=== PATIENT | female | born 1985 | race Caucasian/White ===

== ENCOUNTER 2016-05-03 13:09 | Emergency (ER) | payer OTHER ==
[~2016-05-03] VITALS: Ht 157.5 cm; Wt 90.0 kg
[~2016-05-03 13:09] MED LIST: ACET-1311 PO; ALBUAER2 INH; BCPILLS PO
[2016-05-03 13:13] VITALS: TEMP 36.4; Ht 157.5 cm; Wt 90.0 kg
[2016-05-03] MEDS ORDERED: DEXAMETHASONE SOD INJ 10 MG/ML VIAL IV STA (13:33)
[2016-05-03] MEDS ORDERED: ONDANSETRON INJ 2 MG/ML 2 ML VIAL IV STA (13:33)
[2016-05-03] MEDS ORDERED: HYDROmorphone INJ 1 MG/ML SYR IV STA (13:33)
[2016-05-03] MEDS ORDERED: CYCLOBENZAPRINE HCL 5 MG TAB PO STA (13:33)
[2016-05-03] MEDS ORDERED: CALC1CHW57 (13:47)
[2016-05-03] MEDS ORDERED: FLVHFA110 INH (13:47)
[2016-05-03] MEDS ORDERED: TOPI50TA16 PO (13:47)
--- NOTE | 2016-05-03 13:47 | EMERGENCY ROOM VISIT NOTE ---
ED Visit Note First contact with patient: 13:19 CHIEF COMPLAINT: "Can't walk, lower back pain" HISTORY OF PRESENT ILLNESS: This 30-year-old female patient presents to the emergency department via private vehicle accompanied by female cousin complaining of pain in the low back which began a few years ago, and notes that she has received injections in the past but has had an acute worsening. She states that she has been receiving injections beginning about one year ago by Dr. singh, and is received for self-harm which provide relief for a few months. She states that she was here last night with her daughter, and is also been moving and lifting heavy objects and believes that she has flared up her back pain. She states that it is positional, and with any movement such as sitting, standing or turning of the torso she experiences pain. She was brought back to her room via wheelchair. She points to the left lumbar/gluteal region as a location of the pain that she rates as a 10/10. She states that her left leg feels weak. She denies any urinary or bowel incontinence, numbness or tingling in genital region, urinary symptoms, falls, abdominal pain , fevers or chills. Patient denies any trauma or injury to the area. REVIEW OF SYSTEMS: A review of systems was performed with positives and pertinent negatives listed in the history of present illness. All other systems were reviewed and are negative. ALLERGIES: As noted below MEDICATIONS: As noted below PMH: Asthma, bronchitis, pneumonia, low back pain SOCIAL HISTORY: Patient lives at home, and has twins. PHYSICAL EXAM: VITALS: Vitals are noted on the nurse's note and reviewed by myself. Vital signs stable. GENERAL: 30-year-old female, in no acute distress, nondiaphoretic, well- developed well-nourished. SKIN: The skin was without rashes, erythema, edema, or bruising. Capillary refill less than 2 seconds. NECK: Supple without nuchal rigidity. No cervical spine tenderness. No paraspinous muscle tenderness. HEART: Regular rate and rhythm without murmurs gallops or rubs. LUNGS: Clear to auscultation bilaterally without wheezes, rales or rhonchi. ABDOMEN: Positive bowel sounds x 4. Normal tympanic percussion. Soft, nontender, without masses or organomegaly. MUSCULOSKELETAL: No muscle atrophy, erythema, or edema noted of the back. There is no tenderness over the lumbar spinous processes. There is positive tenderness over the paraspinous muscles of the left inferior lumbar spine. There is no tenderness over the thoracic spine or paraspinous muscles. There are minimal muscle spasms present overlying the left inferior lumbar region extending into the gluteal region on the left. The patient is slow to move around with maximum tenderness with left gluteal region/left inferior lumbar region. NEURO: Deep tendon reflexes 2+ in the lower extremities. Vascularly intact in lower extremity Strength 5/5 and equal in the bilateral lower extremities. EMERGENCY DEPARTMENT COURSE: Patient was seen and evaluated as above. After obtaining a thorough history and physical examination was apparent the patient was experiencing an acute exacerbation of her chronic low back pain. There was no bony tenderness. The pain distribution was overlying the chronic area of her sciatic nerve. There was radiation of pain to her left leg. There were no neurologic deficits, and the patient was able to axial load. IV access was initiated, she was provided with 1 mg Dilaudid IV, 4 mg of Zofran IV, 10 mg of Decadron IV, and 10 mg of Flexeril by mouth. She was reevaluated and was feeling slightly better. She requested more pain medication, therefore was given 0.5 more milligrams of Dilaudid. She was reevaluated and noted to be feeling better. She was offered admission to the hospital for pain control and further workup but declined. I do not suspect any emergent cause to the patient 's pain at this time. She will be discharged home with Flexeril and a Medrol Dosepak. She already receives a prescription for pain medication of which she is to fill. She is to follow up with Dr. singh, and her family doctor regarding today's visit. She was educated upon management, she had questions regarding discharge, was educated upon worrisome symptoms which to return and was discharged home in good condition. Urine dip was unremarkable, urine test was negative. I do not suspect any emergent causes or cauda equina syndrome. In the evaluation and treatment of this patient, the following differential diagnoses were considered: Hip Fracture, Hip Dislocation, Greater Trochanteric Bursitis, Musculoskeletal Pain, Lumbar Radiculopathy, acute exacerbation of chronic low back pain. Problem List Medical Problems: (1) Asthma Status: Chronic (2) Scoliosis Status: Chronic (3) Threatened miscarriage Status: Resolved Current/Historical Medications Scheduled Fluticasone Propionate (Flovent Hfa), 2 PUFFS INH BID Methylprednisolone (Medrol Dosepak), 0 PO DAILY Topiramate (Topamax), 1 TAB PO BID Scheduled PRN Cyclobenzaprine Hcl (Flexeril), 10 MG PO TID PRN for Muscle Spasms Miscellaneous Medications Calcium W/ Vitamins D & K (Calcium + D) Allergies Coded Allergies: Penicillins (Verified Allergy, Unknown, RASH, 05/03/16) Diphenhydramine (Verified Adverse Reaction, Unknown, SLEEPS, 05/03/16) Uncoded Allergies: Pharbedryl (Allergy, Mild, Nausea/vomiting, 06/30/13) Vital Signs Date Time Temp Pulse Resp B/P Pulse Ox O2 Delivery O2 Flow Rate FiO2 05/03/16 16:22 78 18 130/80 96 05/03/16 15:16 77 18 125/76 96 05/03/16 14:56 57 18 115/57 93 Room Air 05/03/16 13:13 36.4 92 17 128/85 97 Room Air Laboratory Results Test 05/03/16 13:33 Medications Administered Medications (Trade) Dose Ordered Sig/Sarah Route Start Time Stop Time Status Last Admin Dose Admin Hydromorphone HCl (Dilaudid Inj) 1 mg NOW STAT IV 05/03/16 13:33 05/03/16 13:35 DC 05/03/16 14:01 1 MG Ondansetron HCl (Zofran Inj) 4 mg NOW STAT IV 05/03/16 13:33 05/03/16 13:35 DC 05/03/16 14:01 4 MG Dexamethasone Sodium Phosphate (Decadron Inj) 10 mg NOW STAT IV 05/03/16 13:33 05/03/16 13:35 DC 05/03/16 14:00 10 MG Cyclobenzaprine HCl (Flexeril Tab) 10 mg NOW STAT PO 05/03/16 13:33 05/03/16 13:35 DC 05/03/16 14:09 10 MG Hydromorphone HCl (Dilaudid Inj) 0.5 mg NOW STAT IV 05/03/16 14:52 05/03/16 14:53 DC 05/03/16 15:16 0.5 MG Departure Information Impression Primary Impression: Acute exacerbation of chronic low back pain Dispostion Home / Self-Care Condition GOOD Prescriptions Cyclobenzaprine Hcl (FLEXERIL) 10 Mg Tab 10 MG PO TID Y for Muscle Spasms for 5 Days, #15 TAB Prov: Sai Alcaraz PA-C 05/03/16 Methylprednisolone (MEDROL DOSEPAK) 4 Mg [place] 0 PO DAILY, #1 PKT Prov: Sai Alcaraz PA-C 05/03/16 Referrals Audra Joya DO (PCP) Patient Instructions My [facility] Additional Instructions You have been treated in the Emergency Department for Back Pain. You have received pain medicine in the emergency department which impairs your ability to operate a vehicle. It is illegal for you to drive after receiving these medicines. You have been prescribed Flexeril (cyclobenzaprine) 1 tabs orally, three times per day NEEDED FOR MUSCLE SPASMS. Do NOT exceed 30 mg (6 tabs) per day. Take your first dose at bedtime as it can make you drowsy. Always take all medications as prescribed. You have been prescribed a Medrol Dosepak. Take this medication as prescribed. You should take the COMPLETE 6-day course of this medication. This is an anti- inflammatory medicine that will help to minimize your symptoms. For pain control, you can use the following [id number] medicines (if >12 yo): - Regular strength (325mg/tab) Tylenol (acetaminophen) 2 tabs every 4-6 hours as needed. Do not exceed 12 tablets in a 24 hour period. Avoid taking more than 4 grams (4000 mg) of Tylenol per day. This includes any other sources of acetaminophen you may take on a regular basis. - Regular strength (200 mg/tab) Advil (ibuprofen) 1-2 tabs every 4-6 hours as needed. Do not exceed a dose of 3200 mg per day. If this is an acute injury, ice can be applied to the area of pain for the first 3 days to help decrease pain and inflammation. After the first 3 days, a heating pad can be used over the area for continued soothing relief. You should schedule a follow-up appointment in 2-3 days with your Primary Care Provider for further evaluation and treatment of your back pain. Please keep your scheduled appointment for your back injections. Return to the Emergency Department if your current symptoms worsen despite treatment course outlined above, or if you develop any of the following symptoms : intractable pain despite aforementioned treatment course, loss of control of your bowel or bladder, numbness or tingling in your groin, or development of a fever. Please return to the emergency department with any new/concerning symptoms.
[2016-05-03] MEDS ORDERED: HYDROmorphone INJ 0.5 MG/0.5 ML SYR IV STA (14:52)
[2016-05-03] MEDS ORDERED: CYCL10TA6 PO (15:33)
[2016-05-03] MEDS ORDERED: METH4PAK PO (15:33)
[2016-05-03 16:22] VITALS: BP 130/80; PULSE 78; O2SAT 96
== END 2016-05-03 16:24 | disposition home or self-care (01) ==
LOC: C.EDB 13:11 → C.EDD 16:24
DX: M54.5 Low back pain (principal); G89.29 Other chronic pain; J45.909 Unspecified asthma, uncomplicated; M41.9 Scoliosis, unspecified; Z79.899 Other long term (current) drug therapy

== ENCOUNTER 2016-08-02 08:06 | Emergency (ER) | payer OTHER ==
[~2016-08-02] VITALS: Ht 157.5 cm; Wt 117.0 kg
[~2016-08-02 08:06] MED LIST changes: -ACET-1311 PO; -ALBUAER2 INH; -BCPILLS PO; +CALC1CHW57; +FLVHFA110 INH; +TOPI50TA16 PO
[2016-08-02 08:10] VITALS: TEMP 36.6; Ht 157.5 cm; Wt 117.0 kg
--- NOTE | 2016-08-02 08:19 | EMERGENCY ROOM VISIT NOTE ---
History First contact with patient: 08:10 Chief Complaint: CHEST PAIN Stated Complaint: CHEST PAIN,LEG ISSUE,SHORT OF BREATH Nursing Triage Summary: pt states, "it feels like theres a baby kicking my leg and now Im having chest pain." pt c/o right stabbing leg pain. denies edema or redness. pt c/o midsternal chest pain that radiates to right chest wall. c/o slight SOB History of Present Illness The patient is a 31 year old female who presents to the Emergency Room with complaints of discomfort and unusual feeling in her right calf for the past 4 days. She describes it as "like there is a baby inside my leg kicking and moving around." She also complains of intermittent stabbing pains in the posterior calf. Pain is worse with walking. She currently rates her leg pain as 10/10, but states "it is discomfort, not pain." She denies any injury to the leg, redness or swelling, recent long travel or surgery, exogenous estrogen use. Today she started having some symptoms of chest tightness, shortness of breath, lightheadedness, and nausea. She states she gets frequent panic attacks and this feels similar to that, but states "I just don't know why I would be anxious right now." She did not try any medications for her pain. She denies any fevers, chills, diaphoresis, vomiting, diarrhea, constipation, abdominal pain, dysuria or urinary frequency, hematuria, abnormal vaginal bleeding. Review of Systems A complete 10 point review of systems was reviewed with the patient with pertinent positives and negatives as per history of present illness. All else were negative. Past Medical/Surgical History Medical Problems: (1) Asthma (2) Scoliosis (3) Threatened miscarriage Family History Diabetes mellitus FH: cancer FH: heart disease Social History Smoking Status: Never Smoker Alcohol Use: none Marital Status: single Occupation Status: employed Current/Historical Medications Scheduled Albuterol Hfa (Ventolin Hfa), 2 PUFFS INH Q4H Fluticasone Propionate (Flovent Hfa), 2 PUFFS INH BID Gabapentin (Gabapentin), 300 MG PO QPM Hydroxychloroquine Sulfate (Hydroxychloroquine Sulfat), 400 MG PO HS Meloxicam (Meloxicam), 15 MG PO HS Topiramate (Topamax), 50 MG PO BID Topiramate (Topiramate), 25 MG PO BID [Calcium&Vitd Pow], 2 PKT PO DAILY Scheduled PRN Oxycodone/Acetaminophen 5MG/325MG (Oxycodone/Acetaminophen 5MG/325MG), 1 TAB PO Q4H PRN for Pain Allergies Coded Allergies: Penicillins (Verified Allergy, Unknown, RASH, 08/02/16) Diphenhydramine (Verified Adverse Reaction, Unknown, SLEEPS, 08/02/16) Uncoded Allergies: Pharbedryl (Allergy, Mild, Nausea/vomiting, 06/30/13) Physical Exam Vital Signs Date Time Temp Pulse Resp B/P (MAP) Pulse Ox O2 Delivery O2 Flow Rate FiO2 08/02/16 11:06 57 16 94/62 97 08/02/16 10:06 57 16 108/45 97 Room Air 08/02/16 08:10 36.6 75 18 110/81 95 Room Air 08/02/16 08:10 96 Room Air Physical Exam CONSTITUTIONAL: No acute distress. Nontoxic appearing. Well appearing and well nourished. Alert and oriented X 4 with normal affect. HEENT: Normocephalic, atraumatic. Pupils equal, round and reactive to light, EOMI. TMs normal. Pharynx normal. Moist mucous membranes. NECK: Supple, full active range of motion without discomfort. RESPIRATORY: Clear to auscultation bilaterally with no wheezing, crackles, rhonchi or stridor. Equal expansion bilaterally. CARDIOVASCULAR: Regular rate and rhythm with no murmurs, rubs or gallops. Normal peripheral perfusion. No edema. GASTROINTESTINAL: Soft, nontender, nondistended. Bowel sounds present in all quadrants. MUSCULOSKELETAL: Full range of motion of all joints without discomfort. There is tenderness to the right posterior calf with palpation, no erythema, swelling , crepitus on palpation. INTEGUMENTARY: No rash or other significant dermatologic conditions noted. NEUROLOGIC: Cranial nerves II-XII grossly intact. No focal neurologic deficits noted. Medical Decision & Procedures ER Provider Diagnostic Interpretation: RIGHT LOWER EXTREMITY VENOUS DOPPLER HISTORY: Right leg pain. COMPARISON STUDY: None. FINDINGS: There is normal compressibility, flow, and augmentation within the right lower extremity deep venous system. IMPRESSION: No DVT within the right lower extremity ----- CHEST 2 VIEWS ROUTINE CLINICAL HISTORY: chest pain, SOB dyspnea COMPARISON STUDY: No previous studies for comparison. FINDINGS: 03/01/2013 IMPRESSION: Negative chest. Laboratory Results 08/02/16 08:25 Red Blood Count 4.29, Mean Corpuscular Volume 92.1, Mean Corpuscular Hemoglobin 30.3, Mean Corpuscular Hemoglobin Concent 32.9, Mean Platelet Volume 9.4, Neutrophils (%) (Auto) 58.7, Lymphocytes (%) (Auto) 32.4, Monocytes (%) (Auto) 6.1, Eosinophils (%) (Auto) 2.0, Basophils (%) (Auto) 0.7, Neutrophils # (Auto) 4.06, Lymphocytes # (Auto) 2.24, Monocytes # (Auto) 0.42, Eosinophils # (Auto) 0.14, Basophils # (Auto) 0.05 08/02/16 08:25 Test 08/02/16 08:19 08/02/16 08:25 08/02/16 11:15 Bedside Urine Test NEG (NEG) White Blood Count 6.92 K/uL (4.8-10.8) Red Blood Count 4.29 M/uL (4.2-5.4) Hemoglobin 13.0 g/dL (12.0-16.0) Hematocrit 39.5 % (37-47) Mean Corpuscular Volume 92.1 fL (80-100) Mean Corpuscular Hemoglobin 30.3 pg (25-34) Mean Corpuscular Hemoglobin Concent 32.9 g/dl (32-36) Platelet Count 322 K/uL (130-400) Mean Platelet Volume 9.4 fL (7.4-10.4) Neutrophils (%) (Auto) 58.7 % Lymphocytes (%) (Auto) 32.4 % Monocytes (%) (Auto) 6.1 % Eosinophils (%) (Auto) 2.0 % Basophils (%) (Auto) 0.7 % Neutrophils # (Auto) 4.06 K/uL (1.4-6.5) Lymphocytes # (Auto) 2.24 K/uL (1.2-3.4) Monocytes # (Auto) 0.42 K/uL (0.11-0.59) Eosinophils # (Auto) 0.14 K/uL (0-0.5) Basophils # (Auto) 0.05 K/uL (0-0.2) RDW Standard Deviation 44.1 fL (36.4-46.3) RDW Coefficient of Variation 13.4 % (11.5-14.5) Immature Granulocyte % (Auto) 0.1 % Immature Granulocyte # (Auto) 0.01 K/uL (0.00-0.02) Anion Gap 7.0 mmol/L (3-11) Est Creatinine Clear Calc Drug Dose 136.8 ml/min Estimated GFR () 129.7 Estimated GFR (Non- 111.9 BUN/Creatinine Ratio 13.5 (10-20) Calcium Level 8.8 mg/dl (8.5-10.1) Magnesium Level 2.2 mg/dl (1.8-2.4) Total Bilirubin 0.4 mg/dl (0.2-1) Aspartate Amino Transf (AST/SGOT) 25 U/L (15-37) Alanine Aminotransferase (ALT/SGPT) 32 U/L (12-78) Alkaline Phosphatase 78 U/L (45-117) Total Protein 7.9 gm/dl (6.4-8.2) Albumin 3.9 gm/dl (3.4-5.0) Globulin 4.0 gm/dl (2.5-4.0) Albumin/Globulin Ratio 1.0 (0.9-2) Thyroid Stimulating Hormone (TSH) 1.750 uIu/ml (0.300-4.500) Urine Color YELLOW Urine Appearance CLEAR (CLEAR) Urine pH 7.0 (4.5-7.5) Urine Specific [place] 1.009 (1.000-1.030) Urine Protein NEG (NEG) Urine Glucose (UA) NEG (NEG) Urine Ketones NEG (NEG) Urine Occult Blood NEG (NEG) Urine Nitrite NEG (NEG) Urine Bilirubin NEG (NEG) Urine Urobilinogen NEG (NEG) Urine Leukocyte Esterase NEG (NEG) Medications Administered Medications (Trade) Dose Ordered Sig/Sarah Route Start Time Stop Time Status Last Admin Dose Admin Sodium Chloride 1,000 ml @ 999 mls/hr Q1H1M STAT IV 08/02/16 08:45 08/02/16 09:45 DC 08/02/16 09:00 999 MLS/HR Morphine Sulfate (MoRPHine SULFATE INJ) 4 mg NOW STAT IV 08/02/16 08:51 08/02/16 08:52 DC 08/02/16 08:59 4 MG Ketorolac Tromethamine (Toradol Inj) 15 mg NOW STAT IV 08/02/16 10:34 08/02/16 10:36 DC 08/02/16 11:14 15 MG Lorazepam (Ativan Inj) 1 mg NOW STAT IV 08/02/16 10:52 08/02/16 10:53 DC 08/02/16 11:13 1 MG ECG Indication: chest pain Rate (beats per minute): 67 Rhythm: normal sinus Findings: no acute ischemic change, no ectopy Comparison ECG Date: no prior available Medical Decision CC: Patient presenting with complaint of right leg pain Interpretation of Labs: No leukocytosis, no anemia, no significant electrolyte abnormalities, normal renal function, normal liver function, normal TSH. No UTI. Negative . Differential Diagnosis: Includes, but not limited to acute coronary syndrome, pulmonary embolism, aortic dissection, pneumothorax, pericarditis, DVT, anxiety , musculoskeletal pain/strain/spasm , GERD, costochondritis, pneumonia, among others. Medication Reconciliation: I attest that I have personally reviewed the patient' s current medication list. Vital signs review: I reviewed the patient's vital signs and interpret them as follows: T: Afebrile; BP: Normotensive; HR: Within normal limits; RR: Within normal limits; Pulse Ox: Within normal limits on room air. Blood pressure screening: The patient was found to have normal blood pressure on screening and does not require follow-up for repeat blood pressure check. Summary: Patient was evaluated at bedside, history of physical exam performed. Patient is alert and oriented, and in no acute distress, though she does appear anxious. She has tenderness to the right posterior calf with palpation, no erythema or swelling appreciated, the calf does not appear cellulitic. Heart and lung exam are normal. EKG reviewed at bedside, normal sinus rhythm with no ischemic concerns. Orders were placed at bedside for labs, urinalysis, EKG, chest x-ray, and venous duplex of the right lower extremity to evaluate for DVT. Labs reviewed, unremarkable as discussed above. Chest x-ray reviewed and unremarkable. I have a very low suspicion for acute coronary syndrome, chest discomfort is atypical and no EKG changes. Negative PERC rule for PE and duplex is negative for DVT. I suspect patient's leg symptoms are due to muscle spasms or cramping, I discussed stretching techniques with the patient to help relieve this. I suspect patient's other symptoms of chest tightness, shortness of breath, nausea, lightheadedness all secondary to her anxiety and probable panic attack, which have all resolved. Patient discussed with Dr. Pendleton, who agrees with my assessment and plan. Patient reassessed multiple times throughout ED stay, she is much improved after interventions, especially after the Ativan, her leg pain is improved and her chest pain/shortness of breath/nausea are all resolved. Discussed plan for discharge, with plan for follow up, patient verbalized understanding. Patient was discharged home in stable condition and ambulatory. Impression Primary Impression: Leg muscle spasm Additional Impression: Anxiety attack Departure Information Dispostion Home / Self-Care Condition GOOD Referrals No Doctor, Assigned (PCP) Patient Instructions My [facility] Additional Instructions You have been treated in the Emergency Department your right leg pain and anxiety. Laboratory results and imaging studies have ruled out any emergent causes for your abdominal pain which would warrant admission or surgery. For pain control, you can use the following [id number]-[id number]-nbqzguh medicines (if >12 yo): - Regular strength (325mg/tab) Tylenol (acetaminophen) 2 tabs every 6 hours as needed. Do not exceed 10 tablets in a 24 hour period. Avoid taking more than 3 grams (3000 mg) of Tylenol per day. This includes any other sources of acetaminophen you may take on a regular basis. - Regular strength (200 mg/tab) Advil (ibuprofen) 1-2 tabs every 4-6 hours as needed. Do not exceed a dose of 3200 mg per day. Drink plenty of water and stay well hydrated. You should use warm compresses to your leg and do stretching exercises as discussed to help relieve muscle pain in your calf. As with any trip to the Emergency Department, you should follow-up with your Primary Care Provider from today's visit. You should also discuss management of your anxiety with your PCP. Return to the emergency department if your symptoms persist despite treatment plan outlined above or if the following symptoms occur: increased fevers, chills , worsening chest pain or shortness of breath, vomiting up blood, worsening pain or swelling/redness in your leg, or any other concerns. Problem Qualifiers Primary Impression: Leg muscle spasm Laterality: right Qualified Codes: M62.838 - Other muscle spasm
[2016-08-02] MEDS ORDERED: SODIUM CHLORIDE 0.9% 1000ML 1,000 ML IV STA (08:45)
[2016-08-02] MEDS ORDERED: MoRPHine SULFATE 4 MG/ML 1 ML CARP\\VIAL IV STA (08:51)
[2016-08-02 09:02] LABS: BASO % 0.7 %; BASO ABS # 0.05 K/uL (0-0.2); COMPLETE YES; HEMATOCRIT 39.5 % (37-47); IG% 0.1 %; LYMPH % 32.4 %; LYMPH ABS # 2.24 K/uL (1.2-3.4); MEAN CELL VOLUME 92.1 fL (80-100); MEAN CORPUSCULAR HEMOGLOBIN 30.3 pg (25-34); MEAN CORPUSCULAR HGB CONC 32.9 g/dl (32-36); MEAN PLATELET VOLUME 9.4 fL (7.4-10.4); MONO % 6.1 %; NEUT % 58.7 %; PLATELET COUNT 322 K/uL (130-400); RED BLOOD COUNT 4.29 M/uL (4.2-5.4); WHITE BLOOD COUNT 6.92 K/uL (4.8-10.8)
[2016-08-02 09:09] LABS: BUN/CREATININE RATIO 13.5 (10-20); CREATININE 0.71 mg/dl (0.60-1.20); MAGNESIUM 2.2 mg/dl (1.8-2.4); POTASSIUM 3.9 mmol/L (3.5-5.1)
[2016-08-02 09:12] LABS: CALCIUM 8.8 mg/dl (8.5-10.1)
[2016-08-02] MEDS ORDERED: MELO15TA4 PO (09:14)
[2016-08-02] MEDS ORDERED: OXYC-643 PO (09:14)
[2016-08-02] MEDS ORDERED: GABA1CAP4 PO (09:14)
[2016-08-02] MEDS ORDERED: TPM25 PO (09:14)
[2016-08-02] MEDS ORDERED: VNTHFA/IN INH (09:14)
[2016-08-02] MEDS ORDERED: VITD PO (09:14)
[2016-08-02] MEDS ORDERED: PLQ200 PO (09:14)
[2016-08-02] MEDS ORDERED: CALCIUM PO (09:14)
[2016-08-02 09:20] LABS: THYROID STIMULATING HORMONE 1.75 uIu/ml (0.300-4.500)
--- NOTE | 2016-08-02 09:39 | DIAGNOSTIC IMAGING REPORT ---
CHEST 2 VIEWS ROUTINE CLINICAL HISTORY: chest pain, SOB dyspnea COMPARISON STUDY: No previous studies for comparison. FINDINGS: 03/01/2013 IMPRESSION: Negative chest. Electronically signed by: Emile Palafox M.D. 08/02/2016 9:37 AM Dictated Date/Time: 08/02/2016 9:37 AM
--- NOTE | 2016-08-02 09:58 | DIAGNOSTIC IMAGING REPORT ---
RIGHT LOWER EXTREMITY VENOUS DOPPLER HISTORY: Right leg pain. COMPARISON STUDY: None. FINDINGS: There is normal compressibility, flow, and augmentation within the right lower extremity deep venous system. IMPRESSION: No DVT within the right lower extremity Electronically signed by: Jasiel Davis M.D. 08/02/2016 9:56 AM Dictated Date/Time: 08/02/2016 9:56 AM
[2016-08-02] MEDS ORDERED: KETOROLAC TROMETHAMINE 30 MG/ML VIAL IV STA (10:34)
[2016-08-02] MEDS ORDERED: LORAZEPAM 2 MG/ML 1 ML VIAL IV STA (10:52)
[2016-08-02 11:06] VITALS: BP 94/62; PULSE 57; O2SAT 97
[2016-08-02 11:38] LABS: URINE APPEARANCE CLEAR (CLEAR); URINE BILIRUBIN NEG (NEG); URINE COLOR YELLOW; URINE NITRITE NEG (NEG); URINE SPECIFIC GRAVITY 1.009 (1.000-1.030); UROBILINOGEN NEG (NEG); ZZUR CULT IF INDIC CLEAN CATCH NO
[2016-08-02 11:46] LABS: MANUAL MICROSCOPIC REQUIRED? NO; REVIEW REQ? NO
== END 2016-08-02 12:25 | disposition home or self-care (01) ==
LOC: C.EDB 08:08
DX: M62.838 Other muscle spasm (principal); F41.9 Anxiety disorder, unspecified; J45.909 Unspecified asthma, uncomplicated; M41.9 Scoliosis, unspecified; Z83.3 Family history of diabetes mellitus; Z80.9 Family history of malignant neoplasm, unspecified; Z82.49 Family history of ischemic heart disease and other diseases of the circulatory system; Z79.899 Other long term (current) drug therapy

== ENCOUNTER 2016-10-23 09:52 | Emergency (ER) | payer OTHER ==
[~2016-10-23] VITALS: Ht 157.5 cm; Wt 108.0 kg
[~2016-10-23 09:52] MED LIST changes: -CALC1CHW57; +CALCIUM PO; +GABA1CAP4 PO; +MELO15TA4 PO; +OXYC-643 PO; +PLQ200 PO; +TPM25 PO; +VITD PO; +VNTHFA/IN INH
[2016-10-23 09:56] VITALS: TEMP 36.5; Ht 157.5 cm; Wt 108.0 kg
[2016-10-23] MEDS ORDERED: VITA1TAB22 PO (10:07)
[2016-10-23] MEDS ORDERED: MULTTAB58 PO (10:07)
[2016-10-23] MEDS ORDERED: [UNRECOGNIZED DRUG - CODE] PO (10:07)
[2016-10-23] MEDS ORDERED: PROMETHAZINE HCL INJ 25 MG/ML 1 ML VIAL IM STA (10:23)
[2016-10-23] MEDS ORDERED: HYDROmorphone INJ 1 MG/ML SYR IM STA (10:23)
[2016-10-23] MEDS ORDERED: DEXAMETHASONE SOD INJ 10 MG/ML VIAL IM ONE (10:30)
--- NOTE | 2016-10-23 11:15 | EMERGENCY ROOM VISIT NOTE ---
History Report prepared by Saad: Lynsey Moncada Under the Supervision of: Dr. Delilah Cortes M.D. First contact with patient: 10:13 Chief Complaint: BACK PAIN Stated Complaint: LOWER BACK, LEG PAIN, CAN'T WALK, COUGH History of Present Illness The patient is a 31 year old female who presents to the Emergency Room with complaints of worsening back pain since yesterday morning. The patient has a history of back problems and states that her back "gives out" a couple of times a year. She has been getting injections with Dr. Maher and that has been helping. Yesterday she bent over to get her boots and her back started to hurt. This pain worsened throughout the day. Her pain radiates down into her left leg. Movement exacerbates her pain, while leaning to the left side helps to alleviate it slightly. She rates her pain as a 10/10 in severity. The patient states that typically she alternates hot and cold compresses and takes her Percocet, but this has not been helping this time. She had some diarrhea throughout the night, states she was not able to make it to the bathroom times one however has had no clear loss of bowel or bladder function. The patient called Dr. Maher' office this morning and was advised to come to the ED for further evaluation because they could not see her in the office today. Source of History: patient Onset: yesterday morning Position: back Symptom Intensity: 10/10 Quality: other (radiating) Timing: worsening Modifying Factors (Worsening): movement Modifying Factors (Relieving): other (leaning left) Associated Symptoms: + diarrhea Review of Systems See HPI for pertinent positives & negatives. A total of 10 systems reviewed and were otherwise negative. Past Medical & Surgical Medical Problems: (1) Asthma (2) Scoliosis (3) Threatened miscarriage Family History Diabetes mellitus FH: cancer FH: heart disease Social History Smoking Status: Never Smoker Alcohol Use: none Marital Status: single Occupation Status: employed Current/Historical Medications Scheduled Albuterol Hfa (Ventolin Hfa), 2 PUFFS INH Q4H Fluticasone Propionate (Flovent Hfa), 2 PUFFS INH BID Gabapentin (Gabapentin), 300 MG PO QPM Hydroxychloroquine Sulfate (Hydroxychloroquine Sulfat), 400 MG PO HS Meloxicam (Meloxicam), 15 MG PO HS Multiple Vitamin (Multivitamin), 1 TAB PO DAILY Prednisone (Prednisone), 10 MG PO DIRECTED Topiramate (Topamax), 50 MG PO BID Topiramate (Topiramate), 25 MG PO BID Vitamin D & K (K2 Plus D3 100-1000 Mcg-Unit), 1 TAB PO DAILY [Opc-3], 1 DOSE PO DAILY Scheduled PRN Cyclobenzaprine Hcl (Flexeril), 10 MG PO TID PRN for Muscle Spasms Oxycodone/Acetaminophen 5MG/325MG (Oxycodone/Acetaminophen 5MG/325MG), 1 TAB PO Q4H PRN for Pain Allergies Coded Allergies: Penicillins (Verified Allergy, Unknown, RASH, 08/02/16) Diphenhydramine (Verified Adverse Reaction, Unknown, SLEEPS, 08/02/16) Uncoded Allergies: Pharbedryl (Allergy, Mild, Nausea/vomiting, 06/30/13) Physical Exam Vital Signs Date Time Temp Pulse Resp B/P (MAP) Pulse Ox O2 Delivery O2 Flow Rate FiO2 10/23/16 12:40 55 14 95/40 99 10/23/16 11:51 53 18 94/41 98 Room Air 10/23/16 10:53 60 16 106/51 97 Room Air 10/23/16 09:56 36.5 80 18 135/79 97 Room Air Physical Exam Vital signs reviewed. General: Well-appearing 31 year old female, in no significant distress. HEENT: No scleral icterus, PERRLA, neck supple. Atraumatic. Cardiovascular: Regular rate and rhythm, no extra sounds. Pulmonary: Clear to auscultation bilaterally, normal work of breathing. Abdomen: Obese, soft, nontender, nondistended, positive bowel sounds. Musculoskeletal: Atraumatic, no peripheral edema. Tender to palpation over the left flank/paraspinous muscles. Pain to the left flank with movement of the left lower extremity. Unable to relax the left leg enough to assess deep tendon reflexes. Neurologic: Patient awake alert and oriented x 3, equal strength in all 4 extremities. Skin: Warm, dry, no rash Medical Decision & Procedures Medications Administered Medications (Trade) Dose Ordered Sig/Sarah Route Start Time Stop Time Status Last Admin Dose Admin Hydromorphone HCl (Dilaudid Inj) 1 mg NOW STAT IM 10/23/16 10:23 10/23/16 10:26 DC 10/23/16 10:44 1 MG Dexamethasone Sodium Phosphate (Decadron Inj) 10 mg NOW ONCE IM 10/23/16 10:30 10/23/16 10:31 DC 10/23/16 10:43 10 MG Promethazine HCl (Phenergan Inj) 25 mg NOW STAT IM 10/23/16 10:23 10/23/16 10:26 DC 10/23/16 10:43 25 MG Cyclobenzaprine HCl (Flexeril Tab) 10 mg NOW STAT PO 10/23/16 11:38 10/23/16 11:39 DC 10/23/16 11:53 10 MG Acetaminophen/ Hydrocodone Bitart (Conway 7.5/325 Tab) 1 tab NOW STAT PO 10/23/16 11:38 10/23/16 11:39 DC 10/23/16 11:53 1 TAB ED Course 1021: Past medical records reviewed. The patient was evaluated in room B12B. A complete history and physical examination was performed. 1023: Phenergan 25 mg IM, Dilaudid 1 mg IM 1030: Decadron 10 mg IM 1137: I reassessed the patient at this time. She is feeling better and resting comfortably. I discussed the results and treatment plan with the patient. I answered all pertaining questions that she had. She expressed understanding and verbalized agreement. The patient will be discharged home. 1138: Conway 7.5/325 1 tab PO, Flexeril 10 mg PO Medical Decision Differential diagnosis: Etiologies such as musculoskeletal, disc herniation, fracture, aortic disease, metastatic disease, cord compression, discitis, infection, renal colic, gastrointestinal, acute exacerbation of chronic back pain, sciatica, cauda equina, as well as others were entertained. This patient was evaluated and appeared to be in discomfort. Patient was sitting up at the bedside leaning to the left. Patient requested pain medications, she was given 1 mg of IM Dilaudid, IM dexamethasone and IM Phenergan. The patient was reassessed and was lying in the bed. She had some improvement of symptoms but did not have complete resolution of the pain. I did explain to the patient that she would need to be on a prednisone taper. This is not new pain for her she is had multiple MRIs and previous by injections. I do not think further imaging is warranted currently. She was then given a Conway tablet and Flexeril 10 mg. She is advised to follow-up with Dr. maher this week and return to the ER for worsening of symptoms or any medical concerns. Medication Reconcilliation Current Medication List: was personally reviewed by me Blood Pressure Screening Patient's blood pressure: Normal blood pressure Hypotensive due to medications. Impression Primary Impression: Lumbar back pain with radiculopathy affecting left lower extremity Scribe Attestation The scribe's documentation has been prepared under my direction and personally reviewed by me in its entirety. I confirm that the note above accurately reflects all work, treatment, procedures, and medical decision making performed by me. Departure Information Dispostion Home / Self-Care Prescriptions Cyclobenzaprine Hcl (FLEXERIL) 10 Mg Tab 10 MG PO TID Y for Muscle Spasms, #21 TAB Prov: Delilah Cortes M.D. 10/23/16 Prednisone (Prednisone) 10 Mg Tab 10 MG PO DIRECTED, #31 TAB 40 mg daily for 4 days, 30 mg daily for 3 days, 20 mg daily for 2 days, 10 mg for 2 days. Prov: Delilah Cortes M.D. 10/23/16 Referrals Vishnu Maher D.O. (PCP) Forms HOME CARE DOCUMENTATION FORM, IMPORTANT VISIT INFORMATION Patient Instructions My [facility] Additional Instructions Diagnosis: Left lumbar back pain with radiculopathy Prednisone 40 mg daily for 4 more days, 30 mg daily for 3 days, 20 mg daily for 2 days, 10 mg daily for 2 days. Flexeril 10 mg 3 times daily as needed for muscle spasm. Warm compresses and gentle stretching. Follow-up with Dr. Maher for further management. Return to the ER for worsening of symptoms or any medical concerns.
[2016-10-23] MEDS ORDERED: CYCLOBENZAPRINE HCL 10 MG TAB PO STA (11:38)
[2016-10-23] MEDS ORDERED: HYDROCODONE/ACETAMINOPHEN 7.5/325MG TAB PO STA (11:38)
[2016-10-23] MEDS ORDERED: PRED10TA PO (12:30)
[2016-10-23] MEDS ORDERED: CYCL10TA6 PO (12:30)
[2016-10-23 12:40] VITALS: BP 95/40; PULSE 55; O2SAT 99
== END 2016-10-23 12:40 | disposition home or self-care (01) ==
LOC: C.EDB 09:57
DX: M54.16 Radiculopathy, lumbar region (principal); R19.7 Diarrhea, unspecified; J45.909 Unspecified asthma, uncomplicated; M41.9 Scoliosis, unspecified; Z83.3 Family history of diabetes mellitus

== ENCOUNTER 2016-12-25 22:24 | Emergency (ER) | payer OTHER ==
[~2016-12-25] VITALS: Ht 160 cm; Wt 111.8 kg
[~2016-12-25 22:24] MED LIST changes: -CALCIUM PO; +MULTTAB58 PO; +PRED10TA PO; +VITA1TAB22 PO; -VITD PO; +[UNRECOGNIZED DRUG - CODE] PO
[2016-12-25 22:26] VITALS: Ht 160 cm; Wt 111.8 kg
[2016-12-25] MEDS ORDERED: SULF800T23 PO (23:20)
[2016-12-25 23:30] VITALS: BP 132/80; PULSE 80; TEMP 36.6; O2SAT 98
[2016-12-25] MEDS ORDERED: SEPTRA DS HOME PACK 1 EA VIAL PO ONE (23:30)
[2016-12-25] MEDS ORDERED: FLUCONAZOLE 50 MG TAB PO ONE (23:30)
--- NOTE | 2016-12-26 05:33 | EMERGENCY ROOM VISIT NOTE ---
History First contact with patient: 23:03 Chief Complaint: PELVIC PAIN Stated Complaint: STOMACH, PELVIC PAIN History of Present Illness The patient is a 31 year old female who presents to the Emergency Room with complaints of ongoing pelvic pain for the past 4 or 5 days. The patient states that she went to her primary care physician with this complaint a few days ago where she had a pelvic exam, vaginal cultures, and urine culture. The patient states that she received a phone call today that her vaginal cultures had a preliminary positive with "staph". The patient states that she is unsure if she was to start any antibiotics, as she did not receive a message that they were being sent to her pharmacy. The patient did call her pharmacy, and they were closed. The patient also is concerned about a yeast infection, which she also states is being untreated. The patient does not have fever, chills, chest pain, or significant abdominal pain. Her discomfort is in the lower abdomen. She does have some dysuria. She rates her discomfort a 6/10. The patient presents to the ER as she would like to start antibiotics. Review of Systems More than 10 systems were reviewed and otherwise negative with the exception of history of present illness. Past Medical/Surgical History Medical Problems: (1) Asthma (2) Scoliosis (3) Threatened miscarriage Family History Diabetes mellitus FH: cancer FH: heart disease Social History Smoking Status: Never Smoker Alcohol Use: none Marital Status: single Occupation Status: employed Current/Historical Medications Scheduled Fluticasone Propionate (Flovent Hfa), 2 PUFFS INH BID Gabapentin (Gabapentin), 300 MG PO QPM Hydroxychloroquine Sulfate (Hydroxychloroquine Sulfat), 400 MG PO HS Meloxicam (Meloxicam), 15 MG PO HS Multiple Vitamin (Multivitamin), 1 TAB PO DAILY Sulfamethoxazole-Trimethoprim (Bactrim Ds 800MG/160MG), 1 TAB PO BID Topiramate (Topamax), 50 MG PO BID Topiramate (Topiramate), 25 MG PO BID Vitamin D & K (K2 Plus D3 100-1000 Mcg-Unit), 1 TAB PO DAILY [Opc-3], 1 DOSE PO DAILY Scheduled PRN Albuterol Hfa (Ventolin Hfa), 2 PUFFS INH Q4H PRN for SOB/Wheezing Oxycodone/Acetaminophen 5MG/325MG (Oxycodone/Acetaminophen 5MG/325MG), 1 TAB PO Q4H PRN for Pain Physical Exam Vital Signs Date Time Temp Pulse Resp B/P (MAP) Pulse Ox O2 Delivery O2 Flow Rate FiO2 12/25/16 23:30 36.6 80 18 132/80 98 Room Air 12/25/16 22:26 36.5 88 18 132/86 98 Room Air Physical Exam VITALS: Vitals are noted on the nurse's note and reviewed by myself. Vital signs stable. GENERAL: Well-developed, well-nourished, white female, who is in no acute distress and resting comfortably. Patient is cooperative with the examination. HEART: Regular rate and rhythm without murmurs gallops or rubs. LUNGS: Clear to auscultation bilaterally without wheezes, rales or rhonchi. No retractions or accessory muscle use. ABDOMEN: Positive normal bowel sounds x 4. Soft, nontender, without masses or organomegaly. No guarding or rebound tenderness. MUSCULOSKELETAL: No muscle atrophy, erythema, or edema noted. Full range of motion without joint tenderness in all extremities. Medical Decision & Procedures Medications Administered Medications (Trade) Dose Ordered Sig/Sarah Route Start Time Stop Time Status Last Admin Dose Admin Trimethoprim/ Sulfamethoxazole (Sulfameth/ Trimeth Ds 800/ 160MG Home Pack) 1 homepack UD ONCE PO 12/25/16 23:30 12/25/16 23:31 DC 12/25/16 23:28 1 HOMEPACK Fluconazole (Diflucan Tab) 150 mg NOW ONCE PO 12/25/16 23:30 12/25/16 23:31 DC 12/25/16 23:28 150 MG ED Course Physical exam and history were performed. Nursing notes, EMR, and Medication List were personally reviewed. Patient appears to have vaginal irritation for the past few days. Evidently she had outpatient testing performed and has preliminary positive cultures. At this time we're unable to access the [facility] system, as evidently this is where this testing was performed. Clinically the patient appears nontoxic and does not have significant abdominal tenderness. I offered repeat pelvic exam, however this was deferred, which appears reasonable as this evaluation has been performed. The patient and I elected to begin antibiotics, and I will give her a course of Bactrim. The patient will also be given a dose of Diflucan. The patient evidently has follow-up tomorrow with her PCPs office, and I feel it is reasonable for her to be discharged home. She is to keep her follow-up and was otherwise invited back to the ER with any new, worsening, or concerning symptoms. The chart was completed utilizing [employer] Speech Voice Recognition Software. Grammatical errors, random word insertions, pronoun errors, and incomplete sentences are an occasional consequence of this system due to software limitations, ambient noise, and hardware issues. Any formal questions or concerns about the content, text, or information contained within the body of this dictation should be directly addressed to the provider for clarification. . Medical Decision Differential diagnosis includes, but is not limited to: Vaginal infection, UTI, yeast infection, STD, and others Impression Primary Impression: Vaginal vault infection Departure Information Dispostion Home / Self-Care Condition GOOD Prescriptions Sulfamethoxazole-Trimethoprim (Bactrim Ds 800MG/160MG) 1 Tab Tab 1 TAB PO BID for 10 Days, #20 TAB Prov: Dangelo Griffin PA-C 12/25/16 Forms HOME CARE DOCUMENTATION FORM, IMPORTANT VISIT INFORMATION Patient Instructions My [facility] Additional Instructions You were seen and evaluated today on an emergency basis only. This is not a substitute for, or an effort to provide, complete comprehensive medical care. It is not possible to recognize and treat all injuries or illnesses in a single emergency department visit. For this reason it is recommended that you followup with your primary care physician tomorrow for ongoing care and evaluation. Trimethoprim-Sulfamethoxazole(Bactrim DS): Take one pill twice daily for 10 days for your skin infection. All antibiotics can cause diarrhea. If this occurs and you feel worse or it does not resolve in 1-2 days follow up with your doctor or return to the Emergency Department as this could be signs of serious underlying problems. Any medication can cause an allergic reaction, stop the pills immediately and return to the ER for rash, hives, breathing difficulties, or swelling. You are welcome to return to the emergency department anytime with new, worsening, or concerning symptoms.
== END 2016-12-25 23:31 | disposition home or self-care (01) ==
LOC: C.EDB 22:25 → C.EDA 23:31
DX: N76.0 Acute vaginitis (principal); J45.909 Unspecified asthma, uncomplicated; Z79.899 Other long term (current) drug therapy; Z83.3 Family history of diabetes mellitus; Z80.9 Family history of malignant neoplasm, unspecified; Z82.49 Family history of ischemic heart disease and other diseases of the circulatory system

== ENCOUNTER 2019-06-13 11:43 | Inpatient (IN) ==
[2019-06-13] MEDS ORDERED: SODIUM CHLORIDE 0.9% 1000ML 1,000 ML IV SCH ×2 (12:15→18:28)
[2019-06-13] MEDS ORDERED: MoRPHine SULFATE 4 MG/ML 1 ML CARP\\VIAL IV STA ×2 (12:28→16:24)
[2019-06-13] MEDS ORDERED: ONDANSETRON INJ 2 MG/ML 2 ML VIAL IV STA (12:28)
[2019-06-13 12:49] LABS: Basophils # (auto) 0.03 K/uL (0-0.2); Basophils % (auto) 0.3 %; Eosinophils # (auto) 0.05 K/uL (0-0.5); Eosinophils % (auto) 0.5 %; Hematocrit (blood only) 37.4 % (37-47); Immature Granulocytes # (auto) 0.01 K/uL (0.00-0.02); Immature Granulocytes % (auto) 0.1 %; Lymphocytes # (auto) 1.53 K/uL (1.2-3.4); Lymphocytes % (auto) 15.1 %; Mean Corpuscular Hemoglobin 32.9 pg (25-34); Mean Corpuscular Hgb Conc 34.8 g/dL (32-36); Mean Corpuscular Volume 94.7 fL (80-100); Mean Platelet Volume 9.4 fL (7.4-10.4); Monocytes # (auto) 0.45 K/uL (0.11-0.59); Monocytes % (auto) 4.5 %; Neutrophils # (auto) 8.03 K/uL (1.4-6.5); Neutrophils % (auto) 79.5 %; Platelet Count 269 K/uL (130-400); RDW Coefficient of Variation 12.7 % (11.5-14.5); RDW Standard Deviation 43.5 fL (36.4-46.3); Red Blood Count 3.95 M/uL (4.2-5.4)
--- NOTE | 2019-06-13 13:00 | Emergency Department Note ---
Impression & Plan Syncope, , Acute right flank pain ED Provider Note NAME: SHEELA STEWART AGE: 34 SEX: F ARRIVES VIA: Walk-In INFORMANT: [Patient] ED PROVIDER(S): Kermit Parikh MD CHIEF COMPLAINT: Syncope PLAN: Disposition: Admitted Condition: [Good] MEDICAL DECISION MAKING: Patient complaint of flank pain, nausea, vomiting and had 2 syncopal episodes. She states she is been sick for several weeks dealing with kidney stone as well as nausea and vomiting with her . She was hydrated. She was given morphine and Zofran. I did discuss the risks of medications in early . The patient is aware. She is currently using nausea and pain medication at home sparingly. The patient was feeling somewhat better after treatment. She was hydrated. Ultrasound imaging shows an unremarkable . There is stones in the right kidney. No hydronephrosis noted. X-ray imaging was de ferred due to . I did discuss the case with Dr. Vera of CLINICAL NURSE REVIEWER. He recommended urology consultation for further management as there is nothing obstetric at this point. I did discuss the case with Dr. Veras of urology. He recommended conservative management in light of the early and patient's high risk status. He did recommend treating her urine with IV antibiotics. The patient was given IV Rocephin. I did discuss the case with the [facility] hospitalist. The patient will be admitted under the care of Dr. Castaneda for further consultation and management. Triage Nursing notes reviewed and agree them. Vital Signs: reviewed and remarkable for [no significant abnormalities] Differential diagnosis: Vasovagal event, dehydration, infection, hypoglycemia, electrolyte abnormalities, cardiac sources, intracerebral event, pulmonary embolism, seizure, toxicologic, neurologic, as well as other pathologies. ER treatment provided: Normal saline hydration IV Zofran IV morphine IV Rocephin Diagnostics interpreted by me: ECG:Rate:65 Rhythm:Normal sinus [place]:Normal QRS:Normal ST segements:No elevation or depression Other:No PACs or PVCs Cardiac Monitoring: Cardiac monitoring ordered by me: The patient was placed on continuous cardiac monitoring and observed. It revealed a normal sinus rhythm at 68 beats per minute without ectopy or evidence of dysrhythmia. Laboratory studies: [See below] an unremarkable CBC and chemistry panel. Urinalysis did reveal hematuria. Imaging studies: Ultrasound imaging of the pelvis and retroperitoneum did reveal an intrauterine with a heart rate of 172. There was right renal stones. No hydronephrosis. Bilateral ureteral jets seen. I refer you to the EMR for further details. Consultation(s): CLINICAL NURSE REVIEWER, Dr. Butch Vera [facility] urology, Dr[facility]as [facility] Dr. Castaneda HPI: The patient is a 34 year old female who presents to the Emergency Room with complaints of syncope. This started earlier today and occurred twice while at work. The patient also notes the following associated symptoms, right flank pain, nausea, vomiting. She has been feeling generally ill for several weeks. She felt lightheaded prior to the events. The patient has found no relieving factors. Current pain is rated as 6/10. The patient is dealing with a right- sided kidney stone. She is currently 9 weeks . She states that she has been followed up and treated conservatively hoping the kidney stone would pass. She occasionally uses Tylenol or even a Percocet from time to time. Before the kidney stone issue she was having nausea and vomiting with this current . She has had an ultrasound and states that the was in the normal position. She is followed by [facility] urology as well as CLINICAL NURSE REVIEWER. She has a history of migraines and notes a very slight headache. Nothing significant by her report. No head trauma. Pt denies fevers, chills, diaphoresis, visual changes, neck pain, chest pain, breathing difficulties, vaginal bleeding, back pain, melena, hematochezia, urinary symptoms, numbness, weakness, lymphadenopathy, rash, or other complaints. ROS: See above HPI for pertinent positives & negatives. A total of [10] systems reviewed and were otherwise negative. PAST MEDICAL HISTORY:[See Below] kidney stone, asthma PAST SURGICAL HISTORY:[See Below]cholecystectomy, gastric bypass FAMILY HISTORY:[See Below] SOCIAL HISTORY:[See Below] lives with family employed at [employer] in the [place] [place] HOME MEDICATIONS:[See Below] ALLERGIES:[See Below] VITALS:[See Below] PHYSICAL EXAMINATION: GENERAL: Awake, alert, uncomfortable-appearing, in no distress HENT: Normocephalic, atraumatic. Oropharynx unremarkable. EYES: Normal conjunctiva. Sclera non-icteric. NECK: Inspection normal. Non-tender. Supple. No nuchal rigidity. FROM. No masses. RESPIRATORY: Clear to auscultation. No wheezes. No rales. Normal respiratory effort. CARDIAC: Normal rate. Normal rhythm. No murmurs. No rubs. Extremities warm and well perfused. Pulses equal. No JVD. GI: Soft, non-distended. Mild right-sided tenderness to palpation. No rebound or guarding. No masses. RECTAL: Deferred. MUSCULOSKELETAL: Atraumatic. Chest examination reveals no tenderness. The back i s symmetrical on inspection without obvious abnormality. There is no CVA tenderness to palpation. No joint edema. LOWER EXTREMITIES: Calves are equal size bilaterally and non-tender. No edema. No discoloration. NEURO: Normal sensorium. No sensory or motor deficits noted. SKIN: No rash or jaundice noted. ED COURSE: [Critical Care:] [None] Kermit Parikh MD Past Med/Surg History Medical History (Updated 06/13/19 @ 17:39 by Sherrill Mayorga PA-C) Allergic rhinitis Asthma (Chronic) Chronic back pain Depression with anxiety GERD (gastroesophageal reflux disease) History of right inguinal hernia IBS (irritable bowel syndrome) Inflammatory polyarthritis OSHEA (nonalcoholic steatohepatitis) Scoliosis (Chronic) Surgical History (Updated 06/13/19 @ 17:28 by Sherrill Mayorga PA-C) H/O gastric bypass (Acute) History of History of cholecystectomy History of colonoscopy History of dental surgery History of tonsillectomy and adenoidectomy Status post panniculectomy Family History Other Cancer Diabetes Heart disease Hypertension Lung disease Seizures Social History Preferred Language: Nam[place]ian Communication Ability: Effective Valet Parking Attendant Required: No Beliefs That Will Affect Care: None Current Living Situation: Family current occupational status: employed Other Information That Helps Us Care for You: No Feels Safe at Home: Yes Safety Concerns: Feels Safe At This Time Smoking Status: Never smoker Hx Alcohol Use: No Hx Substance Use: No Allergies Allergies Allergy/AdvReac Type Severity Reaction Status Date / Time meloxicam Allergy Intermediate breakouts Unverified 06/13/19 14:55 and itchy all over Penicillins Allergy Unknown RASH Verified 06/13/19 14:55 diphenhydramine AdvReac Unknown SLEEPS Verified 06/13/19 14:55 Pharbedryl Allergy Mild Nausea/vomi Uncoded 06/13/19 14:55 ting Home Meds Home Medications Medication Instructions Recorded Confirmed albuterol sulfate 2 puff INHALATION Q6H PRN 03/15/18 06/13/19 bupropion HCl 75 mg PO BID 03/15/18 06/13/19 cyanocobalamin (vitamin B-12) 1,000 mcg IM UD 03/15/18 06/13/19 loratadine [Claritin] 10 mg PO DAILY PRN 03/15/18 06/13/19 omeprazole 20 mg PO DAILY 03/15/18 06/13/19 triamcinolone acetonide 1 applic TOPICAL BID PRN 03/15/18 06/13/19 PNV [id number] fumarate-FA 1 tab PO DAILY 05/09/19 06/13/19 [] azelastine 2 spray INTRANASAL BID 05/09/19 06/13/19 buspirone 15 mg PO BID 05/09/19 06/13/19 fluticasone propion-salmeterol 1 inh INHALATION BID 05/09/19 06/13/19 [Advair Diskus] hyoscyamine sulfate 0.125 mg PO Q4 PRN 05/09/19 06/13/19 ondansetron 4 mg PO Q8H PRN 05/09/19 06/13/19 pediatric multivitamin no.76 1 tab PO DAILY 05/09/19 06/13/19 [Flintstones Complete] oxycodone-acetaminophen 1 tab PO Q6H PRN 06/13/19 06/13/19 Results & Data (ED) Vital Signs Vital Signs - 24 hr 06/13/19 11:44 06/13/19 12:00 06/13/19 12:14 Temperature 36.6 C Temperature Source Oral Pulse Rate - Lying 63 Pulse Rate - Sitting 76 Pulse Rate - Standing 95 H Pulse Rate 85 67 Pulse Rate [Apical] 64 Pulse Rate from SpO2 Sensor Pulse Rhythm Regular Pulse Rhythm [Apical] Regular Pulse Strength [Apical] Normal Respiratory Rate 22 15 Respiratory Effort / Characteristics Non-Labored Non-Labored Respiratory Depth Normal Normal Respiratory Pattern Regular Regular Blood Pressure - Lying 101/61 Blood Pressure - Sitting 109/75 Blood Pressure- Standing 108/71 Blood Pressure 109/64 Blood Pressure [Left Arm] 102/62 Blood Pressure Mean 79 Blood Pressure Mean [Left Arm] 75 Blood Pressure Position Sitting Blood Pressure Position [Left Arm] Sitting Pulse Oximetry 97 99 Oxygen Delivery Method Room Air Room Air Sepsis Recent Fever Within 48 Hours No Sepsis Action Taken by Nursing No Action Required 06/13/19 12:16 06/13/19 12:17 06/13/19 12:18 Temperature Temperature Source Pulse Rate - Lying Pulse Rate - Sitting Pulse Rate - Standing Pulse Rate 95 H 67 81 Pulse Rate [Apical] Pulse Rate from SpO2 Sensor 93 H 68 78 Pulse Rhythm Pulse Rhythm [Apical] Pulse Strength [Apical] Respiratory Rate 19 15 21 Respiratory Effort / Characteristics Respiratory Depth Respiratory Pattern Blood Pressure - Lying Blood Pressure - Sitting Blood Pressure- Standing Blood Pressure 108/71 117/77 Blood Pressure [Left Arm] Blood Pressure Mean 79 92 Blood Pressure Mean [Left Arm] Blood Pressure Position Blood Pressure Position [Left Arm] Pulse Oximetry 100 99 99 Oxygen Delivery Method Sepsis Recent Fever Within 48 Hours Sepsis Action Taken by Nursing 06/13/19 12:30 06/13/19 12:31 06/13/19 12:45 Temperature Temperature Source Pulse Rate - Lying Pulse Rate - Sitting Pulse Rate - Standing Pulse Rate 76 66 63 Pulse Rate [Apical] 68 Pulse Rate from SpO2 Sensor 72 66 62 Pulse Rhythm Regular Pulse Rhythm [Apical] Regular Pulse Strength [Apical] Normal Respiratory Rate 20 14 16 Respiratory Effort / Characteristics Non-Labored Respiratory Depth Normal Respiratory Pattern Regular Blood Pressure - Lying Blood Pressure - Sitting Blood Pressure- Standing Blood Pressure 117/72 Blood Pressure [Left Arm] 117/72 Blood Pressure Mean 89 Blood Pressure Mean [Left Arm] 87 Blood Pressure Position Blood Pressure Position [Left Arm] Sitting Pulse Oximetry 98 99 98 Oxygen Delivery Method Room Air Sepsis Recent Fever Within 48 Hours Sepsis Action Taken by Nursing 06/13/19 13:00 06/13/19 13:15 06/13/19 14:35 Temperature Temperature Source Pulse Rate - Lying Pulse Rate - Sitting Pulse Rate - Standing Pulse Rate 56 L 48 L 57 L Pulse Rate [Apical] Pulse Rate from SpO2 Sensor 58 L 48 L 58 L Pulse Rhythm Pulse Rhythm [Apical] Pulse Strength [Apical] Respiratory Rate 18 16 15 Respiratory Effort / Characteristics Respiratory Depth Respiratory Pattern Blood Pressure - Lying Blood Pressure - Sitting Blood Pressure- Standing Blood Pressure 126/88 Blood Pressure [Left Arm] Blood Pressure Mean 100 Blood Pressure Mean [Left Arm] Blood Pressure Position Blood Pressure Position [Left Arm] Pulse Oximetry 100 99 100 Oxygen Delivery Method Sepsis Recent Fever Within 48 Hours Sepsis Action Taken by Nursing 06/13/19 14:36 06/13/19 14:37 06/13/19 14:45 Temperature Temperature Source Pulse Rate - Lying Pulse Rate - Sitting Pulse Rate - Standing Pulse Rate 61 59 L 59 L Pulse Rate [Apical] Pulse Rate from SpO2 Sensor 61 61 59 L Pulse Rhythm Pulse Rhythm [Apical] Pulse Strength [Apical] Respiratory Rate 20 22 16 Respiratory Effort / Characteristics Respiratory Depth Respiratory Pattern Blood Pressure - Lying Blood Pressure - Sitting Blood Pressure- Standing Blood Pressure 96/61 L Blood Pressure [Left Arm] Blood Pressure Mean 72 Blood Pressure Mean [Left Arm] Blood Pressure Position Blood Pressure Position [Left Arm] Pulse Oximetry 100 100 97 Oxygen Delivery Method Sepsis Recent Fever Within 48 Hours Sepsis Action Taken by Nursing 06/13/19 15:00 06/13/19 15:01 06/13/19 15:15 Temperature Temperature Source Pulse Rate - Lying Pulse Rate - Sitting Pulse Rate - Standing Pulse Rate 66 62 58 L Pulse Rate [Apical] Pulse Rate from SpO2 Sensor 69 63 57 L Pulse Rhythm Pulse Rhythm [Apical] Pulse Strength [Apical] Respiratory Rate 17 18 16 Respiratory Effort / Characteristics Respiratory Depth Respiratory Pattern Blood Pressure - Lying Blood Pressure - Sitting Blood Pressure- Standing Blood Pressure 105/54 L Blood Pressure [Left Arm] Blood Pressure Mean 74 Blood Pressure Mean [Left Arm] Blood Pressure Position Blood Pressure Position [Left Arm] Pulse Oximetry 97 98 98 Oxygen Delivery Method Sepsis Recent Fever Within 48 Hours Sepsis Action Taken by Nursing 06/13/19 15:30 06/13/19 15:31 06/13/19 15:45 Temperature Temperature Source Pulse Rate - Lying Pulse Rate - Sitting Pulse Rate - Standing Pulse Rate 67 62 63 Pulse Rate [Apical] Pulse Rate from SpO2 Sensor 68 60 63 Pulse Rhythm Pulse Rhythm [Apical] Pulse Strength [Apical] Respiratory Rate 14 17 17 Respiratory Effort / Characteristics Respiratory Depth Respiratory Pattern Blood Pressure - Lying Blood Pressure - Sitting Blood Pressure- Standing Blood Pressure 99/56 L Blood Pressure [Left Arm] Blood Pressure Mean 64 Blood Pressure Mean [Left Arm] Blood Pressure Position Blood Pressure Position [Left Arm] Pulse Oximetry 96 98 97 Oxygen Delivery Method Sepsis Recent Fever Within 48 Hours Sepsis Action Taken by Nursing 06/13/19 16:00 06/13/19 16:01 06/13/19 16:15 Temperature Temperature Source Pulse Rate - Lying Pulse Rate - Sitting Pulse Rate - Standing Pulse Rate 60 60 91 H Pulse Rate [Apical] Pulse Rate from SpO2 Sensor 60 60 90 Pulse Rhythm Pulse Rhythm [Apical] Pulse Strength [Apical] Respiratory Rate 16 18 21 Respiratory Effort / Characteristics Respiratory Depth Respiratory Pattern Blood Pressure - Lying Blood Pressure - Sitting Blood Pressure- Standing Blood Pressure 103/59 L Blood Pressure [Left Arm] Blood Pressure Mean 67 Blood Pressure Mean [Left Arm] Blood Pressure Position Blood Pressure Position [Left Arm] Pulse Oximetry 97 97 97 Oxygen Delivery Method Sepsis Recent Fever Within 48 Hours Sepsis Action Taken by Nursing 06/13/19 16:30 06/13/19 16:31 Temperature Temperature Source Pulse Rate - Lying Pulse Rate - Sitting Pulse Rate - Standing Pulse Rate 69 78 Pulse Rate [Apical] Pulse Rate from SpO2 Sensor 67 78 Pulse Rhythm Pulse Rhythm [Apical] Pulse Strength [Apical] Respiratory Rate 20 21 Respiratory Effort / Characteristics Respiratory Depth Respiratory Pattern Blood Pressure - Lying Blood Pressure - Sitting Blood Pressure- Standing Blood Pressure 105/68 Blood Pressure [Left Arm] Blood Pressure Mean 78 Blood Pressure Mean [Left Arm] Blood Pressure Position Blood Pressure Position [Left Arm] Pulse Oximetry 97 98 Oxygen Delivery Method Sepsis Recent Fever Within 48 Hours Sepsis Action Taken by Nursing Laboratory Data Result diagrams: 06/13/19 12:36 06/13/19 12:36 Lab Results 06/13/19 06/13/19 06/13/19 Range/Units 12:36 12:36 12:41 WBC 10.10 (4.8-10.8) K/uL RBC 3.95 L (4.2-5.4) M/uL Hgb 13.0 (12.0-16.0) g/dL Hct 37.4 (37-47) % MCV 94.7 (80-100) fL MCH 32.9 (25-34) pg MCHC 34.8 (32-36) g/dL RDW Std Deviation 43.5 (36.4-46.3) fL RDW Coeff of Shashi 12.7 (11.5-14.5) % Plt Count 269 (130-400) K/uL MPV 9.4 (7.4-10.4) fL Immature Gran % (Auto) 0.1 % Neut % (Auto) 79.5 % Lymph % (Auto) 15.1 % [place] % (Auto) 4.5 % Eos % (Auto) 0.5 % Baso % (Auto) 0.3 % Immature Gran # (Auto) 0.01 (0.00-0.02) K/uL Neut # (Auto) 8.03 H (1.4-6.5) K/uL Lymph # (Auto) 1.53 (1.2-3.4) K/uL [place] # (Auto) 0.45 (0.11-0.59) K/uL Eos # (Auto) 0.05 (0-0.5) K/uL Baso # (Auto) 0.03 (0-0.2) K/uL Sodium 136 (136-145) mmol/L Potassium 4.0 (3.5-5.1) mmol/L Chloride 107 (98-107) mmol/L Carbon Dioxide 22 (21-32) mmol/L Anion Gap 7.0 (3-11) BUN 8 (7-18) mg/dl Creatinine 0.44 L (0.6-1.2) mg/dl Est Cr Clr Drug Dosing Not Reportable Est GFR ( Amer) > 150.0 Est GFR (Non-Af Amer) 129.9 BUN/Creatinine Ratio 18.0 (10-20) Glucose 87 (70-99) mg/dl Calcium 9.0 (8.5-10.1) mg/dl Magnesium 2.1 (1.8-2.4) mg/dl Total Bilirubin 0.4 (0.2-1) mg/dl AST 13 L (15-37) U/L ALT 18 (12-78) U/L Alkaline Phosphatase 69 (45-117) U/L Total Protein 7.0 (6.4-8.2) gm/dl Albumin 3.5 (3.4-5.0) gm/dl Globulin 3.5 (2.5-4.0) gm/dl Albumin/Globulin Ratio 1.0 (0.9-2) TSH 0.096 L (0.300-4.500) uIu/ml Free T4 1.24 (0.8-1.6) ng/dl Thyroxine (T4) 11.3 H (4.5-10.9) mcg/dl Free T3 2.88 (2.3-4.2) pg/ml Total T3 1.40 (0.60-1.81) ng/ml Urine Color Urine Appearance (Clear) Urine pH (4.5-7.5) Ur Specific [place] (1.000-1.030) Urine Protein (Negative) Urine Glucose (UA) (Negative) Urine Ketones (Negative) Urine Blood (Negative) Urine Nitrite (Negative) Urine Bilirubin (Negative) Urine Urobilinogen (Negative) Ur Leukocyte Esterase (Negative) Urine WBC (Auto) (0-5) /hpf Urine RBC (Auto) (0-4) /hpf U Hyaline Cast (Auto) (0-5) /lpf U Epithel Cells (Auto) (0-5) /lpf Urine Bacteria (Auto) (Negative) 06/13/19 Range/Units 14:36 WBC (4.8-10.8) K/uL RBC (4.2-5.4) M/uL Hgb (12.0-16.0) g/dL Hct (37-47) % MCV (80-100) fL MCH (25-34) pg MCHC (32-36) g/dL RDW Std Deviation (36.4-46.3) fL RDW Coeff of Shashi (11.5-14.5) % Plt Count (130-400) K/uL MPV (7.4-10.4) fL Immature Gran % (Auto) % Neut % (Auto) % Lymph % (Auto) % [place] % (Auto) % Eos % (Auto) % Baso % (Auto) % Immature Gran # (Auto) (0.00-0.02) K/uL Neut # (Auto) (1.4-6.5) K/uL Lymph # (Auto) (1.2-3.4) K/uL [place] # (Auto) (0.11-0.59) K/uL Eos # (Auto) (0-0.5) K/uL Baso # (Auto) (0-0.2) K/uL Sodium (136-145) mmol/L Potassium (3.5-5.1) mmol/L Chloride (98-107) mmol/L Carbon Dioxide (21-32) mmol/L Anion Gap (3-11) BUN (7-18) mg/dl Creatinine (0.6-1.2) mg/dl Est Cr Clr Drug Dosing Est GFR ( Amer) Est GFR (Non-Af Amer) BUN/Creatinine Ratio (10-20) Glucose (70-99) mg/dl Calcium (8.5-10.1) mg/dl Magnesium (1.8-2.4) mg/dl Total Bilirubin (0.2-1) mg/dl AST (15-37) U/L ALT (12-78) U/L Alkaline Phosphatase (45-117) U/L Total Protein (6.4-8.2) gm/dl Albumin (3.4-5.0) gm/dl Globulin (2.5-4.0) gm/dl Albumin/Globulin Ratio (0.9-2) TSH (0.300-4.500) uIu/ml Free T4 (0.8-1.6) ng/dl Thyroxine (T4) (4.5-10.9) mcg/dl Free T3 (2.3-4.2) pg/ml Total T3 (0.60-1.81) ng/ml Urine Color Yellow Urine Appearance Clear (Clear) Urine pH 6.5 (4.5-7.5) Ur Specific [place] 1.017 (1.000-1.030) Urine Protein Negative (Negative) Urine Glucose (UA) Negative (Negative) Urine Ketones 2+ H (Negative) Urine Blood 3+ H (Negative) Urine Nitrite Negative (Negative) Urine Bilirubin Negative (Negative) Urine Urobilinogen Negative (Negative) Ur Leukocyte Esterase Negative (Negative) Urine WBC (Auto) 1-5 (0-5) /hpf Urine RBC (Auto) 10-30 H (0-4) /hpf U Hyaline Cast (Auto) 1-5 (0-5) /lpf U Epithel Cells (Auto) >30 H (0-5) /lpf Urine Bacteria (Auto) 1+ H (Negative) Administered Medications Bupropion HCl (Wellbutrin) 75 mg PO BID CÉSAR Stop: 07/13/19 20:59 Last Admin: 06/13/19 20:58 Dose: 75 mg Documented by: [id number] Buspirone HCl (Buspar) 15 mg PO BID CÉSAR Stop: 07/13/19 20:59 Last Admin: 05/01/20 20:59 Dose: 15 mg Documented by: [id number] Ampicillin Sodium 1,000 mg/ (Sodium Chloride) 50 mls @ 100 mls/hr IV Q6H [facility]; Protocol Stop: 06/18/19 18:59 Last Admin: 06/13/19 20:57 Dose: 100 mls/hr Documented by: [id number] Sodium Chloride (Nss 1000ml) 1,000 mls @ 100 mls/hr IV .Q10H CÉSAR Stop: 06/14/19 04:27 Last Admin: 06/13/19 19:05 Dose: 100 mls/hr Documented by: [id number] Oxycodone HCl (Roxicodone Immediate Rel) 5 mg PO Q6H PRN PRN Reason: Pain Stop: 06/27/19 18:39 Last Admin: 06/13/19 18:45 Dose: 5 mg Documented by: [id number] Discontinued Medications Sodium Chloride (Nss 1000ml) 1,000 mls @ 999 mls/hr IV .Q1H1M CÉSAR Stop: 06/13/19 13:15 Last Infusion: 06/13/19 13:41 Dose: 0 mls/hr Documented by: [id number] Admin: 06/13/19 12:40 Dose: 999 mls/hr Documented by: [id number] Ceftriaxone Sodium (Rocephin) 1,000 mg in 50 mls @ 100 mls/hr IV NOW STA Stop: 06/13/19 16:53 Last Infusion: 06/13/19 18:25 Dose: 0 mls/hr Documented by: [id number] Admin: 06/13/19 16:33 Dose: 100 mls/hr Documented by: [id number] Sodium Chloride (Nss 1000ml) 1,000 mls @ 125 mls/hr IV .Q8H STA Stop: 06/14/19 00:23 Last Infusion: 06/13/19 19:05 Dose: 0 mls/hr Documented by: [id number] Admin: 06/13/19 16:33 Dose: 125 mls/hr Documented by: [id number] Morphine Sulfate (Morphine Sulfate) 4 mg IV NOW STA Stop: 06/13/19 12:29 Last Admin: 06/13/19 12:41 Dose: 4 mg Documented by: [id number] Morphine Sulfate (Morphine Sulfate) 4 mg IV NOW STA Stop: 06/13/19 16:25 Last Admin: 06/13/19 16:34 Dose: 4 mg Documented by: [id number] Ondansetron HCl (Zofran) 4 mg IV NOW STA Stop: 06/13/19 12:29 Last Admin: 06/13/19 12:41 Dose: 4 mg Documented by: [id number] Discharge Plan Visit Data *Final* Discharge Date/Time: 06/13/19 18:14 Chief Complaint: Syncope Stated Complaint: PASSED OUT AT WORK, 9WKS , KIDNEY STONE ED Provider: Kermit Parikh Discharge Problem: Syncope, , Acute right flank pain Patient Disposition: Admitted As Inpatient Discharge Instructions Interventions: ED Discharge Assessment Last Done: 06/13/19 18:14
[2019-06-13 13:06] LABS: Alanine Aminotransferase 18 U/L (12-78); Albumin Level 3.5 gm/dl (3.4-5.0); Aspartate Aminotransferase 13 U/L (15-37); Blood Urea Nitrogen 8 mg/dl (7-18); Carbon Dioxide 22 mmol/L (21-32); Chloride 107 mmol/L (98-107); Est GFR (African American) > 150.0; Est GFR (Non-African American) 129.9; Glucose 87 mg/dl (70-99); Magnesium 2.1 mg/dl (1.8-2.4); Sodium 136 mmol/L (136-145)
[2019-06-13 13:16] LABS: Alkaline Phosphatase 69 U/L (45-117); Bilirubin,Total 0.4 mg/dl (0.2-1); Globulin 3.5 gm/dl (2.5-4.0); Thyroid Stimulating Hormone 0.096 uIu/ml (0.300-4.500)
[2019-06-13 13:29] LABS: T4 Free Thyroxine 1.24 ng/dl (0.8-1.6)
--- NOTE | 2019-06-13 14:46 | Ultrasound Report ---
RENAL ULTRASOUND HISTORY: right flank pain, kidney stone, 9 weeks preg COMPARISON: Abdomen and pelvis CT 03/26/2019. FINDINGS: Right kidney: 13.0 cm. No hydronephrosis. There are 2 stones within the lower pole measuring 9 and 6 mm. Normal corticomedullary differentiation and cortical thickness. Left kidney: 12.3 cm. No hydronephrosis. Normal corticomedullary differentiation and cortical thickne ss. Bladder: No bladder wall thickening. The bilateral ureteral jets were identified. IMPRESSION: Right-sided nephrolithiasis. No hydronephrosis. ACT 112: Negative or not required by law. Electronically signed by: Jasiel Davis M.D. 06/13/2019 2:45 PM
[2019-06-13 14:49] LABS: Appearance Urine Clear (Clear); Bacteria Urine Automated 1+ (Negative); Bilirubin Urine Negative (Negative); Blood Urine 3+ (Negative); Color Urine Yellow; Epithelial Cell Urine Auto >30 /lpf (0-5); Glucose Urine UA Negative (Negative); Ketones Urine 2+ (Negative); Leukocyte Esterase Urine Negative (Negative); Nitrite Urine Negative (Negative); Protein Urine Negative (Negative); Specific Gravity Urine 1.017 (1.000-1.030); Urobilinogen Urine Negative (Negative); pH Urine 6.5 (4.5-7.5)
--- NOTE | 2019-06-13 15:11 | Ultrasound Report ---
US OB limited CLINICAL HISTORY: right flank pain COMPARISON STUDY: Pelvic ultrasound 05/09/2019. FINDINGS: Transabdominal scanning of the pelvis was performed with new accounts representative images submitted. T here is a single intrauterine gestational sac, yolk sac, and pole. The crown-rump length measur es 2.59 cm consistent with a 9 week and 3 day intrauterine gestation. heart rate is 172 bpm. Th e yolk sac is 5 mm. No significant subchorionic hematoma. No pelvic free fluid. No adnexal masses aundrea ntified. IMPRESSION: Single viable 9 week and 3 day intrauterine gestation. ACT 112: Negative or not required by law. Electronically signed by: Jasiel Davis M.D. 06/13/2019 3:10 PM
--- NOTE | 2019-06-13 15:35 | Electrocardiogram Report ---
Test Reason : Blood Pressure : / mmHG Vent. Rate : 065 BPM Atrial Rate : 065 BPM P-R Int : 148 ms QRS Dur : 088 ms QT Int : 394 ms P-R-T Axes : 021 047 036 degrees QTc Int : 409 ms Normal sinus rhythm Normal ECG When compared with ECG of 09-NOV-2018 23:07, No significant change was found Confirmed by Mansoor Alva ([id number]) on 06/13/2019 3:35:08 PM Referred By: REFERRED SELF Confirmed By:Mansoor Alva
[2019-06-13] MEDS ORDERED: SODIUM CHLORIDE 0.9% 1000ML 1,000 ML IV STA (16:24)
[2019-06-13] MEDS ORDERED: cefTRIAXone SODIUM 1,000 MG/50 ML BAG IV STA (16:24)
--- NOTE | 2019-06-13 17:21 | History & Physical Report ---
Date of Service June 13, 2019 Assessment & Plan (1) Syncope: This is a 34-year-old female who is currently 9 weeks and has significant past medical history of asthma, allergic rhinitis, history of gastric bypass, Manuel, GERD, IBS, depression, inflammatory polyarthritis who presents to ED secondary to syncopal episode x2 prior to arrival, nausea, vomiting, right lower quadrant and suprapubic pain. Pt with 2 episodes of syncope prior to arrival. She admits to syncope in past but not during Orthostatics in ED + 2/2 to elevated HR 63 lying and 95 standing etiology of syncope likely orthostatic vs vs vasovagal but will rule out other etiologies admit to [facility] to monitor for arrhythmia continue to monitor orthostatics IVF 100cc/hr IV antibiotics Antiemetics (2) Right nephrolithiasis: pt has US 05/07 revealing Right nephrolithiasis with mild hydronephrosis. A distal calculus cannot be excluded. Today U/S: There are 2 stones within the lower pole measuring 9 and 6 mm. No hydro. Previously had been on flomax but d/c when determined ED spoke to [facility] U[facility] Dr. Veras Continue supportive care Strain all urine (3) UTI (urinary tract infection) in in first trimester: no signs/sx of urosepsis, afebrile, WBC WNL UA + blood, bacturia await urine culture treat empircally with IV Ampicillin (Pt has received augmentin in past and has tolerated. Hx of rash with amoxicillin many years ago) Pt agreeable to trial ampicillin (4) Nausea and vomiting during prior to 22 weeks gestation: supportive care antiemetics continue IVF (5) Asthma: continue advair, singulair, claritin (6) IBS (irritable bowel syndrome): continue prn levsin (7) Chronic back pain: pt takes oxycodone due to chronic low back pain She receives epidural injections but has not since admits to taking them every other day confirmed with PDMP (8) Depression with anxiety: continue wellbutrin and buspar (9) : Pt currently [address] Vera aware of [facility] continue prenatals (10) DVT prophylaxis: encourage ambulation Disposition: admit to [facility] Follow up: PCP Dr. 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 Castaneda, please see addendum History of Present Illness Chief Complaint: Syncope x2, nausea, vomiting, right lower quadrant pain Primary Care Provider: Audra Joya, This is a 34-year-old female who is currently 9 weeks and has significant past medical history of asthma, allergic rhinitis, history of gastric bypass, Manuel, GERD, IBS, depression, inflammatory polyarthritis who presents to ED secondary to syncopal episode x2 prior to arrival, nausea, vomiting, right lower quadrant and suprapubic pain. She was at work today whenever she experienced 2 syncopal episodes. Initial episode happened when she was sitting down in a meeting. She overall felt lightheaded and dizzy and passed out for several seconds for regaining consciousness. She also felt nauseated and went to the bathroom because she thought she was going to vomit. When she went to sit down on the toilet she had an additional syncopal episode. She had no injuries. The second syncopal episode also had prodromal features including lightheadedness and dizziness and feeling like, "I am coming out of my body." For the past several weeks she has been dealing with kidney stones. Denies ever passing a kidney stone. She complains of right flank pain that radiates to the right lower quadrant, pain is intermittent but very sharp when it comes on. She also elicits to having hematuria, increased urinary urgency and decreased urinary frequency. She denies any fever, chills, sweats, URI symptoms, chest pain, shortness of breath, palpitations, cough, hemoptysis, hematemesis, dysuria, melena, hematochezia. She elicits overall being more cons tipated secondary to vitamin. This is her second . Her first she had twins and a subsequent . She denies ever having any difficulty with nausea and vomiting, but this has been much different. She denies passing out during previous . Although she does admit to having several episodes of syncope in the past including several this fall. She explicitly recalls on November 10 while attending a concert a syncopal episode and 5 following syncopal episodes. She was told she was dehydrated. Currently in ED she does feel improved but overall does not feel well. In ED she remained hemodynamically stable. She did have orthostatic vital signs which revealed what blood pressures in the low 100s. She did elevate her heart rate from lying at 63 to standing at 95. Lab work notable for WBC 10.10, H&H 13.0 and 37.4, platelet 269, K4.0, BUN 8, creatinine 0.44, glucose 87, LFTs WNL, TSH 0.096, free T4 1.24. Her urine revealed specific gravity of 1.017, +2 ketones, +3 blood, greater than 30 epithelial cells, +1 bacteria. She received IV fluid, IV Zofran, IV morphine with mild improvement in her symptoms. He also received 1 g ceftriaxone due to concern for possible UTI. Allergies Allergy/AdvReac Type Severity Reaction Status Date / Time meloxicam Allergy Intermediate breakouts Unverified 06/13/19 14:55 and itchy all over Penicillins Allergy Unknown RASH Verified 06/13/19 14:55 diphenhydramine AdvReac Unknown SLEEPS Verified 06/13/19 14:55 Pharbedryl Allergy Mild Nausea/vomi Uncoded 06/13/19 14:55 ting Home Medications Home Medications Medication Instructions Recorded Confirmed Type albuterol sulfate 2 puff INHALATION Q6H PRN 03/15/18 06/13/19 History bupropion HCl 75 mg PO BID 03/15/18 06/13/19 History cyanocobalamin (vitamin B-12) 1,000 mcg IM UD 03/15/18 06/13/19 History loratadine [Claritin] 10 mg PO DAILY PRN 03/15/18 06/13/19 History omeprazole 20 mg PO DAILY 03/15/18 06/13/19 History triamcinolone acetonide 1 applic TOPICAL BID PRN 03/15/18 06/13/19 History PNV cmb#95-ferrous fumarate-FA 1 tab PO DAILY 05/09/19 06/13/19 History [] azelastine 2 spray INTRANASAL BID 05/09/19 06/13/19 History buspirone 15 mg PO BID 05/09/19 06/13/19 History fluticasone propion-salmeterol 1 inh INHALATION BID 05/09/19 06/13/19 History [Advair Diskus] hyoscyamine sulfate 0.125 mg PO Q4 PRN 05/09/19 06/13/19 History ondansetron 4 mg PO Q8H PRN 05/09/19 06/13/19 History pediatric multivitamin no.76 1 tab PO DAILY 05/09/19 06/13/19 History [Flintstones Complete] oxycodone-acetaminophen 1 tab PO Q6H PRN 06/13/19 06/13/19 History Past Med/Surg History Medical History (Updated 06/13/19 @ 17:39 by Sherrill Mayorga PA-C) Allergic rhinitis Asthma (Chronic) Chronic back pain Depression with anxiety GERD (gastroesophageal reflux disease) History of right inguinal hernia IBS (irritable bowel syndrome) Inflammatory polyarthritis MANUEL (nonalcoholic steatohepatitis) Scoliosis (Chronic) Surgical History (Updated 06/13/19 @ 17:28 by Sherrill Mayorga PA-C) H/O gastric bypass (Acute) History of History of cholecystectomy History of colonoscopy History of dental surgery History of tonsillectomy and adenoidectomy Status post panniculectomy Family History Other Cancer Diabetes Heart disease Hypertension Lung disease Seizures Social History Preferred Language: Telugu Communication Ability: Effective Current Living Situation: Family current occupational status: employed Feels Safe at Home: Yes Smoking Status: Never smoker Hx Alcohol Use: No Review of Systems Review of Systems: All systems reviewed & are unremarkable except as noted in HPI & below Physical Exam Physical Exam: Constitutional: WD/WN, vitals as above, NAD, sitting up in bed, pleasant, conversing easily Head: Normocephalic, Atraumatic Eyes: PERRL, conjunctivae normal, anicteric sclerae ENMT: external ear and nose normal, oropharynx normal Neck: trachea midline, no thyromegaly normal visual inspection Respiratory: normal respiratory effort, lungs clear to auscultation, no wheeze, rales, rhonchi. Normal insp/exp effort, no accessory muscle use Cardiovascular: RRR, no murmur, no edema Vessels: no JVD or carotid bruit Chest: normal inspection of chest Abdomen: normal bowel sounds, soft, nontender, no hepatosplenomegaly +Mild R CVA tenderness Musculoskeletal: no cyanosis or clubbing, extremities motor strength 5/5 Skin: no rashes, warm and dry normal turgor , tattos noted Neurologic: PERRL, EOMI, accommodation nl, no face palsy, no dysarthria CN's II-XI intact bilaterally and moves all extremities Psychiatric: A+Ox3, euthymic affect Lymphatic: no cervical or axillary lymphadenopathy : deferred Results & Data Results & Data ([facility]) Vital Signs (Past 12 Hours) Vital Signs Temp Pulse Pulse Resp BP BP Pulse Ox 06/13/19 16:31 78 21 98 06/13/19 16:30 69 20 105/68 97 06/13/19 16:15 91 H 21 97 06/13/19 16:01 60 18 97 06/13/19 16:00 60 16 103/59 L 97 06/13/19 15:45 63 17 97 06/13/19 15:31 62 17 98 06/13/19 15:30 67 14 99/56 L 96 06/13/19 15:15 58 L 16 98 06/13/19 15:01 62 18 98 06/13/19 15:00 66 17 105/54 L 97 06/13/19 14:45 59 L 16 97 06/13/19 14:37 59 L 22 100 06/13/19 14:36 61 20 96/61 L 100 06/13/19 14:35 57 L 15 100 06/13/19 13:15 48 L 16 99 06/13/19 13:00 56 L 18 126/88 100 06/13/19 12:45 63 16 98 06/13/19 12:31 66 14 99 06/13/19 12:30 76 68 20 117/72 117/72 98 06/13/19 12:18 81 21 99 06/13/19 12:17 67 15 117/77 99 06/13/19 12:16 95 H 19 108/71 100 06/13/19 12:00 67 64 15 102/62 99 06/13/19 11:44 36.6 C 85 22 109/64 97 Laboratory Results Short CBC 06/13/19 Range/Units 12:36 WBC 10.10 (4.8-10.8) K/uL Hgb 13.0 (12.0-16.0) g/dL Hct 37.4 (37-47) % Plt Count 269 (130-400) K/uL BMP 06/13/19 12:36 Sodium 136 Potassium 4.0 Chloride 107 Carbon Dioxide 22 BUN 8 Creatinine 0.44 L Glucose 87 Calcium 9.0 Liver Function 06/13/19 Range/Units 12:36 Total Bilirubin 0.4 (0.2-1) mg/dl AST 13 L (15-37) U/L ALT 18 (12-78) U/L Alkaline Phosphatase 69 (45-117) U/L Albumin 3.5 (3.4-5.0) gm/dl Urine 06/13/19 Range/Units 14:36 Urine Color Yellow Urine Appearance Clear (Clear) Urine pH 6.5 (4.5-7.5) Ur Specific [place] 1.017 (1.000-1.030) Urine Protein Negative (Negative) Urine Glucose (UA) Negative (Negative) Diagnostic Findings OB US: IMPRESSION: Single viable 9 week and 3 day intrauterine gestation. Renal US: FINDINGS: Right kidney: 13.0 cm. No hydronephrosis. There are 2 stones within the lower pole measuring 9 and 6 mm. Normal corticomedullary differentiation and cortical thickness. Left kidney: 12.3 cm. No hydronephrosis. Normal corticomedullary differentiation and cortical thickness. Bladder: No bladder wall thickening. The bilateral ureteral jets were identified. Renal U/S from 05/08/19: FINDINGS RIGHT KIDNEY: 12.4 cmx4.9 cmx5.6 cm. Normal size and echogenicity. Shadowing calculus in the upper pole and mild hydronephrosis. The ureter cannot be visualized. LEFT KIDNEY: 11.5 cmx5.6 cmx5.2 cm. Normal size and echogenicity. No hydronephrosis, shadowing calculi, or mass. BLADDER: Partially filled. AORTA: Visualized portions normal in caliber. IMPRESSION IMPRESSION Right nephrolithiasis with mild hydronephrosis. A distal calculus cannot be excluded. Medications Administered Sodium Chloride (Nss 1000ml) 1,000 mls @ 125 mls/hr IV .Q8H STA Stop: 06/14/19 00:23 Last Admin: 06/13/19 16:33 Dose: 125 mls/hr Documented by: [id number] Discontinued Medications Sodium Chloride (Nss 1000ml) 1,000 mls @ 999 mls/hr IV .Q1H1M CÉSAR Stop: 06/13/19 13:15 Last Infusion: 06/13/19 13:41 Dose: 0 mls/hr Documented by: [id number] Admin: 06/13/19 12:40 Dose: 999 mls/hr Documented by: [id number] Ceftriaxone Sodium (Rocephin) 1,000 mg in 50 mls @ 100 mls/hr IV NOW STA Stop: 06/13/19 16:53 Last Admin: 06/13/19 16:33 Dose: 100 mls/hr Documented by: [id number] Morphine Sulfate (Morphine Sulfate) 4 mg IV NOW STA Stop: 06/13/19 12:29 Last Admin: 06/13/19 12:41 Dose: 4 mg Documented by: [id number] Morphine Sulfate (Morphine Sulfate) 4 mg IV NOW STA Stop: 06/13/19 16:25 Last Admin: 06/13/19 16:34 Dose: 4 mg Documented by: [id number] Ondansetron HCl (Zofran) 4 mg IV NOW STA Stop: 06/13/19 12:29 Last Admin: 06/13/19 12:41 Dose: 4 mg Documented by: [id number] ECG Rate (beats per minute): 65 Rhythm: normal sinus Additional Comments: QTC WNL Code Status & VTE Plan Code Status Full Code VTE Prophylaxis Plan VTE Prophylaxis will be ordered: No Supervising Physician Co-Signing Physician Notes I, Dr. Mukesh Castaneda, have seen and examined the patient with physician medical staff assistant and agree with the assessment and plans at would like to comment that On exam General: no acute distress Neck: no swelling, no tenderness Lungs: clear to auscultation bilaterally Heart: regular rate Extremities/Neuro: move all extremities Assessment and Plan Syncope Orthostatic Hypotension -positive orthostatic hypotension blood pressure recorded in ED, give IV fluids Right nephrolithiasis: -IV fluids, prn pain medications (avoid NSAIDs, patient reports rash allergies to Mobic), prn anti-emetics -Urology service advising conservative management for now. If kidney stones do not pass with IV hydration then Urology service may need to arrange cystoscopy to remove the kidney stones Urinary Tract Infection in in 1st trimester -positive bacteria in urine, patient was given ceftriaxone 1 gram in the ED by ED provider -hospitalist called OBGYJessica Vera in regards to safest types of antibiotics for patient in 1st trimester, and he suggested either Macrobid or Ampicillin. Will start ampicillin on 06/14/2019. Patient does report rash reac tion to penicillin but she has tolerated Augmentin in the past and she prefers Ampicillin over Macrobid while inpatient. of the 1st Trimester -9 weeks Abnormal Thyroid labs -while thyroid function can change attendant course of , her TSH of 0.096 uIu/ml is very low. Free T4 is normal as 1.24 ng/dl -will check total T4, Total T3, free T3 agree with other management of conditions such as depression, chronic back pain, irritable bowel syndrome, asthma as documented by physician medical staff assistant
[2019-06-13 18:16] LABS: T4 Thyroxine 11.3 mcg/dl (4.5-10.9)
[2019-06-13 18:17] LABS: T3 Free 2.88 pg/ml (2.3-4.2); T3 Total 1.4 ng/ml (0.60-1.81)
[2019-06-13] MEDS ORDERED: HYOSCYAMINE SULFATE 0.125 MG TAB PO PRN (18:28)
[2019-06-13] MEDS: OXYCODONE HCL IR 5 MG TAB (IMMEDIATE RELEASE) PO PRN (18:45)
[2019-06-13] MEDS: AMPICILLIN 1,000 MG in SODIUM CHLOR 0.9% AD-VAN 50 ML IV SCH (20:57)
[2019-06-13] MEDS: buPROPion HCl 75 MG TABLET PO SCH (20:58)
[2019-06-13] MEDS: BusPIRone 15 MG TAB PO SCH (20:59)
[2019-06-13] MEDS ORDERED: NON-FORMULARY MEDICATION (Azelastine 2 SPRAYS) INTNAS SCH (21:00)
[2019-06-13] MEDS: MoRPHine SULFATE 2 MG/ML CARP IV PRN (21:10)
[2019-06-14] MEDS: AMPICILLIN 1,000 MG in SODIUM CHLOR 0.9% AD-VAN 50 ML IV SCH ×5 (00:10→23:47)
[2019-06-14] MEDS: MoRPHine SULFATE 2 MG/ML CARP IV PRN ×4 (05:07→23:49)
[2019-06-14] MEDS: FLUTICASONE/VILANTEROL 200/25MCG 14 PUFFS/INHALER INH SCH (08:42)
[2019-06-14] MEDS: PANTOprazole 40 MG TAB PO SCH (08:43)
[2019-06-14] MEDS: buPROPion HCl 75 MG TABLET PO SCH ×2 (08:43→20:00)
[2019-06-14] MEDS: LORATADINE 10 MG TAB PO SCH (08:43)
[2019-06-14] MEDS: BusPIRone 15 MG TAB PO SCH ×2 (08:43→20:00)
[2019-06-14 08:44] LABS: Basophils # (auto) 0.05 K/uL (0-0.2); Basophils % (auto) 0.7 %; Eosinophils # (auto) 0.08 K/uL (0-0.5); Eosinophils % (auto) 1.1 %; Hematocrit (blood only) 36.5 % (37-47); Hemoglobin 12.1 g/dL (12.0-16.0); Lymphocytes # (auto) 2.13 K/uL (1.2-3.4); Lymphocytes % (auto) 30.2 %; Mean Corpuscular Hemoglobin 31.6 pg (25-34); Mean Corpuscular Hgb Conc 33.2 g/dL (32-36); Mean Corpuscular Volume 95.3 fL (80-100); Mean Platelet Volume 9.5 fL (7.4-10.4); Monocytes # (auto) 0.33 K/uL (0.11-0.59); Monocytes % (auto) 4.7 %; Neutrophils # (auto) 4.46 K/uL (1.4-6.5); Neutrophils % (auto) 63.3 %; Platelet Count 251 K/uL (130-400); RDW Standard Deviation 45.2 fL (36.4-46.3); Red Blood Count 3.83 M/uL (4.2-5.4); White Blood Count 7.05 K/uL (4.8-10.8)
[2019-06-14] MEDS: PRENATAL GUMMIES PO SCH (08:44)
[2019-06-14] MEDS: FLINTSTONES GUMMIES PO SCH (08:45)
[2019-06-14] MEDS: FLUTICASONE PROPIONATE SCH ×2 (08:46→19:59)
[2019-06-14] MEDS ORDERED: FLINTSTONES COMPLETE CHEWABLE TAB PO SCH (09:00)
[2019-06-14] MEDS ORDERED: PRENATAL VITAMIN 1 TAB PO SCH (09:00)
[2019-06-14 09:17] LABS: BUN Creatinine Ratio 10.3 (10-20); Blood Urea Nitrogen 4 mg/dl (7-18); Calcium 8.5 mg/dl (8.5-10.1); Carbon Dioxide 21 mmol/L (21-32); Chloride 110 mmol/L (98-107); Creatinine Clr Calc Pharmacy 184.3 ml/min; Est GFR (African American) > 150.0; Est GFR (Non-African American) 131.9; Glucose 86 mg/dl (70-99); Sodium 137 mmol/L (136-145)
--- NOTE | 2019-06-14 09:29 | XRay Report ---
XR KUB/Abdomen 1 view CLINICAL HISTORY: Nephrolithiasis COMPARISON STUDY: No previous studies for comparison. FINDINGS: The renal shadows are partially obscured by overlying bowel gas. There are clustered calcif ications projected over the lower pole the right kidney suspicious for calculi. These bandsaw operator 8 mm i n aggregate. There is additional calcification projected over the mid to upper pole the right kidney suspicious for a calculus. There are no calcifications suspicious for ureteral calculi. There are pos tsurgical changes of a presumed gastric bypass. IMPRESSION: 1. Right-sided nephrolithiasis 2. Nonobstructive bowel gas pattern 3. No ureteral calculi identified on conventional radiographic imaging ACT 112: Negative or not required by law. Electronically signed by: Tristan Espitia M.D. 06/14/2019 9:28 AM
[2019-06-14] MEDS: ONDANSETRON INJ 2 MG/ML 2 ML VIAL IV PRN ×2 (10:37→18:17)
--- NOTE | 2019-06-14 11:56 | Hospitalist Progress Note ---
Date of Service June 14, 2019 Assessment & Plan (1) Syncope: Orthostatic Hypotension -This is a 34-year-old female who is currently 9 weeks and has significant past medical history of asthma, allergic rhinitis, history of gastric bypass, Manuel, GERD, IBS, depression, inflammatory polyarthritis who presents to ED secondary to syncopal episode x2 prior to arrival, nausea, vomiting, right lower quadrant and suprapubic pain. Pt with 2 episodes of syncope prior to arrival. She admits to syncope in past but not during Orthostatics in ED were positive -given IV fluids, blood pressure checks as per protocol (2) Right nephrolithiasis: -pt has US 05/07 revealing Right nephrolithiasis with mild hydronephrosis. A distal calculus cannot be excluded. -ultrasound on admission on 06/13/2019: Today U/S: There are 2 stones within the lower pole measuring 9 and 6 mm. No hydro. -given IV fluids, prn pain medications (avoid NSAIDs, patient reports rash allergies to Mobic), prn anti-emetics -KUB on 06/14/2019: The renal shadows are partially obscured by overlying bowel gas. There are clustered calcifications projected over the lower pole the right kidney suspicious for calculi. 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 There is additional calcification projected over the mid to upper pole the right kidney suspicious for a calculus. There are no calcifications suspicious for ureteral calculi. There are postsurgical changes of a presumed gastric bypass. IMPRESSION: 1. Right-sided nephrolithiasis 2. Nonobstructive bowel gas pattern 3. No ureteral calculi identified on conventional radiographic imaging -06/14/2019 [facility] [place] Dr. Veras advises further IV fluids in case of any residual renal stones in ureter and to give potassium citrate TID to prevent new renal stone formation. will continue to treat nausea and right flank pain as inpatient so hospitalist will uprage patient from observation status to admission status (3) UTI (urinary tract infection) in in first trimester: -positive bacteria in urine, patient was given ceftriaxone 1 gram in the ED by ED provider -hospitalist called OBAVANI Vera in regards to safest types of antibiotics for patient in 1st trimester, and he suggested either Macrobid or Ampicillin. Will start ampicillin on 06/14/2019. Patient does report rash reaction to penicillin but she has tolerated Augmentin in the past and she prefe rs Ampicillin over Macrobid while inpatient. (4) Nausea and vomiting during prior to 22 weeks gestation: -IV fluids and prn anti-emetics (5) Asthma: -continue advair, singulair, claritin (6) IBS (irritable bowel syndrome): -home medication of prn levsin (hyoscyamine) (7) Chronic back pain: -pt takes oxycodone due to chronic low back pain. She receives epidural injections but has not since -she has been at home taking oxycodone at home every other day for pain (8) Depression with anxiety: -continue wellbutrin and buspar (9) : of the 1st Trimester -9 weeks -Follows 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 Free T4 is normal as 1.24 ng/dl -The total T4 is mildly elevated as 11.3 mg/dl (normal is 4.5 to 10.9), with normal Total T3 and and normal free T3) -discussed with [facility] Endocrine Dr. Clarke and that these numbers are likely reflected of physiological changes in and no thyroid related medications needed at this time. She advised that patient follow up with her primary care doctor and OBGYN doctor (10) DVT prophylaxis: -encourage ambulation Follow up: PCP Dr. 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 She needed additional pain medications for right flank pain and anti-emetics for nausea earlier. Discussed with her the Urology service assessment and plans. Patient breathing on room air. no shortness of breath. no chest pain. no headache and no dizziness. denies other symptoms. Review of Systems Review of Systems: All systems reviewed & are unremarkable except as noted in Subjective Physical Exam Constitutional: cooperative Eyes: PERRL, conjunctivae normal, anicteric sclerae EOM intact bilaterally ENMT: external ear and nose normal, oropharynx normal Neck: normal visual inspection Respiratory: normal respiratory effort, lungs clear to auscultation Cardiovascular: Rate/Rhythm: + bradycardic Gastrointestinal (Abdomen): Percussion/Palpation: abdomen soft Musculoskeletal: Head/Neck/Chest: normocephalic Neurologic: PERRL, EOMI, accommodation nl, no face palsy, no dysarthria CN's II-XI intact bilaterally Psychiatric: A+Ox3, euthymic affect Results & Data Results & Data ([facility]) Vital Signs (Past 12 Hours) Vital Signs Temp Pulse Pulse Resp BP BP Pulse Ox 06/14/19 07:30 54 L 06/14/19 07:16 36.8 C 65 18 102/64 98 06/14/19 03:42 36.8 C 70 18 92/58 L 96 06/14/19 01:10 53 L
--- NOTE | 2019-06-14 12:02 | Urology Consultation ---
Date of Consultation June 14, 2019 Assessment & Plan (1) Nausea and vomiting during prior to 22 weeks gestation: NO fevers or chills. No severe symptoms. Has improved with supportive care and hydration. Long conversation about stone diease and issues. Discussed goal for spontaneous passage. Discussed hydration. Will monitor. Discussed intervention. Would hold off on any intervention unless develops severe obstruction with renal injury, uncontrollable pain, Severe other symptoms, or most importantly fevers. Discussed stent vs neph tubes with . Will continue with hydration and supportive care. (2) UTI (urinary tract infection) in in first trimester: (3) Right nephrolithiasis: History of Present Illness Attending Physician: Mukesh Castaneda MD History of Present Illness New consultation for patient with history of significant stone disease especially on right. Patient is approx 9 weeks and has passed some blood recently with worsening flank pain. Patient has been having some pain, discomfort, obstruction, and ill feelings. Patient developed sudden onset of pain into flank going down and radiating into groin and back in waves comes and goes. Can be severe at times. Discussed and reviewed patient's family history for any history of stone disease. Also, discussed patient's medical surgery history especially related to any history of urinary issues or stone disease. Patient was admitted and is undergoing observation. Allergies Allergy/AdvReac Type Severity Reaction Status Date / Time meloxicam Allergy Intermediate breakouts Unverified 06/13/19 14:55 and itchy all over Penicillins Allergy Unknown RASH Verified 06/13/19 14:55 diphenhydramine AdvReac Unknown SLEEPS Verified 06/13/19 14:55 Pharbedryl Allergy Mild Nausea/vomi Uncoded 06/13/19 14:55 ting Home Medications Home Medications Medication Instructions Recorded Confirmed Type albuterol sulfate 2 puff INHALATION Q6H PRN 03/15/18 06/13/19 History bupropion HCl 75 mg PO BID 03/15/18 06/13/19 History cyanocobalamin (vitamin B-12) 1,000 mcg IM UD 03/15/18 06/13/19 History loratadine [Claritin] 10 mg PO DAILY PRN 03/15/18 06/13/19 History omeprazole 20 mg PO DAILY 03/15/18 06/13/19 History triamcinolone acetonide 1 applic TOPICAL BID PRN 03/15/18 06/13/19 History PNV cmb#95-ferrous fumarate-FA 1 tab PO DAILY 05/09/19 06/13/19 History [] azelastine 2 spray INTRANASAL BID 05/09/19 06/13/19 History buspirone 15 mg PO BID 05/09/19 06/13/19 History fluticasone propion-salmeterol 1 inh INHALATION BID 05/09/19 06/13/19 History [Advair Diskus] hyoscyamine sulfate 0.125 mg PO Q4 PRN 05/09/19 06/13/19 History ondansetron 4 mg PO Q8H PRN 05/09/19 06/13/19 History pediatric multivitamin no.76 1 tab PO DAILY 05/09/19 06/13/19 History [Flintstones Complete] oxycodone-acetaminophen 1 tab PO Q6H PRN 06/13/19 06/13/19 History Patient History Medical History Allergic rhinitis Asthma (Chronic) Chronic back pain Depression with anxiety GERD (gastroesophageal reflux disease) History of right inguinal hernia IBS (irritable bowel syndrome) Inflammatory polyarthritis OSHEA (nonalcoholic steatohepatitis) Scoliosis (Chronic) Surgical History H/O gastric bypass (Acute) History of History of cholecystectomy History of colonoscopy History of dental surgery History of tonsillectomy and adenoidectomy Status post panniculectomy Family History Other Cancer Diabetes Heart disease Hypertension Lung disease Seizures Social History Preferred Language: Faroese Communication Ability: Effective Trash Man Required: No Beliefs That Will Affect Care: None Current Living Situation: Family current occupational status: employed Other Information That Helps Us Care for You: No Feels Safe at Home: Yes Safety Concerns: Feels Safe At This Time Smoking Status: Never smoker Hx Alcohol Use: No Hx Substance Use: No Review of Systems Review of Systems: All systems reviewed & are unremarkable except as noted in HPI & below Physical Exam 2 Physical Exam: General: Alert and oriented x 3 in no acute distress. Patient is well nourished and well kept. HEENT: Normocephalic Atraumatic. Inspection normal. Cranial Nerves 2-12 Grossly intact. Nares are clear. Neck is supple. Normal inspection of face. Normal inspection of neck. Neurologic: No deficits on inspection. Baseline for motor function and sensory. Psychologic: Normal affect. Respiratory: Nonlabored. No use of accessory muscles. No tachypnea or dyspnea. Cardiovascular: No tachycardia Skin: [place] and Dry. No rashes or visible lesions. Extremities: Moving without issues. No motor deficits on inspection Lymphatics: No edema Abdomen: Soft Non-distended. No acites. No rebound or guarding. Results & Data Vital Signs (Past 12 Hours) Vital Signs Temp Pulse Pulse Resp BP BP Pulse Ox 06/14/19 07:30 54 L 06/14/19 07:16 36.8 C 65 18 102/64 98 06/14/19 03:42 36.8 C 70 18 92/58 L 96 06/14/19 01:10 53 L PG Care Time/CCT Total # of Minutes Spent Total Time Spent with Patient: Total time spent is greater than 50% in coordination of care (as documented) at patient's floor/unit and/or counseling patient: Coding Level of Care Code 08689 Inpt Consult Level 5 Diagnoses Nausea and vomiting during prior to 22 weeks gestation O21.9 UTI (urinary tract infection) in in first trimester O23.41 Right nephrolithiasis N20.0
[2019-06-14] MEDS: OXYCODONE HCL IR 5 MG TAB (IMMEDIATE RELEASE) PO PRN (14:10)
[2019-06-14] MEDS: POTASSIUM CITRATE 10 MEQ TAB PO SCH ×2 (14:18→20:00)
[2019-06-14] MEDS: SODIUM CHLORIDE 0.9% 1000ML 1,000 ML IV SCH ×2 (15:57→23:47)
[2019-06-14] MEDS: SENNA 8.6 MG TAB PO SCH (16:46)
[2019-06-15] MEDS: AMPICILLIN 1,000 MG in SODIUM CHLOR 0.9% AD-VAN 50 ML IV SCH ×2 (05:33→14:42)
[2019-06-15] MEDS: OXYCODONE HCL IR 5 MG TAB (IMMEDIATE RELEASE) PO PRN ×2 (05:34→19:09)
[2019-06-15] MEDS: MoRPHine SULFATE 2 MG/ML CARP IV PRN ×3 (08:18→22:14)
[2019-06-15] MEDS: BusPIRone 15 MG TAB PO SCH ×2 (08:23→19:54)
[2019-06-15] MEDS: POTASSIUM CITRATE 10 MEQ TAB PO SCH ×3 (08:23→19:53)
[2019-06-15] MEDS: FLUTICASONE PROPIONATE SCH ×2 (08:23→19:53)
[2019-06-15] MEDS: buPROPion HCl 75 MG TABLET PO SCH ×2 (08:23→19:54)
[2019-06-15] MEDS: LORATADINE 10 MG TAB PO SCH (08:24)
[2019-06-15] MEDS: PANTOprazole 40 MG TAB PO SCH (08:24)
[2019-06-15] MEDS: PRENATAL GUMMIES PO SCH (08:25)
[2019-06-15] MEDS: FLINTSTONES GUMMIES PO SCH (08:26)
[2019-06-15] MEDS: SENNA 8.6 MG TAB PO SCH ×3 (08:26→19:53)
[2019-06-15] MEDS: FLUTICASONE/VILANTEROL 200/25MCG 14 PUFFS/INHALER INH SCH (08:27)
[2019-06-15] MEDS: SODIUM CHLORIDE 0.9% 1000ML 1,000 ML IV SCH ×3 (08:29→22:14)
[2019-06-15] MEDS ORDERED: SOD PHOSPHATE/SOD BIPHOSPHATE ENEMA 132 ML BTL PR ONE (08:59)
--- NOTE | 2019-06-15 09:01 | Hospitalist Progress Note ---
Date of Service June 15, 2019 Assessment & Plan (1) Syncope: Orthostatic Hypotension -This is a 34-year-old female who is currently 9 weeks and has significant past medical history of asthma, allergic rhinitis, history of gastric bypass, Manuel, GERD, IBS, depression, inflammatory polyarthritis who presents to ED secondary to syncopal episode x2 prior to arrival, nausea, vomiting, right lower quadrant and suprapubic pain. Pt with 2 episodes of syncope prior to arrival. She admits to syncope in past but not during Orthostatics in ED were positive -given IV fluids, blood pressure checks as per protocol (2) Right nephrolithiasis: -pt has US 05/07 revealing Right nephrolithiasis with mild hydronephrosis. A distal calculus cannot be excluded. -ultrasound on admission on 06/13/2019: Today U/S: There are 2 stones within the lower pole measuring 9 and 6 mm. No hydro. -given IV fluids, prn pain medications (avoid NSAIDs, patient reports rash allergies to Mobic), prn anti-emetics -KUB on 06/14/2019: The renal shadows are partially obscured by overlying bowel gas. There are clustered calcifications projected over the lower pole the right kidney suspicious for calculi. These needle valve operator 8 mm in aggregate. There is additional calcification projected over the mid to upper pole the right kidney suspicious for a calculus. There are no calcifications suspicious for ureteral calculi. There are postsurgical changes of a presumed gastric bypass. IMPRESSION: 1. Right-sided nephrolithiasis 2. Nonobstructive bowel gas pattern 3. No ureteral calculi identified on conventional radiographic imaging -06/14/2019 [facility] [place] Ver[place] advises further IV fluids in case of any residual renal stones in ureter and to give potassium citrate TID to prevent new renal stone formation. will continue to treat nausea and right flank pain as inpatient so hospitalist will uprage patient from observation status to admission status 06/15/2019: patient continues to have some right flank pain and requesting for further continuation of inpatient hospital pain management and IV hydration. continue potassium citrate (3) UTI (urinary tract infection) in in first trimester: -positive bacteria in urine, patient was given ceftriaxone 1 gram in the ED by ED provider -hospitalist called OBGYN Dr. Vera in regards to safest types of antibiotics for patient in 1st trimester, and he suggested either Macrobid or Ampicillin. started ampicillin on 06/14/2019. Patient does report rash reaction to penicillin but she has tolerated Augmentin in the past and she prefers Ampicillin over Macrobid while inpatient. -follow the urine cultures (4) Nausea and vomiting during prior to 22 weeks gestation: -IV fluids and prn anti-emetics (5) Asthma: -continue advair, singulair, claritin (6) IBS (irritable bowel syndrome): Constipation -home medication of prn levsin (hyoscyamine) -for constipation, give senna, colace, fleet enema x 1 on 06/15/2019 (7) Chronic back pain: -pt takes oxycodone due to chronic low back pain. She receives epidural injections but has not since -she recently at home been taking oxycodone at home every other day for pain (8) Depression with anxiety: -continue wellbutrin and buspar (9) : of the 1st Trimester -9 weeks -Follows [facility] OBGYN services Abnormal Thyroid function tests (due to physiological changes during ) -while thyroid function can change coordinator course of , her TSH of 0.096 uIu/ml is low. Free T4 is normal as 1.24 ng/dl -The total T4 is mildly elevated as 11.3 mg/dl (normal is 4.5 to 10.9), with normal Total T3 and and normal free T3) -discussed with [facility] Endocrine Dr. Clarke and that these numbers are likely reflected of physiological changes in and no thyroid related medications needed at this time. She advised that patient follow up with her primary care doctor and OBGYN doctor (10) DVT prophylaxis: -encourage ambulation Follow up: PCP Dr. Joya upon discharge along with appropriate EMERGENCY DEPARTMENT MANAGER follow up Admission and Anticipated Discharge Date Admission Date: June 14, 2019 Subjective patient continues to have some right flank pain and requesting for further continuation of inpatient hospital pain management and IV hydration. Patient also with constipation and needing increased bowel regimen. Patient currently still on ampicillin antibiotics as urine cultures have not finalized yet. Patient breathing on room air. no chest pain. no acute abdomen pain. no headache. no dizziness. she has been able to ambulate to bathroom to urinate. Review of Systems Review of Systems: All systems reviewed & are unremarkable except as noted in Subjective Physical Exam Constitutional: cooperative Eyes: PERRL, conjunctivae normal, anicteric sclerae EOM intact bilaterally ENMT: external ear and nose normal, oropharynx normal Neck: normal visual inspection Respiratory: normal respiratory effort, lungs clear to auscultation Cardiovascular: Rate/Rhythm: regular rate and regular rhythm Gastrointestinal (Abdomen): Percussion/Palpation: abdomen soft Musculoskeletal: Head/Neck/Chest: normocephalic Neurologic: PERRL, EOMI, accommodation nl, no face palsy, no dysarthria CN's II-XI intact bilaterally Psychiatric: A+Ox3, euthymic affect Results & Data Results & Data ([facility]) Vital Signs (Past 12 Hours) Vital Signs Temp Pulse Pulse Resp BP Pulse Ox 06/15/19 07:37 36.6 C 71 18 102/65 97 06/15/19 04:13 36.8 C 64 16 105/49 L 96 06/15/19 02:42 63 06/15/19 00:50 96/58 L 06/14/19 23:04 36.8 C 66 16 87/44 L 97
[2019-06-15] MEDS: DOCUSATE SODIUM 100 MG CAP PO SCH ×2 (09:44→19:53)
[2019-06-16] MEDS: SODIUM CHLORIDE 0.9% 1000ML 1,000 ML IV SCH ×3 (06:00→22:30)
[2019-06-16] MEDS: MoRPHine SULFATE 2 MG/ML CARP IV PRN ×3 (06:39→18:05)
[2019-06-16] MEDS: FLUTICASONE PROPIONATE SCH ×2 (08:02→21:44)
[2019-06-16] MEDS: FLINTSTONES GUMMIES PO SCH (08:02)
[2019-06-16] MEDS: FLUTICASONE/VILANTEROL 200/25MCG 14 PUFFS/INHALER INH SCH (08:02)
[2019-06-16] MEDS: BusPIRone 15 MG TAB PO SCH ×2 (08:03→21:42)
[2019-06-16] MEDS: PANTOprazole 40 MG TAB PO SCH (08:03)
[2019-06-16] MEDS: LORATADINE 10 MG TAB PO SCH (08:03)
[2019-06-16] MEDS: SENNA 8.6 MG TAB PO SCH ×2 (08:03→18:13)
[2019-06-16] MEDS: PRENATAL GUMMIES PO SCH (08:03)
[2019-06-16] MEDS: POTASSIUM CITRATE 10 MEQ TAB PO SCH ×3 (08:03→21:43)
[2019-06-16] MEDS: DOCUSATE SODIUM 100 MG CAP PO SCH ×2 (08:03→18:13)
[2019-06-16] MEDS: buPROPion HCl 75 MG TABLET PO SCH ×2 (08:03→21:44)
--- NOTE | 2019-06-16 08:10 | Hospitalist Progress Note ---
Date of Service June 16, 2019 Assessment & Plan (1) Syncope: Orthostatic Hypotension -This is a 34-year-old female who is currently 9 weeks and has significant past medical history of asthma, allergic rhinitis, history of gastric bypass, Manuel, GERD, IBS, depression, inflammatory polyarthritis who presents to ED secondary to syncopal episode x2 prior to arrival, nausea, vomiting, right lower quadrant and suprapubic pain. Pt with 2 episodes of syncope prior to arrival. She admits to syncope in past but not during Orthostatics in ED were positive -given IV fluids, blood pressure checks as per protocol (2) Right nephrolithiasis: -pt has US 05/07 revealing Right nephrolithiasis with mild hydronephrosis. A distal calculus cannot be excluded. -ultrasound on admission on 06/13/2019: Today U/S: There are 2 stones within the lower pole measuring 9 and 6 mm. No hydro. -given IV fluids, prn pain medications (avoid NSAIDs, patient reports rash allergies to Mobic), prn anti-emetics -KUB on 06/14/2019: The renal shadows are partially obscured by overlying bowel gas. There are clustered calcifications projected over the lower pole the right kidney suspicious for calculi. These anesthesiology physician assistant 8 mm in aggregate. There is additional calcification projected over the mid to upper pole the right kidney suspicious for a calculus. There are no calcifications suspicious for ureteral calculi. There are postsurgical changes of a presumed gastric bypass. IMPRESSION: 1. Right-sided nephrolithiasis 2. Nonobstructive bowel gas pattern 3. No ureteral calculi identified on conventional radiographic imaging -06/14/2019 [facility] [place]. Veras advises further IV fluids in case of any residual renal stones in ureter and to give potassium citrate TID to prevent new renal stone formation. will continue to treat nausea and right flank pain as inpatient so hospitalist will uprage patient from observation status to admission status 06/15/2019: patient continues to have some right flank pain and requesting for further continuation of inpatient hospital pain management and IV hydration. continue potassium citrate -06/16/2019: patient not in acute distress on exam in AM but she has had requested prn pain medications and reports that her right flank pain is 8 of 10 in severity. Denies other symptoms of headache or dizziness or chest discomforts or shortness of breath. Because patient continues to have symptoms, will continue inpatient IV fluids and inpatient pain control and oral potassium citrate and also recall [facility] urology to re-assess (3) UTI (urinary tract infection) in in first trimester: -positive bacteria in urine, patient was given ceftriaxone 1 gram in the ED by ED provider on 06/13/2019 -hospitalist called OBGYN Dr. Vera in regards to safest types of antibiotics for patient in 1st trimester, and he suggested either Macrobid or Ampicillin. started ampicillin on 06/14/2019. Patient does report rash reaction to penicillin but she has tolerated Augmentin in the past and she prefers Ampicillin over Macrobid while inpatient. -urine cultures resulted on 06/15/2019 "More than three types of organisms present, all moderate counts mixed 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 No further identifications or sensitivities to follow." ampicillin stopped on 06/16/2019 (4) Nausea and vomiting during prior to 22 weeks gestation: -IV fluids and prn anti-emetics (5) Asthma: -continue advair, singulair, claritin (6) IBS (irritable bowel syndrome): Constipation -home medication of prn levsin (hyoscyamine) -for constipation, give senna, colace, fleet enema x 1 on 06/15/2019 -continue senna/colace (7) Chronic back pain: -pt takes oxycodone due to chronic low back pain. She receives epidural injections but has not since -she recently at home been taking oxycodone at home every other day for pain (8) Depression with anxiety: -continue wellbutrin and buspar (9) : of the 1st Trimester -9 weeks -Follows [facility] OBGYN services Abnormal Thyroid function tests (due to physiological changes during ) -while thyroid function can military exchange wireless manager course of , her TSH of 0.096 uIu/ml is low. Free T4 is normal as 1.24 ng/dl -The total T4 is mildly elevated as 11.3 mg/dl (normal is 4.5 to 10.9), with normal Total T3 and and normal free T3) -discussed with [facility] Endocrine Dr. Clarke and that these numbers are likely reflected of physiological changes in and no thyroid related medications needed at this time. She advised that patient follow up with her primary care doctor and OBGYN doctor (10) DVT prophylaxis: -encourage ambulation Follow up: PCP Dr. Joya upon discharge along with appropriate MANAGER CLUB follow up Admission and Anticipated Discharge Date Admission Date: June 14, 2019 Subjective patient not in acute distress on exam in AM but she has had requested prn pain medications and reports that her right flank pain is 8 of 10 in severity. Denies other symptoms of headache or dizziness or chest discomforts or shortness of breath. Because patient continues to have symptoms, will continue inpatient IV fluids and inpatient pain control and oral potassium citrate and also recall [facility] urology to re-assess Review of Systems Review of Systems: All systems reviewed & are unremarkable except as noted in Subjective Physical Exam Constitutional: cooperative Eyes: PERRL, conjunctivae normal, anicteric sclerae EOM intact bilaterally ENMT: external ear and nose normal, oropharynx normal Neck: normal visual inspection Respiratory: normal respiratory effort, lungs clear to auscultation Cardiovascular: Rate/Rhythm: regular rate and regular rhythm Gastrointestinal (Abdomen): Percussion/Palpation: abdomen soft Musculoskeletal: Head/Neck/Chest: normocephalic right flank tenderness Skin: no rashes, warm and dry Neurologic: PERRL, EOMI, accommodation nl, no face palsy, no dysarthria CN's II-XI intact bilaterally Psychiatric: A+Ox3, euthymic affect Results & Data Results & Data ([facility]) Vital Signs (Past 12 Hours) Vital Signs Temp Pulse Pulse Resp BP Pulse Ox 06/16/19 07:25 36.7 C 61 18 106/66 98 06/16/19 04:15 36.8 C 59 L 18 113/73 95 06/15/19 23:06 36.7 C 61 20 105/62 95 06/15/19 23:00 62
[2019-06-16] MEDS: OXYCODONE HCL IR 5 MG TAB (IMMEDIATE RELEASE) PO PRN ×2 (13:43→21:42)
--- NOTE | 2019-06-16 17:57 | Urology Progress Note ---
Date of Service June 16, 2019 Assessment & Plan (1) Right nephrolithiasis: Actively passing a R ureteral calculus - I have discussed the difficulty of her current situation - given the early stage of gestation - CT or IVP would expose the fetus to significant radiation - empiric URS/LL may likewise result in stress, etc - this leaves two viable options 1. observation - which she does not think she can tolerate 2. two stage approach to treatment - first place a R stent with a single shot RPG to identify the stone, follow this with delayed URS/LL (ideally into the second trimester) to definitively treat the stone - she understands that all of the above involve some degree of risk to the fetus - she is interested in surgery - NPO after MN in preparation Subjective 9weeks , long hx of stones - recent onset of severe right flank pain - reviewed all imaging - most recent studies (US and KUB) do not definitively show a ureteral stone (but the US seems to show 2 renal stones) - CT in Mar - shows 3 renal stones - presumption that she is actively passing one of these stones - pain now in the groin - she is quite uncomfortable and does not think she can continue to wait for spontaneous passage Review of Systems Review of Systems: All systems reviewed & are unremarkable except as noted in HPI & below Physical Exam Constitutional: well developed and well nourished Neck: neck nontender Respiratory: normal respiratory effort; no respiratory distress and does not use accessory muscles Cardiovascular: Rate/Rhythm: regular rate Vessels: radial pulses present Extremities: no edema Gastrointestinal (Abdomen): Inspection/Auscultation: abdomen normal to inspection Percussion/Palpation: abdomen soft; abdomen nontender and no guarding Musculoskeletal: Head/Neck/Chest: normocephalic and head atraumatic Extremities: extremities normal to inspection Skin: no rashes and no lesions Trauma: no evidence of skin trauma Neurologic: awake; not obtunded Speech / Cognition: normal speech Motor/ Sensory: no tremor Psychiatric: Orientation: alert and oriented x 3 Lymphatic: no lymphadenopathy Results & Data Vital Signs (Past 12 Hours) Vital Signs Temp Pulse Pulse Resp BP Pulse Ox 06/16/19 16:07 64 06/16/19 15:26 36.5 C 76 18 102/63 98 06/16/19 11:19 36.7 C 66 16 103/67 97 06/16/19 07:25 36.7 C 61 18 106/66 98 PG Care Time/CCT Total # of Minutes Spent Total Time Spent with Patient: Total time spent is greater than 50% in c oordination of care (as documented) at patient's floor/unit and/or counseling patient: Coding Level of Care Code 76269 Subseq Hosp Care Lvl 2 Diagnoses Right nephrolithiasis N20.0
[2019-06-17] MEDS: MoRPHine SULFATE 2 MG/ML CARP IV PRN ×3 (00:06→20:37)
[2019-06-17] MEDS: SODIUM CHLORIDE 0.9% 1000ML 1,000 ML IV SCH ×2 (06:11→14:10)
[2019-06-17] MEDS: OXYCODONE HCL IR 5 MG TAB (IMMEDIATE RELEASE) PO PRN ×2 (06:15→16:14)
--- NOTE | 2019-06-17 07:53 | Hospitalist Progress Note ---
Date of Service June 17, 2019 Assessment & Plan (1) Syncope: Orthostatic Hypotension -This is a 34-year-old female who is currently 9 weeks and has significant past medical history of asthma, allergic rhinitis, history of gastric bypass, Manuel, GERD, IBS, depression, inflammatory polyarthritis who presents to ED secondary to syncopal episode x2 prior to arrival, nausea, vomiting, right lower quadrant and suprapubic pain. Pt with 2 episodes of syncope prior to arrival. She admits to syncope in past but not during Orthostatics in ED were positive -given IV fluids, blood pressure checks as per protocol (2) Right nephrolithiasis: -pt has US 05/07 revealing Right nephrolithiasis with mild hydronephrosis. A distal calculus cannot be excluded. -ultrasound on admission on 06/13/2019: Today U/S: There are 2 stones within the lower pole measuring 9 and 6 mm. No hydro. -given IV fluids, prn pain medications (avoid NSAIDs, patient reports rash allergies to Mobic), prn anti-emetics -KUB on 06/14/2019: The renal shadows are partially obscured by overlying bowel gas. There are clustered calcifications projected over the lower pole the right kidney suspicious for calculi. 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 There is additional calcification projected over the mid to upper pole the right kidney suspicious for a calculus. There are no calcifications suspicious for ureteral calculi. There are postsurgical changes of a presumed gastric bypass. IMPRESSION: 1. Right-sided nephrolithiasis 2. Nonobstructive bowel gas pattern 3. No ureteral calculi identified on conventional radiographic imaging -06/14/2019 [facility] [place] Urology Dr. Veras advises further IV fluids in case of any residual renal stones in ureter and to give potassium citrate TID to prevent new renal stone formation. will continue to treat nausea and right flank pain as inpatient so hospitalist will uprage patient from observation status to admission status 06/15/2019: patient continues to have some right flank pain and requesting for further continuation of inpatient hospital pain management and IV hydration. continue potassium citrate -06/16/2019: patient not in acute distress on exam in AM but she has had requested prn pain medications and reports that her right flank pain is 8 of 10 in severity. Denies other symptoms of headache or dizziness or chest discomforts or shortness of breath. Because patient continues to have symptoms, will continue inpatient IV fluids and inpatient pain control and oral potassium citrate and also recalled [facility] urology to re-assess -06/17/2019: Patient seen and examined at bedside with [facility] Dr. Chavez. Patient has been NPO and IV fluids still running. Patient reported of asking and receiving recent prn pain medications prior to our arrival to her room and now feels better from the pain for the moment. Dr. Chavez plans to proceed with placement of right ureteral stent later today. Radha Chavez to order the pre-op antibiotics prior to placement of right ureteral stent (3) UTI (urinary tract infection) in in first trimester: -positive bacteria in urine, patient was given ceftriaxone 1 gram in the ED by ED provider on 06/13/2019 -hospitalist called OBGYN Dr. Vera in regards to safest types of antibiotics for patient in 1st trimester, and he suggested either Macrobid or Ampicillin. started ampicillin on 06/14/2019. Patient does report rash reaction to penicillin but she has tolerated Augmentin in the past and she prefers Ampicillin over Macrobid while inpatient. -urine cultures resulted on 06/15/2019 "More than three types of organisms present, all moderate counts mixed 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 No further identifications or sensitivities to follow." ampicillin stopped on 06/16/2019 -06/17/[address] [address] Chavez to order the pre-op antibiotics prior to placement of right ureteral stent (4) Nausea and vomiting during prior to 22 weeks gestation: -IV fluids and prn anti-emetics (5) Asthma: -continue advair, singulair, claritin (6) IBS (irritable bowel syndrome): Constipation -home medication of prn levsin (hyoscyamine) -for constipation, give senna, colace, fleet enema x 1 on 06/15/2019 -continue senna/colace (7) Chronic back pain: -pt takes oxycodone due to chronic low back pain. 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 Free T4 is normal as 1.24 ng/dl -The total T4 is mildly elevated as 11.3 mg/dl (normal is 4.5 to 10.9), with normal Total T3 and and normal free T3) -discussed with [facility] Endocrine Dr. Clarke and that these numbers are likely reflected of physiological changes in and no thyroid related medications needed at this time. She advised that patient follow up with her primary care doctor and OBGYN doctor (10) DVT prophylaxis: -encourage ambulation Follow up:will need to see PCP Dr. 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 Chavez. Patient has been NPO and IV fluids still running. Patient reported of asking and receiving recent prn pain medications prior to our arrival to her room and now feels better from the pain for the moment. Dr. Chavez plans to proceed with placement of right ureteral stent later today. Radha Chavez to order the pre-op antibiotics prior to placement of right ureteral stent no vomiting. no fever. breathing on room air. no shortness of breath. no swelling of the legs while on IV fluids. is ambulatory to the bathroom. Review of Systems Review of Systems: All systems reviewed & are unremarkable except as noted in Subjective Physical Exam Constitutional: cooperative Eyes: PERRL, conjunctivae normal, anicteric sclerae EOM intact bilaterally ENMT: external ear and nose normal, oropharynx normal Neck: normal visual inspection Respiratory: normal respiratory effort, lungs clear to auscultation Cardiovascular: Rate/Rhythm: regular rate and regular rhythm Gastrointestinal (Abdomen): Percussion/Palpation: abdomen soft Musculoskeletal: Head/Neck/Chest: normocephalic Skin: no rashes, warm and dry Neurologic: PERRL, EOMI, accommodation nl, no face palsy, no dysarthria CN's II-XI intact bilaterally Psychiatric: A+Ox3, euthymic affect Results & Data Results & Data ([facility]) Vital Signs (Past 12 Hours) Vital Signs Temp Pulse Pulse Resp BP Pulse Ox 06/17/19 00:10 36.7 C 71 16 119/71 96 06/16/19 22:29 60 06/16/19 21:46 37.7 C H 62 127/75 97
--- NOTE | 2019-06-17 08:06 | Urology Progress Note ---
Date of Service June 17, 2019 Assessment & Plan (1) Acute right flank pain: (2) Right nephrolithiasis: Discussed the challenges of her care again this morning9 weeks of , risk to the fetus, risk to the patient for anesthesia and drug exposures as well as radiation exposure Rather than repeat imaging, we will move forward with a cystoscopy and right ureteral stent placementsingle shot RPG at that time to confirm stent positioning and identify the location of the stone or absence of a stone This will likely be stage I of a two-stage approach We would have to return in 4 to 6 weeks to offer her definitive treatment of her stone if she does not have spontaneous passage. She understands this plan and is anxious to move forward with treatment Subjective 34-year-old female with9 weeks of gestation with a presumed right ureteral stone Continues to have renal colic No fevers, no chills No stone passage No nausea or vomiting overnight She remains resolute that she would like to have something done to treat this Review of Systems Review of Systems: All systems reviewed & are unremarkable except as noted in HPI & below Physical Exam Physical Exam: Minimal right CVA tenderness Constitutional: well developed and well nourished Respiratory: no respiratory distress Cardiovascular: Extremities: no pedal edema Gastrointestinal (Abdomen): Inspection/Auscultation: abdomen normal to inspection Results & Data Vital Signs (Past 12 Hours) Vital Signs Temp Pulse Pulse Resp BP Pulse Ox 06/17/19 00:10 36.7 C 71 16 119/71 96 06/16/19 22:29 60 06/16/19 21:46 37.7 C H 62 127/75 97 PG Care Time/CCT Total # of Minutes Spent Total Time Spent with Patient: Total time spent is greater than 50% in coordination of care (as documented) at patient's floor/unit and/or counseling patient: Coding Level of Care Code 49725 Subseq Hosp Care Lvl 2 Diagnoses Acute right flank pain R10.9 Right nephrolithiasis N20.0
[2019-06-17] MEDS: FLUTICASONE PROPIONATE SCH ×2 (08:40→20:34)
[2019-06-17] MEDS: FLUTICASONE/VILANTEROL 200/25MCG 14 PUFFS/INHALER INH SCH (08:40)
[2019-06-17] MEDS: PRENATAL GUMMIES PO SCH (08:41)
[2019-06-17] MEDS: BusPIRone 15 MG TAB PO SCH ×2 (08:41→20:33)
[2019-06-17] MEDS: POTASSIUM CITRATE 10 MEQ TAB PO SCH ×3 (08:41→20:33)
[2019-06-17] MEDS: buPROPion HCl 75 MG TABLET PO SCH ×2 (08:41→20:33)
[2019-06-17] MEDS: LORATADINE 10 MG TAB PO SCH (08:41)
[2019-06-17] MEDS: PANTOprazole 40 MG TAB PO SCH (08:41)
[2019-06-17] MEDS: SENNA 8.6 MG TAB PO SCH ×2 (08:41→20:33)
[2019-06-17] MEDS: FLINTSTONES GUMMIES PO SCH (08:41)
[2019-06-17] MEDS: DOCUSATE SODIUM 100 MG CAP PO SCH ×2 (08:41→20:33)
[2019-06-17] MEDS ORDERED: IOTHALAMATE MEGLUMINE II 17.2% 250 ML VIAL ONE (15:19)
--- NOTE | 2019-06-17 15:32 | Anesthesiology Consultation ---
Date of Service June 17, 2019 Assessment & Plan (1) Encounter for pre-operative examination: Chart Review Chart Review: Acceptable Risk for Surgery and Patient NOT seen in Pre Admission Testing Consults Requested none History Surgery Operation Date: 06/17/19 08:30 Proposed Procedures p Cystoscopy, Right Ureteral Stent Placement - Juwan Chavez MD Height/Weight Height: 5 ft 3 in Weight: 79.9 kg Allergies Allergy/AdvReac Type Severity Reaction Status Date / Time meloxicam Allergy Intermediate breakouts Unverified 06/13/19 14:55 and itchy all over Penicillins Allergy Unknown RASH Verified 06/13/19 14:55 diphenhydramine AdvReac Unknown SLEEPS Verified 06/13/19 14:55 Pharbedryl Allergy Mild Nausea/vomi Uncoded 06/13/19 14:55 ting Medications Home Medications Medication Instructions Recorded Confirmed Last Taken albuterol sulfate 2 puff INHALATION Q6H PRN 03/15/18 06/13/19 Unknown bupropion HCl 75 mg PO BID 03/15/18 06/13/19 Unknown cyanocobalamin (vitamin B-12) 1,000 mcg IM UD 03/15/18 06/13/19 Unknown loratadine [Claritin] 10 mg PO DAILY PRN 03/15/18 06/13/19 Unknown omeprazole 20 mg PO DAILY 03/15/18 06/13/19 Unknown triamcinolone acetonide 1 applic TOPICAL BID PRN 03/15/18 06/13/19 Unknown PNV cmb#95-ferrous fumarate-FA 1 tab PO DAILY 05/09/19 06/13/19 Unknown [] azelastine 2 spray INTRANASAL BID 05/09/19 06/13/19 Unknown buspirone 15 mg PO BID 05/09/19 06/13/19 Unknown fluticasone propion-salmeterol 1 inh INHALATION BID 05/09/19 06/13/19 Unknown [Advair Diskus] hyoscyamine sulfate 0.125 mg PO Q4 PRN 05/09/19 06/13/19 Unknown ondansetron 4 mg PO Q8H PRN 05/09/19 06/13/19 Unknown pediatric multivitamin no.76 1 tab PO DAILY 05/09/19 06/13/19 Unknown [Flintstones Complete] oxycodone-acetaminophen 1 tab PO Q6H PRN 06/13/19 06/13/19 Unknown Active Medications Generic Name Dose Route Start Last Admin Trade Name Freq PRN Reason Stop Dose Admin Bupropion HCl 75 mg 06/13/19 21:00 06/17/19 08:41 Wellbutrin PO 07/13/19 20:59 Not Given BID CÉSAR Buspirone HCl 15 mg 06/13/19 21:00 06/17/19 08:41 Buspar PO 07/13/19 20:59 Not Given BID CÉSAR Docusate Sodium 100 mg 06/15/19 09:00 06/17/19 08:41 Colace PO 07/15/19 08:59 Not Given BID CÉSAR Fluticasone Propionate 2 sprays 06/14/19 09:00 06/17/19 08:40 Flonase NA 07/14/19 08:59 2 sprays BID CÉSAR Administration Fluticasone/Vilanterol 1 puffs 06/14/19 09:00 06/17/19 08:40 Breo Ellipta 200/25 Mcg Inh INH 07/14/19 08:59 1 puffs DAILY CÉSAR Administration Sodium Chloride 1,000 mls @ 125 mls/hr 06/14/19 16:00 06/17/19 14:10 Nss 1000ml IV 07/14/19 15:59 125 mls/hr .Q8H CÉSAR Administration Loratadine 10 mg 06/14/19 09:00 06/17/19 08:41 Claritin PO 07/14/19 08:59 Not Given DAILY CÉSAR Morphine Sulfate 2 mg 06/13/19 18:28 06/17/19 11:42 Morphine Sulfate IV 06/27/19 18:27 2 mg Q6H PRN Administration Pain Flintstones Gummies~ 1 ea 06/14/19 09:00 06/17/19 08:41 Non-Formulary PO 07/14/19 08:59 Not Given Patient's Own Med DAILY CÉSAR Gummies~Non 1 ea 06/14/19 09:00 06/17/19 08:41 -Formulary Patient's PO 07/14/19 08:59 Not Given Own Med DAILY CÉSAR Ondansetron HCl 4 mg 06/14/19 10:18 06/14/19 18:17 Zofran IV 07/14/19 10:17 4 mg Q6H PRN Administration Nausea Oxycodone HCl 5 mg 06/13/19 18:40 06/17/19 06:15 Roxicodone Immediate Rel PO 06/27/19 18:39 5 mg Q6H PRN Administration Pain Pantoprazole Sodium 40 mg 06/14/19 09:00 06/17/19 08:41 Protonix PO 07/14/19 08:59 Not Given DAILY CÉSAR Potassium Citrate 10 meq 06/14/19 14:00 06/17/19 13:16 Urocit-K PO 07/14/19 13:59 Not Given TID CÉSAR Sennosides 8.6 mg 06/15/19 09:00 06/17/19 08:41 Senokot PO 07/15/19 08:59 Not Given BID CÉSAR NPO Date Last Intake of Fluids: 06/17/19 Time Last Intake of Fluids: 00:00 Date Last Intake of Solids: 06/17/19 Time Last Intake of Solids: 00:00 Past Medical History Medical History Allergic rhinitis Asthma (Chronic) Chronic back pain Depression with anxiety GERD (gastroesophageal reflux disease) History of right inguinal hernia IBS (irritable bowel syndrome) Inflammatory polyarthritis OSHEA (nonalcoholic steatohepatitis) Scoliosis (Chronic) Past Family History Family History Other Cancer Diabetes Heart disease Hypertension Lung disease Seizures Past Surgical History Surgical History H/O gastric bypass (Acute) History of History of cholecystectomy History of colonoscopy History of dental surgery History of tonsillectomy and adenoidectomy Status post panniculectomy Social History Smoking Status: Never smoker Hx Alcohol Use: No Hx Substance Use: No Physical Exam Vital Signs Last Vital Signs Temp 36.9 C 06/17/19 15:21 Pulse 67 06/17/19 15:21 Resp 18 06/17/19 15:21 BP 104/69 06/17/19 15:21 Pulse Ox 98 06/17/19 15:21 Testing Laboratory Results 06/14/19 08:33 06/14/19 08:33 Urine Color Yellow 06/13/19 14:36 Urine Appearance Clear (Clear) 06/13/19 14:36 Urine pH 6.5 (4.5-7.5) 06/13/19 14:36 Ur Specific [place] 1.017 (1.000-1.030) 06/13/19 14:36 Urine Protein Negative (Negative) 06/13/19 14:36 Urine Glucose (UA) Negative (Negative) 06/13/19 14:36 Urine Ketones 2+ (Negative) H 06/13/19 14:36 Urine Nitrite Negative (Negative) 06/13/19 14:36 Ur Leukocyte Esterase Negative (Negative) 06/13/19 14:36 Urine WBC (Auto) 1-5 /hpf (0-5) 06/13/19 14:36 Urine RBC (Auto) 10-30 /hpf (0-4) H 06/13/19 14:36 U Hyaline Cast (Auto) 1-5 /lpf (0-5) 06/13/19 14:36 U Epithel Cells (Auto) >30 /lpf (0-5) H 06/13/19 14:36 Urine Bacteria (Auto) 1+ (Negative) H 06/13/19 14:36 06/13/19 14:36 Urine Culture - Final Urine,Clean Catch More than three types of organisms present, all moderate counts mixed 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 No further identifications or sensitivities to follow.
[2019-06-17] MEDS ORDERED: ePHEDrine sulfate 50 MG/ML AMP IV PRN (17:57)
[2019-06-17] MEDS ORDERED: HYDROmorphone INJ 1 MG/ML SYRINGE IV PRN (17:57)
[2019-06-17] MEDS ORDERED: ATROPINE SULFATE 0.1 MG/ML 10ML SYR IV PRN (17:57)
[2019-06-17] MEDS ORDERED: LABETALOL HCL IV 5 MG/ML 20ML IV PRN (17:57)
[2019-06-17] MEDS ORDERED: PHENYLEPHRINE 100MCG/ML 5ML SYR IV PRN (17:57)
[2019-06-17] MEDS ORDERED: ONDANSETRON INJ 2 MG/ML 2 ML VIAL IV PRN (17:57)
[2019-06-17] MEDS ORDERED: PROPOFOL IV EMULSION 10 MG/ML 20 ML VIAL IV ONE (18:10)
[2019-06-17] MEDS ORDERED: LIDOCAINE HCL 2% 2 ML VIAL/AMP(20MG/ML) INFIL ONE (18:10)
[2019-06-17] MEDS ORDERED: fentaNYL citrate 100 MCG/2 ML VIAL ONE (18:27)
--- NOTE | 2019-06-17 18:57 | Operative Report ---
PG Post Operative Report Pre & Post Diagnosis Operation Date: 06/17/19 08:30 Pre-Op Diagnosis: Kidney Stone Post-Op Diagnosis: Kidney Stone I identified the patient and participated in the time-out.: Yes Procedure Operation Date: 06/17/19 08:30 Actual Procedures p Cystoscopy, Right Retrograde Pyelofram, Right Ureteral Stent Placement(Right) - Juwan Chavez MD Surgeon Wes Chavez MD Miller Head Assistant Wet Process none Estimated Blood Loss 0 Findings Consistent with Post-Op Diagnosis Specimens none Description of Procedure The patient was identified in the preoperative holding area, appropriate informed consents were reviewed and completed and the patient was transferred to the operative suite. Upon arrival, mild sedation was administered and the patient was placed in dorsal lithotomy position and prepped and draped in sterile fashion. Of note, the patient is 9 weeks and in turn we attempted to use very light sedation and minimal fluoroscopy. After passing a cystoscope per urethra. Inspection of the bladder was conducted which revealed healthy-appearing mucosa. There was slight erythema around the right UO consistent with mild irritation. There was no mounding or other evidence of an extreme distal ureteral calculus. I turned my attention to this UO and cannulated it with a 5 [place] open-ended catheter. With the catheter just in the intramural ureter I injected contrast and took a single shot retrograde pyelogram showing the majority of the ureter. Of note, there is no filling defect or significant hydronephrosis appreciated. Interestingly, after removing the 5 [place] open a catheter she had output of urine from this system and there were several small fragments of stone that came out with the urine. This raises the possibility of a stone that had partially fragmented and was passing into small pieces rather than one large stone. This could explain some of her symptoms. I proceeded to place a stent given her persistent symptoms. I placed a 6 [place] by multilength double-J ureteral stent seeing a good curl in the kidney as well as the bladder. A single shot was taken of the kidney to confirm the position. Her bladder was subsequently emptied and the case concluded. She was taken to the PACU in stable condition. There were no complications. I attest to the content of the Intraoperative Record and any orders documented therein. Any exceptions are noted below.
--- NOTE | 2019-06-17 19:05 | Anesthesiology Progress Note ---
Date of Service June 17, 2019 Anesthesia Post Procedure Vital Signs Vital Signs: Temp Pulse Pulse Resp BP Pulse Ox 06/17/19 17:28 37.1 C 62 16 129/73 99 06/17/19 15:21 36.9 C 67 18 104/69 98 06/17/19 11:47 36.7 C 68 18 112/66 97 06/17/19 08:00 36.8 C 72 18 107/68 97 06/17/19 00:10 36.7 C 71 16 119/71 96 06/16/19 22:29 60 06/16/19 21:46 37.7 C H 62 127/75 97 06/16/19 19:16 36.7 C 78 20 114/71 97 Pain Intensity Right Flank: Pain Intensity: 3 Transfer of Care Handoff Completed per policy Notes Mental Status: alert / awake / arousable Patient Amnestic to Procedure: Yes Nausea / Vomiting: adequately controlled Pain: adequately controlled Airway Patency, RR, SpO2: stable & adequate BP & HR: stable & adequate Hydration State: stable & adequate Anesthetic Complications: no major complications apparent and Pt Satisfied with anesthetic care
[2019-06-17] MEDS: fentaNYL citrate 100 MCG/2 ML VIAL IV PRN ×4 (19:07→19:22)
--- NOTE | 2019-06-17 19:27 | Fluoroscopy Report ---
FL retrograde includes kub CLINICAL HISTORY: LEFT RETROGRADE AND STENT PLACEMENT, 9 WKS COMPARISON STUDY: None. FLUOROSCOPY TIME: 4 seconds. FINDINGS: 3 fluoroscopic spot images of the abdomen were submitted. There is retrograde opacification of the right renal collecting system. This is followed by placement of a right ureteral stent. Only the proximal portion of the right ureteral stent was identified and appears in good position. IMPRESSION: Fluoroscopy provided for right ureteral stent placement. ACT 112: Negative or not required by law. Electronically signed by: Jasiel Davis M.D. 06/17/2019 7:26 PM
[2019-06-17] MEDS: ONDANSETRON INJ 2 MG/ML 2 ML VIAL IV PRN (22:39)
[2019-06-18] MEDS: OXYCODONE HCL IR 5 MG TAB (IMMEDIATE RELEASE) PO PRN ×3 (00:10→14:12)
[2019-06-18] MEDS: SODIUM CHLORIDE 0.9% 1000ML 1,000 ML IV SCH ×2 (00:13→08:25)
[2019-06-18] MEDS: MoRPHine SULFATE 2 MG/ML CARP IV PRN ×2 (04:58→11:26)
[2019-06-18] MEDS: FLUTICASONE PROPIONATE SCH (08:25)
[2019-06-18] MEDS: FLINTSTONES GUMMIES PO SCH (08:25)
[2019-06-18] MEDS: FLUTICASONE/VILANTEROL 200/25MCG 14 PUFFS/INHALER INH SCH (08:25)
[2019-06-18] MEDS: LORATADINE 10 MG TAB PO SCH (08:26)
[2019-06-18] MEDS: PANTOprazole 40 MG TAB PO SCH (08:26)
[2019-06-18] MEDS: POTASSIUM CITRATE 10 MEQ TAB PO SCH ×2 (08:26→14:12)
[2019-06-18] MEDS: BusPIRone 15 MG TAB PO SCH (08:26)
[2019-06-18] MEDS: buPROPion HCl 75 MG TABLET PO SCH (08:26)
[2019-06-18] MEDS: SENNA 8.6 MG TAB PO SCH (08:26)
[2019-06-18] MEDS: DOCUSATE SODIUM 100 MG CAP PO SCH (08:26)
[2019-06-18] MEDS: PRENATAL GUMMIES PO SCH (08:26)
--- NOTE | 2019-06-18 09:48 | Urology Progress Note ---
Date of Service June 18, 2019 Assessment & Plan (1) Right nephrolithiasis: Postop day #1 status post cystoscopy and right ureteral stent placement It appears that the stone may have crumbled I will leave the stent in for several days and then remove it next weekI believe we can avoid any other surgeries We will call to arrange outpatient follow-upstable for discharge home from a standpoint Subjective Status post cystoscopy and right ureteral stent placement yesterday Retrograde pyelogram did not reveal a substantial stone within the ureter, she did have several small fragments that came out after the retrograde pyelogram implying that the stone may have crumbled She is having stent associated discomfort today, but feels that she can tolerate this I would likely plan for discharge home later today and outpatient follow-up for stent removal next week Review of Systems Review of Systems: All systems reviewed & are unremarkable except as noted in HPI & below Physical Exam Constitutional: well developed and well nourished Respiratory: no respiratory distress Cardiovascular: Extremities: no pedal edema Gastrointestinal (Abdomen): Inspection/Auscultation: abdomen normal to inspection Results & Data Vital Signs (Past 12 Hours) Vital Signs Temp Pulse Pulse Pulse Resp BP Pulse Ox 06/18/19 07:21 36.8 C 73 18 109/70 96 06/18/19 04:00 36.7 C 68 18 127/82 97 06/18/19 01:07 55 L 06/17/19 23:00 36.7 C 54 L 18 112/60 97 PG Care Time/CCT Total # of Minutes Spent Total Time Spent with Patient: Total time spent is greater than 50% in coordination of care (as documented) at patient's floor/unit and/or counseling patient: Coding Level of Care Code 14212 Subseq Hosp Care Lvl 2 Diagnoses Right nephrolithiasis N20.0
--- NOTE | 2019-06-18 15:05 | Hospitalist Progress Note ---
Date of Service June 18, 2019 Assessment & Plan (1) Syncope: Orthostatic Hypotension -This is a 34-year-old female who is currently 9 weeks and has significant past medical history of asthma, allergic rhinitis, history of gastric bypass, Manuel, GERD, IBS, depression, inflammatory polyarthritis who presents to ED secondary to syncopal episode x2 prior to arrival, nausea, vomiting, right lower quadrant and suprapubic pain. Pt with 2 episodes of syncope prior to arrival. She admits to syncope in past but not during Orthostatics in ED were positive -Given IV fluids, blood pressure checks as per protocol -Stable (2) Right nephrolithiasis: -pt has US 05/07 revealing Right nephrolithiasis with mild hydronephrosis. A distal calculus cannot be excluded. -ultrasound on admission on 06/13/2019: Today U/S: There are 2 stones within the lower pole measuring 9 and 6 mm. No hydro. -given IV fluids, prn pain medications (avoid NSAIDs, patient reports rash allergies to Mobic), prn anti-emetics -KUB on 06/14/2019: The renal shadows are partially obscured by overlying bowel gas. There are clustered calcifications projected over the lower pole the right kidney suspicious for calculi. These dry room operator 8 mm in aggregate. There is additi onal calcification projected over the mid to upper pole the right kidney suspicious for a calculus. There are no calcifications suspicious for ureteral calculi. There are postsurgical changes of a presumed gastric bypass. IMPRESSION: 1. Right-sided nephrolithiasis 2. Nonobstructive bowel gas pattern 3. No ureteral calculi identified on conventional radiographic imaging -06/14/[address] [facility] [address] Veras advises further IV fluids in case of any residual renal stones in ureter and to give potassium citrate TID to prevent new renal stone formation. will continue to treat nausea and right flank pain as inpatient so hospitalist will uprage patient from observation status to admission status 06/15/2019: patient continues to have some right flank pain and requesting for further continuation of inpatient hospital pain management and IV hydration. continue potassium citrate -06/16/2019: patient not in acute distress on exam in AM but she has had requested prn pain medications and reports that her right flank pain is 8 of 10 in severity. Denies other symptoms of headache or dizziness or chest discomforts or shortness of breath. Because patient continues to have symptoms, will continue inpatient IV fluids and inpatient pain control and oral potassium citrate and also recalled Radha Goldstein urology to re-assess -06/17/2019: Patient seen and examined at bedside with [facility] U[facility] Dr. Chavez. Patient has been NPO and IV fluids still running. Patient reported of asking and receiving recent prn pain medications prior to our arrival to her room and now feels better from the pain for the moment. Dr. Chavez plans to proceed with placement of right ureteral stent later today. Radha Chavez to order the pre-op antibiotics prior to placement of right ureteral s tent -06/18/2019: S/P day#1 cystoscopy and right ureteral stent placement by urology dr. Chavez. No post op complication Urology recommended to leave the stent in for several days and then remove it next week OK from Urology standpoint to discharge from urology standpoint Clinically stable (3) UTI (urinary tract infection) in in first trimester: -positive bacteria in urine, patient was given ceftriaxone 1 gram in the ED by ED provider on 06/13/2019 -hospitalist called OBGYN Dr. Vera in regards to safest types of antibiotics for patient in 1st trimester, and he suggested either Macrobid or Ampicillin. started ampicillin on 06/14/2019. Patient does report rash reaction to penicillin but she has tolerated Augmentin in the past and she prefers Ampicillin over Macrobid while inpatient. -urine cultures resulted on 06/15/2019 "More than three types of organisms present, all moderate counts mixed 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 No further identifications or sensitivities to follow." ampicillin stopped on 06/16/2019 -06/17/2019 Radha Chavez to order the pre-op antibiotics prior to placement of right ureteral stent (4) Nausea and vomiting during prior to 22 weeks gestation: -IV fluids and prn anti-emetics -Resolved (5) Asthma: -continue advair, singulair, claritin (6) IBS (irritable bowel syndrome): Constipation -home medication of prn levsin (hyoscyamine) -for constipation, give senna, colace, fleet enema x 1 on 06/15/2019 -continue senna/colace (7) Chronic back pain: -pt takes oxycodone due to chronic low back pain. She receives epidural injections but has not since -she recently at home been taking oxycodone at home every other day for pain (8) Depression with anxiety: -continue wellbutrin and buspar (9) : of the 1st Trimester -9 weeks on presentation to this admission -Follows [facility] OBGYN services Abnormal Thyroid function tests (due to physiological changes during ) -while thyroid function can foreign exchange services manager course of , her TSH of 0.096 uIu/ml is low. Free T4 is normal as 1.24 ng/dl -The total T4 is mildly elevated as 11.3 mg/dl (normal is 4.5 to 10.9), with normal Total T3 and and normal free T3) -discussed with [facility] Dr. Clarke and that these numbers are likely reflected of physiological changes in and no thyroid related medications needed at this time. She advised that patient follow up with her primary care doctor and OBGYN doctor (10) DVT prophylaxis: -encourage ambulation Follow up:will need to see PCP Dr. Joya upon discharge along with appropriate BALANCE TRUING INSPECTOR follow up, and [facility] Admission and Anticipated Discharge Date Admission Date: June 14, 2019 Subjective Pt was seen and examined Sitting in bed with no distress Pt said that she feels much better She said that she does have some discomfort on and off in her lower abdomen Denies any chest pain, palpitation, dizziness and SOB Physical Exam Physical Exam: General- No acute distress Head- atraumatic Eyes- PERRL, EOMI, ENT- oropharynx clear Neck- supple, no JVD Lungs- clear to auscultation Heart- regular rhythm; no murmur Abdomen- normal bowel sounds, soft, nontender Extremities- no calf tenderness Neuro- alert, oriented x 3; PERRL, EOMI; no facial palsy; no dysarthria Skin- warm & dry Results & Data Results & Data ([facility]) Vital Signs (Past 12 Hours) Vital Signs Temp Pulse Pulse Resp BP Pulse Ox 06/18/19 11:18 36.8 C 72 16 122/69 97 06/18/19 07:21 36.8 C 73 18 109/70 96 06/18/19 04:00 36.7 C 68 18 127/82 97
--- NOTE | 2019-06-20 07:46 | Discharge Summary ---
Date of Service June 18, 2019 Admission HPI Per Admitting Provider This is a 34-year-old female who is currently 9 weeks and has significant past medical history of asthma, allergic rhinitis, history of gastric bypass, Manuel, GERD, IBS, depression, inflammatory polyarthritis who p resents to ED secondary to syncopal episode x2 prior to arrival, nausea, vomiting, right lower quadrant and suprapubic pain. She was at work today whenever she experienced 2 syncopal episodes. Initial episode happened when she was sitting down in a meeting. She overall felt lightheaded and dizzy and passed out for several seconds for regaining consciousness. She also felt nauseated and went to the bathroom because she thought she was going to vomit. When she went to sit down on the toilet she had an additional syncopal episode. She had no injuries. The second syncopal episode also had prodromal features including lightheadedness and dizziness and feeling like, "I am coming out of my body." For the past several weeks she has been dealing with kidney stones. Denies ever passing a kidney stone. She complains of right flank pain that radiates to the right lower quadrant, pain is intermittent but very sharp when it comes on. She also elicits to having hematuria, increased urinary urgency and decreased urinary frequency. She denies any fever, chills, sweats, URI symptoms, chest pain, shortness of breath, palpitations, cough, hemoptysis, hematemesis, dysuria, melena, hematochezia. She elicits overall being more constipated secondary to vitamin. This is her second . Her first she had twins and a subsequent . She denies ever having any difficulty with nausea and vomiting, but this has been much different. She denies passing out during previous . Although she does admit to having several episodes of syncope in the past including several this fall. She explicitly recalls on November 10 while attending a concert a syncopal episode and 5 following syncopal episodes. She was told she was dehydrated. Currently in ED she does feel improved but overall does not feel well. In ED she remained hemodynamically stable. She did have orthostatic vital signs which revealed what blood pressures in the low 100s. She did elevate her heart rate from lying at 63 to standing at 95. Lab work notable for WBC 10.10, H&H 13.0 and 37.4, platelet 269, K4.0, BUN 8, creatinine 0.44, glucose 87, LFTs WNL, TSH 0.096, free T4 1.24. Her urine revealed specific gravity of 1.017, +2 ketones, +3 blood, greater than 30 epithelial cells, +1 bacteria. She received IV fluid, IV Zofran, IV morphine with mild improvement in her sy mptoms. He also received 1 g ceftriaxone due to concern for possible UTI. Admission Exam Per Admitting Provider Constitutional: WD/WN, vitals as above, NAD, sitting up in bed, pleasant, conversing easily Head: Normocephalic, Atraumatic Eyes: PERRL, conjunctivae normal, anicteric sclerae ENMT: external ear and nose normal, oropharynx normal Neck: trachea midline, no thyromegaly normal visual inspection Respiratory: normal respiratory effort, lungs clear to auscultation, no wheeze, rales, rhonchi. Normal insp/exp effort, no accessory muscle use Cardiovascular: RRR, no murmur, no edema Vessels: no JVD or carotid bruit Chest: normal inspection of chest Abdomen: normal bowel sounds, soft, nontender, no hepatosplenomegaly +Mild R CVA tenderness Musculoskeletal: no cyanosis or clubbing, extremities motor strength 5/5 Skin: no rashes, warm and dry normal turgor , tattos noted Neurologic: PERRL, EOMI, accommodation nl, no face palsy, no dysarthria CN's II-XI intact bilaterally and moves all extremities Psychiatric: A+Ox3, euthymic affect Lymphatic: no cervical or axillary lymphadenopathy : deferred Principal Diagnosis Syncope / Orthostatic Hypotension Right nephrolithiasis UTI (urinary tract infection) in in first trimester Nausea and vomiting during Abnormal Thyroid function tests (due to physiological changes during ) Discharge Exam General- No acute distress Head- atraumatic Eyes- PERRL, EOMI, ENT- oropharynx clear Neck- supple, no JVD Lungs- clear to auscultation Heart- regular rhythm; no murmur Abdomen- normal bowel sounds, soft, nontender Extremities- no calf tenderness Neuro- alert, oriented x 3; PERRL, EOMI; no facial palsy; no dysarthria Skin- warm & dry Discharge Data Allergies Allergy/AdvReac Type Severity Reaction Status Date / Time meloxicam Allergy Intermediate breakouts Verified 06/17/19 17:53 and itchy all over Penicillins Allergy Unknown RASH Verified 06/17/19 17:53 diphenhydramine AdvReac Unknown SLEEPS Verified 06/17/19 17:53 Pharbedryl Allergy Mild Nausea/vomi Uncoded 06/17/19 17:53 ting Consultations 06/13/19 17:12 ED Decision to Admit Stat 06/13/19 18:28 Consult Urology Routine Procedures Performed Operation Date: 06/17/19 08:30 Actual Procedures p Cystoscopy, Right Retrograde Pyelofram, Right Ureteral Stent Placement(Right) - Juwan Chavez MD Ordered Studies 06/13/19 12:28 US OB limited Stat US renal/blad retro comp Stat 06/17/19 12:00 FL retrograde includes kub Routine US OB limited CLINICAL HISTORY: right flank pain COMPARISON STUDY: Pelvic ultrasound 05/09/2019. FINDINGS: Transabdominal scanning of the pelvis was performed with retail sales representative images submitted. There is a single intrauterine gestational sac, yolk sac, and pole. The crown-rump length measures 2.59 cm consistent with a 9 week and 3 day intrauterine gestation. heart rate is 172 bpm. The yolk sac is 5 mm. No significant subchorionic hematoma. No pelvic free fluid. No adnexal masses identified. IMPRESSION: Single viable 9 week and 3 day intrauterine gestation. ACT 112: Negative or not required by law. Electronically signed by: Jasiel Davis M.D. 06/13/2019 3:10 PM Dictated: 06/13/19 1508 Transcribed: 06/13/19 1508 RENAL ULTRASOUND HISTORY: right flank pain, kidney stone, 9 weeks preg COMPARISON: Abdomen and pelvis CT 03/26/2019. FINDINGS: Right kidney: 13.0 cm. No hydronephrosis. There are 2 stones within the lower pole measuring 9 and 6 mm. Normal corticomedullary differentiation and cortical thickness. Left kidney: 12.3 cm. No hydronephrosis. Normal corticomedullary differentiation and cortical thickness. Bladder: No bladder wall thickening. The bilateral ureteral jets were identified. IMPRESSION: Right-sided nephrolithiasis. No hydronephrosis. ACT 112: Negative or not required by law. Electronically signed by: Jasiel Davis M.D. 06/13/2019 2:45 PM XR KUB/Abdomen 1 view CLINICAL HISTORY: Nephrolithiasis COMPARISON STUDY: No previous studies for comparison. FINDINGS: The renal shadows are partially obscured by overlying bowel gas. There are clustered calcifications projected over the lower pole the right kidney suspicious for calculi. These sole skiver 8 mm in aggregate. There is additional calcification projected over the mid to upper pole the right kidney suspicious for a calculus. There are no calcifications suspicious for ureteral calculi. There are postsurgical changes of a presumed gastric bypass. IMPRESSION: 1. Right-sided nephrolithiasis 2. Nonobstructive bowel gas pattern 3. No ureteral calculi identified on conventional radiographic imaging ACT 112: Negative or not required by law. FL retrograde includes kub CLINICAL HISTORY: LEFT RETROGRADE AND STENT PLACEMENT, 9 WKS COMPARISON STUDY: None. FLUOROSCOPY TIME: 4 seconds. FINDINGS: 3 fluoroscopic spot images of the abdomen were submitted. There is retrograde opacification of the right renal collecting system. This is followed by placement of a right ureteral stent. Only the proximal portion of the right ureteral stent was identified and appears in good position. IMPRESSION: Fluoroscopy provided for right ureteral stent placement. ACT 112: Negative or not required by law. Electronically signed by: Jasiel Davis M.D. 06/17/2019 7:26 PM Dictated: 06/17/191924 Transcribed: 06/17/191924 Hospital Course (1) Syncope: Orthostatic Hypotension -This is a 34-year-old female who is currently 9 weeks and has significant past medical history of asthma, allergic rhinitis, history of gastric bypass, Manuel, GERD, IBS, depression, inflammatory polyarthritis who presents to ED secondary to syncopal episode x2 prior to arrival, nausea, vomiting, right lower quadrant and suprapubic pain. Pt with 2 episodes of syncope prior to arrival. She admits to syncope in past but not during Orthostatics in ED were positive -Given IV fluids, blood pressure checks as per protocol -Stable (2) Right nephrolithiasis: -pt has US 05/07 revealing Right nephrolithiasis with mild hydronephrosis. A distal calculus cannot be excluded. -ultrasound on admission on 06/13/2019: Today U/S: There are 2 stones within the lower pole measuring 9 and 6 mm. No hydro. -given IV fluids, prn pain medications (avoid NSAIDs, patient reports rash allergies to Mobic), prn anti-emetics -KUB on 06/14/2019: The renal shadows are partially obscured by overlying bowel gas. There are clustered calcifications projected over the lower pole the right kidney suspicious for calculi. These sole skiver 8 mm in aggregate. There is additional calcification projected over the mid to upper pole the right kidney suspicious for a calculus. There are no calcifications suspicious for ureteral calculi. There are postsurgical changes of a presumed gastric bypass. IMPRESSION: 1. Right-sided nephrolithiasis 2. Nonobstructive bowel gas pattern 3. No ureteral calculi identified on conventional radiographic imaging -06/14/2019 [facility] [place]. Veras advises further IV fluids in case of any residual renal stones in ureter and to give potassium citrate TID to prevent new renal stone formation. will continue to treat nausea and right flank pain as inpatient so hospitalist will uprage patient from observation status to admission status 06/15/2019: patient continues to have some right flank pain and requesting for further continuation of inpatient hospital pain management and IV hydration. continue potassium citrate -06/16/2019: patient not in acute distress on exam in AM but she has had requested prn pain medications and reports that her right flank pain is 8 of 10 in severity. Denies other symptoms of headache or dizziness or chest discomforts or shortness of breath. Because patient continues to have symptoms, will continue inpatient IV fluids and inpatient pain control and oral potassium citrate and also recalled Radha Goldstein urology to re-assess -06/17/2019: Patient seen and examined at bedside with Radha Josey Dr. Chavez. Patient has been NPO and IV fluids still running. Patient reported of asking and receiving recent prn pain medications prior to our arrival to her room and now feels better from the pain for the moment. Dr. Chavez plans to proceed with placement of right ureteral stent later today. Radha Chavez to order the pre-op antibiotics prior to placement of right ureteral stent -06/18/2019: S/P day#1 cystoscopy and right ureteral stent placement by urology dr. Chavez. No post op complication Urology recommended to leave the stent in for several days and then remove it next week OK from Urology standpoint to discharge from urology standpoint Clinically stable (3) UTI (urinary tract infection) in in first trimester: -positive bacteria in urine, patient was given ceftriaxone 1 gram in the ED by ED provider on 06/13/2019 -hospitalist called OBGYN Dr. Vera in regards to safest types of antibiotics for patient in 1st trimester, and he suggested either Macrobid or Ampicillin. started ampicillin on 06/14/2019. Patient does report rash reaction to penicillin but she has tolerated Augmentin in the past and she prefers Ampicillin over Macrobid while inpatient. -urine cultures resulted on 06/15/2019 "More than three types of organisms present, all moderate counts mixed 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 No further identifications or sensitivities to follow." ampicillin stopped on 06/16/2019 -06/17/2019 [facility] Dr. Chavez to order the pre-op antibiotics prior to placement of right ureteral stent (4) Nausea and vomiting during prior to 22 weeks gestation: -IV fluids and prn anti-emetics -Resolved (5) Asthma: -continue advair, singulair, claritin (6) IBS (irritable bowel syndrome): Constipation -home medication of prn levsin (hyoscyamine) -for constipation, give senna, colace, fleet enema x 1 on 06/15/2019 -continue senna/colace (7) Chronic back pain: -pt takes oxycodone due to chronic low back pain. She receives epidural injections but has not since -she recently at home been taking oxycodone at home every other day for pain (8) Depression with anxiety: -continue wellbutrin and buspar (9) : of the 1st Trimester -9 weeks on presentation to this admission -Follows [facility] OBGYN services Abnormal Thyroid function tests (due to physiological changes during ) -while thyroid function can exchange operator course of , her TSH of 0.096 uIu/ml is low. Free T4 is normal as 1.24 ng/dl -The total T4 is mildly elevated as 11.3 mg/dl (normal is 4.5 to 10.9), with normal Total T3 and and normal free T3) -discussed with [facility] Dr. Clarke and that these numbers are likely reflected of physiological changes in and no thyroid related medications needed at this time. She advised that patient follow up with her primary care doctor and OBGYN doctor (10) DVT prophylaxis: -encourage ambulation Follow up:will need to see PCP Dr. Joya upon discharge along with appropriate MEDICAL TRANSCRIPTION EDITOR follow up, and [facility] Total Time Total Time Spent Total Time Spent (In Minutes): 35 minutes Total Time Includes: Examination of the Patient, Discharge Planning, Medication Reconciliation, Communication With Other Providers and Other Discharge Plan Discharge Items Patient Disposition: Home - Self-Care Reason For Visit: NEPHROLITHIASIS, SYNCOPE Discharge Diagnosis: Syncope / Orthostatic Hypotension Right nephrolithiasis UTI (urinary tract infection) in in first trimester Nausea and vomiting during Abnormal Thyroid function tests (due to physiological changes during ) Activity: As commented below Lifting: Gradually increase as tolerated and No more than 25 pounds Non-emergency contact: Primary Care Provider, Upper Shaper and Urologist Call non-emergency contact if: you have any medication questions and your rectal temperature is above 100.4 Follow-up/Referrals: Audra Joya DO [Primary Care Provider] - 06/25/19 11:20 am Tramaine Hawkins MD [Physician] - 06/19/19 3:00 pm Diet: Regular Addtl Attending Provider Instructions: Follow up with your primary care provider Dr. Joya on 06/24 @ 11:20 AM Follow up with urology Dr. Chavez next week for stent removal (Please call for follow up ) Follow up with OBGYN tomorrow Your provider will check your thyroid function n 3 to 4 weeks Increase your activities gradually as tolerated Fall precaution Do not drive or perform any machine while taking narcotic Pending Studies at Discharge: No Stand-Alone Forms: My [facility] Novogenie, Smoking Cessation Medications and DC Order Prescriptions: Continued triamcinolone acetonide 0.1 % Cream 1 applic TOPICAL BID PRN (Reason: BREAKOUTS) RF: 0 cyanocobalamin (vitamin B-12) 1,000 mcg/mL Solution 1,000 mcg IM UD RF: 0 bupropion HCl 75 mg Tablet 75 mg PO BID RF: 0 omeprazole 20 mg Capsule,Delayed Release(Dr/Ec) 20 mg PO DAILY RF: 0 albuterol sulfate 90 mcg/actuation Hfa Aerosol Inhaler 2 puff INHALATION Q6H PRN (Reason: Shortness Of Breath Or Wheezing) RF: 0 loratadine [Claritin] 10 mg Tablet 10 mg PO DAILY PRN (Reason: allergies) RF: 0 fluticasone propion-salmeterol [Advair Diskus] 250-50 mcg/dose blister with device 1 inh INHALATION BID RF: 0 hyoscyamine sulfate 0.125 mg tablet, sublingual 0.125 mg PO Q4 PRN (Reason: cramping) RF: 0 ondansetron 4 mg Tablet,Disintegrating 4 mg PO Q8H PRN (Reason: Nausea) RF: 0 buspirone 15 mg tablet 15 mg PO BID RF: 0 azelastine 0.15 % (205.5 mcg) [place],Non-Aerosol 2 spray INTRANASAL BID RF: 0 PNV cmb#95-ferrous fumarate-FA [] 28 mg iron- 800 mcg Tablet 1 tab PO DAILY RF: 0 Flintstones Complete Tablet,Chewable 1 tab PO DAILY RF: 0 oxycodone-acetaminophen 5-325 mg tablet 1 tab PO Q6H PRN (Reason: Pain) RF: 0 Discharge Orders: Discharge Order (Routine); Ordered 06/18/19 Ordered By: Portia Sanches Admission Data Admit Date/Time: 06/14/19 12:33 Attending Provider: Portia Sanches Admit Provider: Mukesh Castaneda Primary Care Provider: Audra Joya Other Providers: Mukesh Castaneda ; Butch Veras Other Interventions: Discharge Summary Assessment (RN) Last Done: 06/18/19 15:34 DC Date/Time DO NOT enter until pt leaves facility: 06/18/19 16:48
== END 2019-06-18 16:48 | disposition home or self-care (01) | DRG 819 ==
LOC: ED 11:43 → 2W 11:43 → SUATTDRO 06-14 12:33

== ENCOUNTER 2019-10-16 11:00 | Inpatient (IN) ==
[2019-10-16] MEDS ORDERED: SODIUM CHLORIDE 0.9% 1000ML 2,000 ML IV ONE (11:40)
[2019-10-16] MEDS ORDERED: ONDANSETRON INJ 2 MG/ML 2 ML VIAL IV STA (11:40)
[2019-10-16] MEDS ORDERED: MoRPHine SULFATE 4 MG/ML 1 ML CARP\\VIAL IV STA (11:40)
[2019-10-16] MEDS ORDERED: ONDANSETRON INJ 2 MG/ML 2 ML VIAL ONE (11:56)
[2019-10-16] MEDS ORDERED: MoRPHine SULFATE 4 MG/ML 1 ML CARP\\VIAL ONE (11:56)
[2019-10-16 12:11] LABS: Basophils # (auto) 0.01 K/uL (0-0.2); Basophils % (auto) 0.1 %; Hematocrit (blood only) 32.6 % (37-47); Hemoglobin 11.1 g/dL (12.0-16.0); Immature Granulocytes # (auto) 0.05 K/uL (0.00-0.02); Immature Granulocytes % (auto) 0.3 %; Lymphocytes # (auto) 0.42 K/uL (1.2-3.4); Lymphocytes % (auto) 2.3 %; Mean Corpuscular Hemoglobin 32.4 pg (25-34); Mean Platelet Volume 9.7 fL (7.4-10.4); Monocytes # (auto) 1.18 K/uL (0.11-0.59); Monocytes % (auto) 6.3 %; Neutrophils # (auto) 16.93 K/uL (1.4-6.5); Platelet Count 270 K/uL (130-400); RDW Standard Deviation 44.7 fL (36.4-46.3); Red Blood Count 3.43 M/uL (4.2-5.4); White Blood Count 18.59 K/uL (4.8-10.8)
[2019-10-16 12:15] LABS: Alanine Aminotransferase 12 U/L (12-78); Albumin Level 2.5 gm/dl (3.4-5.0); Aspartate Aminotransferase 11 U/L (15-37); BUN Creatinine Ratio 5.5 (10-20); Bilirubin Direct 0.1 mg/dl (0-0.2); Blood Urea Nitrogen 4 mg/dl (7-18); Calcium 8.4 mg/dl (8.5-10.1); Carbon Dioxide 17 mmol/L (21-32); Chloride 105 mmol/L (98-107); Est GFR (Non-African American) 109.6; Glucose 117 mg/dl (70-99); Magnesium 1.5 mg/dl (1.8-2.4); Partial Thromboplastin Ratio 0.9; Partial Thromboplastin Time 26.3 Seconds (21.0-31.0); Potassium 3.1 mmol/L (3.5-5.1); Prothrombin Time 10.9 Seconds (9.0-12.0); Sodium 134 mmol/L (136-145)
[2019-10-16] MEDS ORDERED: cefTRIAXone SODIUM 2,000 MG/70 ML BAG IV STA (12:18)
[2019-10-16 12:20] LABS: Albumin Globulin Ratio 0.6 (0.9-2); Alkaline Phosphatase 98 U/L (45-117); Bilirubin,Total 0.5 mg/dl (0.2-1); Globulin 4.2 gm/dl (2.5-4.0); Phosphorus 1.8 mg/dl (2.5-4.9); Total Protein 6.7 gm/dl (6.4-8.2); Troponin I < 0.015 ng/ml (0-0.045)
--- NOTE | 2019-10-16 13:42 | Emergency Department Note ---
Impression & Plan Sepsis, Pyelonephritis due to Escherichia coli, 27 weeks gestation of , Metabolic acidosis, Hypokalemia, Hypomagnesemia, Hypophosphatemia ED Provider Note NAME: SHEELA STEWART AGE: 34 SEX: F ARRIVES VIA: Walk-In INFORMANT: Patient, ED PROVIDER(S): Janak Wiggins MD CHIEF COMPLAINT: Fever, flank pain PLAN: Disposition: Admit. MEDICAL DECISION MAKING: The patient is a pleasant 34-year-old woman, , history of twin currently 27 weeks with a past medical history of renal stones and right-sided stent placement who presents emergency with symptoms of fevers, chills, worsening right flank pain with nausea which evolved over the past 36 hours in the setting of her report of having persistence of waxing and waning right flank pain which comes and goes but has never been this bad and in the setting of concern for recurrent urinary tract infections during for which she is now on prophylactic Macrobid. She denies any bilateral abdominal/back cramping pain. Denies any vaginal bleeding. She denies any cough, congestion. She denies any known contacts with individuals diagnosed with COVID-19. On arrival the patient is uncomfortable/ill appearing, with a temperature of 37.9, tachycardic to the 150s, but vital signs otherwise stable. Patient appears clinically dry. Abdomen is gravid with generalized discomfort most prominent on the right abdomen. There is no guarding or rebound. The patient was reporting severe pain and so we did review the risks of narcotics but agreed to proceed with morphine given that she has been taking Tylenol at home without relief. Of note, she does have a prescription for oxycodone as needed. WBC 18.5 with neutrophil predominance. H/H 11/32 similar to prior in the setting of . Lactate is elevated at 3.2. Chemistry with metabolic acidosis with anion gap of 12 and bicarb of 17 but in the setting of her nausea and vomiting. Potassium 3.1 magnesium 1.5 and phosphorus 1.8. LFTs unremarkable. Procalcitonin is not elevated at 0.4. Given the patient's presentation with fevers, tachycardia with leukocytosis and metabolic acidosis she was given empiric dose of ceftriaxone while etiology to her symptoms is further clarified. I did discuss with the patient the likely need for CT imaging to clarify her symptoms given her severity of illness. However we will start with renal and ultrasound. The patient was agreeable with this approach. I did encourage the patient to allow us to perform a straight catheterization to ensure we obtain a clean sample for culture given her history of recurrent infections. The patient was not immediately agreeable to this and wanted to think about it. We were ultimately able to obtain a urinalysis which is consistent with infection with minimal epithelial cells and shows 3+ ketones consistent with the patient's clinically dry appearance. Nitrite positive, leukoesterase 1+, WBCs and 4+ bacteria. No, there is 1+ protein which may be related to the WBCs. The patient currently does not exhibit hypertension.. Additionally, we did obtain patient's urine culture from [facility] collected 10/12 which now is growing E. coli that does show sensitivity to ceftriaxone. Renal ultrasound did not show hydronephrosis therefore making obstructing renal stone less likely. There is however evidence suggestive of pyelonephritis without evidence of abscess. Given these findings it is reasonable that the patient's symptoms are related to pyelonephritis given her positive urinalysis and culture and presentation. Alternative diagnoses were considered such as appendicitis or PE but are considered less likely at this time. Limited ultrasound was unremarkable. Upon reevaluation the patient appeared somewhat improved though still unwell appearing. Repeat lactate improved to normal range, 1.5. Heart rate had improved to the 100s and she had defervesced. She is agreeable with plan for admission. I did discuss the case with Geo Estevez OB on-call, who agrees with plan for admission and we agree with plan for admission to medicine hospitalist service given her severity of illness and they will be available for close consultation. Case was discussed with Sherrill Mayorga, [facility], with Dr. Leonel Guardado hospitalist who will evaluate the patient for admission. Triage Nursing notes reviewed and agree them. Prior medical records reviewed Vital Signs: reviewed and remarkable for no significant abnormalities Differential diagnosis: Sepsis, UTI, pneumonia, metabolic, electrolyte abnormalities, cardiac sources, intracerebral event, toxicologic, neurologic, as well as other pathologies. ER treatment provided: See below. Diagnostics interpreted by me: ECG: Sinus tachycardia, 132 bpm, T wave abnormality, no overt ST elevation or depression, QTC 414, QRS 78. Cardiac Monitoring: An order for continuous cardiac monitoring was placed and demonstrated sinus tachycardia, 132 bpm, no ectopy. Laboratory studies: See below Imaging studies: RENAL ULTRASOUND CLINICAL HISTORY: Right flank pain. 27 weeks . COMPARISON STUDY: CT of the abdomen and pelvis March 26, 2019. Renal ultrasound June 13, 2019. TECHNIQUE: Sonography of the kidneys and the urinary bladder was performed. FINDINGS: Right kidney measures 13.4 cm in maximal dimension and the left measures 11.6 cm. There is no hydronephrosis. A few right renal calculi are noted, including a calculus within the lower pole that measures approximately 8 mm. Both ureteral jets were identified. Note is made of a 3.6 cm echogenic focus within the mid to lower pole of the right kidney. This was not evident on prior ultrasound or CT. The right kidney is slightly heterogeneous. There is no renal abscess. Echogenicity of the left kidney is normal. IMPRESSION: 1. No hydronephrosis. Right-sided nephrolithiasis. 2. Heterogeneous right kidney which contains a new 3.6 cm echogenic focus. This favors pyelonephritis. No renal abscess. A follow-up ultrasound in 3 months to ensure resolution is recommended. US OB limited HISTORY: 34 years-old Female right flank pain acute right-sided flank pain COMPARISON: Pelvic ultrasound 06/20/2019 TECHNIQUE: Multiple real-time sonographic images of the deep pelvic structures were obtained transabdominally assessing grayscale appearance, color flow and M- mode analysis FINDINGS: Single living intrauterine gestation is noted in cephalic positioning. heart rate measured at 180 bpm. DORY measures 14.1 cm. BPD measures 6.9 cm (correlating with estimated gestational age of 27 weeks and 5 days). Unremark able appearance of the placenta is noted within the right fundal distribution. Overall estimated gestational age is 27 weeks and 5 days. Estimated date of delivery calculated at 01/10/2020. The cervix is not well evaluated. Right ovary measures 3.1 x 1.5 x 2.5 cm and is unremarkable with arterial inflow documented. 2 mm indeterminate calcification is noted within the right ovary. The left ovary measures 2.4 x 2.8 x 3.1 cm and demonstrates arterial inflow. No significant free pelvic fluid. IMPRESSION: 1. Single living intrauterine gestation, estimated gestational age of 27 weeks and 5 days. 2. Unremarkable appearance of the placenta and ovaries. Consultation(s): Geo Estevez OB on-call. Sherrill Mayorga, Geo PAC, with Dr. Leonel Guardado hospitalist. HPI: The patient is a pleasant 34-year-old woman, , history of twin currently 27 weeks with a past medical history of renal stones and right-sided stent placement who presents emergency with symptoms of fevers, chills, worsening right flank pain with nausea which evolved over the past 36 hours in the setting of her report of having persistence of waxing and waning right flank pain which comes and goes but has never been this bad and in the setting of concern for recurrent urinary tract infections during for which she is now on prophylactic Macrobid. She denies any bilateral abdominal/back cramping pain. Denies any vaginal bleeding. She denies any cough, congestion. She denies any known contacts with individuals diagnosed with COVID-19. ROS: See above HPI for pertinent positives & negatives. A total of 10 systems reviewed and were otherwise negative. PAST MEDICAL HISTORY:See Below PAST SURGICAL HISTORY:See Below FAMILY HISTORY:See Below SOCIAL HISTORY:See Below HOME MEDICATIONS:See Below ALLERGIES:See Below VITALS:See Below PHYSICAL EXAMINATION: GENERAL: Awake, alert, ill-appearing, in no distress HENT: Normocephalic, atraumatic. Oropharynx with dry mucous membranes and otherwise unremarkable. EYES: Normal conjunctiva. Sclera non-icteric. NECK: Supple. No nuchal rigidity. FROM. No JVD. RESPIRATORY: Clear to auscultation. CARDIAC: Tachcyardic rate, normal rhythm. Extremities warm and well perfused. Pulses equal. ABDOMEN: Soft, gravid with generalized discomfort most prominent on the right abdomen. There is no guarding or rebound. No rebound or guarding. No masses. RECTAL: Deferred. MUSCULOSKELETAL: Chest examination reveals no tenderness. The back is symmetrical on inspection without obvious abnormality. There is no CVA tenderness to palpation. No joint edema. LOWER EXTREMITIES: Calves are equal size bilaterally and non-tender. No edema. No discoloration. NEURO: Normal sensorium. No sensory or motor deficits noted. SKIN: No rash or jaundice noted. ED COURSE: Critical Care: I have personally spent greater than 75 minutes of critical care time in the direct management of this patient. This includes bedside care, interpretation of diagnostic studies, and testing, discussion with consultants, patient, and family members, and other required patient management activities. This 75 m inutes is in excess of all separately billable procedures. Janak Wiggins MD Past Med/Surg History Medical History Allergic rhinitis Asthma Chronic back pain Depression with anxiety GERD (gastroesophageal reflux disease) History of right inguinal hernia IBS (irritable bowel syndrome) Inflammatory polyarthritis OSHEA (nonalcoholic steatohepatitis) Scoliosis Surgical History H/O gastric bypass History of History of cholecystectomy History of colonoscopy History of dental surgery History of tonsillectomy and adenoidectomy Status post panniculectomy Family History Other Cancer Diabetes Heart disease Hypertension Lung disease Seizures Social History Smoking Status: Never smoker Second Hand Exposure: No; Do You Dip or Chew Tobacco: No; Tobacco Cessation Education Requested by Patient: No Hx Alcohol Use: No Hx Substance Use: No Preferred Language: Albanian Communication Ability: Effective Technical Delivery Manager Required: No Beliefs That Will Affect Care: None Current Living Situation: Significant Other current occupational status: employed Other Information That Helps Us Care for You: No Feels Safe at Home: Yes Safety Concerns: Feels Safe At This Time Allergies Allergies Allergy/AdvReac Type Severity Reaction Status Date / Time meloxicam Allergy Intermediate breakouts Verified 10/16/19 12:18 and itchy all over Penicillins Allergy Unknown RASH Verified 10/16/19 12:18 diphenhydramine AdvReac Unknown SLEEPS Verified 10/16/19 12:18 Pharbedryl Allergy Mild Nausea/vomi Uncoded 10/16/19 12:18 ting Home Meds Home Medications Medication Instructions Recorded Confirmed albuterol sulfate 2 puff INHALATION Q6H PRN 03/15/18 10/16/19 cyanocobalamin (vitamin B-12) 1,000 mcg IM UD 03/15/18 10/16/19 loratadine [Claritin] 10 mg PO DAILY PRN 03/15/18 10/16/19 omeprazole 20 mg PO DAILY 03/15/18 10/16/19 Flintstones Complete 1 tab PO DAILY 05/09/19 10/16/19 PNV cmb#[id number]-ferrous fumarate-FA 1 tab PO DAILY 05/09/19 10/16/19 [] azelastine 2 spray INTRANASAL BID 05/09/19 10/16/19 fluticasone propion-salmeterol 1 inh INHALATION BID 05/09/19 10/16/19 [Advair Diskus] hyoscyamine sulfate 0.125 mg PO Q4 PRN 05/09/19 10/16/19 ondansetron 4 mg PO Q8H PRN 05/09/19 10/16/19 oxycodone-acetaminophen 1 tab PO Q6H PRN 06/13/19 10/16/19 nitrofurantoin monohyd/m-cryst 100 mg PO DAILY 09/08/19 10/16/19 acetaminophen [Tylenol] 650 mg PO QID PRN 10/16/19 10/16/19 sertraline 50 mg PO DAILY 10/16/19 10/16/19 Results & Data (ED) Vital Signs Vital Signs - 24 hr 10/16/19 11:04 10/16/19 11:42 10/16/19 12:05 Temperature 37.9 C H Temperature Source Oral Pulse Rate 152 H 117 H Pulse Rate from SpO2 Sensor Respiratory Rate 22 22 Respiratory Effort / Characteristics Non-Labored Spontaneous Non-Labored Spontaneous Respiratory Depth Normal Respiratory Pattern Regular Blood Pressure 115/70 116/71 Blood Pressure Mean 85 84 Pulse Oximetry 97 95 Oxygen Delivery Method Room Air Room Air Room Air Sepsis Recent Fever Within 48 Hours Yes Sepsis New/Unexplained Change in Mental Status No Sepsis Action Taken by Nursing No Action Required 10/16/19 12:06 10/16/19 12:12 10/16/19 12:42 Temperature Temperature Source Pulse Rate 109 H Pulse Rate from SpO2 Sensor Respiratory Rate 25 H Respiratory Effort / Characteristics Non-Labored Accessory Muscle Use Non-Labored Spontaneous Respiratory Depth Respiratory Pattern Blood Pressure Blood Pressure Mean Pulse Oximetry 95 Oxygen Delivery Method Room Air Room Air Room Air Sepsis Recent Fever Within 48 Hours Sepsis New/Unexplained Change in Mental Status Sepsis Action Taken by Nursing 10/16/19 13:53 10/16/19 14:00 10/16/19 14:03 Temperature 37.6 C H Temperature Source Oral Pulse Rate 112 H 109 H Pulse Rate from SpO2 Sensor 113 H Respiratory Rate 28 H 24 Respiratory Effort / Characteristics Non-Labored Respiratory Depth Respiratory Pattern Blood Pressure 108/70 112/74 Blood Pressure Mean 77 91 Pulse Oximetry 97 Oxygen Delivery Method Room Air Room Air Sepsis Recent Fever Within 48 Hours Sepsis New/Unexplained Change in Mental Status Sepsis Action Taken by Nursing 10/16/19 15:00 Temperature Temperature Source Pulse Rate 113 H Pulse Rate from SpO2 Sensor 113 H Respiratory Rate 27 H Respiratory Effort / Characteristics Respiratory Depth Respiratory Pattern Blood Pressure 82/43 L Blood Pressure Mean 63 Pulse Oximetry 95 Oxygen Delivery Method Room Air Sepsis Recent Fever Within 48 Hours Sepsis New/Unexplained Change in Mental Status Sepsis Action Taken by Nursing Laboratory Data Attestation: I reviewed the patient's lab results. Result diagrams: 10/16/19 11:37 10/16/19 11:37 Lab Results 10/16/19 10/16/19 10/16/19 Range/Units 11:37 11:37 11:37 WBC 18.59 H (4.8-10.8) K/uL RBC 3.43 L (4.2-5.4) M/uL Hgb 11.1 L (12.0-16.0) g/dL Hct 32.6 L (37-47) % MCV 95.0 (80-100) fL MCH 32.4 (25-34) pg MCHC 34.0 (32-36) g/dL RDW Std Deviation 44.7 (36.4-46.3) fL RDW Coeff of Shashi 13.0 (11.5-14.5) % Plt Count 270 (130-400) K/uL MPV 9.7 (7.4-10.4) fL Immature Gran % (Auto) 0.3 % Neut % (Auto) 91.0 % Lymph % (Auto) 2.3 % [place] % (Auto) 6.3 % Eos % (Auto) 0.0 % Baso % (Auto) 0.1 % Neut # (Auto) 16.93 H (1.4-6.5) K/uL Lymph # (Auto) 0.42 L (1.2-3.4) K/uL [place] # (Auto) 1.18 H (0.11-0.59) K/uL Eos # (Auto) 0.00 (0-0.5) K/uL Baso # (Auto) 0.01 (0-0.2) K/uL Immature Gran # (Auto) 0.05 H (0.00-0.02) K/uL PT 10.9 (9.0-12.0) Seconds INR 1.0 (0.9-1.1) APTT 26.3 (21.0-31.0) Seconds PTT Ratio 0.9 Sodium (136-145) mmol/L Potassium (3.5-5.1) mmol/L Chloride (98-107) mmol/L Carbon Dioxide (21-32) mmol/L Anion Gap (3-11) BUN (7-18) mg/dl Creatinine (0.6-1.2) mg/dl Est Cr Clr Drug Dosing Est GFR ( Amer) Est GFR (Non-Af Amer) BUN/Creatinine Ratio (10-20) Glucose (70-99) mg/dl Lactate (0.4-2.0) mmol/L Calcium (8.5-10.1) mg/dl Phosphorus (2.5-4.9) mg/dl Magnesium (1.8-2.4) mg/dl Total Bilirubin (0.2-1) mg/dl Direct Bilirubin (0-0.2) mg/dl AST (15-37) U/L ALT (12-78) U/L Alkaline Phosphatase (45-117) U/L Troponin I (0-0.045) ng/ml Total Protein (6.4-8.2) gm/dl Albumin (3.4-5.0) gm/dl Globulin (2.5-4.0) gm/dl Albumin/Globulin Ratio (0.9-2) Procalcitonin 0.40 (0-0.5) ng/ml Urine Color Urine Appearance (Clear) Urine pH (4.5-7.5) Ur Specific [place] (1.000-1.030) Urine Protein (Negative) Urine Glucose (UA) (Negative) Urine Ketones (Negative) Urine Blood (Negative) Urine Nitrite (Negative) Urine Bilirubin (Negative) Urine Urobilinogen (Negative) Ur Leukocyte Esterase (Negative) Urine WBC (Auto) (0-5) /hpf Urine RBC (Auto) (0-4) /hpf U Hyaline Cast (Auto) (0-5) /lpf U Epithel Cells (Auto) (0-5) /lpf Urine Bacteria (Auto) (Negative) 10/16/19 10/16/19 10/16/19 Range/Units 11:37 12:02 13:50 WBC (4.8-10.8) K/uL RBC (4.2-5.4) M/uL Hgb (12.0-16.0) g/dL Hct (37-47) % MCV (80-100) fL MCH (25-34) pg MCHC (32-36) g/dL RDW Std Deviation (36.4-46.3) fL RDW Coeff of Shashi (11.5-14.5) % Plt Count (130-400) K/uL MPV (7.4-10.4) fL Immature Gran % (Auto) % Neut % (Auto) % Lymph % (Auto) % [place] % (Auto) % Eos % (Auto) % Baso % (Auto) % Neut # (Auto) (1.4-6.5) K/uL Lymph # (Auto) (1.2-3.4) K/uL [place] # (Auto) (0.11-0.59) K/uL Eos # (Auto) (0-0.5) K/uL Baso # (Auto) (0-0.2) K/uL Immature Gran # (Auto) (0.00-0.02) K/uL PT (9.0-12.0) Seconds INR (0.9-1.1) APTT (21.0-31.0) Seconds PTT Ratio Sodium 134 L (136-145) mmol/L Potassium 3.1 L (3.5-5.1) mmol/L Chloride 105 (98-107) mmol/L Carbon Dioxide 17 L (21-32) mmol/L Anion Gap 12.0 H (3-11) BUN 4 L (7-18) mg/dl Creatinine 0.71 (0.6-1.2) mg/dl Est Cr Clr Drug Dosing Not Reportable Est GFR ( Amer) 127.0 Est GFR (Non-Af Amer) 109.6 BUN/Creatinine Ratio 5.5 L (10-20) Glucose 117 H (70-99) mg/dl Lactate 3.2 H* (0.4-2.0) mmol/L Calcium 8.4 L (8.5-10.1) mg/dl Phosphorus 1.8 L (2.5-4.9) mg/dl Magnesium 1.5 L (1.8-2.4) mg/dl Total Bilirubin 0.5 (0.2-1) mg/dl Direct Bilirubin 0.1 (0-0.2) mg/dl AST 11 L (15-37) U/L ALT 12 (12-78) U/L Alkaline Phosphatase 98 (45-117) U/L Troponin I < 0.015 (0-0.045) ng/ml Total Protein 6.7 (6.4-8.2) gm/dl Albumin 2.5 L (3.4-5.0) gm/dl Globulin 4.2 H (2.5-4.0) gm/dl Albumin/Globulin Ratio 0.6 L (0.9-2) Procalcitonin (0-0.5) ng/ml Urine Color Yellow Urine Appearance Clear (Clear) Urine pH 5.5 (4.5-7.5) Ur Specific [place] 1.017 (1.000-1.030) Urine Protein 1+ H (Negative) Urine Glucose (UA) Negative (Negative) Urine Ketones 3+ H (Negative) Urine Blood 1+ H (Negative) Urine Nitrite Positive A (Negative) Urine Bilirubin Negative (Negative) Urine Urobilinogen Negative (Negative) Ur Leukocyte Esterase 1+ H (Negative) Urine WBC (Auto) >30 H (0-5) /hpf Urine RBC (Auto) 0-4 (0-4) /hpf U Hyaline Cast (Auto) 10-30 H (0-5) /lpf U Epithel Cells (Auto) 5-10 H (0-5) /lpf Urine Bacteria (Auto) 4+ H (Negative) 10/16/19 Range/Units 14:05 WBC (4.8-10.8) K/uL RBC (4.2-5.4) M/uL Hgb (12.0-16.0) g/dL Hct (37-47) % MCV (80-100) fL MCH (25-34) pg MCHC (32-36) g/dL RDW Std Deviation (36.4-46.3) fL RDW Coeff of Shashi (11.5-14.5) % Plt Count (130-400) K/uL MPV (7.4-10.4) fL Immature Gran % (Auto) % Neut % (Auto) % Lymph % (Auto) % [place] % (Auto) % Eos % (Auto) % Baso % (Auto) % Neut # (Auto) (1.4-6.5) K/uL Lymph # (Auto) (1.2-3.4) K/uL [place] # (Auto) (0.11-0.59) K/uL Eos # (Auto) (0-0.5) K/uL Baso # (Auto) (0-0.2) K/uL Immature Gran # (Auto) (0.00-0.02) K/uL PT (9.0-12.0) Seconds INR (0.9-1.1) APTT (21.0-31.0) Seconds PTT Ratio Sodium (136-145) mmol/L Potassium (3.5-5.1) mmol/L Chloride (98-107) mmol/L Carbon Dioxide (21-32) mmol/L Anion Gap (3-11) BUN (7-18) mg/dl Creatinine (0.6-1.2) mg/dl Est Cr Clr Drug Dosing Est GFR ( Amer) Est GFR (Non-Af Amer) BUN/Creatinine Ratio (10-20) Glucose (70-99) mg/dl Lactate 1.5 (0.4-2.0) mmol/L Calcium (8.5-10.1) mg/dl Phosphorus (2.5-4.9) mg/dl Magnesium (1.8-2.4) mg/dl Total Bilirubin (0.2-1) mg/dl Direct Bilirubin (0-0.2) mg/dl AST (15-37) U/L ALT (12-78) U/L Alkaline Phosphatase (45-117) U/L Troponin I (0-0.045) ng/ml Total Protein (6.4-8.2) gm/dl Albumin (3.4-5.0) gm/dl Globulin (2.5-4.0) gm/dl Albumin/Globulin Ratio (0.9-2) Procalcitonin (0-0.5) ng/ml Urine Color Urine Appearance (Clear) Urine pH (4.5-7.5) Ur Specific [place] (1.000-1.030) Urine Protein (Negative) Urine Glucose (UA) (Negative) Urine Ketones (Negative) Urine Blood (Negative) Urine Nitrite (Negative) Urine Bilirubin (Negative) Urine Urobilinogen (Negative) Ur Leukocyte Esterase (Negative) Urine WBC (Auto) (0-5) /hpf Urine RBC (Auto) (0-4) /hpf U Hyaline Cast (Auto) (0-5) /lpf U Epithel Cells (Auto) (0-5) /lpf Urine Bacteria (Auto) (Negative) Administered Medications Sodium Chloride (Nss 1000ml) 1,000 mls @ 125 mls/hr IV .Q8H CÉSAR Stop: 11/15/19 15:28 Last Admin: 10/16/19 15:54 Dose: 125 mls/hr Documented by: [id number] Discontinued Medications Sodium Chloride (Nss 1000ml) 2,000 mls @ 999 mls/hr IV .Q2H1M ONE Stop: 10/16/19 13:40 Last Infusion: 10/16/19 14:28 Dose: 0 mls/hr Documented by: [id number] Admin: 10/16/19 11:52 Dose: 999 mls/hr Documented by: [id number] Magnesium Sulfate/Dextrose (Magnesium Sulfate / D5w) 1 gm in 100 mls @ 100 mls/hr IV Q1H CÉSAR Stop: 10/16/19 14:21 Last Admin: 10/16/19 17:13 Dose: 100 mls/hr Documented by: [id number] Infusion: 10/16/19 16:27 Dose: 0 mls/hr Documented by: [id number] Admin: 10/16/19 14:29 Dose: 100 mls/hr Documented by: [id number] Ceftriaxone Sodium (Rocephin) 2,000 mg in 70 mls @ 140 mls/hr IV NOW STA Stop: 10/16/19 12:47 Last Infusion: 10/16/19 14:29 Dose: 0 mls/hr Documented by: [id number] Admin: 10/16/19 14:05 Dose: 140 mls/hr Documented by: [id number] Potassium Phosphate 6 mmol/ (Sodium Chloride) 252 mls @ 252 mls/hr IV ONE ONE Stop: 10/16/19 15:14 Last Infusion: 10/16/19 16:28 Dose: 0 mls/hr Documented by: [id number] Admin: 10/16/19 14:48 Dose: 252 mls/hr Documented by: [id number] Lactated Ringer's (Lr) 1,000 mls @ 999 mls/hr IV .Q1H1M ONE Stop: 10/16/19 14:53 Last Infusion: 10/16/19 15:54 Dose: 0 mls/hr Documented by: [id number] Admin: 10/16/19 14:29 Dose: 999 mls/hr Documented by: [id number] Acetaminophen (Ofirmev) 1,000 mg in 100 mls @ 400 mls/hr IV NOW STA Stop: 10/16/19 14:20 Last Infusion: 10/16/19 14:43 Dose: 0 mls/hr Documented by: [id number] Admin: 10/16/19 14:19 Dose: 400 mls/hr Documented by: [id number] Morphine Sulfate (Morphine Sulfate 4 Mg/Ml 1 Ml Carp\Vial) 4 mg IV NOW STA Stop: 10/16/19 11:41 Last Admin: 10/16/19 11:58 Dose: 4 mg Documented by: [id number] Morphine Sulfate (Morphine Sulfate 4 Mg/Ml 1 Ml Carp\Vial) Confirm Administered Dose 4 mg .ROUTE .STK-MED ONE Stop: 10/16/19 11:57 Last Admin: 10/16/19 14:05 Dose: Not Given Documented by: [id number] Morphine Sulfate (Morphine Sulfate 2 Mg/Ml Carp) 2 mg IV Q1H PRN PRN Reason: Moderate Pain (Rating 3,4,5,6) Stop: 10/30/19 14:05 Last Admin: 10/16/19 14:17 Dose: 2 mg Documented by: [id number] Morphine Sulfate (Morphine Sulfate 4 Mg/Ml 1 Ml Carp\Vial) 4 mg IV Q1H PRN PRN Reason: Severe Pain (Rating 7,8,9,10) Stop: 10/30/19 14:05 Last Admin: 10/16/19 16:25 Dose: 4 mg Documented by: [id number] Ondansetron HCl (Ondansetron Inj 2 Mg/Ml 2 Ml Vial) 4 mg IV NOW STA Stop: 10/16/19 11:41 Last Admin: 10/16/19 11:58 Dose: 4 mg Documented by: [id number] Ondansetron HCl (Ondansetron Inj 2 Mg/Ml 2 Ml Vial) Confirm Administered Dose 4 mg .ROUTE .STK-MED ONE Stop: 10/16/19 11:57 Last Admin: 10/16/19 14:05 Dose: Not Given Documented by: [id number] Potassium Phosphate (Potassium Phos 3 Mmol/1 Ml Infusion) 6 mmol IV NOW STA Stop: 10/16/19 13:52 Last Admin: 10/16/19 14:48 Dose: Not Given Documented by: [id number] Blood Pressure Blood Pressure Findings: Normal blood pressure Discharge Plan Visit Data Chief Complaint: Fever Stated Complaint: FEVER 27 WKS L&D SEND TO ER ED Provider: Janak Wiggins Discharge Problem: Sepsis, Pyelonephritis due to Escherichia coli, 27 weeks gestation of , Metabolic acidosis, Hypokalemia, Hypomagnesemia, Hypophosphatemia Patient Disposition: Admitted As Inpatient Discharge Instructions Interventions: ED Discharge Assessment Last Done: 10/16/19 16:28 Discharge Problem: Sepsis Qualifiers: Sepsis type: Escherichia coli Sepsis acute organ dysfunction status: unspecified Qualified Code(s): A41.51 - Sepsis due to Escherichia coli [E. coli]
--- NOTE | 2019-10-16 13:44 | Ultrasound Report ---
RENAL ULTRASOUND CLINICAL HISTORY: Right flank pain. 27 weeks . COMPARISON STUDY: CT of the abdomen and pelvis March 26, 2019. Renal ultrasound June 13, 2019. TECHNIQUE: Sonography of the kidneys and the urinary bladder was performed. FINDINGS: Right kidney measures 13.4 cm in maximal dimension and the left measures 11.6 cm. There is no hydronephrosis. A few right renal calculi are noted, including a calculus within the lower pole th at measures approximately 8 mm. Both ureteral jets were identified. Note is made of a 3.6 cm echogeni c focus within the mid to lower pole of the right kidney. This was not evident on prior ultrasound or CT. The right kidney is slightly heterogeneous. There is no renal abscess. Echogenicity of the left kidney is normal. IMPRESSION: 1. No hydronephrosis. Right-sided nephrolithiasis. 2. Heterogeneous right kidney which contains a new 3.6 cm echogenic focus. This favors pyelonephritis . No renal abscess. A follow-up ultrasound in 3 months to ensure resolution is recommended. ACT 112: Negative or not required by law. Electronically signed by: Nick Flores M.D. 10/16/2019 1:42 PM
[2019-10-16] MEDS ORDERED: POTASSIUM PHOS 3 MMOL/1 ML INFUSION IV STA (13:51)
[2019-10-16] MEDS ORDERED: LACTATED RINGER'S 1,000 ML IV ONE (13:53)
--- NOTE | 2019-10-16 13:54 | XRay Report ---
XR chest 1V portable HISTORY: 34 years-old Female , SEPSIS sepsis with COMPARISON: Renal ultrasound of same day TECHNIQUE: Portable AP view of the chest FINDINGS: Cardiomediastinal and hilar silhouettes are within normal limits. Linear subsegmental right lung base opacities. No pneumothorax, pleural effusion or overt pulmonary edema. Bones appear grossly intact. Mild convex right curvature of the midthoracic spine. IMPRESSION: Linear subsegmental right lung base opacities suggest atelectasis. ACT 112: Negative or not required by law. The above report was generated using voice recognition software. It may contain grammatical, syntax o r spelling errors. Electronically signed by: Tobin Shaw M.D. 10/16/2019 1:53 PM
--- NOTE | 2019-10-16 13:57 | Ultrasound Report ---
US OB limited HISTORY: 34 years-old Female right flank pain acute right-sided flank pain COMPARISON: Pelvic ultrasound 06/20/2019 TECHNIQUE: Multiple real-time sonographic images of the deep pelvic structures were obtained transabd ominally assessing grayscale appearance, color flow and M-mode analysis FINDINGS: Single living intrauterine gestation is noted in cephalic positioning. heart rate measured at 1 80 bpm. DORY measures 14.1 cm. BPD measures 6.9 cm (correlating with estimated gestational age of 27 w eeks and 5 days). Unremarkable appearance of the placenta is noted within the right fundal distributi on. Overall estimated gestational age is 27 weeks and 5 days. Estimated date of delivery calculated a t 01/10/2020. The cervix is not well evaluated. Right ovary measures 3.1 x 1.5 x 2.5 cm and is unremarkable with arterial inflow documented. 2 mm ind eterminate calcification is noted within the right ovary. The left ovary measures 2.4 x 2.8 x 3.1 cm and demonstrates arterial inflow. No significant free pelvic fluid. IMPRESSION: 1. Single living intrauterine gestation, estimated gestational age of 27 weeks and 5 days. 2. Unremarkable appearance of the placenta and ovaries. ACT 112: Negative or not required by law. The above report was generated using voice recognition software. It may contain grammatical, syntax o r spelling errors. Electronically signed by: Tobin Shaw M.D. 10/16/2019 1:56 PM
[2019-10-16] MEDS ORDERED: MoRPHine SULFATE 2 MG/ML CARP IV PRN (14:06)
[2019-10-16] MEDS ORDERED: MoRPHine SULFATE 4 MG/ML 1 ML CARP\\VIAL IV PRN (14:06)
[2019-10-16] MEDS ORDERED: ACETAMINOPHEN 1,000 MG/100 ML VIAL IV STA (14:06)
[2019-10-16] MEDS ORDERED: POTASSIUM PHOSPHATE 6 MMOL in SODIUM CHLORIDE 0.9% 250 ML IV ONE (14:15)
[2019-10-16 14:17] LABS: Appearance Urine Clear (Clear); Bacteria Urine Automated 4+ (Negative); Bilirubin Urine Negative (Negative); Blood Urine 1+ (Negative); Color Urine Yellow; Glucose Urine UA Negative (Negative); Ketones Urine 3+ (Negative); Leukocyte Esterase Urine 1+ (Negative); Nitrite Urine Positive (Negative); Protein Urine 1+ (Negative); RBC Urine Automated 0-4 /hpf (0-4); Specific Gravity Urine 1.017 (1.000-1.030); Urobilinogen Urine Negative (Negative); WBC Urine Automated >30 /hpf (0-5); pH Urine 5.5 (4.5-7.5)
[2019-10-16] MEDS: MAGNESIUM SULFATE / D5W 1 GM/100 ML BAG IV SCH ×2 (14:29→17:13)
[2019-10-16] MEDS: SODIUM CHLORIDE 0.9% 1000ML 1,000 ML IV SCH ×2 (15:54→23:59)
--- NOTE | 2019-10-16 15:56 | History & Physical Report ---
Date of Service October 16, 2019 Assessment & Plan (1) Sepsis: (2) Pyelonephritis due to Escherichia coli: This is a pleasant 34-year-old female who is currently 27 weeks with a significant past medical history of mild persistent asthma, GERD, IBS, and history of gastric bypass, history of nephrolithiasis requiring stent placement, depression who presents to ED secondary to right flank pain and fever over the past 2 to 3 days. In ED patient met sepsis criteria per current CMS guidelines secondary to fever, leukocytosis and tachycardia. Initial lactic acid was elevated at 3.2. Repeat after fluid resuscitation was 1.5. Prior to my evaluation in ED she had received 2 L of IVF with another liter of LR infusing. She received broad-spectrum antibiotics with IV Rocephin per urine culture. Imaging revealed Right-sided nephrolithiasis with no hydronephrosis. Heterogenous right kidney with a new 3.6 echogenic focus likely in favor of a pyelonephritis. admit to PCU Continue IV Rocephin - Urine culture per [facility] > 100k E.coli sensitive to rocephin continue IVF NS 125 cc/hr consult urology - Dr. Chavez - previous tx by [facility] urology for R nephrolithiasis s/p stent replace electrolytes blood cultures pending - follow APAP prn for fever clear liquid diet - we can upgrade as tolerated Morphine 4mg IV prn severe pain (3) Metabolic acidosis: likely in setting of lactic acidosis in setting of sepsis repeat bmp at 7pm expect improvement with electrolyte replacement, fluid repletion and tx of underlying infection (4) 27 weeks gestation of : Follows [facility] - Dr. Carbera consulted OB US: 1. Single living intrauterine gestation, estimated gestational age of 27 weeks and 5 days. 2. Unremarkable appearance of the placenta and ovaries. monitor heart tones QS (5) Hypokalemia: K 3.1 ordered KCL 10meq x 2 in ED repeat at 7pm replete as needed (6) Hypomagnesemia: mag 1.5 received 2g IV mag in ED repeat at 7pm oral supplementation ordered mag ox 400mg bid monitor (7) Hypophosphatemia: received 12mmol K phos in ED repeat at 7pm replete as needed replete orally as with K phos 1 tab QID (8) GERD (gastroesophageal reflux disease): continue PPI (9) Depression with anxiety: continue zoloft (10) DVT prophylaxis: SCDS/TEDS per Dr. Castaneda consider lovenox - assess daily if prolonged admission given RF of and sepsis Disposition: admit to PCU Follow up: PCP Dr. Joya upon discharge along with appropriate OB follow up Pt was seen and examined in collaboration with Dr. Castaneda, please see addendum History of Present Illness Chief Complaint: Right-sided flank pain and fever x2 to 3 days. Primary Care Provider: Audra Joya, This is a pleasant 34-year-old female, who is currently 27 weeks with a significant past medical history of mild persistent asthma, GERD, IBS, and history of gastric bypass, history of nephrolithiasis requiring stent placement, depression who presents to ED secondary to right flank pain and fever over the past 2 to 3 days. Patient was initially seen on 10/12 in outpatient PCP office and started on Macrobid. Culture results returned today showing resistant to Macrobid. Due to worsening symptoms she was encouraged to seek ED. Her has been complicated by recurrent UTIs in which she had been on a prophylactic dose of Macrobid. She admits to fever as high as 102 starting last evening, chills, sweats, lightheadedness, dysuria, bilateral back pain right greater than left, and suprapubic discomfort. She denies any vaginal bleeding. Of significance patient was admitted in June 2019 secondary to right-sided nephrolithiasis requiring stent placement which was subsequently removed a week later. She follows with [facility] urology. In ED patient met sepsis criteria per current CMS guidelines secondary to fever, leukocytosis and tachycardia. Initial lactic acid was elevated at 3.2. Prior to my evaluation in ED she had received 2 L of IVF with another liter of LR infusing. She received broad-spectrum antibiotics with IV Rocephin per urine culture. Imaging revealed Right-sided nephrolithiasis with no hydronephrosis. Heterogenous right kidney with a new 3.6 echogenic focus likely in favor of a pyelonephritis. Further lab abnormalities include hypokalemia, hypomagnesemia, hypophosphatemia, hyponatremia and elevated anion gap. Her H&H was reduced at 11.1 and 32.6 with a leukocytosis of 18.49k. She did receive IV magnesium sulfate 1 g with an additional gram on order. She did become mildly hypotensive during my evaluation which is likely secondary to the infusion of the magnesium. The rate of this was reduced. She also received 12 mmol of potassium phosphate. Allergies Allergy/AdvReac Type Severity Reaction Status Date / Time meloxicam Allergy Intermediate breakouts Verified 10/16/19 12:18 and itchy all over Penicillins Allergy Unknown RASH Verified 10/16/19 12:18 diphenhydramine AdvReac Unknown SLEEPS Verified 10/16/19 12:18 Pharbedryl Allergy Mild Nausea/vomi Uncoded 10/16/19 12:18 ting Home Medications Home Medications Medication Instructions Recorded Confirmed Type albuterol sulfate 2 puff INHALATION Q6H PRN 03/15/18 10/16/19 History cyanocobalamin (vitamin B-12) 1,000 mcg IM UD 03/15/18 10/16/19 History loratadine [Claritin] 10 mg PO DAILY PRN 03/15/18 10/16/19 History omeprazole 20 mg PO DAILY 03/15/18 10/16/19 History Flintstones Complete 1 tab PO DAILY 05/09/19 10/16/19 History PNV cmb#95-ferrous fumarate-FA 1 tab PO DAILY 05/09/19 10/16/19 History [] azelastine 2 spray INTRANASAL BID 05/09/19 10/16/19 History fluticasone propion-salmeterol 1 inh INHALATION BID 05/09/19 10/16/19 History [Advair Diskus] hyoscyamine sulfate 0.125 mg PO Q4 PRN 05/09/19 10/16/19 History ondansetron 4 mg PO Q8H PRN 05/09/19 10/16/19 History oxycodone-acetaminophen 1 tab PO Q6H PRN 06/13/19 10/16/19 History nitrofurantoin monohyd/m-cryst 100 mg PO DAILY 09/08/19 10/16/19 History acetaminophen [Tylenol] 650 mg PO QID PRN 10/16/19 10/16/19 History sertraline 50 mg PO DAILY 10/16/19 10/16/19 History Past Med/Surg History Medical History Allergic rhinitis Asthma Chronic back pain Depression with anxiety GERD (gastroesophageal reflux disease) History of right inguinal hernia IBS (irritable bowel syndrome) Inflammatory polyarthritis OSHEA (nonalcoholic steatohepatitis) Scoliosis Surgical History H/O gastric bypass History of History of cholecystectomy History of colonoscopy History of dental surgery History of tonsillectomy and adenoidectomy Status post panniculectomy Family History Other Cancer Diabetes Heart disease Hypertension Lung disease Seizures Social History Smoking Status: Never smoker Second Hand Exposure: No; Do You Dip or Chew Tobacco: No; Tobacco Cessation Education Requested by Patient: No Hx Alcohol Use: No Hx Substance Use: No Preferred Language: Persian Communication Ability: Effective [place] Required: No Beliefs That Will Affect Care: None Current Living Situation: Significant Other current occupational status: employed Other Information That Helps Us Care for You: No Feels Safe at Home: Yes Safety Concerns: Feels Safe At This Time Review of Systems Review of Systems: All systems reviewed & are unremarkable except as noted in HPI & below Physical Exam Physical Exam: Please refer to Dr. Castaneda's addendum for physical exam findings. Results & Data Results & Data ([facility]) Vital Signs (Past 12 Hours) Vital Signs Temp Pulse Resp BP Pulse Ox 10/16/19 14:00 109 H 24 112/74 10/16/19 13:53 112 H 28 H 108/70 97 10/16/19 12:06 109 H 25 H 95 10/16/19 12:05 117 H 22 116/71 95 10/16/19 11:04 37.9 C H 152 H 22 115/70 97 Laboratory Results Short CBC 10/16/19 10/16/19 10/16/19 Range/Units 11:37 12:02 14:05 WBC 18.59 H (4.8-10.8) K/uL Hgb 11.1 L (12.0-16.0) g/dL Hct 32.6 L (37-47) % Plt Count 270 (130-400) K/uL Lactate 3.2 H* 1.5 (0.4-2.0) mmol/L BMP 10/16/19 11:37 Sodium 134 L Potassium 3.1 L Chloride 105 Carbon Dioxide 17 L BUN 4 L Creatinine 0.71 Glucose 117 H Calcium 8.4 L Cardiac Enzymes 10/16/19 Range/Units 11:37 Troponin I < 0.015 (0-0.045) ng/ml Liver Function 10/16/19 Range/Units 11:37 Total Bilirubin 0.5 (0.2-1) mg/dl Direct Bilirubin 0.1 (0-0.2) mg/dl AST 11 L (15-37) U/L ALT 12 (12-78) U/L Alkaline Phosphatase 98 (45-117) U/L Albumin 2.5 L (3.4-5.0) gm/dl Urine 10/16/19 Range/Units 13:50 Urine Color Yellow Urine Appearance Clear (Clear) Urine pH 5.5 (4.5-7.5) Ur Specific [place] 1.017 (1.000-1.030) Urine Protein 1+ H (Negative) Urine Glucose (UA) Negative (Negative) Diagnostic Findings Renal US: IMPRESSION: 1. No hydronephrosis. Right-sided nephrolithiasis. 2. Heterogeneous right kidney which contains a new 3.6 cm echogenic focus. This favors pyelonephritis. No renal abscess. A follow-up ultrasound in 3 months to ensure resolution is recommended. OB US: IMPRESSION: 1. Single living intrauterine gestation, estimated gestational age of 27 weeks a nd 5 days. 2. Unremarkable appearance of the placenta and ovaries. CXR: IMPRESSION: Linear subsegmental right lung base opacities suggest atelectasis. Medications Administered Morphine Sulfate (Morphine Sulfate 2 Mg/Ml Carp) 2 mg IV Q1H PRN PRN Reason: Moderate Pain (Rating 3,4,5,6) Stop: 10/30/19 14:05 Last Admin: 10/16/19 14:17 Dose: 2 mg Documented by: [id number] Discontinued Medications Sodium Chloride (Nss 1000ml) 2,000 mls @ 999 mls/hr IV .Q2H1M ONE Stop: 10/16/19 13:40 Last Infusion: 10/16/19 14:28 Dose: 0 mls/hr Documented by: [id number] Admin: 10/16/19 11:52 Dose: 999 mls/hr Documented by: [id number] Magnesium Sulfate/Dextrose (Magnesium Sulfate / D5w) 1 gm in 100 mls @ 100 mls/hr IV Q1H CÉSAR Stop: 10/16/19 14:21 Last Admin: 10/16/19 14:29 Dose: 100 mls/hr Documented by: [id number] Ceftriaxone Sodium (Rocephin) 2,000 mg in 70 mls @ 140 mls/hr IV NOW STA Stop: 10/16/19 12:47 Last Infusion: 10/16/19 14:29 Dose: 0 mls/hr Documented by: [id number] Admin: 10/16/19 14:05 Dose: 140 mls/hr Documented by: [id number] Potassium Phosphate 6 mmol/ (Sodium Chloride) 252 mls @ 252 mls/hr IV ONE ONE Stop: 10/16/19 15:14 Last Admin: 10/16/19 14:48 Dose: 252 mls/hr Documented by: [id number] Lactated Ringer's (Lr) 1,000 mls @ 999 mls/hr IV .Q1H1M ONE Stop: 10/16/19 14:53 Last Admin: 10/16/19 14:29 Dose: 999 mls/hr Documented by: [id number] Acetaminophen (Ofirmev) 1,000 mg in 100 mls @ 400 mls/hr IV NOW STA Stop: 10/16/19 14:20 Last Infusion: 10/16/19 14:43 Dose: 0 mls/hr Documented by: [id number] Admin: 10/16/19 14:19 Dose: 400 mls/hr Documented by: [id number] Morphine Sulfate (Morphine Sulfate 4 Mg/Ml 1 Ml Carp\Vial) 4 mg IV NOW STA Stop: 10/16/19 11:41 Last Admin: 10/16/19 11:58 Dose: 4 mg Documented by: [id number] Morphine Sulfate (Morphine Sulfate 4 Mg/Ml 1 Ml Carp\Vial) Confirm Administered Dose 4 mg .ROUTE .STK-MED ONE Stop: 10/16/19 11:57 Last Admin: 10/16/19 14:05 Dose: Not Given Documented by: [id number] Ondansetron HCl (Ondansetron Inj 2 Mg/Ml 2 Ml Vial) 4 mg IV NOW STA Stop: 10/16/19 11:41 Last Admin: 10/16/19 11:58 Dose: 4 mg Documented by: [id number] Ondansetron HCl (Ondansetron Inj 2 Mg/Ml 2 Ml Vial) Confirm Administered Dose 4 mg .ROUTE .STK-MED ONE Stop: 10/16/19 11:57 Last Admin: 10/16/19 14:05 Dose: Not Given Documented by: [id number] Potassium Phosphate (Potassium Phos 3 Mmol/1 Ml Infusion) 6 mmol IV NOW STA Stop: 10/16/19 13:52 Last Admin: 10/16/19 14:48 Dose: Not Given Documented by: [id number] ECG Rate (beats per minute): 132 Rhythm: sinus tachycardia Code Status & VTE Plan Code Status Full Code VTE Prophylaxis Plan VTE Prophylaxis will be ordered: Yes Supervising Physician Co-Signing Physician Notes I, Dr. Mukesh Castaneda, have seen and examined the patient Maggie Valverde and also discussed the plans with physician clinical data assistant On Physical Exam General: speaking in full sentences,answers questions appropriately Vital: despite reported low blood pressures, patient does not appear to in distress Neurological: moves all extremities HEENT: extraoccular movements intact Lungs: no wheezing, good air entry on inhalation and exhalation Heart: regular rate Abdomen: soft, nontender, positive bowel sounds Back: patient reports back pain on both flanks Assessment and Plan -This is a 34 year old female who is 27 weeks and had a previous hospitalization for right sided kidney stones for which she had right ureteral stent placed and subsequently removed. Patient reports of 1 day of fevers with associated bilateral flank pain and CT imaging concerning for pyelonephritis of right kidney. Patient has sepsis and has received adequate IV hydration as per sepsis guidelines of 30 ml per kg. She can benefit from more IV fluids because of low to low normotensive blood pressures. She was started on IV ceftriaxone and in the ED and this appears to be appropriate antibiotic because of outpatient sensitivities (interestingly is resistant to Zosyn) -lactic acidosis, metabolic acidosis on admission is secondary to underlying infection. management as above -Electrolyte abnormalities also involve Hypokalemia, Hypomagnesemia, Hypophosphatemia and supplements have been give and titrated up as the labs to be repeated -agree with other plans as documented by physician clinical data assistant as above -[facility] colleague Dr. Shanks will be following the patient starting on 10/17/2019
[2019-10-16] MEDS ORDERED: LORATADINE 10 MG TAB PO PRN (17:09)
[2019-10-16] MEDS ORDERED: POLYETHYLENE (MIRALAX) 17 GM PACK PO PRN (17:09)
[2019-10-16] MEDS ORDERED: ALBUTEROL HFA 8 GM INHALER INH PRN (17:09)
[2019-10-16] MEDS ORDERED: HYOSCYAMINE SULFATE 0.125 MG TAB PO PRN (17:33)
[2019-10-16] MEDS: MoRPHine SULFATE 4 MG/ML 1 ML CARP\\VIAL IV PRN ×2 (17:53→22:46)
[2019-10-16] MEDS: POTASSIUM CHLORIDE / WTR 10 MEQ/100 ML PLCT IV SCH ×2 (18:00→19:22)
[2019-10-16] MEDS: POT PHOSPHATE MONOBASIC W/ SOD TAB PO SCH ×2 (18:01→19:41)
--- NOTE | 2019-10-16 18:50 | Urology Consultation ---
Date of Consultation October 16, 2019 Assessment & Plan (1) Pyelonephritis due to Escherichia coli: Pyelo without hydro - reviewed her imaging and clinical condition - no indication for management or intervention for non-obstructed pyelo - plan for IV abx and supportive care - fevers and symptoms may continue for several days, even with appropriate treatment - ultimately, after her delivery, we will obtain formal imaging given her complicated - but no interventions or studies planned as of now - we will follow peripherally History of Present Illness Attending Physician: Mukesh Castaneda MD History of Present Illness 34y/o gravid female who has a hx of stones and prior interventions presents now with flank pain and fevers US shows irritation of the right kidney consistent with pyelonephritis - no hydronephrosis. there is a stone within the kidney (has been present) still hurting now no hematuria or dysuria tachycardic, but afebrile Allergies Allergy/AdvReac Type Severity Reaction Status Date / Time meloxicam Allergy Intermediate breakouts Verified 10/16/19 12:18 and itchy all over Penicillins Allergy Unknown RASH Verified 10/16/19 12:18 diphenhydramine AdvReac Unknown SLEEPS Verified 10/16/19 12:18 Pharbedryl Allergy Mild Nausea/vomi Uncoded 10/16/19 12:18 ting Home Medications Home Medications Medication Instructions Recorded Confirmed Type albuterol sulfate 2 puff INHALATION Q6H PRN 03/15/18 10/16/19 History cyanocobalamin (vitamin B-12) 1,000 mcg IM UD 03/15/18 10/16/19 History loratadine [Claritin] 10 mg PO DAILY PRN 03/15/18 10/16/19 History omeprazole 20 mg PO DAILY 03/15/18 10/16/19 History Flintstones Complete 1 tab PO DAILY 05/09/19 10/16/19 History PNV cmb#95-ferrous fumarate-FA 1 tab PO DAILY 05/09/19 10/16/19 History [] azelastine 2 spray INTRANASAL BID 05/09/19 10/16/19 History fluticasone propion-salmeterol 1 inh INHALATION BID 05/09/19 10/16/19 History [Advair Diskus] hyoscyamine sulfate 0.125 mg PO Q4 PRN 05/09/19 10/16/19 History ondansetron 4 mg PO Q8H PRN 05/09/19 10/16/19 History oxycodone-acetaminophen 1 tab PO Q6H PRN 06/13/19 10/16/19 History nitrofurantoin monohyd/m-cryst 100 mg PO DAILY 09/08/19 10/16/19 History acetaminophen [Tylenol] 650 mg PO QID PRN 10/16/19 10/16/19 History sertraline 50 mg PO DAILY 10/16/19 10/16/19 History Patient History Medical History Allergic rhinitis Asthma Chronic back pain Depression with anxiety GERD (gastroesophageal reflux disease) History of right inguinal hernia IBS (irritable bowel syndrome) Inflammatory polyarthritis OSHEA (nonalcoholic steatohepatitis) Scoliosis Surgical History H/O gastric bypass History of History of cholecystectomy History of colonoscopy History of dental surgery History of tonsillectomy and adenoidectomy Status post panniculectomy Family History Other Cancer Diabetes Heart disease Hypertension Lung disease Seizures Social History Smoking Status: Never smoker Second Hand Exposure: No; Do You Dip or Chew Tobacco: No; Tobacco Cessation Education Requested by Patient: No Hx Alcohol Use: No Hx Substance Use: No Preferred Language: Estonian Communication Ability: Effective Mobile Disc Jockey Required: No Beliefs That Will Affect Care: None Current Living Situation: Significant Other current occupational status: employed Other Information That Helps Us Care for You: No Feels Safe at Home: Yes Safety Concerns: Feels Safe At This Time Review of Systems Constitutional: + fever and + chills; no fatigue Eyes: no worsening vision Ear, Nose, Mouth, Throat: no facial pain and no pain with swallowing Respiratory: no cough and no dyspnea Cardiovascular: no chest pain and no palpitations Gastrointestinal: + abdominal pain; no nausea and no vomiting Genitourinary: + dysuria and + urinary frequency; no difficulty urinating and no hematuria Musculoskeletal: no back pain Integumentary: no rash and no urticaria Neurologic: no gait abnormality and no unsteadiness Psychiatric: no behavioral changes and no depression Endocrine: no fatigue Physical Exam Constitutional: well developed and well nourished uncomfortable appearing Neck: neck nontender Respiratory: normal respiratory effort; no respiratory distress and does not use accessory muscles Cardiovascular: Rate/Rhythm: regular rate Vessels: radial pulses present Extremities: no edema Gastrointestinal (Abdomen): Inspection/Auscultation: abdomen normal to inspection (gravid) Percussion/Palpation: + abdomen tender (right flank) and abdomen soft; no guarding Musculoskeletal: Head/Neck/Chest: normocephalic and head atraumatic Extremities: extremities normal to inspection Skin: no rashes and no lesions Trauma: no evidence of skin trauma Neurologic: awake; not obtunded Speech / Cognition: normal speech Motor/Sensory: no tremor Psychiatric: Orientation: alert and oriented x 3 Lymphatic: no lymphadenopathy Results & Data ([facility]) Vital Signs (Past 12 Hours) Vital Signs Temp Pulse Pulse Resp BP BP Pulse Ox 10/16/19 17:20 36.8 C 100 H 18 98/60 L 97 10/16/19 17:09 36.8 C 102 H 100 H 18 98/60 L 97 10/16/19 17:00 102 H 10/16/19 16:00 93 H 20 93/54 L 94 10/16/19 15:30 99 H 20 100/56 L 94 10/16/19 15:13 108 H 13 98/48 L 96 10/16/19 15:00 113 H 27 H 82/43 L 95 10/16/19 14:00 37.6 C H 109 H 24 112/74 10/16/19 13:53 112 H 28 H 108/70 97 10/16/19 12:06 109 H 25 H 95 10/16/19 12:05 117 H 22 116/71 95 10/16/19 11:04 37.9 C H 152 H 22 115/70 97 Pulse Ox 10/16/19 17:20 10/16/19 17:09 97 10/16/19 17:00 10/16/19 16:00 10/16/19 15:30 10/16/19 15:13 10/16/19 15:00 10/16/19 14:00 10/16/19 13:53 10/16/19 12:06 10/16/19 12:05 10/16/19 11:04 PG Care Time/CCT Total # of Minutes Spent Total Time Spent with Patient: Total time spent is greater than 50% in coordination of care (as documented) at patient's floor/unit and/or counseling patient: Coding Level of Care Code 12079 Inpt Consult Level 3 Diagnoses Pyelonephritis due to Escherichia coli N12; B96.20
--- NOTE | 2019-10-16 19:32 | OB/GYN Consultation ---
Date of Consultation October 16, 2019 Assessment & Plan (1) 27 weeks gestation of : Patient is a 25-year-old -1-2-2 at 26 weeks and 4 days of gestation, Admitted for pyelonephritis, history of stent placement for nephrolithiasis during this , history of bariatric surgery, history of section, history of asthma, advanced maternal age, history of depression, UTI At this moment vital signs stable afebrile OB ultrasound is normal Patient's has no OB complaints denies contractions leakage of fluid or vaginal bleeding and reports good movements. She complains of nausea for the last few days with right upper quadrant abdominal pain, there is some tenderness but no rebound,May work for her to rule out appendicitis MRI is safe during , I will leave this to medical team. We will follow the patients with NST/ monitoring twice a day Plan per medicine and neurology team for nephrolithiasis and pyelonephritis Thank you for this consult. (2) Pyelonephritis due to Escherichia coli: (3) Sepsis: History of Present Illness Reason for Consultation: Pyelonephritis and 26 weeks and 4 days of gestation. Attending Physician: Mukesh Castaneda MD History of Present Illness Patient is a [id number] female at 26 weeks and 4 days of gestation who was admitted by the medicine department for pyelonephritis, Sepsis. She has been having fever chills bilateral flank pain and right upper quadrant pain for the last few days she was diagnosed with UTI on October 12 by her urine culture was positive for E. coli, started on Macrobid. Her symptoms did not did not resolve and she started to become more painful and have fever chills. She was admitted by medicine team for IV antibiotics IV fluid and electrolyte replacement and urology consultation was already done. Her was complicated by 1 maternal asthma complicating , uses albuterol inhaler as needed. 2 advanced maternal age, sees maternal- medicine regularly. 3 history of section, twin in 2013 at 34 weeks. 4 complicated by nephrolithiasis in second trimester, she had ureteral stent placement in June, removed in a week and passed stones multiple times. 5 high risk 6 history of Packer bariatric surgery complicating .She has seen MFM and recommendations were given see details of recommendations from her records. 7 depression complicating 8 history of irritable bowel syndrome 9 history of scoliosis 10 history of migraines 11 history of GERD 12 hepatitis C antibody test positive. Patient denies OB complaints, denies contractions, leakage of fluid, vaginal bleeding and she reports good movements. Allergies Allergy/AdvReac Type Severity Reaction Status Date / Time meloxicam Allergy Intermediate breakouts Verified 10/16/19 12:18 and itchy all over Penicillins Allergy Unknown RASH Verified 10/16/19 12:18 diphenhydramine AdvReac Unknown SLEEPS Verified 10/16/19 12:18 Pharbedryl Allergy Mild Nausea/vomi Uncoded 10/16/19 12:18 ting Home Medications Home Medications Medication Instructions Recorded Confirmed Type albuterol sulfate 2 puff INHALATION Q6H PRN 03/15/18 10/16/19 History cyanocobalamin (vitamin B-12) 1,000 mcg IM UD 03/15/18 10/16/19 History loratadine [Claritin] 10 mg PO DAILY PRN 03/15/18 10/16/19 History omeprazole 20 mg PO DAILY 03/15/18 10/16/19 History Flintstones Complete 1 tab PO DAILY 05/09/19 10/16/19 History PNV cmb#95-ferrous fumarate-FA 1 tab PO DAILY 05/09/19 10/16/19 History [] azelastine 2 spray INTRANASAL BID 05/09/19 10/16/19 History fluticasone propion-salmeterol 1 inh INHALATION BID 05/09/19 10/16/19 History [Advair Diskus] hyoscyamine sulfate 0.125 mg PO Q4 PRN 05/09/19 10/16/19 History ondansetron 4 mg PO Q8H PRN 05/09/19 10/16/19 History oxycodone-acetaminophen 1 tab PO Q6H PRN 06/13/19 10/16/19 History nitrofurantoin monohyd/m-cryst 100 mg PO DAILY 09/08/19 10/16/19 History acetaminophen [Tylenol] 650 mg PO QID PRN 10/16/19 10/16/19 History sertraline 50 mg PO DAILY 10/16/19 10/16/19 History Patient History Medical History Allergic rhinitis Asthma Chronic back pain Depression with anxiety GERD (gastroesophageal reflux disease) History of right inguinal hernia IBS (irritable bowel syndrome) Inflammatory polyarthritis OSHEA (nonalcoholic steatohepatitis) Scoliosis Surgical History H/O gastric bypass History of History of cholecystectomy History of colonoscopy History of dental surgery History of tonsillectomy and adenoidectomy Status post panniculectomy Family History Other Cancer Diabetes Heart disease Hypertension Lung disease Seizures Social History Smoking Status: Never smoker Second Hand Exposure: No; Do You Dip or Chew Tobacco: No; Tobacco Cessation Education Requested by Patient: No Hx Alcohol Use: No Hx Substance Use: No Preferred Language: Slovak Communication Ability: Effective Wagon Person Required: No Beliefs That Will Affect Care: None Current Living Situation: Significant Other current occupational status: employed Other Information That Helps Us Care for You: No Feels Safe at Home: Yes Safety Concerns: Feels Safe At This Time Review of Systems Review of Systems: All systems reviewed & are unremarkable except as noted in HPI & below Physical Exam Constitutional: + ill appearing, + obese and + in distress (Mild) Gastrointestinal (Abdomen): Abdomen is soft no rebound gravid around 27 weeks. She has mild right upper quadrant tenderness with no rebound, she has flank tenderness bilaterally Results & Data ([facility]) Vital Signs (Past 12 Hours) Vital Signs Temp Pulse Pulse Pulse Resp BP BP 10/16/19 19:05 36.7 C 95 H 20 100/63 10/16/19 17:20 36.8 C 100 H 18 98/60 L 10/16/19 17:09 36.8 C 102 H 100 H 18 98/60 L 10/16/19 17:00 102 H 10/16/19 16:00 93 H 20 93/54 L 10/16/19 15:30 99 H 20 100/56 L 10/16/19 15:13 108 H 13 98/48 L 10/16/19 15:00 113 H 27 H 82/43 L 10/16/19 14:00 37.6 C H 109 H 24 112/74 10/16/19 13:53 112 H 28 H 108/70 10/16/19 12:06 109 H 25 H 10/16/19 12:05 117 H 22 116/71 10/16/19 11:04 37.9 C H 152 H 22 115/70 Pulse Ox Pulse Ox 10/16/19 19:05 95 10/16/19 17:20 97 10/16/19 17:09 97 97 10/16/19 17:00 10/16/19 16:00 94 10/16/19 15:30 94 10/16/19 15:13 96 10/16/19 15:00 95 10/16/19 14:00 10/16/19 13:53 97 10/16/19 12:06 95 10/16/19 12:05 95 10/16/19 11:04 97 Laboratory Results 10/16/19 10/16/19 10/16/19 Range/Units 14:05 13:50 12:02 WBC (4.8-10.8) K/uL RBC (4.2-5.4) M/uL Hgb (12.0-16.0) g/dL Hct (37-47) % MCV (80-100) fL MCH (25-34) pg MCHC (32-36) g/dL RDW Std Deviation (36.4-46.3) fL RDW Coeff of Shashi (11.5-14.5) % Plt Count (130-400) K/uL MPV (7.4-10.4) fL Immature Gran % (Auto) % Neut % (Auto) % Lymph % (Auto) % [place] % (Auto) % Eos % (Auto) % Baso % (Auto) % Neut # (Auto) (1.4-6.5) K/uL Lymph # (Auto) (1.2-3.4) K/uL [place] # (Auto) (0.11-0.59) K/uL Eos # (Auto) (0-0.5) K/uL Baso # (Auto) (0-0.2) K/uL Immature Gran # (Auto) (0.00-0.02) K/uL PT (9.0-12.0) Seconds INR (0.9-1.1) APTT (21.0-31.0) Seconds PTT Ratio Sodium (136-145) mmol/L Potassium (3.5-5.1) mmol/L Chloride (98-107) mmol/L Carbon Dioxide (21-32) mmol/L Anion Gap (3-11) BUN (7-18) mg/dl Creatinine (0.6-1.2) mg/dl Est Cr Clr Drug Dosing Est GFR ( Amer) Est GFR (Non-Af Amer) BUN/Creatinine Ratio (10-20) Glucose (70-99) mg/dl Lactate 1.5 3.2 H* (0.4-2.0) mmol/L Calcium (8.5-10.1) mg/dl Phosphorus (2.5-4.9) mg/dl Magnesium (1.8-2.4) mg/dl Total Bilirubin (0.2-1) mg/dl Direct Bilirubin (0-0.2) mg/dl AST (15-37) U/L ALT (12-78) U/L Alkaline Phosphatase (45-117) U/L Troponin I (0-0.045) ng/ml Total Protein (6.4-8.2) gm/dl Albumin (3.4-5.0) gm/dl Globulin (2.5-4.0) gm/dl Albumin/Globulin Ratio (0.9-2) Procalcitonin (0-0.5) ng/ml Urine Color Yellow Urine Appearance Clear (Clear) Urine pH 5.5 (4.5-7.5) Ur Specific [place] 1.017 (1.000-1.030) Urine Protein 1+ H (Negative) Urine Glucose (UA) Negative (Negative) Urine Ketones 3+ H (Negative) Urine Blood 1+ H (Negative) Urine Nitrite Positive A (Negative) Urine Bilirubin Negative (Negative) Urine Urobilinogen Negative (Negative) Ur Leukocyte Esterase 1+ H (Negative) Urine WBC (Auto) >30 H (0-5) /hpf Urine RBC (Auto) 0-4 (0-4) /hpf U Hyaline Cast (Auto) 10-30 H (0-5) /lpf U Epithel Cells (Auto) 5-10 H (0-5) /lpf Urine Bacteria (Auto) 4+ H (Negative) 09/03/20 09/03/20 09/03/20 Range/Units 11:37 11:37 11:37 WBC 18.59 H (4.8-10.8) K/uL RBC 3.43 L (4.2-5.4) M/uL Hgb 11.1 L (12.0-16.0) g/dL Hct 32.6 L (37-47) % MCV 95.0 (80-100) fL MCH 32.4 (25-34) pg MCHC 34.0 (32-36) g/dL RDW Std Deviation 44.7 (36.4-46.3) fL RDW Coeff of Shashi 13.0 (11.5-14.5) % Plt Count 270 (130-400) K/uL MPV 9.7 (7.4-10.4) fL Immature Gran % (Auto) 0.3 % Neut % (Auto) 91.0 % Lymph % (Auto) 2.3 % [place] % (Auto) 6.3 % Eos % (Auto) 0.0 % Baso % (Auto) 0.1 % Neut # (Auto) 16.93 H (1.4-6.5) K/uL Lymph # (Auto) 0.42 L (1.2-3.4) K/uL [place] # (Auto) 1.18 H (0.11-0.59) K/uL Eos # (Auto) 0.00 (0-0.5) K/uL Baso # (Auto) 0.01 (0-0.2) K/uL Immature Gran # (Auto) 0.05 H (0.00-0.02) K/uL PT 10.9 (9.0-12.0) Seconds INR 1.0 (0.9-1.1) APTT 26.3 (21.0-31.0) Seconds PTT Ratio 0.9 Sodium 134 L (136-145) mmol/L Potassium 3.1 L (3.5-5.1) mmol/L Chloride 105 (98-107) mmol/L Carbon Dioxide 17 L (21-32) mmol/L Anion Gap 12.0 H (3-11) BUN 4 L (7-18) mg/dl Creatinine 0.71 (0.6-1.2) mg/dl Est Cr Clr Drug Dosing Not Reportable Est GFR ( Amer) 127.0 Est GFR (Non-Af Amer) 109.6 BUN/Creatinine Ratio 5.5 L (10-20) Glucose 117 H (70-99) mg/dl Lactate (0.4-2.0) mmol/L Calcium 8.4 L (8.5-10.1) mg/dl Phosphorus 1.8 L (2.5-4.9) mg/dl Magnesium 1.5 L (1.8-2.4) mg/dl Total Bilirubin 0.5 (0.2-1) mg/dl Direct Bilirubin 0.1 (0-0.2) mg/dl AST 11 L (15-37) U/L ALT 12 (12-78) U/L Alkaline Phosphatase 98 (45-117) U/L Troponin I < 0.015 (0-0.045) ng/ml Total Protein 6.7 (6.4-8.2) gm/dl Albumin 2.5 L (3.4-5.0) gm/dl Globulin 4.2 H (2.5-4.0) gm/dl Albumin/Globulin Ratio 0.6 L (0.9-2) Procalcitonin (0-0.5) ng/ml Urine Color Urine Appearance (Clear) Urine pH (4.5-7.5) Ur Specific [place] (1.000-1.030) Urine Protein (Negative) Urine Glucose (UA) (Negative) Urine Ketones (Negative) Urine Blood (Negative) Urine Nitrite (Negative) Urine Bilirubin (Negative) Urine Urobilinogen (Negative) Ur Leukocyte Esterase (Negative) Urine WBC (Auto) (0-5) /hpf Urine RBC (Auto) (0-4) /hpf U Hyaline Cast (Auto) (0-5) /lpf U Epithel Cells (Auto) (0-5) /lpf Urine Bacteria (Auto) (Negative) 10/16/19 Range/Units 11:37 WBC (4.8-10.8) K/uL RBC (4.2-5.4) M/uL Hgb (12.0-16.0) g/dL Hct (37-47) % MCV (80-100) fL MCH (25-34) pg MCHC (32-36) g/dL RDW Std Deviation (36.4-46.3) fL RDW Coeff of Shashi (11.5-14.5) % Plt Count (130-400) K/uL MPV (7.4-10.4) fL Immature Gran % (Auto) % Neut % (Auto) % Lymph % (Auto) % [place] % (Auto) % Eos % (Auto) % Baso % (Auto) % Neut # (Auto) (1.4-6.5) K/uL Lymph # (Auto) (1.2-3.4) K/uL [place] # (Auto) (0.11-0.59) K/uL Eos # (Auto) (0-0.5) K/uL Baso # (Auto) (0-0.2) K/uL Immature Gran # (Auto) (0.00-0.02) K/uL PT (9.0-12.0) Seconds INR (0.9-1.1) APTT (21.0-31.0) Seconds PTT Ratio Sodium (136-145) mmol/L Potassium (3.5-5.1) mmol/L Chloride (98-107) mmol/L Carbon Dioxide (21-32) mmol/L Anion Gap (3-11) BUN (7-18) mg/dl Creatinine (0.6-1.2) mg/dl Est Cr Clr Drug Dosing Est GFR ( Amer) Est GFR (Non-Af Amer) BUN/Creatinine Ratio (10-20) Glucose (70-99) mg/dl Lactate (0.4-2.0) mmol/L Calcium (8.5-10.1) mg/dl Phosphorus (2.5-4.9) mg/dl Magnesium (1.8-2.4) mg/dl Total Bilirubin (0.2-1) mg/dl Direct Bilirubin (0-0.2) mg/dl AST (15-37) U/L ALT (12-78) U/L Alkaline Phosphatase (45-117) U/L Troponin I (0-0.045) ng/ml Total Protein (6.4-8.2) gm/dl Albumin (3.4-5.0) gm/dl Globulin (2.5-4.0) gm/dl Albumin/Globulin Ratio (0.9-2) Procalcitonin 0.40 (0-0.5) ng/ml Urine Color Urine Appearance (Clear) Urine pH (4.5-7.5) Ur Specific [place] (1.000-1.030) Urine Protein (Negative) Urine Glucose (UA) (Negative) Urine Ketones (Negative) Urine Blood (Negative) Urine Nitrite (Negative) Urine Bilirubin (Negative) Urine Urobilinogen (Negative) Ur Leukocyte Esterase (Negative) Urine WBC (Auto) (0-5) /hpf Urine RBC (Auto) (0-4) /hpf U Hyaline Cast (Auto) (0-5) /lpf U Epithel Cells (Auto) (0-5) /lpf Urine Bacteria (Auto) (Negative)
[2019-10-16] MEDS: MAGNESIUM OXIDE 400 MG TAB PO SCH (19:41)
[2019-10-16 20:08] LABS: BUN Creatinine Ratio 6.6 (10-20); Calcium 8.3 mg/dl (8.5-10.1); Est GFR (African American) 148.3; Magnesium 2.2 mg/dl (1.8-2.4); Potassium 3.5 mmol/L (3.5-5.1)
[2019-10-16 20:09] LABS: Phosphorus 3.6 mg/dl (2.5-4.9)
[2019-10-16] MEDS ORDERED: POTASSIUM CHLORIDE 20 MEQ TABCR PO ONE (22:45)
--- NOTE | 2019-10-16 22:46 | Obstetrical Progress Note ---
Date of Service October 16, 2019 Assessment & Plan Admission and Anticipated Discharge Date Admission Date: October 16, 2019 Subjective Patient is reevaluated for NST/ monitoring FHR 130's, AGA, no decelerations, accels+, good variability for 26 wks fetus [place]: no ctxs Patient denies ctxs/ LOF/ VB Reports good FM's Results & Data ([facility]) Vital Signs (Past 12 Hours) Vital Signs Temp Pulse Pulse Pulse Resp BP BP 10/16/19 19:05 36.7 C 95 H 20 100/63 10/16/19 17:20 36.8 C 100 H 18 98/60 L 10/16/19 17:09 36.8 C 102 H 100 H 18 98/60 L 10/16/19 17:00 102 H 10/16/19 16:00 93 H 20 93/54 L 10/16/19 15:30 99 H 20 100/56 L 10/16/19 15:13 108 H 13 98/48 L 10/16/19 15:00 113 H 27 H 82/43 L 10/16/19 14:00 37.6 C H 109 H 24 112/74 10/16/19 13:53 112 H 28 H 108/70 10/16/19 12:06 109 H 25 H 10/16/19 12:05 117 H 22 116/71 10/16/19 11:04 37.9 C H 152 H 22 115/70 Pulse Ox Pulse Ox 10/16/19 19:05 95 10/16/19 17:20 97 10/16/19 17:09 97 97 10/16/19 17:00 10/16/19 16:00 94 10/16/19 15:30 94 10/16/19 15:13 96 10/16/19 15:00 95 10/16/19 14:00 10/16/19 13:53 97 10/16/19 12:06 95 10/16/19 12:05 95 10/16/19 11:04 97
[2019-10-17] MEDS: ACETAMINOPHEN 325 MG TAB PO PRN ×4 (01:36→20:07)
[2019-10-17] MEDS ORDERED: MoRPHine SULFATE 2 MG/ML CARP IV STA (01:54)
[2019-10-17] MEDS ORDERED: ERTAPENEM CONSULT ACTIVE PRN (02:09)
[2019-10-17] MEDS ORDERED: ERTAPENEM SODIUM 1,000 MG in SODIUM CHLORIDE 0.9% 50 ML IV SCH (03:00)
[2019-10-17] MEDS: CLINDAMYCIN 600 MG in DEXTROSE 5% 50 ML IV SCH ×3 (03:03→18:35)
[2019-10-17] MEDS: MoRPHine SULFATE 4 MG/ML 1 ML CARP\\VIAL IV PRN ×5 (03:04→20:07)
--- NOTE | 2019-10-17 06:18 | Hospitalist Progress Note ---
Date of Service October 17, 2019 Assessment & Plan Admission and Anticipated Discharge Date Admission Date: October 16, 2019 Subjective Blood cultures growing gm negative bacilli in anaerobic bottle. Patient on Rocephin. Added iv clindamycin for anaerobic cultures. ObGYN notified. Can stop based on final cultures. Results & Data Results & Data ([facility]) Vital Signs (Past 12 Hours) Vital Signs Temp Pulse Pulse Resp BP Pulse Ox 10/17/19 03:26 36.8 C 95 H 16 94/60 L 95 10/17/19 01:00 37.3 C 136 H 18 96/60 L 97 10/17/19 00:00 90 10/16/19 23:59 90 10/16/19 23:57 36.8 C 88 16 100/65 97 10/16/19 19:05 36.7 C 95 H 20 100/63 95
--- NOTE | 2019-10-17 06:48 | Electrocardiogram Report ---
Test Reason : Blood Pressure : / mmHG Vent. Rate : 132 BPM Atrial Rate : 132 BPM P-R Int : 146 ms QRS Dur : 078 ms QT Int : 280 ms P-R-T Axes : 063 084 012 degrees QTc Int : 414 ms Sinus tachycardia Cannot rule out Anterior infarct , age undetermined T wave abnormality, consider inferior ischemia Abnormal ECG When compared with ECG of 08-SEP-2019 19:35, Vent. rate has increased BY 74 BPM T wave inversion now evident in Inferior leads Confirmed by Mark Pierce ([id number]) on 10/17/2019 6:48:14 AM Referred By: SELF Confirmed By:Mark Pierce
[2019-10-17 07:24] LABS: Basophils # (auto) 0.02 K/uL (0-0.2); Basophils % (auto) 0.1 %; Eosinophils # (auto) 0.07 K/uL (0-0.5); Eosinophils % (auto) 0.5 %; Hematocrit (blood only) 27.9 % (37-47); Hemoglobin 9.3 g/dL (12.0-16.0); Immature Granulocytes # (auto) 0.05 K/uL (0.00-0.02); Immature Granulocytes % (auto) 0.3 %; Lymphocytes # (auto) 0.89 K/uL (1.2-3.4); Lymphocytes % (auto) 5.9 %; Mean Corpuscular Hemoglobin 32.6 pg (25-34); Mean Corpuscular Hgb Conc 33.3 g/dL (32-36); Mean Corpuscular Volume 97.9 fL (80-100); Mean Platelet Volume 9.3 fL (7.4-10.4); Monocytes # (auto) 0.97 K/uL (0.11-0.59); Monocytes % (auto) 6.4 %; Neutrophils # (auto) 13.07 K/uL (1.4-6.5); Neutrophils % (auto) 86.8 %; Platelet Count 244 K/uL (130-400); RDW Coefficient of Variation 13.3 % (11.5-14.5); RDW Standard Deviation 47.7 fL (36.4-46.3); Red Blood Count 2.85 M/uL (4.2-5.4); White Blood Count 15.07 K/uL (4.8-10.8)
[2019-10-17 07:55] LABS: Albumin Level 1.9 gm/dl (3.4-5.0); BUN Creatinine Ratio 8.1 (10-20); Blood Urea Nitrogen 3 mg/dl (7-18); Calcium 8.4 mg/dl (8.5-10.1); Carbon Dioxide 21 mmol/L (21-32); Chloride 110 mmol/L (98-107); Creatinine Clr Calc Pharmacy 192.1 ml/min; Est GFR (African American) > 150.0; Est GFR (Non-African American) 131.9; Glucose 103 mg/dl (70-99); Magnesium 1.9 mg/dl (1.8-2.4); Potassium 3.5 mmol/L (3.5-5.1); Sodium 138 mmol/L (136-145)
[2019-10-17 08:07] LABS: Alanine Aminotransferase 9 U/L (12-78); Albumin Globulin Ratio 0.5 (0.9-2); Alkaline Phosphatase 78 U/L (45-117); Aspartate Aminotransferase 12 U/L (15-37); Bilirubin,Total 0.3 mg/dl (0.2-1); Globulin 3.5 gm/dl (2.5-4.0); Phosphorus 2.6 mg/dl (2.5-4.9); Total Protein 5.4 gm/dl (6.4-8.2)
[2019-10-17] MEDS: SODIUM CHLORIDE 0.9% 1000ML 1,000 ML IV SCH ×2 (09:34→18:35)
[2019-10-17] MEDS: POT PHOSPHATE MONOBASIC W/ SOD TAB PO SCH ×4 (09:35→20:08)
[2019-10-17] MEDS: MAGNESIUM OXIDE 400 MG TAB PO SCH ×2 (09:36→20:08)
[2019-10-17] MEDS: PRENATAL VITAMIN 1 TAB PO SCH (09:36)
[2019-10-17] MEDS: FLUTICASONE/VILANTEROL 200/25MCG 14 PUFFS/INHALER INH SCH (09:36)
[2019-10-17] MEDS: PANTOprazole 40 MG TAB PO SCH (09:36)
[2019-10-17] MEDS: FLINTSTONES COMPLETE CHEWABLE TAB PO SCH (09:36)
[2019-10-17] MEDS: SERTRALINE HCL 50 MG TABLET PO SCH (09:36)
--- NOTE | 2019-10-17 10:59 | Hospitalist Progress Note ---
Date of Service October 17, 2019 Assessment & Plan (1) Sepsis: (2) Pyelonephritis due to Escherichia coli: 34-year-old female who is currently 27 weeks with a significant past medical history of mild persistent asthma, GERD, IBS, and history of gastric bypass, history of nephrolithiasis requiring stent placement, depression who presents to ED secondary to right flank pain and fever over the past 2 to 3 days. In ED patient met sepsis criteria per current CMS guidelines secondary to fever, leukocytosis and tachycardia. Initial lactic acid was elevated at 3.2. Repeat after fluid resuscitation was 1.5. Prior to my evaluation in ED she had received 2 L of IVF with another liter of LR infusing. She received broad-spectrum antibiotics with IV Rocephin per urine culture. Imaging revealed Right-sided nephrolithiasis with no hydronephrosis. Heterogenous right kidney with a new 3.6 echogenic focus likely in favor of a pyelonephritis. Continue IV Rocephin - Urine culture from 10/13/19 per [facility] > 100k E.coli sensitive to ceftriaxone Continue IVF NS 125 cc/hr Urologist recommendations noted previous tx by [facility] for R nephrolithiasis s/p stent Blood culture and Urine culture growing GNR Currently on ceftriaxone. Clindamycin added by glass products inspector overnight Will get ID consult for recommendations per management as well as post treatment prophylaxis through considering report of recurrent UTI even on macrobid Pain control (3) Metabolic acidosis: Likely in setting of lactic acidosis in setting of sepsis Resolved (4) 27 weeks gestation of : Follows [facility] OB - Dr. Cabrera consulted OB US: 1. Single living intrauterine gestation, estimated gestational age of 27 weeks and 5 days. 2. Unremarkable appearance of the placenta and ovaries. monitor heart tones QS OB on board (5) Hypokalemia: (6) Hypomagnesemia: (7) Hypophosphatemia: Multiple electrolyte abnormalities Repleted Monitor (8) GERD (gastroesophageal reflux disease): Continue PPI (9) Depression with anxiety: Continue zoloft (10) DVT prophylaxis: Currently on SCD. Patient able to ambulate. Advised to keep mobile If not, will consider lovenox Admission and Anticipated Discharge Date Admission Date: October 16, 2019 Subjective Patient seen and examined Reported chills and fever yesterday Still has right sided abd pain Reported she passed 2 kidney stones yesterday Denied any dizziness, chest pain, palpitation, cough, Shortness of breath Reports frequency, dysuria. Denied hematuria Denied any diarrhea. Reports constipation Physical Exam Constitutional: + well hydrated; no acute distress Eyes: PERRL, conjunctivae normal, anicteric sclerae ENMT: external ear and nose normal, oropharynx normal Respiratory: normal respiratory effort, lungs clear to auscultation Cardiovascular: Rate/Rhythm: regular rate and regular rhythm S1 S2 Gastrointestinal (Abdomen): Mildly distended (gravid uterus), soft, normoactive bowel sounds, right flank tenderness Neurologic: PERRL, EOMI, accommodation nl, no face palsy, no dysarthria Psychiatric: A+Ox3, euthymic affect Genitourinary: Right CVA tenderness Results & Data Results & Data ([facility]) Vital Signs (Past 12 Hours) Vital Signs Temp Pulse Pulse Resp BP Pulse Ox 10/17/19 07:12 37.1 C 95 H 20 108/71 97 10/17/19 03:26 36.8 C 95 H 16 94/60 L 95 10/17/19 01:00 37.3 C 136 H 18 96/60 L 97 10/17/19 00:00 90 10/16/19 23:59 90 10/16/19 23:57 36.8 C 88 16 100/65 97 Laboratory Results Laboratory Results - last 24 hr 10/16/19 10/16/19 10/16/19 13:50 14:05 19:37 WBC RBC Hgb Hct MCV MCH MCHC RDW Std Deviation RDW Coeff of Shashi Plt Count MPV Immature Gran % (Auto) Neut % (Auto) Lymph % (Auto) [place] % (Auto) Eos % (Auto) Baso % (Auto) Neut # (Auto) Lymph # (Auto) [place] # (Auto) Eos # (Auto) Baso # (Auto) Immature Gran # (Auto) Sodium 139 Potassium 3.5 Chloride 112 H Carbon Dioxide 22 Anion Gap 5.0 BUN 3 L Creatinine 0.46 L Est Cr Clr Drug Dosing 179.0 Est GFR ( Amer) 148.3 Est GFR (Non-Af Amer) 128.0 BUN/Creatinine Ratio 6.6 L Glucose 124 H Lactate 1.5 Calcium 8.3 L Phosphorus 3.6 D Magnesium 2.2 Total Bilirubin AST ALT Alkaline Phosphatase Total Protein Albumin Globulin Albumin/Globulin Ratio Urine Color Yellow Urine Appearance Clear Urine pH 5.5 Ur Specific [place] 1.017 Urine Protein 1+ H Urine Glucose (UA) Negative Urine Ketones 3+ H Urine Blood 1+ H Urine Nitrite Positive A Urine Bilirubin Negative Urine Urobilinogen Negative Ur Leukocyte Esterase 1+ H Urine WBC (Auto) >30 H Urine RBC (Auto) 0-4 U Hyaline Cast (Auto) 10-30 H U Epithel Cells (Auto) 5-10 H Urine Bacteria (Auto) 4+ H 10/17/19 10/17/19 06:57 06:57 WBC 15.07 H RBC 2.85 L Hgb 9.3 L Hct 27.9 L MCV 97.9 MCH 32.6 MCHC 33.3 RDW Std Deviation 47.7 H RDW Coeff of Shashi 13.3 Plt Count 244 MPV 9.3 Immature Gran % (Auto) 0.3 Neut % (Auto) 86.8 Lymph % (Auto) 5.9 [place] % (Auto) 6.4 Eos % (Auto) 0.5 Baso % (Auto) 0.1 Neut # (Auto) 13.07 H Lymph # (Auto) 0.89 L [place] # (Auto) 0.97 H Eos # (Auto) 0.07 Baso # (Auto) 0.02 Immature Gran # (Auto) 0.05 H Sodium 138 Potassium 3.5 Chloride 110 H Carbon Dioxide 21 Anion Gap 7.0 BUN 3 L Creatinine 0.42 L Est Cr Clr Drug Dosing 192.1 Est GFR ( Amer) > 150.0 Est GFR (Non-Af Amer) 131.9 BUN/Creatinine Ratio 8.1 L Glucose 103 H Lactate Calcium 8.4 L Phosphorus 2.6 D Magnesium 1.9 Total Bilirubin 0.3 AST 12 L ALT 9 L Alkaline Phosphatase 78 Total Protein 5.4 L Albumin 1.9 L Globulin 3.5 Albumin/Globulin Ratio 0.5 L Urine Color Urine Appearance Urine pH Ur Specific [place] Urine Protein Urine Glucose (UA) Urine Ketones Urine Blood Urine Nitrite Urine Bilirubin Urine Urobilinogen Ur Leukocyte Esterase Urine WBC (Auto) Urine RBC (Auto) U Hyaline Cast (Auto) U Epithel Cells (Auto) Urine Bacteria (Auto) Diagnostic Findings RENAL ULTRASOUND CLINICAL HISTORY: Right flank pain. 27 weeks . COMPARISON STUDY: CT of the abdomen and pelvis March 26, 2019. Renal ultrasound June 13, 2019. TECHNIQUE: Sonography of the kidneys and the urinary bladder was performed. FINDINGS: Right kidney measures 13.4 cm in maximal dimension and the left measures 11.6 cm. There is no hydronephrosis. A few right renal calculi are noted, including a calculus within the lower pole that measures approximately 8 mm. Both ureteral jets were identified. Note is made of a 3.6 cm echogenic focus within the mid to lower pole of the right kidney. This was not evident on prior ultrasound or CT. The right kidney is slightly heterogeneous. There is no renal abscess. Echogenicity of the left kidney is normal. IMPRESSION: 1. No hydronephrosis. Right-sided nephrolithiasis. 2. Heterogeneous right kidney which contains a new 3.6 cm echogenic focus. This favors pyelonephritis. No renal abscess. A follow-up ultrasound in 3 months to ensure resolution is recommended.
[2019-10-17] MEDS ORDERED: cefTRIAXone SODIUM 2,000 MG in DEXTROSE 5% 50 ML IV SCH (12:00)
[2019-10-17] MEDS: cefTRIAXone SODIUM 2,000 MG in DEXTROSE 5% 50 ML IV SCH (12:16)
[2019-10-17] MEDS: AZELASTINE: ORDER AWAITING ACTION SCH (17:05)
[2019-10-18] MEDS: AZELASTINE: ORDER AWAITING ACTION SCH ×3 (00:24→15:08)
[2019-10-18] MEDS: MoRPHine SULFATE 4 MG/ML 1 ML CARP\\VIAL IV PRN ×6 (00:24→22:39)
[2019-10-18] MEDS: ACETAMINOPHEN 325 MG TAB PO PRN ×4 (00:28→13:58)
[2019-10-18] MEDS: SODIUM CHLORIDE 0.9% 1000ML 1,000 ML IV SCH ×2 (03:56→12:27)
[2019-10-18] MEDS: CLINDAMYCIN 600 MG in DEXTROSE 5% 50 ML IV SCH (03:56)
[2019-10-18 06:59] LABS: Hematocrit (blood only) 26.6 % (37-47); Hemoglobin 8.9 g/dL (12.0-16.0); Mean Corpuscular Hgb Conc 33.5 g/dL (32-36); Mean Corpuscular Volume 95.7 fL (80-100); Mean Platelet Volume 9.2 fL (7.4-10.4); Platelet Count 208 K/uL (130-400); RDW Coefficient of Variation 13.3 % (11.5-14.5); RDW Standard Deviation 46.4 fL (36.4-46.3); Red Blood Count 2.78 M/uL (4.2-5.4); White Blood Count 10.36 K/uL (4.8-10.8)
[2019-10-18 07:28] LABS: BUN Creatinine Ratio 7.1 (10-20); Blood Urea Nitrogen 2 mg/dl (7-18); Calcium 8.2 mg/dl (8.5-10.1); Carbon Dioxide 22 mmol/L (21-32); Chloride 111 mmol/L (98-107); Creatinine Clr Calc Pharmacy 260.9 ml/min; Est GFR (African American) > 150.0; Est GFR (Non-African American) 145.7; Glucose 85 mg/dl (70-99); Potassium 3.2 mmol/L (3.5-5.1); Sodium 139 mmol/L (136-145)
[2019-10-18] MEDS: MAGNESIUM OXIDE 400 MG TAB PO SCH ×2 (08:33→20:21)
[2019-10-18] MEDS: PANTOprazole 40 MG TAB PO SCH (08:33)
[2019-10-18] MEDS: FLUTICASONE/VILANTEROL 200/25MCG 14 PUFFS/INHALER INH SCH (08:33)
[2019-10-18] MEDS: FLINTSTONES COMPLETE CHEWABLE TAB PO SCH (08:33)
[2019-10-18] MEDS: POT PHOSPHATE MONOBASIC W/ SOD TAB PO SCH ×4 (08:33→20:21)
[2019-10-18] MEDS: SERTRALINE HCL 50 MG TABLET PO SCH (08:33)
[2019-10-18] MEDS: PRENATAL VITAMIN 1 TAB PO SCH (08:33)
--- NOTE | 2019-10-18 09:10 | Hospitalist Progress Note ---
Date of Service October 18, 2019 Assessment & Plan (1) Sepsis: (2) Pyelonephritis due to Escherichia coli: 34-year-old female who is currently 27 weeks with a significant past medical history of mild persistent asthma, GERD, IBS, and history of gastric bypass, history of nephrolithiasis requiring stent placement, depression who presents to ED secondary to right flank pain and fever over 2 to 3 days. In ED patient met sepsis criteria per current CMS guidelines secondary to fever, leukocytosis and tachycardia. Initial lactic acid was elevated at 3.2. Repeat after fluid resuscitation was 1.5. Prior to my evaluation in ED she had received 2 L of IVF with another liter of LR infusing. She received broad-spectrum antibiotics with IV Rocephin per urine culture. Imaging revealed Right-sided nephrolithiasis with no hydronephrosis. Heterogenous right kidney with a new 3.6 echogenic focus likely in favor of a pyelonephritis. Continue IV Rocephin - Urine culture from 10/13/19 per Epic > 100k E.coli sensitive to ceftriaxone Urologist recommendations noted previous tx by [facility] urology for R nephrolithiasis s/p stent Blood culture and Urine culture growing E.coli Continue IV ceftriaxone for now. Discontinue clindamycin. ID recommendations noted on EPIC Pain control Hb trending down slowly. Will continue to monitor Have got about 8L fluids since admission via IV only. Reduce IVF to 75cc/h Monitor Hb (3) Metabolic acidosis: Likely in setting of lactic acidosis in setting of sepsis Resolved (4) 27 weeks gestation of : Follows [facility] OB - Dr. Cabrera consulted OB US: 1. Single living intrauterine gestation, estimated gestational age of 27 weeks and 5 days. 2. Unremarkable appearance of the placenta and ovaries. monitor heart tones QS OB on board (5) Hypokalemia: (6) Hypomagnesemia: (7) Hypophosphatemia: Multiple electrolyte abnormalities K is 3.2 today. Cont po K phos Monitor (8) GERD (gastroesophageal reflux disease): Continue PPI (9) Depression with anxiety: Continue zoloft (10) DVT prophylaxis: Currently on SCD. Patient able to ambulate. Advised to keep mobile If not, will consider lovenox Admission and Anticipated Discharge Date Admission Date: October 16, 2019 Subjective Patient seen and examined this morning. Still reports right flank pain No fevers, chills, nausea, vomiting Reported passing another stone yesterday with some blood tinged urine Still reports constipation Denied any dizziness or headache Denied any chest pain, SOB, cough, palpitation Physical Exam Constitutional: + well hydrated; no acute distress Eyes: PERRL, conjunctivae normal, anicteric sclerae ENMT: external ear and nose normal, oropharynx normal Respiratory: normal respiratory effort, lungs clear to auscultation Cardiovascular: Rate/Rhythm: regular rate and regular rhythm Gastrointestinal (Abdomen): Mildly distended (gravid uterus), soft, normoactive bowel sounds, right flank tenderness Neurologic: PERRL, EOMI, accommodation nl, no face palsy, no dysarthria Psychiatric: A+Ox3, euthymic affect Genitourinary: + CVA tenderness (Right) Results & Data Results & Data ([facility]) Vital Signs (Past 12 Hours) Vital Signs Temp Pulse Resp BP Pulse Ox 10/18/19 07:30 36.7 C 77 18 100/67 99 10/18/19 03:39 36.7 C 92 H 18 105/71 96 10/17/19 22:53 36.9 C 82 18 91/51 L 95 Laboratory Results Laboratory Results - last 24 hr 10/18/19 10/18/19 10/18/19 06:45 06:45 08:47 WBC 10.36 RBC 2.78 L Hgb 8.9 L Hct 26.6 L MCV 95.7 MCH 32.0 MCHC 33.5 RDW Std Deviation 46.4 H RDW Coeff of Shashi 13.3 Plt Count 208 MPV 9.2 Sodium 139 Potassium 3.2 L Chloride 111 H Carbon Dioxide 22 Anion Gap 6.0 BUN 2 L Creatinine 0.31 L Est Cr Clr Drug Dosing 260.9 Est GFR ( Amer) > 150.0 Est GFR (Non-Af Amer) 145.7 BUN/Creatinine Ratio 7.1 L Glucose 85 Calcium 8.2 L Phosphorus 3.5 Magnesium 1.8
[2019-10-18 09:57] LABS: Magnesium 1.8 mg/dl (1.8-2.4); Phosphorus 3.5 mg/dl (2.5-4.9)
[2019-10-18] MEDS: POLYETHYLENE (MIRALAX) 17 GM PACK PO SCH (10:00)
[2019-10-18] MEDS: cefTRIAXone SODIUM 2,000 MG in DEXTROSE 5% 50 ML IV SCH (12:35)
[2019-10-18] MEDS: ACETAMINOPHEN 325 MG TAB PO SCH (20:20)
[2019-10-19] MEDS: SODIUM CHLORIDE 0.9% 1000ML 1,000 ML IV SCH ×2 (01:28→15:13)
[2019-10-19] MEDS: ACETAMINOPHEN 325 MG TAB PO SCH ×4 (01:28→19:50)
[2019-10-19] MEDS: AZELASTINE: ORDER AWAITING ACTION SCH ×3 (03:41→15:19)
[2019-10-19] MEDS: MoRPHine SULFATE 4 MG/ML 1 ML CARP\\VIAL IV PRN (04:47)
[2019-10-19 06:56] LABS: Hemoglobin 9.7 g/dL (12.0-16.0); Mean Corpuscular Hemoglobin 31.9 pg (25-34); Mean Corpuscular Hgb Conc 33.4 g/dL (32-36); Mean Corpuscular Volume 95.4 fL (80-100); Mean Platelet Volume 9.2 fL (7.4-10.4); Platelet Count 249 K/uL (130-400); RDW Coefficient of Variation 13.2 % (11.5-14.5); RDW Standard Deviation 45.7 fL (36.4-46.3); Red Blood Count 3.04 M/uL (4.2-5.4)
[2019-10-19 07:25] LABS: BUN Creatinine Ratio 5.6 (10-20); Blood Urea Nitrogen 2 mg/dl (7-18); Calcium 8.1 mg/dl (8.5-10.1); Carbon Dioxide 26 mmol/L (21-32); Chloride 108 mmol/L (98-107); Est GFR (African American) > 150.0; Est GFR (Non-African American) 135.1; Glucose 79 mg/dl (70-99); Magnesium 1.8 mg/dl (1.8-2.4); Phosphorus 3.9 mg/dl (2.5-4.9); Potassium 3.5 mmol/L (3.5-5.1); Sodium 139 mmol/L (136-145)
[2019-10-19] MEDS: OXYCODONE HCL IR 5 MG TAB (IMMEDIATE RELEASE) PO PRN ×3 (09:10→22:39)
[2019-10-19] MEDS: ONDANSETRON INJ 2 MG/ML 2 ML VIAL IV PRN (09:10)
--- NOTE | 2019-10-19 09:29 | Hospitalist Progress Note ---
Date of Service October 19, 2019 Assessment & Plan (1) Sepsis: (2) Pyelonephritis due to Escherichia coli: 34-year-old female who is currently 27 weeks with a significant past medical history of mild persistent asthma, GERD, IBS, and history of gastric bypass, history of nephrolithiasis requiring stent placement, depression who presents to ED secondary to right flank pain and fever over 2 to 3 days. In ED patient met sepsis criteria per current CMS guidelines secondary to fever, leukocytosis and tachycardia. Initial lactic acid was elevated at 3.2. Repeat after fluid resuscitation was 1.5. Prior to my evaluation in ED she had received 2 L of IVF with another liter of LR infusing. She received broad-spectrum antibiotics with IV Rocephin per urine culture. Imaging revealed Right-sided nephrolithiasis with no hydronephrosis. Heterogenous right kidney with a new 3.6 echogenic focus likely in favor of a pyelonephritis. Urine culture from 10/13/19 per Epic > 100k E.coli sensitive to ceftriaxone Urologist recommendations noted previous tx by [facility] urology for R nephro lithiasis s/p stent Blood culture and Urine culture growing E.coli Continue IV ceftriaxone for now. ID recommendations noted on EPIC Hb stable Discussed effects of chronic opioids on with patient. Will do oxycodone prn for severe pain for now. Discontinue morphine Antiemetic If flank pain persist tomorrow, repeat renal USS (3) Metabolic acidosis: Likely in setting of lactic acidosis in setting of sepsis Resolved (4) 27 weeks gestation of : Follows [facility] OB - Dr. Cabrera consulted OB US: 1. Single living intrauterine gestation, estimated gestational age of 27 weeks and 5 days. 2. Unremarkable appearance of the placenta and ovaries. monitor heart tones QS OB on board (5) Hypokalemia: (6) Hypomagnesemia: (7) Hypophosphatemia: Multiple electrolyte abnormalities Repleted Cont po K phos Monitor (8) GERD (gastroesophageal reflux disease): Continue PPI (9) Depression with anxiety: Continue zoloft (10) DVT prophylaxis: Currently on SCD. Patient able to ambulate. Advised to keep mobile Admission and Anticipated Discharge Date Admission Date: October 16, 2019 Subjective Patient seen and examined. Reports headache States right sided abd pain is mildly improved Reports nausea Patient states she is on percocet at home for pains from her kidney stones and headaches. Denied any palpitation, chest pain, SOB, SMITH, leg swelling Denied any hematuria. Has not passed any more stones in the past 24h but stated some residue in the urine No fevers, chills Still constipated Physical Exam Constitutional: + well hydrated; no acute distress Eyes: PERRL, conjunctivae normal, anicteric sclerae ENMT: external ear and nose normal, oropharynx normal Respiratory: normal respiratory effort, lungs clear to auscultation Cardiovascular: Rate/Rhythm: regular rate and regular rhythm Gastrointestinal (Abdomen): Mildly distended (gravid uterus), soft, normoactive bowel sounds, right flank tenderness Neurologic: PERRL, EOMI, accommodation nl, no face palsy, no dysarthria Psychiatric: A+Ox3, euthymic affect Genitourinary: + CVA tenderness (Right) Results & Data Results & Data ([facility]) Vital Signs (Past 12 Hours) Vital Signs Temp Pulse Resp BP Pulse Ox 10/19/19 07:33 36.9 C 72 18 106/69 96 10/19/19 04:16 36.8 C 79 18 99/67 L 95 10/18/19 23:11 36.7 C 83 22 97/62 L 94 Laboratory Results Laboratory Results - last 24 hr 10/19/19 10/19/19 06:25 06:25 WBC 7.80 RBC 3.04 L Hgb 9.7 L Hct 29.0 L MCV 95.4 MCH 31.9 MCHC 33.4 RDW Std Deviation 45.7 RDW Coeff of Shashi 13.2 Plt Count 249 MPV 9.2 Sodium 139 Potassium 3.5 Chloride 108 H Carbon Dioxide 26 Anion Gap 5.0 BUN 2 L Creatinine 0.39 L Est Cr Clr Drug Dosing 209.0 Est GFR ( Amer) > 150.0 Est GFR (Non-Af Amer) 135.1 BUN/Creatinine Ratio 5.6 L Glucose 79 Calcium 8.1 L Phosphorus 3.9 Magnesium 1.8
[2019-10-19] MEDS: cefTRIAXone SODIUM 2,000 MG in DEXTROSE 5% 50 ML IV SCH (12:03)
[2019-10-19] MEDS: POT PHOSPHATE MONOBASIC W/ SOD TAB PO SCH ×4 (12:23→19:51)
[2019-10-19] MEDS: PANTOprazole 40 MG TAB PO SCH (12:23)
[2019-10-19] MEDS: POLYETHYLENE (MIRALAX) 17 GM PACK PO SCH (12:23)
[2019-10-19] MEDS: FLUTICASONE/VILANTEROL 200/25MCG 14 PUFFS/INHALER INH SCH (12:23)
[2019-10-19] MEDS: FLINTSTONES COMPLETE CHEWABLE TAB PO SCH (12:23)
[2019-10-19] MEDS: MAGNESIUM OXIDE 400 MG TAB PO SCH ×2 (12:23→19:51)
[2019-10-19] MEDS: PRENATAL VITAMIN 1 TAB PO SCH (12:23)
[2019-10-19] MEDS: DOCUSATE SODIUM/SENNA 50/8.6MG TAB PO SCH (12:24)
[2019-10-19] MEDS: SERTRALINE HCL 50 MG TABLET PO SCH (12:24)
[2019-10-20] MEDS: AZELASTINE: ORDER AWAITING ACTION SCH ×4 (03:31→23:17)
[2019-10-20] MEDS: ACETAMINOPHEN 325 MG TAB PO SCH ×4 (04:06→20:30)
[2019-10-20] MEDS: SODIUM CHLORIDE 0.9% 1000ML 1,000 ML IV SCH ×2 (04:07→09:57)
[2019-10-20 07:08] LABS: Hematocrit (blood only) 27.4 % (37-47); Hemoglobin 9.1 g/dL (12.0-16.0); Mean Corpuscular Hemoglobin 31.6 pg (25-34); Mean Corpuscular Hgb Conc 33.2 g/dL (32-36); Mean Corpuscular Volume 95.1 fL (80-100); Mean Platelet Volume 9.1 fL (7.4-10.4); Platelet Count 231 K/uL (130-400); RDW Coefficient of Variation 13.1 % (11.5-14.5); RDW Standard Deviation 45.4 fL (36.4-46.3); Red Blood Count 2.88 M/uL (4.2-5.4); White Blood Count 5.66 K/uL (4.8-10.8)
[2019-10-20 07:37] LABS: BUN Creatinine Ratio 9.4 (10-20); Blood Urea Nitrogen 3 mg/dl (7-18); Calcium 8.1 mg/dl (8.5-10.1); Carbon Dioxide 24 mmol/L (21-32); Chloride 108 mmol/L (98-107); Creatinine Clr Calc Pharmacy 281.3 ml/min; Est GFR (African American) > 150.0; Glucose 76 mg/dl (70-99); Magnesium 1.9 mg/dl (1.8-2.4); Potassium 3.3 mmol/L (3.5-5.1); Sodium 140 mmol/L (136-145)
[2019-10-20 07:41] LABS: Phosphorus 3.3 mg/dl (2.5-4.9)
[2019-10-20] MEDS: FLUTICASONE/VILANTEROL 200/25MCG 14 PUFFS/INHALER INH SCH (07:57)
[2019-10-20] MEDS: POLYETHYLENE (MIRALAX) 17 GM PACK PO SCH (07:57)
[2019-10-20] MEDS: POT PHOSPHATE MONOBASIC W/ SOD TAB PO SCH ×4 (07:57→20:30)
[2019-10-20] MEDS: PANTOprazole 40 MG TAB PO SCH (07:59)
[2019-10-20] MEDS: PRENATAL VITAMIN 1 TAB PO SCH (07:59)
[2019-10-20] MEDS: DOCUSATE SODIUM/SENNA 50/8.6MG TAB PO SCH (07:59)
[2019-10-20] MEDS: MAGNESIUM OXIDE 400 MG TAB PO SCH ×2 (07:59→20:30)
[2019-10-20] MEDS: SERTRALINE HCL 50 MG TABLET PO SCH (07:59)
[2019-10-20] MEDS: FLINTSTONES COMPLETE CHEWABLE TAB PO SCH (08:00)
--- NOTE | 2019-10-20 09:05 | Hospitalist Progress Note ---
Date of Service October 20, 2019 Assessment & Plan (1) Sepsis: (2) Pyelonephritis due to Escherichia coli: 34-year-old female who is currently 27 weeks with a significant past medical history of mild persistent asthma, GERD, IBS, and history of gastric bypass, history of nephrolithiasis requiring stent placement, depression who presents to ED secondary to right flank pain and fever over 2 to 3 days. In ED patient met sepsis criteria per current CMS guidelines secondary to fever, leukocytosis and tachycardia. Initial lactic acid was elevated at 3.2. Repeat after fluid resuscitation was 1.5. Prior to my evaluation in ED she had received 2 L of IVF with another liter of LR infusing. She received broad-spectrum antibiotics with IV Rocephin per urine culture. Imaging revealed Right-sided nephrolithiasis with no hydronephrosis. Heterogenous right kidney with a new 3.6 echogenic focus likely in favor of a pyelonephritis. Urine culture from 10/13/19 per Epic > 100k E.coli sensitive to ceftriaxone Urologist recommendations noted Blood culture and Urine culture growing E.coli Continue IV ceftriaxone for now. ID recommendations noted on EPIC Leukocytosis resolved. Hb stable Considering persistent right flank pain, will repeat Renal USS Discontinue IVF Continue laxatives for constipation Continue tylenol louisa for headache and flank pain. Use oxycodone only as needed for severe pain (3) Metabolic acidosis: Likely in setting of lactic acidosis in setting of sepsis Resolved (4) 27 weeks gestation of : Follows [facility] OB - Dr. Cabrera consulted OB US: 1. Single living intrauterine gestation, estimated gestational age of 27 weeks and 5 days. 2. Unremarkable appearance of the placenta and ovaries. monitor heart tones QS OB on board (5) Hypokalemia: (6) Hypomagnesemia: (7) Hypophosphatemia: Multiple electrolyte abnormalities K is 3.3 today. Mag and phos now normal Replete K Cont po K phos Monitor (8) GERD (gastroesophageal reflux disease): Continue PPI (9) Depression with anxiety: Continue zoloft (10) DVT prophylaxis: Currently on SCD. Patient able to ambulate. Advised to keep mobile Admission and Anticipated Discharge Date Admission Date: October 16, 2019 Subjective Patient seen and examined Still reports right flank pain Reports headache is mildly improved with oxycodone No nausea, vomiting Still constipated No dizziness, palpitation, chest pain, SOB, SMITH, cough Has not passed any more stones Physical Exam Constitutional: + well hydrated; no acute distress Eyes: PERRL, conjunctivae normal, anicteric sclerae ENMT: external ear and nose normal, oropharynx normal Respiratory: normal respiratory effort, lungs clear to auscultation Cardiovascular: Rate/Rhythm: regular rate and regular rhythm Gastrointestinal (Abdomen): Gravid uterus, soft, normoactive bowel sounds, mild right flank tenderness (improved) Neurologic: PERRL, EOMI, accommodation nl, no face palsy, no dysarthria Psychiatric: A+Ox3, euthymic affect Genitourinary: + CVA tenderness (Right) Results & Data Results & Data ([facility]) Vital Signs (Past 12 Hours) Vital Signs Temp Pulse Pulse Resp BP Pulse Ox 10/20/19 07:20 60 10/20/19 07:08 36.7 C 62 16 112/78 96 10/20/19 04:00 37.0 C 74 18 103/71 96 10/19/19 23:39 36.7 C 78 18 105/71 93 Laboratory Results Laboratory Results - last 24 hr 10/20/19 10/20/19 06:26 06:26 WBC 5.66 RBC 2.88 L Hgb 9.1 L Hct 27.4 L MCV 95.1 MCH 31.6 MCHC 33.2 RDW Std Deviation 45.4 RDW Coeff of Shashi 13.1 Plt Count 231 MPV 9.1 Sodium 140 Potassium 3.3 L Chloride 108 H Carbon Dioxide 24 Anion Gap 8.0 BUN 3 L Creatinine 0.29 L Est Cr Clr Drug Dosing 281.3 Est GFR ( Amer) > 150.0 Est GFR (Non-Af Amer) 149.0 BUN/Creatinine Ratio 9.4 L Glucose 76 Calcium 8.1 L Phosphorus 3.3 Magnesium 1.9
[2019-10-20] MEDS: OXYCODONE HCL IR 5 MG TAB (IMMEDIATE RELEASE) PO PRN ×2 (09:14→17:28)
[2019-10-20] MEDS ORDERED: CALCIUM CARBONATE 500 MG CHEWABLE TAB PO PRN (09:15)
--- NOTE | 2019-10-20 11:21 | Ultrasound Report ---
ULTRASOUND KIDNEYS AND BLADDER CLINICAL HISTORY: Pyelonephritis. Nephrolithiasis. COMPARISON STUDY: Renal ultrasound dated 10/16/2019. Abdominal CT dated 03/26/2019. TECHNIQUE: Real-time, grayscale, and color flow sonography of the kidneys and bladder is performed. I mages are reviewed in the transverse and longitudinal planes. FINDINGS: Kidneys: The kidneys are normal in size and echotexture. The right kidney measures 12.8 cm in length and the left kidney measures 12.1 cm in length. There is no hydronephrosis. Nonobstructing right elyse l calculi measure up to 6 mm. A heterogeneous focus measuring approximately 4 cm again seen in the ri ght upper pole. No organized fluid collection is identified. No perinephric fluid is identified. Bladder: The bladder is normal in appearance. Bilateral ureteral jets were seen. IMPRESSION: 1. The kidneys are normal in size and without hydronephrosis. 2. Right-sided nephrolithiasis. 3. An approximately 4 cm heterogeneous focus is again seen in the right upper pole and favors pyelone phritis. This has not appreciably changed from 10/16/2019. 4. There is no evidence of renal abscess. 5. The bladder is normal as imaged. ACT 112: Negative or not required by law. Electronically signed by: Lv Felipe M.D. 10/20/2019 11:19 AM
[2019-10-20] MEDS ORDERED: POTASSIUM CHLORIDE PWD 20 MEQ PACK PO ONE (11:30)
[2019-10-20] MEDS: cefTRIAXone SODIUM 2,000 MG in DEXTROSE 5% 50 ML IV SCH (12:14)
[2019-10-20] MEDS: ONDANSETRON INJ 2 MG/ML 2 ML VIAL IV PRN (13:39)
[2019-10-20] MEDS: bisacodyL 10 MG SUPP PR SCH (20:17)
[2019-10-21] MEDS: ACETAMINOPHEN 325 MG TAB PO SCH ×2 (05:52→06:51)
[2019-10-21 06:12] LABS: Hematocrit (blood only) 28.8 % (37-47); Hemoglobin 9.6 g/dL (12.0-16.0); Mean Corpuscular Hemoglobin 31.6 pg (25-34); Mean Corpuscular Hgb Conc 33.3 g/dL (32-36); Mean Corpuscular Volume 94.7 fL (80-100); Mean Platelet Volume 9.2 fL (7.4-10.4); Platelet Count 240 K/uL (130-400); RDW Coefficient of Variation 13.1 % (11.5-14.5); RDW Standard Deviation 45.5 fL (36.4-46.3); Red Blood Count 3.04 M/uL (4.2-5.4); White Blood Count 5.21 K/uL (4.8-10.8)
[2019-10-21 06:42] LABS: BUN Creatinine Ratio 13.8 (10-20); Blood Urea Nitrogen 4 mg/dl (7-18); Carbon Dioxide 25 mmol/L (21-32); Chloride 110 mmol/L (98-107); Creatinine Clr Calc Pharmacy 259.5 ml/min; Est GFR (African American) > 150.0; Est GFR (Non-African American) 145.7; Glucose 76 mg/dl (70-99); Potassium 3.5 mmol/L (3.5-5.1); Sodium 140 mmol/L (136-145)
[2019-10-21] MEDS: OXYCODONE HCL IR 5 MG TAB (IMMEDIATE RELEASE) PO PRN (08:18)
[2019-10-21] MEDS: ONDANSETRON INJ 2 MG/ML 2 ML VIAL IV PRN (08:19)
[2019-10-21 08:20] LABS: Phosphorus 2.8 mg/dl (2.5-4.9)
[2019-10-21] MEDS: POLYETHYLENE (MIRALAX) 17 GM PACK PO SCH (08:21)
[2019-10-21] MEDS: SERTRALINE HCL 50 MG TABLET PO SCH (08:22)
[2019-10-21] MEDS: PANTOprazole 40 MG TAB PO SCH (08:22)
[2019-10-21] MEDS: PRENATAL VITAMIN 1 TAB PO SCH (08:22)
[2019-10-21] MEDS: DOCUSATE SODIUM/SENNA 50/8.6MG TAB PO SCH (08:22)
[2019-10-21] MEDS: FLUTICASONE/VILANTEROL 200/25MCG 14 PUFFS/INHALER INH SCH (08:22)
[2019-10-21] MEDS: POT PHOSPHATE MONOBASIC W/ SOD TAB PO SCH ×2 (08:22→13:03)
[2019-10-21] MEDS: MAGNESIUM OXIDE 400 MG TAB PO SCH (08:23)
[2019-10-21] MEDS: FLINTSTONES COMPLETE CHEWABLE TAB PO SCH (08:23)
--- NOTE | 2019-10-21 10:15 | Discharge Summary ---
Date of Service October 21, 2019 Admission HPI Per Admitting Provider This is a pleasant 34-year-old female, who is currently 27 weeks with a significant past medical history of mild persistent asthma, GERD, IBS, and history of gastric bypass, history of nephrolithiasis requiring stent placement, depression who presents to ED secondary to right flank pain and fever over the past 2 to 3 days. Patient was initially seen on 10/12 in outpatient PCP office and started on Macrobid. Culture results returned today showing resistant to Macrobid. Due to worsening symptoms she was encouraged to seek ED. Her has been complicated by recurrent UTIs in which she had been on a prophylactic dose of Macrobid. She admits to fever as high as 102 starting last evening, chills, sweats, lightheadedness, dysuria, bilateral back pain right greater than left, and suprapubic discomfort. She denies any vaginal bleeding. Of significance patient was admitted in June 2019 secondary to right-sided nephrolithiasis requiring stent placement which was subsequently removed a week later. She follows with [facility]. In ED patient met sepsis criteria per current CMS guidelines secondary to fever, leukocytosis and tachycardia. Initial lactic acid was elevated at 3.2. Prior to my evaluation in ED she had received 2 L of IVF with another liter of LR infusing. She received broad-spectrum antibiotics with IV Rocephin per urine culture. Imaging revealed Right-sided nephrolithiasis with no hydronephrosis. Heterogenous right kidney with a new 3.6 echogenic focus likely in favor of a pyelonephritis. Further lab abnormalities include hypokalemia, hypomagnesemia, hypophosphatemia, hyponatremia and elevated anion gap. Her H&H was reduced at 11.1 and 32.6 with a leukocytosis of 18.49k. She did receive IV magnesium sulfate 1 g with an additional gram on order. She did become mildly hypotensive during my evaluation which is likely secondary to the infusion of the magnesium. The rate of this was reduced. She also received 12 mmol of potassium phosphate. Admission Exam Per Admitting Provider General: speaking in full sentences,answers questions appropriately Vital: despite reported low blood pressures, patient does not appear to in distress Neurological: moves all extremities HEENT: extraoccular movements intact Lungs: no wheezing, good air entry on inhalation and exhalation Heart: regular rate Abdomen: soft, nontender, positive bowel sounds Back: patient reports back pain on both flanks Principal Diagnosis Sepsis Acute pyelonephritis secondary to E.coli Nephrolithiasis Discharge Exam Constitutional + well hydrated; no acute distress Eyes PERRL, conjunctivae normal, anicteric sclerae ENMT external ear and nose normal, oropharynx normal Respiratory normal respiratory effort, lungs clear to auscultation Cardiovascular Rate/Rhythm: regular rate and regular rhythm S1 S2. No pedal edema Gastrointestinal (Abdomen) Gravid uterus. Abd is soft. No right flank tenderness today (resolved), Bowel sounds normoactive Neurologic PERRL, EOMI, accommodation nl, no face palsy, no dysarthria Psychiatric A+Ox3, euthymic affect Genitourinary no CVA tenderness Discharge Data Allergies Allergy/AdvReac Type Severity Reaction Status Date / Time meloxicam Allergy Intermediate breakouts Verified 10/16/19 12:18 and itchy all over Penicillins Allergy Intermediate RASH Verified 10/18/19 09:06 diphenhydramine AdvReac Unknown SLEEPS AND Verified 10/18/19 09:06 N/V Consultations 10/16/19 14:44 ED Decision to Admit Stat 10/16/19 15:28 Consult Obstetrics Routine Consult Urology Routine 10/17/19 09:56 Consult Infectious Diseases Routine Ordered Studies 10/16/19 12:14 US OB limited Stat Single living intrauterine gestation is noted in cephalic positioning. heart rate measured at 180 bpm. DORY measures 14.1 cm. BPD measures 6.9 cm (correlating with estimated gestational age of 27 weeks and 5 days). Unremarkable appearance of the placenta is noted within the right fundal distribution. Overall estimated gestational age is 27 weeks and 5 days. Estimated date of delivery calculated at 01/10/2020. The cervix is not well evaluated. Right ovary measures 3.1 x 1.5 x 2.5 cm and is unremarkable with arterial inflow documented. 2 mm indeterminate calcification is noted within the right ovary. The left ovary measures 2.4 x 2.8 x 3.1 cm and demonstrates arterial inflow. No significant free pelvic fluid. IMPRESSION: 1. Single living intrauterine gestation, estimated gestational age of 27 weeks and 5 days. 2. Unremarkable appearance of the placenta and ovarie 10/16/19 13:01 US renal/blad retro comp Routine FINDINGS: Right kidney measures 13.4 cm in maximal dimension and the left measures 11.6 cm. There is no hydronephrosis. A few right renal calculi are noted, including a calculus within the lower pole that measures approximately 8 mm. Both ureteral jets were identified. Note is made of a 3.6 cm echogenic focus within the mid to lower pole of the right kidney. This was not evident on prior ultrasound or CT. The right kidney is slightly heterogeneous. There is no renal abscess. Echogenicity of the left kidney is normal. IMPRESSION: 1. No hydronephrosis. Right-sided nephrolithiasis. 2. Heterogeneous right kidney which contains a new 3.6 cm echogenic focus. This favors pyelonephritis. No renal abscess. A follow-up ultrasound in 3 months to ensure resolution is recommended. 10/20/19 09:05 US Kidney Bladder [US renal/blad retro comp] Urgent Kidneys: The kidneys are normal in size and echotexture. The right kidney measures 12.8 cm in length and the left kidney measures 12.1 cm in length. There is no hydronephrosis. Nonobstructing right renal calculi measure up to 6 mm. A heterogeneous focus measuring approximately 4 cm again seen in the right upper pole. No organized fluid collection is identified. No perinephric fluid is identified. Bladder: The bladder is normal in appearance. Bilateral ureteral jets were seen. IMPRESSION: 1. The kidneys are normal in size and without hydronephrosis. 2. Right-sided nephrolithiasis. 3. An approximately 4 cm heterogeneous focus is again seen in the right upper pole and favors pyelonephritis. This has not appreciably changed from 10/16/2019. 4. There is no evidence of renal abscess. 5. The bladder is normal as imaged. Hospital Course (1) Sepsis: (2) Pyelonephritis due to Escherichia coli: 34-year-old female who is currently 27 weeks with a significant past medical history of mild persistent asthma, GERD, IBS, and history of gastric bypass, history of nephrolithiasis requiring stent placement, depression who presents to ED secondary to right flank pain and fever over 2 to 3 days. In ED patient met sepsis criteria per current CMS guidelines secondary to fever, leukocytosis and tachycardia. Initial lactic acid was elevated at 3.2. Repeat after fluid resuscitation was 1.5. Prior to my evaluation in ED she had received 2 L of IVF with another liter of LR infusing. She received broad-spectrum antibiotics with IV Rocephin per urine culture. Imaging revealed Right-sided nephrolithiasis with no hydronephrosis. Heterogenous right kidney with a new 3.6 echogenic focus likely in favor of a pyelonephritis. Urine culture from 10/13/19 per Epic > 100k E.coli sensitive to ceftriaxone Was evaluated by Urology Blood culture and Urine culture growing E.coli Was treated with IV ceftriaxone Was evaluated by ID Leukocytosis resolved. Hb stable Discussed with ID Dr Reynolds about need for prophylactic therapy considering recurrent UTI. She recommended for patient to follow up with urology for stone management as this could be seeding the recurrent UTI. Patient is to follow up with urology Passed a few stones while inpatient but still has some on repeat USS from yesterday. Patient has intermittent right flank pain. She uses percocet prn at home. Counselled her to avoid opioids as much as possible, to only use this sparingly for severe pain not relieved by tylenol due to possible effects on fetus as well as addiction No new opioids prescribed Discharged on keflex for another 10 days to complete 14 day therapy. (3) Metabolic acidosis: Likely in setting of lactic acidosis in setting of sepsis Resolved (4) 27 weeks gestation of : Follows [facility] OB - Dr. Cabrera consulted OB US: 1. Single living intrauterine gestation, estimated gestational age of 27 weeks and 5 days. 2. Unremarkable appearance of the placenta and ovaries. monitor heart tones QS OB on board (5) Hypokalemia: (6) Hypomagnesemia: (7) Hypophosphatemia: Multiple electrolyte abnormalities K is 3.5 today. Mag and phos now normal Discharged on po potassium phos and magnesium for the next 7 days Repeat BMP, Mag, Phos in 3 days and follow up the result with PCP (8) GERD (gastroesophageal reflux disease): Continue PPI (9) Depression with anxiety: Continue zoloft Total Time Total Time Spent Total Time Spent (In Minutes): 55 Total Time Includes: Examination of the Patient, Discharge Planning, Medication Reconciliation and Communication With Other Providers Discharge Plan Discharge Items Patient Disposition: Home - Self-Care Reason For Visit: SEPSIS, PYELONEPHRITIS Discharge Diagnosis: Sepsis Acute pyelonephritis Nephrolithiasis Activity: Resume your previous activity Non-emergency contact: Primary Care Provider, Procurement Professional Logistics and Urologist Call non-emergency contact if: you have any medication questions and your symptoms worsen Follow-up/Referrals: Audra Joya DO [Primary Care Provider] - 10/24/19 11:20 am (Date & Time 10/24/2019 11:20 AM Provider Audra Joya DO Department [facility] ) Diet: Regular Ambulatory Orders: Basic Metabolic Panel (Routine) Timeframe: 3 Days Location: Determined by Patient Ordered By: Frances Shanks Complete Blood Count no Diff (Routine) Timeframe: 3 Days Location: Determined by Patient Ordered By: Frances Shanks Magnesium (Routine) Timeframe: 3 Days Location: Determined by Patient Ordered By: Frances Shanks Phosphorus (Routine) Timeframe: 3 Days Location: Determined by Patient Ordered By: Frances Flores Attending Provider Instructions: Ms Valverde You came to the hospital complaining of fever and right flank pain. You were evaluated and found to have kidney infection and kidney stones. You were treated with antibiotics. Your fever has resolved and flank pain improved. You are being discharged to complete antibiotics at home. You will need to take the antibiotic (keflex) for another 10 days. It is very important that you follow up with Urology for management of your kidney stones. Your potassium level was also low. You are being discharged on a few days of supplementation. Please do the blood tests (Basic metabolic panel, phosphorus and magnesium levels) in 3 days to monitor these electrolytes and follow up the results with your Primary Doctor. Please continue to follow up with the Obstetrictian for your . As we discussed, please avoid use of percocet/opioids as much as possible for your pain due to possible effects on the baby. Avoid using more than a total of 3250mg of tylenol in a day. 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 Chavez. If you do not hear from them by , please call [phone]. Pending Studies at Discharge: No Stand-Alone Forms: My [facility], Smoking Cessation Medications and DC Order Prescriptions: New polyethylene glycol 3350 [Miralax] 17 gram Powder In Packet 17 g PO DAILY Qty: 30 RF: 0 magnesium oxide 400 mg (241.3 mg magnesium) Tablet 400 mg PO BID 7 Days Qty: 14 RF: 0 Phospha 250 Neutral 250 mg Tablet 1 tab PO QID 7 Days Qty: 28 RF: 0 cephalexin [Keflex] 500 mg capsule 500 mg PO QID 10 Days Qty: 40 RF: 0 Continued cyanocobalamin (vitamin B-12) 1,000 mcg/mL Solution 1,000 mcg IM UD RF: 0 omeprazole 20 mg Capsule,Delayed Release(Dr/Ec) 20 mg PO DAILY RF: 0 albuterol sulfate 90 mcg/actuation Hfa Aerosol Inhaler 2 puff INHALATION Q6H PRN (Reason: Shortness Of Breath Or Wheezing) RF: 0 loratadine [Claritin] 10 mg Tablet 10 mg PO DAILY PRN (Reason: allergies) RF: 0 fluticasone propion-salmeterol [Advair Diskus] 250-50 mcg/dose blister with device 1 inh INHALATION BID RF: 0 hyoscyamine sulfate 0.125 mg tablet, sublingual 0.125 mg PO Q4 PRN (Reason: cramping) RF: 0 ondansetron 4 mg Tablet,Disintegrating 4 mg PO Q8H PRN (Reason: Nausea) RF: 0 azelastine 0.15 % (205.5 mcg) Bardolph,Non-Aerosol 2 spray INTRANASAL BID RF: 0 PNV cmb#95-ferrous fumarate-FA [] 28 mg iron- 800 mcg Tablet 1 tab PO DAILY RF: 0 Flintstones Complete Tablet,Chewable 1 tab PO DAILY RF: 0 oxycodone-acetaminophen 5-325 mg tablet 1 tab PO Q6H PRN (Reason: Pain) RF: 0 acetaminophen [Tylenol] 325 mg Tablet 650 mg PO QID PRN (Reason: Pain) RF: 0 sertraline 50 mg tablet 50 mg PO DAILY RF: 0 Discontinued nitrofurantoin monohyd/m-cryst 100 mg capsule 100 mg PO DAILY RF: 0 Discharge Orders: Discharge Order (Routine); Ordered 10/21/19 Ordered By: Frances Shanks Admission Data Admit Date/Time: 10/16/19 15:11 Attending Provider: Frances Shanks I. Admit Provider: Castaneda,Mukesh K. Primary Care Provider: Audra Joya Other Providers: Yuni Díaz ; Juwan Chavez ; Mukesh Castaneda ; James Moreno ; Etienne De La Paz ; Gerald Bautista I. ; Eleno Valencia II ; Erlinda Reynolds ; Emile Broussard ; [facility] Other Interventions: Discharge Summary Assessment (RN) Last Done: 10/21/19 14:58
[2019-10-21] MEDS: bisacodyL 10 MG SUPP PR SCH (10:59)
[2019-10-21] MEDS: cefTRIAXone SODIUM 2,000 MG in DEXTROSE 5% 50 ML IV SCH (13:03)
== END 2019-10-21 15:53 | disposition home or self-care (01) | DRG 831 ==
LOC: ED 11:00 → 2S 15:11 → SUATTDRO 15:11 → 2S 16:28

== ENCOUNTER 2020-01-13 09:22 | Inpatient (IN) ==
[2020-01-13] MEDS ORDERED: OXYTOCIN 30 UNITS/500 ML BAG IV PRN ×2 (10:35→15:17)
--- NOTE | 2020-01-13 10:48 | History & Physical Report ---
Date of Service January 13, 2020 Assessment & Plan (1) Uterine contractions at greater than 20 weeks of gestation: Patient is a 34-year-old -1-2-2 at 39 weeks and 2 days of gestation with regular contractions and pain lower segment and cervix, history of prior C- section for twins Vital signs stable afebrile heart rate reassuring GBS is negative, coronavirus is negative Discussed diagnosis of benefits of repeat versus TOLAC/ and discussed the items in the form which was provided by [employer] Patient understands all and signed an informed consent for TOLAC/ Discussed expectant management versus AROM versus low-dose Pitocin All questions were answered. (2) History of section complicating : (3) History of gastric bypass: (4) (vaginal after ): History of Present Illness Primary Care Provider: Audra Joya DO Patient is a 34-year-old -1-2-2 at 39 weeks and 2 days of gestation who has been feeling regular contractions for the last 2 days. Was in the office yesterday and her cervix was 1 cm dilated and she was sent home. She states contractions became more regular every 2 to 3 minutes and very painful that she could not sleep for the last 2 nights. She denies vaginal bleeding or leakage of fluid. She reports movements but not as much as before. Her has been complicated by 1) history of prior , induction of labor for twin which failed and she had primary . She decided for TOLAC/ (trial of labor after /vaginal after ) I gave her the consent from [employer], with explanation of risks and benefits of repeat and TOLAC/. Patient understands there is a risk of uterine rupture which may cause intra abdominal bleeding and decreased blood flow to the fetus and may cause hypoxia even . She understands all and she initialed the risks in the form and signed this morning. 2) history of asthma, uses albuterol as needed, twice a week usually 3 advanced maternal age 2 nephrolithiasis in second trimester, stent placement at [facility] 5 history of pyelonephritis during this , admitted for a week for IV antibiotics 6 history of chronic viral hepatitis 7 history of depression 8 history of gastric bypass surgery, abdominoplasty Allergies Allergy/AdvReac Type Severity Reaction Status Date / Time meloxicam Allergy Intermediate breakouts Verified 01/12/20 19:35 and itchy all over Penicillins Allergy Intermediate RASH Verified 01/12/20 19:35 diphenhydramine AdvReac Intermediate Rash Verified 01/12/20 19:35 Home Medications Medication Instructions Recorded Confirmed Type albuterol sulfate 2 puff INHALATION Q6H PRN 03/15/18 01/13/20 History cyanocobalamin (vitamin B-12) 1,000 mcg IM UD 03/15/18 01/12/20 History loratadine [Claritin] 10 mg PO DAILY PRN 03/15/18 01/13/20 History Flintstones Complete 1 tab PO DAILY 05/09/19 01/12/20 History PNV cmb#95-ferrous fumarate-FA 1 tab PO DAILY 05/09/19 01/12/20 History [] azelastine 2 spray INTRANASAL BID 05/09/19 01/12/20 History fluticasone propion-salmeterol 1 inh INHALATION BID 05/09/19 01/12/20 History [Advair Diskus] ondansetron 4 mg PO Q8H PRN 05/09/19 01/12/20 History oxycodone-acetaminophen 1 tab PO Q6H PRN 06/13/19 01/12/20 History sertraline 50 mg PO DAILY 10/16/19 01/13/20 History Patient History Medical History Allergic rhinitis Asthma Chronic back pain Depression with anxiety GERD (gastroesophageal reflux disease) Hepatitis C antibody test positive Patient denies History of right inguinal hernia IBS (irritable bowel syndrome) Inflammatory polyarthritis Kidney stones Stent placement 10/16/19 it was removed after the patient began bleeding. OSHEA (nonalcoholic steatohepatitis) Proteinuria affecting Chronic proteinuria Scoliosis Surgical History H/O gastric bypass History of History of cholecystectomy History of colonoscopy History of dental surgery History of tonsillectomy and adenoidectomy Status post panniculectomy Family History Other Cancer Diabetes Heart disease Hypertension Lung disease Seizures Social History Smoking Status: Never smoker Second Hand Exposure: No; Hx Alcohol Use: No Hx Substance Use: No Preferred Language: Slovak Communication Ability: Effective Clerical Order Filler Required: No Beliefs That Will Affect Care: None marital status: Single Current Living Situation: Significant Other current occupational status: employed Feels Safe at Home: Yes Assistive Devices: Contacts OB History 36 wks, Twins, 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 History No h/o STD's Review of Systems All systems reviewed & are unremarkable except as noted in HPI & below Physical Exam Constitutional: WD/WN, vitals as above well developed and + acute distress (with contractions) Gastrointestinal (Abdomen): normal bowel sounds, soft, nontender, no hepatosplenomegaly (gravid) Genitourinary: no vaginal lesions, no adnexal mass Manual OB Exam: + cervical dilation 1 cm, + cervical effacement 70% and + station (bulging bag and lower segment) high OB Exam Monitor Tracing: + external uterine monitor used and + category I Results & Data ([facility]) Vital Signs (Past 12 Hours) Vital Signs Temp Pulse Resp BP Pulse Ox 01/13/20 09:44 54 L 99 01/13/20 09:39 57 L 100 01/13/20 09:35 54 L 100 01/13/20 09:34 54 L 100 01/13/20 09:31 50 L 139/82 01/13/20 09:29 53 L 100 01/13/20 09:27 36.5 C 53 L 18 158/79 H
[2020-01-13 11:27] LABS: Hematocrit (blood only) 32.8 % (37-47); Hemoglobin 10.2 g/dL (12.0-16.0); Mean Corpuscular Hemoglobin 28.5 pg (25-34); Mean Corpuscular Hgb Conc 31.1 g/dL (32-36); Mean Corpuscular Volume 91.6 fL (80-100); Mean Platelet Volume 10.6 fL (7.4-10.4); Platelet Count 305 K/uL (130-400); RDW Standard Deviation 46.4 fL (36.4-46.3); Red Blood Count 3.58 M/uL (4.2-5.4); White Blood Count 11.61 K/uL (4.8-10.8)
[2020-01-13] MEDS ORDERED: ePHEDrine sulfate 50 MG/ML AMP ONE (11:27)
[2020-01-13] MEDS ORDERED: SODIUM CHLORIDE 0.9% INJ 10 ML VIAL ONE (11:27)
[2020-01-13] MEDS ORDERED: BUPIVACAINE 0.25% 30 ML VIAL ONE (11:28)
[2020-01-13] MEDS ORDERED: fentaNYL citrate 100 MCG/2 ML VIAL ONE ×2 (11:28→20:55)
[2020-01-13] MEDS ORDERED: fentaNYL 2MCG/ML ROPIVACAINE 1.25MG/ML 100 ML BAG EPI ONE (11:29)
[2020-01-13] MEDS: LACTATED RINGER'S 1,000 ML IV PRN ×2 (11:30→12:38)
[2020-01-13 11:57] LABS: Albumin Level 2.5 gm/dl (3.4-5.0); BUN Creatinine Ratio 12.2 (10-20); Calcium 8.6 mg/dl (8.5-10.1); Creatinine Clr Calc Pharmacy 156.9 ml/min; Est GFR (African American) 141.6; Est GFR (Non-African American) 122.2
[2020-01-13 12:00] LABS: Albumin Globulin Ratio 0.6 (0.9-2); Bilirubin,Total 0.3 mg/dl (0.2-1); Globulin 4.2 gm/dl (2.5-4.0); Total Protein 6.7 gm/dl (6.4-8.2)
[2020-01-13] MEDS ORDERED: ePHEDrine sulfate 50 MG/ML AMP IV PRN ×2 (12:14→21:08)
[2020-01-13] MEDS ORDERED: diphenhydrAMINE 50 MG/ML VIAL IV PRN ×2 (12:14→21:08)
[2020-01-13] MEDS ORDERED: NALOXONE HCL 0.4 MG/1 ML VIAL/CARP IV PRN ×2 (12:14→21:08)
[2020-01-13] MEDS ORDERED: NALOXONE HCL 1 MG in SODIUM CHLORIDE 0.9% 1000ML 1,000 ML IV PRN ×2 (12:14→21:08)
[2020-01-13] MEDS ORDERED: fentaNYL 2MCG/ML ROPIVACAINE 1.25MG/ML 100 ML BAG EPI PRN (12:14)
--- NOTE | 2020-01-13 12:14 | Anesthesiology Consultation ---
Date of Service January 13, 2020 Assessment & Plan Chart Review Chart Review: Acceptable Risk for Labor Epidural Consults Requested none History Height/Weight Height: 5 ft 3 in Weight: 90.718 kg Allergies Allergy/AdvReac Type Severity Reaction Status Date / Time meloxicam Allergy Intermediate breakouts Verified 01/12/20 19:35 and itchy all over Penicillins Allergy Intermediate RASH Verified 01/12/20 19:35 diphenhydramine AdvReac Intermediate Rash Verified 01/12/20 19:35 Medications Home Medications Medication Instructions Recorded Confirmed Last Taken albuterol sulfate 2 puff INHALATION Q6H PRN 03/15/18 01/13/20 01/11/20 cyanocobalamin (vitamin B-12) 1,000 mcg IM UD 03/15/18 01/12/20 01/11/20 loratadine [Claritin] 10 mg PO DAILY PRN 03/15/18 01/13/20 01/12/20 14:00 Flintstones Complete 1 tab PO DAILY 05/09/19 01/12/20 01/11/20 PNV cmb#95-ferrous fumarate-FA 1 tab PO DAILY 05/09/19 01/12/20 01/11/20 [] azelastine 2 spray INTRANASAL BID 05/09/19 01/12/20 01/10/20 fluticasone propion-salmeterol 1 inh INHALATION BID 05/09/19 01/12/20 01/11/20 [Advair Diskus] ondansetron 4 mg PO Q8H PRN 05/09/19 01/12/20 01/10/20 oxycodone-acetaminophen 1 tab PO Q6H PRN 06/13/19 01/12/20 01/10/20 sertraline 50 mg PO DAILY 10/16/19 01/13/20 01/12/20 14:00 Active Medications Generic Name Dose Route Start Last Admin Trade Name Freq PRN Reason Stop Dose Admin Lactated Ringer's 1,000 mls @ 150 mls/hr 01/13/20 10:35 01/13/20 11:30 Lr IV 01/15/20 10:34 999 mls/hr .Q6H40M PRN Administration L&D Protocol Protocol Past Medical History Medical History Allergic rhinitis Asthma Chronic back pain Depression with anxiety GERD (gastroesophageal reflux disease) Hepatitis C antibody test positive Patient denies History of right inguinal hernia IBS (irritable bowel syndrome) Inflammatory polyarthritis Kidney stones Stent placement 10/16/19 it was removed after the patient began bleeding. OSHEA (nonalcoholic steatohepatitis) Proteinuria affecting Chronic proteinuria Scoliosis Past Family History Family History Other Cancer Diabetes Heart disease Hypertension Lung disease Seizures Past Surgical History Surgical History H/O gastric bypass History of History of cholecystectomy History of colonoscopy History of dental surgery History of tonsillectomy and adenoidectomy Status post panniculectomy Social History Smoking Status: Never smoker Hx Alcohol Use: No Hx Substance Use: No substance use type: does not use Last Used Substance Other:: Patient denies drug use ever. Physical Exam Vital Signs Last Vital Signs Temp 36.5 C 01/13/20 09:27 Pulse 54 L 01/13/20 09:44 Resp 18 01/13/20 09:27 BP 139/82 01/13/20 09:31 Pulse Ox 99 01/13/20 09:44 Testing Laboratory Results 01/13/20 11:03 01/13/20 11:03
--- NOTE | 2020-01-13 13:40 | Obstetrical Progress Note ---
Date of Service January 13, 2020 Assessment & Plan Admission and Anticipated Discharge Date Admission Date: January 13, 2020 Subjective Patient is reevaluated She feels well, comfortable , received epidural for pain FHR categ I [place]: ctxs q 2-4 min RHONDA 2/ 70%/ -2, bulging bag, AROM'ed, moderate meconium stained fluid was obtained Continue to monitor closely Vasques to drain bladder Results & Data ([facility]) Vital Signs (Past 12 Hours) Vital Signs Temp Pulse Resp BP Pulse Ox 01/13/20 13:37 60 100 01/13/20 13:32 58 L 100 01/13/20 13:27 58 L 98 01/13/20 13:22 56 L 99 01/13/20 13:17 62 100 01/13/20 13:12 54 L 100 01/13/20 13:10 56 L 132/77 01/13/20 13:07 67 100 01/13/20 13:02 53 L 100 01/13/20 12:57 57 L 99 01/13/20 12:52 54 L 125/67 99 01/13/20 12:49 59 L 133/72 01/13/20 12:47 59 L 99 01/13/20 12:46 55 L 131/73 01/13/20 12:45 60 130/77 01/13/20 12:43 56 L 132/79 01/13/20 12:42 58 L 99 01/13/20 12:40 55 L 132/82 01/13/20 12:37 56 L 133/82 100 01/13/20 12:32 64 145/86 H 100 01/13/20 09:44 54 L 99 01/13/20 09:39 57 L 100 01/13/20 09:35 54 L 18 100 01/13/20 09:34 54 L 100 01/13/20 09:31 50 L 139/82 01/13/20 09:29 53 L 100 01/13/20 09:27 36.5 C 53 L 18 158/79 H
--- NOTE | 2020-01-13 15:19 | Obstetrical Progress Note ---
Date of Service January 13, 2020 Assessment & Plan Admission and Anticipated Discharge Date Admission Date: January 13, 2020 Subjective Patient is reevaluated She c/o pubic pain VE; unchanged, 2/ 70%/ -3, ballotable, abundant gush of fluid came out, meconium+ ctxs spaced out FHR categ I Discussed starting low dose pitocin to augment contractions, understands increased risk of Csection Agrees with pitocin Results & Data ([facility]) Vital Signs (Past 12 Hours) Vital Signs Temp Pulse Resp BP Pulse Ox 01/13/20 15:14 59 L 92 01/13/20 15:12 50 L 96 01/13/20 15:10 50 L 106/57 L 01/13/20 15:07 51 L 98 01/13/20 15:02 51 L 95 01/13/20 14:57 52 L 96 01/13/20 14:54 54 L 106/59 L 01/13/20 14:52 61 97 01/13/20 14:47 50 L 96 01/13/20 14:42 49 L 97 01/13/20 14:39 59 L 114/58 L 01/13/20 14:37 46 L 97 01/13/20 14:32 49 L 97 01/13/20 14:27 47 L 98 01/13/20 14:25 54 L 110/53 L 01/13/20 14:22 51 L 98 01/13/20 14:17 57 L 99 01/13/20 14:16 18 01/13/20 14:12 52 L 99 01/13/20 14:07 49 L 99 01/13/20 14:02 53 L 99 01/13/20 13:57 49 L 99 01/13/20 13:56 46 L 117/75 01/13/20 13:52 53 L 100 01/13/20 13:47 57 L 100 01/13/20 13:42 50 L 99 01/13/20 13:40 57 L 127/64 01/13/20 13:37 60 100 01/13/20 13:32 58 L 100 01/13/20 13:27 58 L 98 01/13/20 13:22 56 L 99 01/13/20 13:17 62 100 01/13/20 13:12 54 L 100 01/13/20 13:10 56 L 132/77 01/13/20 13:07 67 100 01/13/20 13:02 53 L 100 01/13/20 12:57 57 L 99 01/13/20 12:52 54 L 125/67 99 01/13/20 12:49 59 L 133/72 01/13/20 12:47 59 L 99 01/13/20 12:46 55 L 131/73 01/13/20 12:45 60 130/77 01/13/20 12:43 56 L 132/79 01/13/20 12:42 58 L 99 01/13/20 12:40 55 L 132/82 01/13/20 12:37 56 L 133/82 100 01/13/20 12:32 64 145/86 H 100 01/13/20 11:30 18 01/13/20 11:00 18 01/13/20 10:30 18 01/13/20 09:44 54 L 99 01/13/20 09:39 57 L 100 01/13/20 09:35 54 L 18 100 01/13/20 09:34 54 L 100 01/13/20 09:31 50 L 139/82 01/13/20 09:29 53 L 100 01/13/20 09:27 36.5 C 53 L 18 158/79 H
[2020-01-13] MEDS ORDERED: LACTATED RINGER'S 1,000 ML IV SCH ×3 (18:45→21:00)
[2020-01-13] MEDS ORDERED: AZITHROMYCIN 500 MG in DEXTROSE 5% 250 ML IV STA (18:45)
--- NOTE | 2020-01-13 18:50 | Obstetrical Progress Note ---
Date of Service January 13, 2020 Assessment & Plan Admission and Anticipated Discharge Date Admission Date: January 13, 2020 Subjective Patient is reevaluated. She has been on Pitocin and has regular contractions every 2 to 3 minutes. She has been comfortable with no pain. Vaginal exam unchanged, cervix is 2 cm dilated, 80% effaced head at -2 station, cone shaped, still passing moderate meconium and amniotic fluid. heart rate had again category 1 with recent mild decelerations after contractions, with late component. Discussed the findings, TOLAC/, Meconium-stained fluids and removed from delivery despite with regular contractions. Patient understands and desires repeat . Understands the risks and signed the informed consent All questions were answered. Results & Data ([facility]) Vital Signs (Past 12 Hours) Vital Signs Temp Pulse Resp BP Pulse Ox 01/13/20 18:47 58 L 100 01/13/20 18:42 56 L 100 01/13/20 18:40 53 L 140/75 01/13/20 18:37 57 L 100 01/13/20 18:35 58 L 94 01/13/20 18:32 62 100 01/13/20 18:27 52 L 98 01/13/20 18:25 62 124/63 01/13/20 18:22 60 100 01/13/20 18:17 57 L 100 01/13/20 18:12 60 100 01/13/20 18:11 57 L 134/74 01/13/20 18:07 52 L 99 01/13/20 18:02 52 L 100 01/13/20 17:57 54 L 100 01/13/20 17:55 51 L 118/58 L 01/13/20 17:52 52 L 100 01/13/20 17:47 57 L 100 01/13/20 17:42 55 L 100 01/13/20 17:37 61 99 01/13/20 17:32 58 L 100 01/13/20 17:30 18 01/13/20 17:27 59 L 99 01/13/20 17:25 51 L 121/68 01/13/20 17:22 51 L 100 01/13/20 17:17 58 L 99 01/13/20 17:12 62 100 01/13/20 17:11 52 L 112/72 01/13/20 17:07 48 L 99 01/13/20 17:02 52 L 99 01/13/20 17:00 18 01/13/20 16:57 61 100 01/13/20 16:55 71 112/70 01/13/20 16:54 58 L 93 01/13/20 16:52 49 L 99 01/13/20 16:47 50 L 99 01/13/20 16:42 52 L 104/55 L 99 01/13/20 16:37 52 L 99 01/13/20 16:32 55 L 98 01/13/20 16:30 18 01/13/20 16:27 48 L 99 01/13/20 16:26 47 L 102/63 01/13/20 16:22 49 L 98 01/13/20 16:17 49 L 98 01/13/20 16:12 49 L 98 01/13/20 16:10 48 L 109/67 01/13/20 16:07 50 L 98 01/13/20 16:02 51 L 99 01/13/20 16:00 18 01/13/20 15:57 49 L 98 01/13/20 15:54 48 L 107/55 L 01/13/20 15:52 47 L 98 01/13/20 15:47 48 L 98 01/13/20 15:45 18 01/13/20 15:42 54 L 98 01/13/20 15:41 49 L 107/57 L 01/13/20 15:37 48 L 98 01/13/20 15:35 53 L 90 01/13/20 15:32 52 L 98 01/13/20 15:27 50 L 97 01/13/20 15:24 54 L 109/64 01/13/20 15:22 57 L 98 01/13/20 15:17 58 L 98 01/13/20 15:14 59 L 92 01/13/20 15:12 50 L 96 01/13/20 15:10 50 L 106/57 L 01/13/20 15:07 51 L 98 01/13/20 15:02 51 L 95 01/13/20 14:57 52 L 96 01/13/20 14:54 54 L 106/59 L 01/13/20 14:52 61 97 01/13/20 14:47 50 L 96 01/13/20 14:42 49 L 97 01/13/20 14:39 59 L 114/58 L 01/13/20 14:37 46 L 97 01/13/20 14:32 49 L 97 01/13/20 14:30 18 01/13/20 14:27 47 L 98 01/13/20 14:25 54 L 110/53 L 01/13/20 14:22 51 L 98 01/13/20 14:17 57 L 99 01/13/20 14:16 18 01/13/20 14:12 52 L 99 01/13/20 14:07 49 L 99 01/13/20 14:02 53 L 99 01/13/20 14:00 18 01/13/20 13:57 49 L 99 01/13/20 13:56 46 L 117/75 01/13/20 13:52 53 L 100 01/13/20 13:47 57 L 100 01/13/20 13:42 50 L 99 01/13/20 13:40 57 L 127/64 01/13/20 13:37 60 100 01/13/20 13:32 58 L 100 01/13/20 13:27 58 L 98 01/13/20 13:25 18 01/13/20 13:22 56 L 99 01/13/20 13:17 62 100 01/13/20 13:12 54 L 100 01/13/20 13:10 56 L 132/77 01/13/20 13:07 67 100 01/13/20 13:02 53 L 100 01/13/20 12:57 57 L 99 01/13/20 12:55 18 01/13/20 12:52 54 L 125/67 99 01/13/20 12:49 59 L 133/72 01/13/20 12:47 59 L 99 01/13/20 12:46 55 L 131/73 01/13/20 12:45 60 130/77 01/13/20 12:43 56 L 132/79 01/13/20 12:42 58 L 99 01/13/20 12:40 55 L 132/82 01/13/20 12:37 56 L 133/82 100 01/13/20 12:32 64 145/86 H 100 01/13/20 12:23 18 01/13/20 11:30 18 01/13/20 11:00 18 01/13/20 10:30 18 01/13/20 09:44 54 L 99 01/13/20 09:39 57 L 100 01/13/20 09:35 54 L 18 100 01/13/20 09:34 54 L 100 01/13/20 09:31 50 L 139/82 01/13/20 09:29 53 L 100 01/13/20 09:27 36.5 C 53 L 18 158/79 H
[2020-01-13] MEDS ORDERED: CITRIC ACID/SODIUM CITRATE 15 ML UDC PO ONE (19:00)
[2020-01-13] MEDS ORDERED: ceFAZolin 2000MG 2,000 MG/15 ML SYR IV ONE (19:00)
[2020-01-13] MEDS ORDERED: MoRPHine SULFATE PF 1 MG/ML 10 ML AMP/VIAL ONE (19:06)
[2020-01-13] MEDS ORDERED: PHENYLEPHRINE 100MCG/ML 5ML SYR ONE (20:50)
[2020-01-13] MEDS ORDERED: ONDANSETRON INJ 2 MG/ML 2 ML VIAL ONE (20:50)
[2020-01-13] MEDS ORDERED: ePHEDrine sulfate 50 MG/ML SYR ONE (20:50)
[2020-01-13] MEDS ORDERED: SENNA 8.6 MG TAB PO PRN (20:55)
[2020-01-13] MEDS ORDERED: SUPERCREAM 0.870% 15 GM JAR EXT PRN (20:55)
[2020-01-13] MEDS ORDERED: MEASLES, MUMPS & RUBELLA VIRUS VIAL SQ ONE (20:55)
[2020-01-13] MEDS ORDERED: MAGNESIUM HYDROXIDE SUSP 30 ML UDC PO PRN (20:55)
[2020-01-13] MEDS ORDERED: BENZOCAINE 20% AER SPR 82.5 GM CAN EXT PRN (20:55)
[2020-01-13] MEDS ORDERED: DIPHTHERIA/TETANUS/PERTUSSIS 0.5 ML SYR/VIAL IM ONE (20:55)
--- NOTE | 2020-01-13 20:55 | Post Operative Brief Note ---
Immediate Post Op Note v1 Date of Surgery January 13, 2020 Pre & Post Diagnosis Operation Date: 01/13/20 19:00 Pre-Op Diagnosis: 1.Failed 2. Arrest of dilitaion 3. Meconium stained fluid 4. Previous Section Post-Op Diagnosis: Same as preop I identified the patient and participated in the time-out.: Yes Procedure Operation Date: 01/13/20 19:00 Actual Procedures p Repeat Section and excision of old incision scar in LD - Yuni Dowell MD Surgeon Yuni Díaz MD Senior Planner Miguel Estimated Blood Loss 600 Findings Consistent with Post-Op Diagnosis Drains Vasques Catheter (Vasques placed prior to arrival to OR, anesthesia to monitor during procedure) Anesthesia Type Labor Epidural Complications none Disposition Accompanied Patient To Recovery: Yes Disposition: L&D
[2020-01-13] MEDS ORDERED: OXYTOCIN 20 UNITS in LACTATED RINGER'S 1,000 ML IV SCH (21:00)
[2020-01-13] MEDS ORDERED: MoRPHine SULFATE PF 1 MG/ML 10 ML AMP/VIAL INT SPINAL ONE (21:08)
[2020-01-13] MEDS ORDERED: ONDANSETRON INJ 2 MG/ML 2 ML VIAL IV PRN (21:08)
[2020-01-13] MEDS ORDERED: KETOROLAC 30 MG/ML VIAL IV PRN (21:08)
[2020-01-13] MEDS ORDERED: PROMETHAZINE HCL 25 MG in SODIUM CHLORIDE 0.9% 50 ML IV PRN (21:08)
[2020-01-13] MEDS ORDERED: METOCLOPRAMIDE HCL 10 MG in SODIUM CHLORIDE 0.9% 50 ML IV PRN (21:08)
[2020-01-13] MEDS ORDERED: LACTATED RINGER'S 500 ML IV PRN (21:08)
[2020-01-13] MEDS ORDERED: NALOXONE HCL 0.08 MG in SYRINGE 1.8 ML IV PRN (21:08)
[2020-01-13] MEDS ORDERED: NO NARCOTICS OR SEDATIVES SCH (21:15)
[2020-01-13] MEDS ORDERED: DC INTRASPINAL MORPHINE SCH (21:15)
[2020-01-13] MEDS ORDERED: SODIUM CHLORIDE 0.9% 1000ML 1,000 ML IV SCH (21:15)
--- NOTE | 2020-01-13 21:36 | Anesthesia Procedure Note ---
Date of Service January 13, 2020 Anesthesia Post Epidural Note Vital Signs Vital Signs: Temp Pulse Resp BP Pulse Ox 36.7 C 70 20 116/61 96 01/13/20 21:00 01/13/20 21:30 01/13/20 21:20 01/13/20 21:30 01/13/20 21:30 Pain Intensity Abdomen: Pain Intensity: 0 Notes Mental Status: alert / awake / arousable Nausea / Vomiting: adequately controlled Pain: adequately controlled Airway Patency, RR, SpO2: stable & adequate BP & HR: stable & adequate Hydration State: stable & adequate Neuraxial Anesthesia: was administered and sensory block is resolving Anesthetic Complications: no major complications apparent and Pt Satisfied with anesthetic care Epidural: Removed without complications and With tip intact
--- NOTE | 2020-01-13 21:37 | Anesthesiology Progress Note ---
Date of Service January 13, 2020 Anesthesia Post Procedure Vital Signs Vital Signs: Temp Pulse Resp BP Pulse Ox 01/13/20 21:30 70 116/61 96 01/13/20 21:25 71 97 01/13/20 21:20 68 20 124/67 98 01/13/20 21:15 92 H 98 01/13/20 21:12 83 126/69 01/13/20 21:10 68 20 124/67 98 01/13/20 21:05 77 98 01/13/20 21:01 64 119/58 L 01/13/20 21:00 36.7 C 92 H 20 98 01/13/20 19:35 123 H 141/81 H 01/13/20 19:32 101 H 142/68 H 99 01/13/20 19:30 20 01/13/20 19:29 72 139/66 01/13/20 19:27 84 100 01/13/20 19:26 68 136/65 01/13/20 19:23 92 H 122/76 01/13/20 19:22 68 99 01/13/20 19:20 88 126/61 01/13/20 19:17 67 137/62 100 01/13/20 19:14 58 L 133/63 01/13/20 19:12 61 100 01/13/20 19:10 36.9 C 20 01/13/20 19:08 55 L 90 01/13/20 19:07 58 L 100 01/13/20 19:02 55 L 100 01/13/20 19:00 61 92 01/13/20 18:57 54 L 100 01/13/20 18:55 63 141/61 H 01/13/20 18:52 58 L 100 01/13/20 18:47 58 L 100 01/13/20 18:42 56 L 100 01/13/20 18:40 53 L 140/75 01/13/20 18:37 57 L 100 01/13/20 18:35 58 L 94 01/13/20 18:32 62 100 01/13/20 18:27 52 L 98 01/13/20 18:25 62 124/63 01/13/20 18:22 60 100 01/13/20 18:17 57 L 100 01/13/20 18:12 60 100 01/13/20 18:11 57 L 134/74 01/13/20 18:07 52 L 99 01/13/20 18:02 52 L 100 01/13/20 17:57 54 L 100 01/13/20 17:55 51 L 118/58 L 01/13/20 17:52 52 L 100 01/13/20 17:47 57 L 100 01/13/20 17:42 55 L 100 01/13/20 17:37 61 99 01/13/20 17:32 58 L 100 01/13/20 17:30 18 01/13/20 17:27 59 L 99 01/13/20 17:25 51 L 121/68 01/13/20 17:22 51 L 100 01/13/20 17:17 58 L 99 01/13/20 17:12 62 100 01/13/20 17:11 52 L 112/72 01/13/20 17:07 48 L 99 01/13/20 17:02 52 L 99 01/13/20 17:00 18 01/13/20 16:57 61 100 01/13/20 16:55 71 112/70 01/13/20 16:54 58 L 93 01/13/20 16:52 49 L 99 01/13/20 16:47 50 L 99 01/13/20 16:42 52 L 104/55 L 99 01/13/20 16:37 52 L 99 01/13/20 16:32 55 L 98 01/13/20 16:30 18 01/13/20 16:27 48 L 99 01/13/20 16:26 47 L 102/63 01/13/20 16:22 49 L 98 01/13/20 16:17 49 L 98 01/13/20 16:12 49 L 98 01/13/20 16:10 48 L 109/67 01/13/20 16:07 50 L 98 01/13/20 16:02 51 L 99 01/13/20 16:00 18 01/13/20 15:57 49 L 98 01/13/20 15:54 48 L 107/55 L 01/13/20 15:52 47 L 98 01/13/20 15:47 48 L 98 01/13/20 15:45 18 01/13/20 15:42 54 L 98 01/13/20 15:41 49 L 107/57 L 01/13/20 15:37 48 L 98 01/13/20 15:35 53 L 90 01/13/20 15:32 52 L 98 01/13/20 15:27 50 L 97 01/13/20 15:24 54 L 109/64 01/13/20 15:22 57 L 98 01/13/20 15:17 58 L 98 01/13/20 15:14 59 L 92 01/13/20 15:12 50 L 96 01/13/20 15:10 50 L 106/57 L 01/13/20 15:07 51 L 98 01/13/20 15:02 51 L 95 01/13/20 14:57 52 L 96 01/13/20 14:54 54 L 106/59 L 01/13/20 14:52 61 97 01/13/20 14:47 50 L 96 01/13/20 14:42 49 L 97 01/13/20 14:39 59 L 114/58 L 01/13/20 14:37 46 L 97 01/13/20 14:32 49 L 97 01/13/20 14:30 18 01/13/20 14:27 47 L 98 01/13/20 14:25 54 L 110/53 L 01/13/20 14:22 51 L 98 01/13/20 14:17 57 L 99 01/13/20 14:16 18 01/13/20 14:12 52 L 99 01/13/20 14:07 49 L 99 01/13/20 14:02 53 L 99 01/13/20 14:00 18 01/13/20 13:57 49 L 99 01/13/20 13:56 46 L 117/75 01/13/20 13:52 53 L 100 01/13/20 13:47 57 L 100 01/13/20 13:42 50 L 99 01/13/20 13:40 57 L 127/64 01/13/20 13:37 60 100 01/13/20 13:32 58 L 100 01/13/20 13:27 58 L 98 01/13/20 13:25 18 01/13/20 13:22 56 L 99 01/13/20 13:17 62 100 01/13/20 13:12 54 L 100 01/13/20 13:10 56 L 132/77 01/13/20 13:07 67 100 01/13/20 13:02 53 L 100 01/13/20 12:57 57 L 99 01/13/20 12:55 18 01/13/20 12:52 54 L 125/67 99 01/13/20 12:49 59 L 133/72 01/13/20 12:47 59 L 99 01/13/20 12:46 55 L 131/73 01/13/20 12:45 60 130/77 01/13/20 12:43 56 L 132/79 01/13/20 12:42 58 L 99 01/13/20 12:40 55 L 132/82 01/13/20 12:37 56 L 133/82 100 01/13/20 12:32 64 145/86 H 100 01/13/20 12:23 18 01/13/20 11:30 18 01/13/20 11:00 18 01/13/20 10:30 18 01/13/20 09:44 54 L 99 01/13/20 09:39 57 L 100 01/13/20 09:35 54 L 18 100 01/13/20 09:34 54 L 100 01/13/20 09:31 50 L 139/82 01/13/20 09:29 53 L 100 01/13/20 09:27 36.5 C 53 L 18 158/79 H Pain Intensity Abdomen: Pain Intensity: 0 Transfer of Care Handoff Completed per policy Notes Mental Status: alert / awake / arousable and participated in evaluation Patient Amnestic to Procedure: Yes Nausea / Vomiting: adequately controlled Pain: adequately controlled Airway Patency, RR, SpO2: stable & adequate BP & HR: stable & adequate Hydration State: stable & adequate Neuraxial Anesthesia: was administered and sensory block is resolving Anesthetic Complications: no major complications apparent
[2020-01-13] MEDS: MoRPHine SULFATE 2 MG/ML CARP IV PRN (22:20)
[2020-01-13] MEDS: MEPERIDINE HCL 25 MG/ML CARP/VIAL IV PRN (23:20)
--- NOTE | 2020-01-13 23:32 | Operative Report (OR) ---
DATE OF OPERATION: 01/13/2020 PREOPERATIVE DIAGNOSES: The patient is a 34-year-old G2, P0-1-0-2 at 39 weeks and 2 days of gestation, who was admitted for uterine contractions, cervical change and TOLAC/ (trial of labor after C section/vaginal after ), failure to dilate despite adequate contractions, dark meconium stained amniotic fluid, remote from delivery, failed TOLAC and desires for repeat . POSTOPERATIVE DIAGNOSES: The patient is a 34-year-old G2, P0-1-0-2 at 39 weeks and 2 days of gestation, who was admitted for uterine contractions, cervical change and TOLAC/ (trial of labor after C section/vaginal after ), failure to dilate despite adequate contractions, dark meconium stained amniotic fluid, remote from delivery, failed TOLAC and desires for repeat and Occiput posterior position of the head. PROCEDURE: Repeat low transverse with Pfannenstiel skin incision and excision of old incision scar. SURGEON: Yuni Díaz MD SAND SHOVELER: Dr. Vera. ESTIMATED BLOOD LOSS: 600. FLUIDS: 1000 mL of lactated ringer. DRAINS: Vasques catheter drained 400 mL of urine and clear urine. ANESTHESIA: Labor epidural. ANESTHESIOLOGIST: Mg Sevilla MD COMPLICATIONS: None. FINDINGS: Baby was a viable female delivered at 2000 p.m. Apgars were 9/9, weight was 3140 grams. She was in occiput posterior position. Maternal findings, normal uterus, fallopian tubes and ovaries. There was an old scar in the abdominal wall from older and abdominoplasty and extensive scarring and adhesion in the skin, subcuticular fat tissue and rectus fascia. DESCRIPTION OF PROCEDURE: The patient was taken to the operating room where epidural anesthesia was checked to be adequate. She was placed in dorsal supine position with leftward tilt. She was prepared and draped in usual sterile fashion. A Pfannenstiel skin incision was made and the incision was carried through to the underlying layer of fascia with the Bovie. Fascia was incised in the midline and the fascial incision was extended laterally with the help of Lara scissors as well as tip of Bovie and bluntly with the fingers due to extensive adhesion and scarring and then upper aspect of the fascial incision was grasped with 2 Jocelyn clamps, elevated, underlying rectus muscle dissected off sharply with Lara scissors bluntly and then lower aspect of the fascial incision was grasped with 2 Jocelyn clamps, elevated, underlying rectus muscles were dissected off sharply and bluntly with fingers. Rectus muscles were already and peritoneum was already spontaneously opened. Peritoneal incision was extended superiorly and inferiorly with good visualization of the bladder. Bladder blade was inserted. Vesicouterine peritoneum was over the lower segment. It was grasped with pickups and entered sharply with Metzenbaum scissors. Bladder flap was created digitally and bladder blade was reinserted. Lower segment was very thin, but intact. It was incised in transverse fashion and dark meconium-stained fluid was obtained and uterine incision was extended laterally with fingers. Baby's head was in direct occiput posterior position. It was delivered without difficulty. Shoulders were delivered with minimal traction and mouth and nose were suctioned. Cord was clamped x2 and cut at 1 minute delay. Baby was vigorously crying and moving. Baby was handed off to waiting pediatric team. Cord blood was obtained. Placenta was delivered manually as intact and complete. Uterus was exteriorized, cleared of all clots and debris. Uterine incision was repaired with 0 Vicryl in a running locked fashion and the lower segment was thin and peeling off at some points, those were repaired carefully and supported with parallel sutures. And a second layer was placed with 0 Vicryl in a running fashion. Excellent hemostasis was achieved. Ovaries, fallopian tubes, cul-de-sac were checked to be normal. It was irrigated with warm normal saline and suctioned. Uterus was returned to the abdomen. Then pelvis was irrigated with warm normal saline and then incision was checked to be again hemostatic. Parietal peritoneum was reapproximated with 0 Vicryl in running fashion. Rectus muscles were also reapproximated with 3-0 Vicryl in a running fashion. Excellent hemostasis was achieved. Rectus fascia was closed with #1 Vicryl starting from both corners meeting in the midline in a running fashion. Subcuticular fat tissue was reapproximated with 3-0 Vicryl in a running fashion and then the scar on the skin was excised with a scalpel and the oozing parts were coagulated with a Bovie and then the subcuticular fat tissue was brought together more to bring the edges of the skin with a 3-0 Vicryl and the skin was closed with 4-0 Monocryl in a running subcuticular fashion. Sponge, lap, needle count was correct x3 and no complications happened. I and Dr. Vera was present during surgery. She was given 2 grams of cefazolin before surgery and 500 mg of azithromycin during surgery. The patient tolerated the procedure well. and was taken to recovery room in stable condition. I attest to the content of the Intraoperative Record and any orders documented therein. Any exceptions are noted below. KENDRAD
[2020-01-13] MEDS: DOCUSATE SODIUM 100 MG CAP PO SCH (23:45)
[2020-01-13] MEDS: SIMETHICONE 80 MG CHEW PO SCH (23:46)
[2020-01-14] MEDS: HYDROmorphone INJ 0.5 MG/0.5 ML SYR IV PRN ×2 (01:14→10:19)
[2020-01-14] MEDS: MoRPHine SULFATE 2 MG/ML CARP IV PRN ×4 (04:11→14:15)
[2020-01-14] MEDS ORDERED: OXYTOCIN 20 UNITS in D5W AND LACTATED RINGERS 1,000 ML IV SCH (05:00)
[2020-01-14 06:23] LABS: Basophils # (auto) 0.02 K/uL (0-0.2); Basophils % (auto) 0.1 %; Eosinophils # (auto) 0.05 K/uL (0-0.5); Eosinophils % (auto) 0.3 %; Hematocrit (blood only) 28.8 % (37-47); Hemoglobin 8.8 g/dL (12.0-16.0); Immature Granulocytes # (auto) 0.03 K/uL (0.00-0.02); Immature Granulocytes % (auto) 0.2 %; Lymphocytes # (auto) 1.67 K/uL (1.2-3.4); Mean Corpuscular Hgb Conc 30.6 g/dL (32-36); Mean Corpuscular Volume 91.7 fL (80-100); Mean Platelet Volume 10.2 fL (7.4-10.4); Monocytes % (auto) 5.3 %; Neutrophils # (auto) 12.55 K/uL (1.4-6.5); Neutrophils % (auto) 83.1 %; Platelet Count 252 K/uL (130-400); RDW Standard Deviation 46.7 fL (36.4-46.3); Red Blood Count 3.14 M/uL (4.2-5.4); White Blood Count 15.12 K/uL (4.8-10.8)
[2020-01-14] MEDS ORDERED: OXYTOCIN 20 UNITS in LACTATED RINGER'S 1,000 ML IV SCH (06:30)
[2020-01-14] MEDS: MEPERIDINE HCL 25 MG/ML CARP/VIAL IV PRN (06:39)
[2020-01-14] MEDS: FERROUS SULFATE 325 MG TAB PO SCH (08:21)
[2020-01-14] MEDS: DOCUSATE SODIUM 100 MG CAP PO SCH ×2 (08:21→20:53)
[2020-01-14] MEDS: SIMETHICONE 80 MG CHEW PO SCH ×4 (08:21→20:53)
[2020-01-14] MEDS: PRENATAL VITAMIN 1 TAB PO SCH (08:21)
[2020-01-14] MEDS ORDERED: LORATADINE 10 MG TAB PO PRN (10:29)
--- NOTE | 2020-01-14 11:01 | Obstetrical Progress Note ---
Date of Service January 14, 2020 Assessment & Plan (1) delivery delivered: Pt jennifer well POD #1 continue day #1 care Abd; dressing C/D/I + BS d/c dressing this PM Subjective Ambulation: ambulating normally Voiding: no voiding problems Passing Gas:: Yes Diet Tolerance:: clear liquids Lochia:: Small Feeding Type:: breast feeding Review of Systems All systems reviewed & are unremarkable except as noted in HPI & below Physical Exam Constitutional WD/WN, vitals as above well developed and well nourished Eyes PERRL, conjunctivae normal, anicteric sclerae ENMT external ear and nose normal, oropharynx normal Neck trachea midline, no thyromegaly Respiratory normal respiratory effort, lungs clear to auscultation Cardiovascular RRR, no murmur, no edema Chest (Breasts) normal inspection/palpation of breasts Gastrointestinal (Abdomen) normal bowel sounds, soft, nontender, no hepatosplenomegaly Musculoskeletal no cyanosis or clubbing, extremities motor strength 5/5 Skin no rashes, warm and dry + incision (Clean,dry and intact) Neurologic patellar DTR's 2+ bilat, sensation intact Psychiatric A+Ox3, euthymic affect Genitourinary normal external appearance Lymphatic no cervical or axillary lymphadenopathy Results & Data ([facility]) Vital Signs (Past 12 Hours) Vital Signs Temp Pulse Pulse Resp BP BP Pulse Ox 01/14/20 10:10 18 97 01/14/20 09:00 20 96 01/14/20 08:00 18 98 01/14/20 07:50 36.8 C 53 L 18 105/70 96 01/14/20 07:00 18 94 01/14/20 06:00 18 94 01/14/20 05:00 18 94 01/14/20 04:00 18 95 01/14/20 03:00 37.1 C 58 L 16 102/68 96 01/14/20 02:00 16 94 01/14/20 01:15 62 18 118/64 96 01/14/20 01:00 18 94 01/14/20 00:15 18 116/68 97 01/14/20 00:00 18 95 01/13/20 23:15 36.7 C 71 65 20 109/56 L 94 01/13/20 23:12 61 94 01/13/20 23:11 65 109/56 L 01/13/20 23:10 73 95 01/13/20 23:06 75 94 01/13/20 23:05 79 96 01/13/20 23:01 67 103/58 L 01/13/20 23:00 67 20 103/58 L 95
[2020-01-14] MEDS ORDERED: SERTRALINE HCL 50 MG TABLET PO SCH (12:00)
[2020-01-14] MEDS ORDERED: PROMETHAZINE HCL 25 MG in SODIUM CHLORIDE 0.9% 50 ML IV PRN (15:08)
[2020-01-14] MEDS ORDERED: HYDROCORTISONE ACETATE 25 MG SUPP PR PRN (15:08)
[2020-01-14] MEDS ORDERED: diphenhydrAMINE Capsule 25 MG CAP PO PRN (15:08)
[2020-01-14] MEDS ORDERED: KETOROLAC 30 MG/ML VIAL IV PRN (15:08)
[2020-01-14] MEDS ORDERED: MEPERIDINE HCL 50 MG/ML CARP IV PRN (15:08)
[2020-01-14] MEDS ORDERED: ONDANSETRON INJ 2 MG/ML 2 ML VIAL IV PRN (15:08)
[2020-01-14] MEDS ORDERED: diphenhydrAMINE 50 MG/ML VIAL IV PRN (15:08)
[2020-01-14] MEDS: oxyCODONE/ACETAMINOPHEN 5mg/325mg TAB PO PRN ×2 (16:14→20:53)
[2020-01-14] MEDS ORDERED: bisacodyL 5 MG TABEC PO SCH (20:00)
[2020-01-15] MEDS: oxyCODONE/ACETAMINOPHEN 5mg/325mg TAB PO PRN ×3 (02:02→11:40)
[2020-01-15 06:47] LABS: Hematocrit (blood only) 28.2 % (37-47); Hemoglobin 8.7 g/dL (12.0-16.0)
[2020-01-15] MEDS: SIMETHICONE 80 MG CHEW PO SCH (07:54)
[2020-01-15] MEDS: FERROUS SULFATE 325 MG TAB PO SCH (07:55)
[2020-01-15] MEDS: PRENATAL VITAMIN 1 TAB PO SCH (07:55)
[2020-01-15] MEDS: IBUPROFEN 600 MG TAB PO PRN ×2 (07:55→11:41)
[2020-01-15] MEDS: DOCUSATE SODIUM 100 MG CAP PO SCH (07:55)
--- NOTE | 2020-01-15 10:06 | Surgery Progress Note ---
Date of Service January 15, 2020 Assessment & Plan Admission and Anticipated Discharge Date Admission Date: January 13, 2020 Subjective POD#3 doing well passing gas tolerating diet out of bed Physical Exam Constitutional: WD/WN, vitals as above comfortable incision c/d/i abdomen soft and non-tender for d/c Results & Data ([facility]) Vital Signs (Past 12 Hours) Vital Signs Temp Pulse Resp BP Pulse Ox 01/15/20 08:00 36.7 C 67 18 103/69 97 01/14/20 23:30 36.7 C 64 18 116/77 96 Laboratory Results Laboratory Results - last 72 hr 01/13/20 01/13/20 01/13/20 11:03 11:03 11:03 WBC 11.61 H RBC 3.58 L Hgb 10.2 L Hct 32.8 L MCV 91.6 MCH 28.5 MCHC 31.1 L RDW Std Deviation 46.4 H RDW Coeff of Shashi 14.0 Plt Count 305 MPV 10.6 H Immature Gran % (Auto) Neut % (Auto) Lymph % (Auto) Door % (Auto) Eos % (Auto) Baso % (Auto) Neut # (Auto) Lymph # (Auto) Door # (Auto) Eos # (Auto) Baso # (Auto) Immature Gran # (Auto) Sodium 137 Potassium 4.0 Chloride 108 H Carbon Dioxide 23 Anion Gap 6.0 BUN 6 L Creatinine 0.53 L Est Cr Clr Drug Dosing 156.9 Est GFR ( Amer) 141.6 Est GFR (Non-Af Amer) 122.2 BUN/Creatinine Ratio 12.2 Glucose 72 Calcium 8.6 Total Bilirubin 0.3 AST 13 L ALT 12 Alkaline Phosphatase 173 H Total Protein 6.7 Albumin 2.5 L Globulin 4.2 H Albumin/Globulin Ratio 0.6 L Hepatitis C Antibody Blood Type A Positive Antibody Screen NEGATIVE 01/13/20 01/14/20 01/15/20 11:03 06:11 06:23 WBC 15.12 H RBC 3.14 L Hgb 8.8 L 8.7 L Hct 28.8 L 28.2 L MCV 91.7 MCH 28.0 MCHC 30.6 L RDW Std Deviation 46.7 H RDW Coeff of Shashi 14.0 Plt Count 252 MPV 10.2 Immature Gran % (Auto) 0.2 Neut % (Auto) 83.1 Lymph % (Auto) 11.0 Door % (Auto) 5.3 Eos % (Auto) 0.3 Baso % (Auto) 0.1 Neut # (Auto) 12.55 H Lymph # (Auto) 1.67 Door # (Auto) 0.80 H Eos # (Auto) 0.05 Baso # (Auto) 0.02 Immature Gran # (Auto) 0.03 H Sodium Potassium Chloride Carbon Dioxide Anion Gap BUN Creatinine Est Cr Clr Drug Dosing Est GFR ( Amer) Est GFR (Non-Af Amer) BUN/Creatinine Ratio Glucose Calcium Total Bilirubin AST ALT Alkaline Phosphatase Total Protein Albumin Globulin Albumin/Globulin Ratio Hepatitis C Antibody Prelim Pos A Blood Type Antibody Screen
[2020-01-15] MEDS ORDERED: bisacodyL 10 MG SUPP PR PRN (20:55)
--- NOTE | 2020-01-17 00:32 | Discharge Summary (DS) ---
DETAILS OF ADMISSION: The patient is a 34-year-old G4, P0-1-2-2 at 39 weeks and 2 days of gestation with regular contractions and pain. History of prior for twins. She presented to labor and delivery on 01/13/2020 with regular contractions and cervical change and effacement. She decided for trial of labor after C section/vaginal after . She was discussed with the risks and benefits TOLAC/ versus repeat . She understood all, she read the form, which was written by the [employer] and she signed an informed consent. On the admission, her cervix was 1 cm dilated, 80% effaced with bulging lower bag. She was having contractions every 2-3 minutes and unable to sleep for the last 2 days. She was admitted and monitored. She desired epidural. She received epidural for pain and she was comfortable. heart rate had been category 1 and a repeat exam in the afternoon was 2 cm dilated with a bulging bag. It was artificially ruptured by myself and moderate meconium-stained fluid was obtained. heart rate was reassuring and her bladder was drained with Vasques catheter and again in the afternoon, the patient was laboring with regular contractions and the cervix was unchanged and head was ballottable. The patient was passing abundant amniotic fluid with meconium stained, contractions spaced out. After discussion with increased risk of uterine rupture, low dose of Pitocin was started. The patient labored again with regular contractions every 2-3 minutes. Cervix was examined again to be unchanged 2, 80, -2 with a cone shaped. She was still passing a good amount of meconium with the amniotic fluid. After discussion with the patient, decision was made to proceed with repeat . She had repeat low transverse with Pfannenstiel skin incision and excision of the old incision scar. Her surgery was uncomplicated. See dictated op note for details. She delivered a viable baby, Apgars were 9/9 and on postop period, the patient was doing well. Vital signs stable, afebrile, passing gas, tolerating regular diet and she was advanced to regular diet. Her incision was clean, dry and intact. Her physical exam was unremarkable. On postop day #2, the patient was doing well. Vital signs stable, afebrile, passing gas, tolerating a regular diet, ambulating without difficulty. Incision was clean, dry and intact. Abdomen was soft, nontender, nondistended. Extremities were nontender, nondistended. Her postop H and H was stable at 8.8/28.8. The patient was discharged on 01/15/2020. Discharge instructions were given. Prescriptions were written for pain. She is to be seen in office in a week for incision check.
== END 2020-01-15 12:55 | disposition home or self-care (01) | DRG 788 ==
LOC: OPB 09:22 → 4S1 09:22 → 4S2 23:49

== ENCOUNTER 2020-03-28 04:45 | Observation (INO) ==
[2020-03-28] MEDS ORDERED: SODIUM CHLORIDE 0.9% 1000ML 1,000 ML IV ONE (05:05)
[2020-03-28] MEDS ORDERED: ONDANSETRON INJ 2 MG/ML 2 ML VIAL IV STA (05:05)
[2020-03-28] MEDS ORDERED: MoRPHine SULFATE 4 MG/ML 1 ML CARP\\VIAL IV STA (05:05)
[2020-03-28 05:35] LABS: Basophils # (auto) 0.04 K/uL (0-0.2); Basophils % (auto) 0.5 %; Eosinophils % (auto) 2.7 %; Hematocrit (blood only) 33.4 % (37-47); Hemoglobin 10.4 g/dL (12.0-16.0); Immature Granulocytes # (auto) 0.01 K/uL (0.00-0.02); Immature Granulocytes % (auto) 0.1 %; Lymphocytes # (auto) 2.08 K/uL (1.2-3.4); Lymphocytes % (auto) 28.6 %; Mean Corpuscular Hemoglobin 27.7 pg (25-34); Mean Corpuscular Hgb Conc 31.1 g/dL (32-36); Mean Corpuscular Volume 89.1 fL (80-100); Mean Platelet Volume 9.2 fL (7.4-10.4); Monocytes # (auto) 0.56 K/uL (0.11-0.59); Monocytes % (auto) 7.7 %; Neutrophils # (auto) 4.39 K/uL (1.4-6.5); Neutrophils % (auto) 60.4 %; Platelet Count 358 K/uL (130-400); RDW Standard Deviation 48.6 fL (36.4-46.3); Red Blood Count 3.75 M/uL (4.2-5.4); White Blood Count 7.28 K/uL (4.8-10.8)
--- NOTE | 2020-03-28 05:45 | Emergency Department Note ---
History of Present Illness General Chief complaint: Pain (Generalized) Stated complaint: STENT THURS-PAIN,CHILLS,UNABLE EAT/SLEEP,BLEEDING History of Present Illness Maximum Pain Intensity: 10 This 34year-old presents to the ER complaining of right flank pain who had a stent placed yesterday by Dr. Chavez for kidney stones Location: Right flank Quality: Painful Severity: Moderate Duration: Past few days Timing: Started after the stent was placed Context: Pain got worse and patient came in Modifying factors: better with nothing; worse with activity Patient states she called Dr. Chavez's office Sunday with no response. Patient denies chest pain, dyspnea, fevers, flulike illness. Home Medications Medication Instructions Recorded Confirmed Type albuterol sulfate 2 puff INHALATION Q6H PRN 03/15/18 03/28/20 History cyanocobalamin (vitamin B-12) 1,000 mcg IM UD 03/15/18 03/28/20 History loratadine [Claritin] 10 mg PO DAILY PRN 03/15/18 03/28/20 History Flintstones Complete 1 tab PO QAM 05/09/19 03/28/20 History azelastine 2 spray INTRANASAL BID PRN 05/09/19 03/28/20 History fluticasone propion-salmeterol 1 inh INHALATION BID 05/09/19 03/28/20 History [Advair Diskus] ondansetron 4 mg PO Q8H PRN 05/09/19 03/28/20 History duloxetine [Cymbalta] 30 mg PO QAM 03/12/20 03/28/20 History ibuprofen 600 mg PO Q4H PRN 03/12/20 03/28/20 History tamsulosin 0.4 mg PO QAM 03/12/20 03/28/20 History Slow Fe 142 mg PO DAILY 03/25/20 03/28/20 History hyoscyamine sulfate 0.125 mg PO Q4H PRN 03/28/20 03/28/20 History montelukast 10 mg PO DAILY 03/28/20 03/28/20 History Allergies Allergy/AdvReac Type Severity Reaction Status Date / Time meloxicam Allergy Intermediate Diffuse Verified 03/28/20 05:12 "breakouts", pruritus Penicillins Allergy Intermediate Rash Verified 03/28/20 05:12 diphenhydramine AdvReac Intermediate Rash Verified 03/28/20 05:12 Past Med/Surg History Medical History Anemia Asthma Chronic back pain DDD lumbar Depression with anxiety GERD (gastroesophageal reflux disease) History of right inguinal hernia IBS (irritable bowel syndrome) Inflammatory polyarthritis Kidney stones OSHEA (nonalcoholic steatohepatitis) Scoliosis (vaginal after ) Surgical History H/O gastric bypass 06/2017 History of x2 History of cholecystectomy History of colonoscopy History of cystoscopy History of dental surgery History of tonsillectomy and adenoidectomy Status post panniculectomy Family History Other Cancer Diabetes Heart disease Hypertension Lung disease Seizures Social History Smoking Status: Never smoker Second Hand Exposure: No; Hx Alcohol Use: No Hx Substance Use: No Preferred Language: Danish Communication Ability: Effective Judicial Administrative Assistant Required: No Beliefs That Will Affect Care: None marital status: Single Current Living Situation: Family current occupational status: employed Feels Safe at Home: No Is there a partner from a previous relationship who is making you feel unsafe now?: No Safety Concerns: Feels Safe At This Time Assistive Devices: None Review of Systems A total of 10 systems reviewed and were otherwise negative Physical Exam Vital Signs Vital Signs - 24 hr 03/28/20 04:53 03/28/20 05:38 03/28/20 07:36 Temperature 36.5 C Temperature Source Oral Pulse Rate 85 Pulse Rate [Left Finger] 57 L Respiratory Rate 20 16 Blood Pressure 121/82 Blood Pressure [Right Arm] 105/63 Blood Pressure Mean 95 Blood Pressure Mean [Right Arm] 77 Pulse Oximetry 99 96 96 Oxygen Delivery Method Room Air Room Air Sepsis Recent Fever Within 48 Hours No Sepsis New/Unexplained Change in Mental Status N/A Sepsis Action Taken by Nursing No Action Required VITALS: Vitals are noted on the nurse's note and reviewed by myself. Vital signs stable. GENERAL: White female who appears in pain, in no acute distress, nondiaphoretic, well-developed well-nourished. SKIN: Capillary reflex less than 2 seconds. HEENT: Normocephalic. PERRLA. EOMI. Nares patent. Mucous membranes moist. Neck is supple without nuchal rigidity. HEART: Regular rate and rhythm without murmurs gallops or rubs. LUNGS: Clear to auscultation bilaterally without wheezes, rales or rhonchi. No retractions or accessory muscle use. ABDOMEN: Positive bowel sounds x 4. Normal tympanic percussion. Soft, nontender, without masses or organomegaly. [place] sign negative. No guarding or rebound tenderness. No CVA tenderness MUSCULOSKELETAL: No gross musculoskeletal defects. NEURO: Patient was alert and oriented to person place and time. No focal neuro logical deficits. Course Administered Medications Fluticasone/Vilanterol (Fluticasone/Vilanterol 200/25mcg 14 Puffs/Inhaler) 1 puffs INH QAM [facility]; Protocol Stop: 04/27/20 09:59 Last Admin: 03/28/20 10:34 Dose: 1 puffs Documented by: [id number] Ceftriaxone Sodium 2,000 mg/ (Dextrose) 70 mls @ 100 mls/hr IV Q24H [facility]; Protocol Stop: 04/02/20 09:59 Last Infusion: 03/28/20 11:21 Dose: 0 mls/hr Documented by: [id number] Admin: 03/28/20 10:34 Dose: 100 mls/hr Documented by: [id number] Sodium Chloride (Nss 1000ml) 1,000 mls @ 125 mls/hr IV .Q8H CÉSAR Stop: 04/27/20 09:18 Last Admin: 03/28/20 15:55 Dose: 125 mls/hr Documented by: [id number] Infusion: 03/28/20 15:55 Dose: 125 mls/hr Documented by: [id number] Admin: 03/28/20 09:39 Dose: 125 mls/hr Documented by: [id number] Morphine Sulfate (Morphine Sulfate 2 Mg/Ml Carp) 2 mg IV Q4H PRN PRN Reason: Pain Stop: 04/11/20 15:40 Last Admin: 03/28/20 19:27 Dose: 2 mg Documented by: [id number] Ondansetron HCl (Ondansetron Inj 2 Mg/Ml 2 Ml Vial) 4 mg IV Q8H PRN PRN Reason: nausea Stop: 04/27/20 09:18 Last Admin: 03/28/20 19:31 Dose: 4 mg Documented by: [id number] Oxycodone/Acetaminophen (Oxycodone/Acetaminophen 5mg/325mg Tab) 1 tab PO Q6H PRN PRN Reason: Pain Stop: 04/11/20 15:36 Last Admin: 03/28/20 15:55 Dose: 1 tab Documented by: [id number] Phenazopyridine HCl (Phenazopyridine Hcl 100 Mg Tab) 100 mg PO TID PRN PRN Reason: Dysuria Stop: 04/27/20 15:38 Last Admin: 03/28/20 20:10 Dose: 100 mg Documented by: [id number] Discontinued Medications Hydromorphone HCl (Hydromorphone Inj 0.5 Mg/0.5 Ml Syr) 0.5 mg IV NOW STA Stop: 03/28/20 06:47 Last Admin: 03/28/20 06:52 Dose: 0.5 mg Documented by: [id number] Sodium Chloride (Nss 1000ml) 1,000 mls @ 999 mls/hr IV .Q1H1M ONE Stop: 03/28/20 06:05 Last Infusion: 03/28/20 06:20 Dose: 0 mls/hr Documented by: [id number] Admin: 03/28/20 05:20 Dose: 999 mls/hr Documented by: [id number] Morphine Sulfate (Morphine Sulfate 4 Mg/Ml 1 Ml Carp\\Vial) 4 mg IV NOW STA Stop: 03/28/20 05:06 Last Admin: 03/28/20 05:20 Dose: 4 mg Documented by: [id number] Morphine Sulfate (Morphine Sulfate 4 Mg/Ml 1 Ml Carp\\Vial) 3 mg IV Q4H PRN PRN Reason: pain Stop: 04/11/20 08:54 Last Admin: 03/28/20 13:50 Dose: 3 mg Documented by: [id number] Admin: 03/28/20 09:37 Dose: 3 mg Documented by: [id number] Ondansetron HCl (Ondansetron Inj 2 Mg/Ml 2 Ml Vial) 4 mg IV NOW STA Stop: 03/28/20 05:06 Last Admin: 03/28/20 05:20 Dose: 4 mg Documented by: [id number] Medical Decision Making Medical Records Attestation: I reviewed the patient's medical records. Home Medications Current Medication List: was personally reviewed by me Laboratory Data Attestation: I reviewed the patient's lab results. Result diagrams: 03/28/20 04:58 03/28/20 04:58 Lab Results 03/28/20 03/28/20 03/28/20 Range/Units 04:58 04:58 04:58 WBC 7.28 (4.8-10.8) K/uL RBC 3.75 L (4.2-5.4) M/uL Hgb 10.4 L (12.0-16.0) g/dL Hct 33.4 L (37-47) % MCV 89.1 (80-100) fL MCH 27.7 (25-34) pg MCHC 31.1 L (32-36) g/dL RDW Std Deviation 48.6 H (36.4-46.3) fL RDW Coeff of Shashi 15.0 H (11.5-14.5) % Plt Count 358 (130-400) K/uL MPV 9.2 (7.4-10.4) fL Immature Gran % (Auto) 0.1 % Neut % (Auto) 60.4 % Lymph % (Auto) 28.6 % [place] % (Auto) 7.7 % Eos % (Auto) 2.7 % Baso % (Auto) 0.5 % Neut # (Auto) 4.39 (1.4-6.5) K/uL Lymph # (Auto) 2.08 (1.2-3.4) K/uL [place] # (Auto) 0.56 (0.11-0.59) K/uL Eos # (Auto) 0.20 (0-0.5) K/uL Baso # (Auto) 0.04 (0-0.2) K/uL Immature Gran # (Auto) 0.01 (0.00-0.02) K/uL Sodium 142 (136-145) mmol/L Potassium 3.9 (3.5-5.1) mmol/L Chloride 111 H (98-107) mmol/L Carbon Dioxide 26 (21-32) mmol/L Anion Gap 5.0 (3-11) BUN 10 (7-18) mg/dl Creatinine 0.72 (0.6-1.2) mg/dl Est Cr Clr Drug Dosing 113.2 ml/min Est GFR ( Amer) 124.9 Est GFR (Non-Af Amer) 107.7 BUN/Creatinine Ratio 13.7 (10-20) Glucose 91 (70-99) mg/dl Calcium 8.7 (8.5-10.1) mg/dl Total Bilirubin 0.3 (0.2-1) mg/dl AST 15 (15-37) U/L ALT 25 (12-78) U/L Alkaline Phosphatase 91 (45-117) U/L Total Protein 7.1 (6.4-8.2) gm/dl Albumin 3.5 (3.4-5.0) gm/dl Globulin 3.6 (2.5-4.0) gm/dl Albumin/Globulin Ratio 1.0 (0.9-2) Lipase 126 (73-393) U/L HCG, Qual Negative (Negative) Imaging Data Attestation: I personally reviewed and interpreted this imaging study as follows: MDM Narrative Prior records/ancillary studies reviewed. Triage Nursing notes reviewed. The patient's history was concerning for right flank pain. Differential diagnosis: Etiologies such as renal colic, appendicitis, diverticulitis, mesenteric ischemia, aortic pathology, infections, inflammatory bowel disease, PUD, biliary pathology, UTI, as well as others were entertained. Physical examination findings: As above. ER treatment provided: Morphine, Zofran, IV fluids, Dilaudid, Rocephin On reassessment the patient felt better. Diagnostic interpretation by me: The labs revealed anemia urinalysis revealed concerns for UTI and patient was given antibiotics. Prior urine culture was reviewed [address], [place] [address] / Director: Fabrizio Metcalf M.D. Clinical Laboratory Report Name: SHEELA STEWART Acct: [id number] Status: DIS IN : 1985 [facility] Date: 10/16/19 Age: 34 Sex: F Dis Date: 10/21/19 Loc: Telemetry [address] [place] [address]/Bed: E218-1 Spec: [id number] Collected: 10/16/19-1350 Received: 10/16/19-[address]: Cross, Janak E., M.D. Source: Urine,Clean Catch OV Order: Ordered: Urine Culture Procedure Result Verified Site Urine Culture Final 10/18/19-1144 Organism 1 Escherichia coli Dora Count >100,000 CFU/ml Sens Sensitivities to Follow E coli RX M.I.C. --- --------- Amikacin S <=16 Ampicillin R >16 Amp/Sul R >16/8 Cefazolin S <=8 Cefepime S <=4 Cefotaxime S <=2 Cefoxitin S <=8 Ceftriaxone S <=1 Cefuroxime S <=4 Ciprofloxacin S <=1 Ertapenem S <=1 Gentamicin S <=4 Imipenem S <=1 Levofloxacin S <=2 Nitrofurantoin I 64 Tobramycin S <=4 Trimeth/Sulfa R >2/38 Pip/Tazo S <=16 S = SENSITIVE I = INTERMEDIATE R = RESISTANT Imaging studies: CT ABDOMEN & PELVIS Without Contrast: Moderate right hydronephrosis. Indwelling double-J nephroureteral stent which appears appropriately positioned. No stones along the course of the stent. A few nonobstructing stones within the right renal lower pole. Unremarkable appearance of the left kidney and ureter. Status post cholecystectomy. Grossly unremarkable liver, pancreas, and spleen. IUD within the uterus. No acute abnormality along the GI tract. Normal appendix. Status post gastric bypass. Radiologist: Sai Curry MD Consultation: A consultation was placed with Dr Melgar, hospitalist. The case was discussed and diagnostics were reviewed. The patient was evaluated in the ER for further treatment. Dr. Chavez was also consulted and states he does not admit this. It appears that the patient has possible UTI and hydronephrosis from recent stent placement. Patient was given Rocephin. Prior urine culture was reviewed. Medicine will evaluate the patient for admission. By the evaluation outlined above emergent etiologies such as appendicitis, diverticulitis, mesenteric ischemia, aortic pathology, inflammatory bowel di sease, PUD, biliary pathology, as well as others were deemed relatively unlikely. The pt informed about the findings as listed above. All questions were answered and pleased with the treatment. The chart was completed utilizing Zoom voice recognition software. Grammatical errors, random word insertions, pronoun errors, and incomplete sentences are an occassional consequence of this system due to software limitations, ambient noise, and hardware issues. Any formal questions or concerns about the content, text, or information contained within the body of this dictation should be directly addressed to the physician orthotics prosthetics assistant for clarification. Impression & Plan Acute flank pain, Intractable back pain, UTI (urinary tract infection) Discharge Plan Visit Data Chief Complaint: Pain (Generalized) Stated Complaint: STENT THURS-PAIN,CHILLS,UNABLE EAT/SLEEP,BLEEDING ED Provider: Eladio Pendleton ED Midlevel Provider: Minnie Moyer Discharge Problem: Acute flank pain, Intractable back pain, UTI (urinary tract infection) Patient Disposition: Admitted As Inpatient Condition: Good Discharge Instructions Interventions: ED Discharge Assessment Last Done: 03/28/20 09:05
[2020-03-28 05:53] LABS: Albumin Level 3.5 gm/dl (3.4-5.0); BUN Creatinine Ratio 13.7 (10-20); Calcium 8.7 mg/dl (8.5-10.1); Creatinine Clr Calc Pharmacy 113.2 ml/min; Est GFR (African American) 124.9; Est GFR (Non-African American) 107.7; Potassium 3.9 mmol/L (3.5-5.1)
[2020-03-28 05:55] LABS: Bilirubin,Total 0.3 mg/dl (0.2-1); Globulin 3.6 gm/dl (2.5-4.0); Pregnancy Test, Serum Negative (Negative); Total Protein 7.1 gm/dl (6.4-8.2)
[2020-03-28 06:40] LABS: Bacteria Urine Automated Negative (Negative); Bilirubin Urine Negative (Negative); Blood Urine 3+ (Negative); Epithelial Cell Urine Auto >30 /lpf (0-5); Glucose Urine UA Negative (Negative); Ketones Urine Negative (Negative); Leukocyte Esterase Urine 1+ (Negative); Nitrite Urine Negative (Negative); Protein Urine 3+ (Negative); Specific Gravity Urine 1.019 (1.000-1.030); Urobilinogen Urine Negative (Negative); WBC Urine Automated >30 /hpf (0-5)
[2020-03-28] MEDS ORDERED: HYDROmorphone INJ 0.5 MG/0.5 ML SYR IV STA (06:46)
[2020-03-28 06:50] LABS: Cast Urine Automated 0 /lpf (0-5); RBC Urine Automated >30 /hpf (0-4)
[2020-03-28 06:51] LABS: Color Urine Red
[2020-03-28 06:52] LABS: Appearance Urine Turbid (Clear)
--- NOTE | 2020-03-28 07:14 | CT Scan Report ---
CT SCAN OF THE ABDOMEN AND PELVIS WITHOUT CONTRAST CLINICAL HISTORY: severe flank pain, recent stent COMPARISON STUDY: March 16, 2020 TECHNIQUE: CT scan of the abdomen and pelvis was performed from the lung bases to the proximal femurs . Images are reviewed in the axial, sagittal, and coronal planes. IV contrast was not administered fo r this examination. A dose lowering technique was utilized adhering to the principles of ALARA. CT DOSE: 682.76 mGy.cm FINDINGS: Lower chest: There is mild basilar atelectasis. Liver: The unenhanced liver is normal in size, contour, and attenuation. There is no intrahepatic padmaja iary ductal dilatation. Gallbladder: Not visualized presumed surgically absent Spleen: Normal in size and attenuation. Pancreas: Unremarkable. Adrenal glands: Unremarkable. Kidneys: There is a right-sided nephroureteral stent. There is trace gas within the right renal colle cting system. There are multiple right renal calculi. The proximal pigtail of the stent is: Within th e right renal pelvis. The distal pigtails coiled within the bladder. No calculi along the course of t he stent are visualized. Bowel: There are postsurgical changes of a gastric bypass. There are no transition zones indicate bow el obstruction. The appendix appears normal. There is no acute diverticulitis. Peritoneum: There is no intraperitoneal free air or abdominal ascites. Vasculature: The abdominal aorta is normal in course and caliber. Adenopathy: None. Pelvic viscera: The bladder, and pelvic viscera are unremarkable. An IUD is visualized within the isis alejandro. Skeletal structures: There is an area of sclerosis involving the right iliac bone likely representing a bone island. IMPRESSION: 1. No evidence of bowel obstruction. No evidence of free air 2. Normal appendix. No evidence of acute diverticulitis 3. Interval placement of a right-sided double pigtail nephroureteral stent. No calculi along the cour se of the stent are visualized. 4. Right-sided nephrolithiasis and right-sided hydronephrosis. Trace gas within the right renal colle cting system. ACT 112: Negative or not required by law. Electronically signed by: Tristan Espitia M.D. 03/28/2020 7:13 AM
[2020-03-28] MEDS ORDERED: ONDANSETRON INJ 2 MG/ML 2 ML VIAL IV PRN (09:19)
[2020-03-28] MEDS: MoRPHine SULFATE 4 MG/ML 1 ML CARP\\VIAL IV PRN ×2 (09:37→13:50)
--- NOTE | 2020-03-28 09:37 | Urology Consultation ---
Date of Consultation March 28, 2020 Assessment & Plan (1) Right nephrolithiasis: Stent related pain after recent right ureteroscopy and laser lithotripsy in the past she has had a similar problem with inability to tolerate stents unfortunately there is limited options to treat her at present aside from simple pain control plan for stent removal later this week however, this should occur as an outpatient not as an inpatient History of Present Illness Attending Physician: Michael Leo MD History of Present Illness 34-year-old female status post recent right ureteroscopy and laser lithotripsy in the past she has had extreme difficulty with ureteral stents she presented to the emergency room overnight with complaints of stent related pain her CT shows that there is been good fragmentation of the stone and the stent is appropriately positioned without any significant perinephric inflammation, no hematomas, no significant bladder inflammation She is afebrile, vital signs stable Allergies Allergy/AdvReac Type Severity Reaction Status Date / Time meloxicam Allergy Intermediate Diffuse Verified 03/28/20 05:12 "breakouts", pruritus Penicillins Allergy Intermediate Rash Verified 03/28/20 05:12 diphenhydramine AdvReac Intermediate Rash Verified 03/28/20 05:12 Home Medications Medication Instructions Recorded Confirmed Type albuterol sulfate 2 puff INHALATION Q6H PRN 03/15/18 03/28/20 History cyanocobalamin (vitamin B-12) 1,000 mcg IM UD 03/15/18 03/28/20 History loratadine [Claritin] 10 mg PO DAILY PRN 03/15/18 03/28/20 History Flintstones Complete 1 tab PO QAM 05/09/19 03/28/20 History azelastine 2 spray INTRANASAL BID PRN 05/09/19 03/28/20 History fluticasone propion-salmeterol 1 inh INHALATION BID 05/09/19 03/28/20 History [Advair Diskus] ondansetron 4 mg PO Q8H PRN 05/09/19 03/28/20 History duloxetine [Cymbalta] 30 mg PO QAM 03/12/20 03/28/20 History ibuprofen 600 mg PO Q4H PRN 03/12/20 03/28/20 History tamsulosin 0.4 mg PO QAM 03/12/20 03/28/20 History Slow Fe 142 mg PO DAILY 03/25/20 03/28/20 History hyoscyamine sulfate 0.125 mg PO Q4H PRN 03/28/20 03/28/20 History montelukast 10 mg PO DAILY 03/28/20 03/28/20 History Patient History Medical History Allergic rhinitis Anemia Asthma Chronic back pain DDD lumbar Depression with anxiety GERD (gastroesophageal reflux disease) History of right inguinal hernia IBS (irritable bowel syndrome) Inflammatory polyarthritis Kidney stones OSHEA (nonalcoholic steatohepatitis) Scoliosis Surgical History H/O gastric bypass 06/2017 History of x2 History of cholecystectomy History of colonoscopy History of cystoscopy cystoscopy with right stent placement: 06/17/19: MAC sedation at [facility] (subsequent stent removal) History of dental surgery History of tonsillectomy and adenoidectomy Status post panniculectomy Family History Other Cancer Diabetes Heart disease Hypertension Lung disease Seizures Social History Smoking Status: Never smoker Second Hand Exposure: No; Hx Alcohol Use: No Hx Substance Use: No Preferred Language: Togolese Communication Ability: Effective Well Logging Captain Required: No Beliefs That Will Affect Care: None marital status: Single Current Living Situation: Family current occupational status: employed Feels Safe at Home: No Is there a partner from a previous relationship who is making you feel unsafe now?: No Safety Concerns: Feels Safe At This Time Assistive Devices: None Review of Systems Review of Systems: All systems reviewed & are unremarkable except as noted in HPI & below Physical Exam Constitutional: well developed and well nourished Neck: neck nontender Respiratory: normal respiratory effort; no respiratory distress and does not use accessory muscles Cardiovascular: Rate/Rhythm: regular rate Vessels: radial pulses present Extremities: no edema Gastrointestinal (Abdomen): Inspection/Auscultation: abdomen normal to inspection Percussion/Palpation: abdomen soft; abdomen nontender and no guarding Musculoskeletal: Head/Neck/Chest: normocephalic and head atraumatic Extremities: extremities normal to inspection Skin: no rashes and no lesions Trauma: no evidence of skin trauma Neurologic: awake; not obtunded Speech / Cognition: normal speech Motor/Sensory: no tremor Psychiatric: Orientation: alert and oriented x 3 Lymphatic: no lymphadenopathy Results & Data ([facility]) Vital Signs (Past 12 Hours) Vital Signs Temp Pulse Pulse Resp BP BP BP 03/28/20 09:20 36.6 C 65 16 122/78 03/28/20 08:35 60 20 108/72 03/28/20 07:36 57 L 16 105/63 03/28/20 05:38 03/28/20 04:53 36.5 C 85 20 121/82 Pulse Ox 03/28/20 09:20 94 03/28/20 08:35 95 03/28/20 07:36 96 03/28/20 05:38 96 03/28/20 04:53 99 PG Care Time/CCT Total # of Minutes Spent Total Time Spent with Patient: Total time spent is greater than 50% in coordination of care (as documented) at patient's floor/unit and/or counseling patient: Coding Level of Care Code 47134 Inpt Consult Level 3 Diagnoses Right nephrolithiasis N20.0
[2020-03-28] MEDS: SODIUM CHLORIDE 0.9% 1000ML 1,000 ML IV SCH ×2 (09:39→15:55)
--- NOTE | 2020-03-28 09:56 | History & Physical Report ---
Date of Service March 28, 2020 Assessment & Plan (1) Renal colic on right side: -Admit to [facility] -Patient presenting from home with reports of ongoing right flank pain, s/p right ureteroscopy and laser lithotripsy with stent placement on 03/25 for recurrent nephrolithiasis -History of inability to tolerate stents in the past -CT ABD/pelvis shows right-sided nephrolithiasis and stent in place -UA does not suggest UTI -Labs unremarkable -Continue supportive care with IVF, as needed pain and nausea medication -continue Flomax -Empiric IV ceftriaxone, follow urine culture -Urology consult, case discussed with Dr. Chavez (2) Asthma: -Appears stable, no signs of acute exacerbation -Continue home inhalers (3) [facility]: [facility] Admission and Anticipated Discharge Date Admission Date: March 28, 2020 History of Present Illness Chief Complaint: Right flank pain Primary Care Provider: Audra Joya DO 34-year-old female with PMH nephrolithiasis, recurrent UTI, asthma, history of gastric bypass, and other problems listed below who presents the ED for evaluation of right flank pain. Patient is status post cystoscopy, ureteroscopy, lithotripsy, insertion of right ureteral stent on 03/[address] Chavez for recurrent nephrolithiasis. Patient reports ongoing right flank pain with radiation around into the abdomen. She reports hematuria. Patient was taking Percocet at home with minimal relief of pain. Reports one low-grade fever. Denies chills or rigors. Reports nausea and vomiting. No chest pain or shortness of breath. Denies lightheadedness, dizziness, diaphoresis, syncopal events. In the ED, CT ABD/pelvis shows right-sided nephrolithiasis and ureteral stent in place. Patient received IV morphine 4 mg, IV Dilaudid 0.5 mg and reports continued pain. UA does not suggest UTI. Patient also received IV Zofran and IVF. Allergies Allergy/AdvReac Type Severity Reaction Status Date / Time meloxicam Allergy Intermediate Diffuse Verified 03/28/20 05:12 "breakouts", pruritus Penicillins Allergy Intermediate Rash Verified 03/28/20 05:12 diphenhydramine AdvReac Intermediate Rash Verified 03/28/20 05:12 Home Medications Medication Instructions Recorded Confirmed Type albuterol sulfate 2 puff INHALATION Q6H PRN 03/15/18 03/28/20 History cyanocobalamin (vitamin B-12) 1,000 mcg IM UD 03/15/18 03/28/20 History loratadine [Claritin] 10 mg PO DAILY PRN 03/15/18 03/28/20 History Flintstones Complete 1 tab PO QAM 05/09/19 03/28/20 History azelastine 2 spray INTRANASAL BID PRN 05/09/19 03/28/20 History fluticasone propion-salmeterol 1 inh INHALATION BID 05/09/19 03/28/20 History [Advair Diskus] ondansetron 4 mg PO Q8H PRN 05/09/19 03/28/20 History duloxetine [Cymbalta] 30 mg PO QAM 03/12/20 03/28/20 History ibuprofen 600 mg PO Q4H PRN 03/12/20 03/28/20 History tamsulosin 0.4 mg PO QAM 03/12/20 03/28/20 History Slow Fe 142 mg PO DAILY 03/25/20 03/28/20 History hyoscyamine sulfate 0.125 mg PO Q4H PRN 03/28/20 03/28/20 History montelukast 10 mg PO DAILY 03/28/20 03/28/20 History Past Med/Surg History Medical History Anemia Asthma Chronic back pain DDD lumbar Depression with anxiety GERD (gastroesophageal reflux disease) History of right inguinal hernia IBS (irritable bowel syndrome) Inflammatory polyarthritis Kidney stones OSHEA (nonalcoholic steatohepatitis) Scoliosis (vaginal after ) Surgical History H/O gastric bypass 06/2017 History of x2 History of cholecystectomy History of colonoscopy History of cystoscopy History of dental surgery History of tonsillectomy and adenoidectomy Status post panniculectomy Family History Other Cancer Diabetes Heart disease Hypertension Lung disease Seizures Social History Smoking Status: Never smoker Second Hand Exposure: No; Hx Alcohol Use: No Hx Substance Use: No Preferred Language: Jamaican Communication Ability: Effective Quill Winder Required: No Beliefs That Will Affect Care: None marital status: Single Current Living Situation: Family current occupational status: employed Feels Safe at Home: No Is there a partner from a previous relationship who is making you feel unsafe now?: No Safety Concerns: Feels Safe At This Time Assistive Devices: None Review of Systems Review of Systems: ROS per HPI, all other systems reviewed and negative Physical Exam Constitutional: WD/WN, vitals as above Eyes: PERRL, conjunctivae normal, anicteric sclerae ENMT: external ear and nose normal, oropharynx normal Respiratory: normal respiratory effort, lungs clear to auscultation Cardiovascular: Rate/Rhythm: regular rate and regular rhythm Vessels: normal peripheral pulses Extremities: no edema Gastrointestinal (Abdomen): Inspection/Auscultation: normal bowel sounds Percussion/Palpation: + abdomen tender (RLQ) and abdomen soft; no hepatosplenomegaly Musculoskeletal: no cyanosis or clubbing, extremities motor strength 5/5 Skin: no rashes, warm and dry Neurologic: PERRL, EOMI, accommodation nl, no face palsy, no dysarthria Psychiatric: A+Ox3, euthymic affect Genitourinary: + CVA tenderness (right) Results & Data Results & Data ([facility]) Vital Signs (Past 12 Hours) Vital Signs Temp Pulse Pulse Resp BP BP BP 03/28/20 09:20 36.6 C 65 16 122/78 03/28/20 08:35 60 20 108/72 03/28/20 07:36 57 L 16 105/63 03/28/20 05:38 03/28/20 04:53 36.5 C 85 20 121/82 Pulse Ox 03/28/20 09:20 94 03/28/20 08:35 95 03/28/20 07:36 96 03/28/20 05:38 96 03/28/20 04:53 99 Laboratory Results Short CBC 03/28/20 Range/Units 04:58 WBC 7.28 (4.8-10.8) K/uL Hgb 10.4 L (12.0-16.0) g/dL Hct 33.4 L (37-47) % Plt Count 358 (130-400) K/uL BMP 03/28/20 04:58 Sodium 142 Potassium 3.9 Chloride 111 H Carbon Dioxide 26 BUN 10 Creatinine 0.72 Glucose 91 Calcium 8.7 Liver Function 03/28/20 Range/Units 04:58 Total Bilirubin 0.3 (0.2-1) mg/dl AST 15 (15-37) U/L ALT 25 (12-78) U/L Alkaline Phosphatase 91 (45-117) U/L Albumin 3.5 (3.4-5.0) gm/dl Urine 03/28/20 Range/Units Unknown Urine Color Red Urine Appearance Turbid A (Clear) Urine pH 7.0 (4.5-7.5) Ur Specific [place] 1.019 (1.000-1.030) Urine Protein 3+ H (Negative) Urine Glucose (UA) Negative (Negative) Diagnostic Findings CT ABD/PELVIS IMPRESSION: 1. No evidence of bowel obstruction. No evidence of free air 2. Normal appendix. No evidence of acute diverticulitis 3. Interval placement of a right-sided double pigtail nephroureteral stent. No calculi along the course of the stent are visualized. 4. Right-sided nephrolithiasis and right-sided hydronephrosis. Trace gas within the right renal collecting system. Code Status & VTE Plan VTE Prophylaxis Plan VTE Prophylaxis will be ordered: Yes Supervising Physician Co-Signing Physician Notes Patient is a 34-year-old female with history of nephrolithiasis, recurrent UTI, asthma and other medical problems presents with history of right flank pain. Patient recently had right ureteral stent for ureteral stone and underwent lithotripsy by Dr. Chavez. She admits to having worsening right flank pain associated with dysuria and intermittent hematuria. She reports having passed a stone after stent placement at home. Please review HPI for complete details of presentation. CT abdomen showed right-sided double-pigtail nephroureteral stent and no calculi along the course of the stent visualized. Also showed findings suggestive of right-sided nephrolithiasis and hydronephrosis. 3 scans within the right renal collecting system noted. On exam patient is moderately built and nourished, no apparent distress, normocephalic atraumatic, lungs are clear to auscultation, S1-S2, no murmur, abdomen soft, RLQ and right flank t enderness, no guarding or rigidity, alert, awake, oriented, grossly no focal neural deficits, no pedal edema. Patient is admitted for management of right renal colic/Possible stent pain. Continue IV fluids, Flomax, Pyridium as needed. Empirically started on Rocephin. Appreciate neurology input. I personally reviewed the record. Patient is interviewed and examined at bedside. Patient's care is coordinated with Luisa Odom [employer]. Please refer to the documentation above for details of patient's presentation and for discussion of other issues.
[2020-03-28] MEDS: FLUTICASONE/VILANTEROL 200/25MCG 14 PUFFS/INHALER INH SCH (10:34)
[2020-03-28] MEDS: cefTRIAXone SODIUM 2,000 MG in DEXTROSE 5% 50 ML IV SCH (10:34)
[2020-03-28] MEDS: oxyCODONE/ACETAMINOPHEN 5mg/325mg TAB PO PRN ×2 (15:55→22:05)
[2020-03-28] MEDS: MoRPHine SULFATE 2 MG/ML CARP IV PRN (19:27)
[2020-03-28] MEDS: PHENAZOPYRIDINE HCL 100 MG TAB PO PRN (20:10)
[2020-03-29] MEDS: SODIUM CHLORIDE 0.9% 1000ML 1,000 ML IV SCH ×3 (00:08→18:13)
[2020-03-29] MEDS: MoRPHine SULFATE 2 MG/ML CARP IV PRN ×3 (00:11→22:52)
[2020-03-29] MEDS: oxyCODONE/ACETAMINOPHEN 5mg/325mg TAB PO PRN ×3 (04:13→18:12)
[2020-03-29 05:59] LABS: Hemoglobin 9.2 g/dL (12.0-16.0); Mean Corpuscular Hemoglobin 27.8 pg (25-34); Mean Corpuscular Hgb Conc 30.7 g/dL (32-36); Mean Corpuscular Volume 90.6 fL (80-100); Mean Platelet Volume 9.3 fL (7.4-10.4); Platelet Count 323 K/uL (130-400); RDW Standard Deviation 49.6 fL (36.4-46.3); Red Blood Count 3.31 M/uL (4.2-5.4); White Blood Count 5.44 K/uL (4.8-10.8)
[2020-03-29 06:30] LABS: BUN Creatinine Ratio 11.4 (10-20); Calcium 8.2 mg/dl (8.5-10.1); Creatinine Clr Calc Pharmacy 121.7 ml/min; Est GFR (African American) 131.7; Est GFR (Non-African American) 113.6
[2020-03-29] MEDS: PHENAZOPYRIDINE HCL 100 MG TAB PO PRN ×3 (08:45→19:39)
[2020-03-29] MEDS: MONTELUKAST SODIUM 10 MG TABLET PO SCH (08:45)
[2020-03-29] MEDS ORDERED: bisacodyL 10 MG SUPP PR PRN (08:45)
[2020-03-29] MEDS: FLUTICASONE/VILANTEROL 200/25MCG 14 PUFFS/INHALER INH SCH (08:45)
[2020-03-29] MEDS: FERROUS SULFATE 325 MG TAB PO SCH (08:46)
[2020-03-29] MEDS: TAMSULOSIN HCL 0.4 MG CAP PO SCH (08:46)
[2020-03-29] MEDS ORDERED: POLYETHYLENE (MIRALAX) 17 GM PACK PO PRN (08:46)
[2020-03-29] MEDS: DULoxetine HCL 30 MG CAP PO SCH (08:46)
[2020-03-29] MEDS ORDERED: MoRPHine SULFATE 2 MG/ML CARP IV PRN (09:16)
[2020-03-29] MEDS: DOCUSATE SODIUM 100 MG CAP PO SCH ×2 (09:24→19:39)
[2020-03-29] MEDS: cefTRIAXone SODIUM 2,000 MG in DEXTROSE 5% 50 ML IV SCH (10:14)
[2020-03-29] MEDS ORDERED: traMADol HCL 50 MG TABLET PO PRN (15:48)
--- NOTE | 2020-03-29 15:57 | Hospitalist Progress Note ---
Date of Service March 29, 2020 Assessment & Plan (1) Renal colic on right side: Right renal colic Ureteral stent pain Nephrolithiasis Right hydronephrosis --CT ABD: No evidence of bowel obstruction. No evidence of free air. Normal appendix. No evidence of acute diverticulitis. Interval placement of a right- sided double pigtail nephroureteral stent. No calculi along the course of the stent are visualized. Right-sided nephrolithiasis and right-sided hydronephrosis. Trace gas within the right renal collecting system. --Urine Cx:pending -Continue IV fluids -Continue Flomax, Pyridium as needed -Empirically started on Rocephin -Appreciate Urology Input -Pain Control -Likely will need stent removal if no improvement of symptoms Constipation Likely due to pain meds Started on bowel regimen Minimize IV pain meds aable Encourage to ambulate (2) Asthma: No signs of exacerbation Continue home inhalers (3) DVT prophylaxis: SCDs Re: Hematuria Admission and Anticipated Discharge Date Admission Date: March 28, 2020 Subjective Patient is seen and examined at bedside Right flank pain, dysuria improving States having minimal hematuria intermittently Reports constipation Denies chest pain, dyspnea, dizziness, nausea Offers no other complaints Review of Systems Review of Systems: All systems reviewed & are unremarkable except as noted in HPI & below Physical Exam Physical Exam: Physical Exam: Vitals signs as noted above General Appearance:Moderately built and nourished, no apparent distress Head: normocephalic, Atraumatic Eyes: normal inspection, EOMI Neck: supple, Trachea midline Respiratory/Chest: Normal breath sounds, CTA Cardiovascular: S1, S2, No murmur Abdomen/GI:Soft, R flank tender, Bowel sounds present Extremities/Musculoskelatal:normal inspection, no edema Neurologic/Psych:AAOX3, grossly no focal neurological deficits Skin: normal color, warm Results & Data Results & Data ([facility]) Vital Signs (Past 12 Hours) Vital Signs Temp Pulse Resp BP Pulse Ox 03/29/20 15:09 36.7 C 64 16 103/71 95 03/29/20 07:20 36.7 C 77 16 116/62 97 Laboratory Results Short CBC 03/29/20 Range/Units 05:28 WBC 5.44 (4.8-10.8) K/uL Hgb 9.2 L (12.0-16.0) g/dL Hct 30.0 L (37-47) % Plt Count 323 (130-400) K/uL [facility] 03/29/20 05:28 Sodium 144 Potassium 4.0 Chloride 113 H Carbon Dioxide 26 BUN 8 Creatinine 0.66 Glucose 87 Calcium 8.2 L
[2020-03-30] MEDS: SODIUM CHLORIDE 0.9% 1000ML 1,000 ML IV SCH ×2 (02:22→12:58)
[2020-03-30] MEDS: oxyCODONE/ACETAMINOPHEN 5mg/325mg TAB PO PRN ×2 (02:23→11:00)
[2020-03-30 05:55] LABS: Hematocrit (blood only) 31.8 % (37-47)
[2020-03-30 06:21] LABS: BUN Creatinine Ratio 11.3 (10-20); Creatinine Clr Calc Pharmacy 133.9 ml/min; Est GFR (African American) 135.9; Est GFR (Non-African American) 117.3; Potassium 4.1 mmol/L (3.5-5.1)
[2020-03-30] MEDS: MoRPHine SULFATE 2 MG/ML CARP IV PRN (08:04)
[2020-03-30] MEDS: FLUTICASONE/VILANTEROL 200/25MCG 14 PUFFS/INHALER INH SCH (08:05)
[2020-03-30] MEDS: FERROUS SULFATE 325 MG TAB PO SCH (11:17)
[2020-03-30] MEDS: TAMSULOSIN HCL 0.4 MG CAP PO SCH (11:17)
[2020-03-30] MEDS: DOCUSATE SODIUM 100 MG CAP PO SCH (11:17)
[2020-03-30] MEDS: DULoxetine HCL 30 MG CAP PO SCH (11:18)
[2020-03-30] MEDS: MONTELUKAST SODIUM 10 MG TABLET PO SCH (11:18)
--- NOTE | 2020-03-30 12:33 | Hospitalist Progress Note ---
Date of Service March 30, 2020 Assessment & Plan (1) Renal colic on right side: Right renal colic Ureteral stent pain Nephrolithiasis Right hydronephrosis --CT ABD: No evidence of bowel obstruction. No evidence of free air. Normal appendix. No evidence of acute diverticulitis. Interval placement of a right- sided double pigtail nephroureteral stent. No calculi along the course of the stent are visualized. Right-sided nephrolithiasis and right-sided hydronephrosis. Trace gas within the right renal collecting system. --Urine Cx:Negative -Continue IV fluids -Continue Flomax, Pyridium as needed -Empirically received Rocephin -Appreciate Urology Input -Pain Control -Urology recommended stent removal as outpatient Constipation Likely due to pain meds Continue bowel regimen Minimize IV pain meds aable Encourage to ambulate (2) Asthma: No signs of exacerbation Continue home inhalers (3) DVT prophylaxis: SCDs Re: Hematuria Admission and Anticipated Discharge Date Admission Date: March 29, 2020 Subjective Patient is seen and examined at bedside Right flank pain, dysuria continues to improve Had BM Denies chest pain, dyspnea, dizziness, nausea No new complaints Plan to discharge home today Review of Systems Review of Systems: All systems reviewed & are unremarkable except as noted in HPI & below Physical Exam Physical Exam: Physical Exam: Vitals signs as noted above General Appearance:Moderately built and nourished, no apparent distress Head: normocephalic, Atraumatic Eyes: normal inspection, EOMI Neck: supple, Trachea midline Respiratory/Chest: Normal breath sounds, CTA Cardiovascular: S1, S2, No murmur Abdomen/GI:Soft,non tender, Bowel sounds present Extremities/Musculoskelatal:normal inspection, no edema Neurologic/Psych:AAOX3, grossly no focal neurological deficits Skin: normal color, warm Results & Data Results [facility]) Vital Signs (Past 12 Hours) Vital Signs Temp Pulse Resp BP Pulse Ox 03/30/20 07:57 36.8 C 78 18 110/75 97 Laboratory Results Short CBC 03/30/20 Range/Units 05:30 Hgb 10.0 L (12.0-16.0) g/dL Hct 31.8 L (37-47) % BMP 03/30/20 05:30 Sodium 143 Potassium 4.1 Chloride 112 H Carbon Dioxide 26 BUN 7 Creatinine 0.60 Glucose 87 Calcium 9.0
[2020-03-30] MEDS: cefTRIAXone SODIUM 2,000 MG in DEXTROSE 5% 50 ML IV SCH (12:34)
--- NOTE | 2020-03-30 12:42 | Discharge Summary ---
Date of Service March 30, 2020 Admission HPI Per Admitting Provider 34-year-old female with PMH nephrolithiasis, recurrent UTI, asthma, history of gastric bypass, and other problems listed below who presents the ED for evaluation of right flank pain. Patient is status post cystoscopy, ureteroscopy, lithotripsy, insertion of right ureteral stent on 03/[address] Chavez for recurrent nephrolithiasis. Patient reports ongoing right flank pain with radiation around into the abdomen. She reports hematuria. Patient was taking Percocet at home with minimal relief of pain. Reports one low-grade fever. Denies chills or rigors. Reports nausea and vomiting. No chest pain or shortness of breath. Denies lightheadedness, dizziness, diaphoresis, syncopal events. In the ED, CT ABD/pelvis shows right-sided nephrolithiasis and ureteral stent in place. Patient received IV morphine 4 mg, IV Dilaudid 0.5 mg and reports continued pain. UA does not suggest UTI. Patient also received IV Zofran and IVF. Admission Exam Per Admitting Provider Physical Exam Constitutional: WD/WN, vitals as above Eyes: PERRL, conjunctivae normal, anicteric sclerae ENMT: external ear and nose normal, oropharynx normal Respiratory: normal respiratory effort, lungs clear to auscultation Cardiovascular: Rate/Rhythm: regular rate and regular rhythm Vessels: normal peripheral pulses Extremities: no edema Gastrointestinal (Abdomen): Inspection/Auscultation: normal bowel sounds Percussion/Palpation: + abdomen tender (RLQ) and abdomen soft; no hepatosplenomegaly Musculoskeletal: no cyanosis or clubbing, extremities motor strength 5/5 Skin: no rashes, warm and dry Neurologic: PERRL, EOMI, accommodation nl, no face palsy, no dysarthria Psychiatric: A+Ox3, euthymic affect Genitourinary: + CVA tenderness (right) Principal Diagnosis Right renal colic Ureteral stent pain Nephrolithiasis Right hydronephrosis Discharge Data Allergies Allergy/AdvReac Type Severity Reaction Status Date / Time meloxicam Allergy Intermediate Diffuse Verified 03/28/20 05:12 "breakouts", pruritus Penicillins Allergy Intermediate Rash Verified 03/28/20 05:12 diphenhydramine AdvReac Intermediate Rash Verified 03/28/20 05:12 Consultations 03/28/20 07:02 ED Decision to Admit Stat 03/28/20 09:19 Consult Urology Routine Procedures Performed CT ABD: No evidence of bowel obstruction. No evidence of free air. Normal appendix. No evidence of acute diverticulitis. Interval placement of a right- sided double pigtail nephroureteral stent. No calculi along the course of the stent are visualized. Right-sided nephrolithiasis and right-sided hydronephrosis. Trace gas within the right renal collecting system. Ordered Studies 03/28/20 05:05 CT abd pelvis wo con Urgent Hospital Course (1) Renal colic on right side: Right renal colic Ureteral stent pain Nephrolithiasis Right hydronephrosis --CT ABD: No evidence of bowel obstruction. No evidence of free air. Normal appendix. No evidence of acute diverticulitis. Interval placement of a right- sided double pigtail nephroureteral stent. No calculi along the course of the stent are visualized. Right-sided nephrolithiasis and right-sided hydronephrosis. Trace gas within the right renal collecting system. --Urine Cx:Negative -Continue IV fluids -Continue Flomax, Pyridium as needed -Empirically received Rocephin -Appreciate Urology Input -Pain Control -Urology recommended stent removal as outpatient Constipation Likely due to pain meds Continue bowel regimen Minimize IV pain meds aable Encourage to ambulate (2) Asthma: No signs of exacerbation Continue home inhalers (3) DVT prophylaxis: SCDs Re: Hematuria Total Time Total Time Spent Total Time Spent (In Minutes): 38 minutes Total Time Includes: Examination of the Patient, Discharge Planning, Medication Reconciliation, Communication With Other Providers and Other Discharge Plan Discharge Items Patient Disposition: Home - Self-Care Reason For Visit: STENT THURS-PAIN,CHILLS,UNABLE EAT/SLEEP,BLEEDING Discharge Diagnosis: Right renal colic Ureteral stent pain Nephrolithiasis Right hydronephrosis Condition on Discharge: Good Activity: Per Instructions section Exercise/Sports: Gradually increase as tolerated Non-emergency contact: Primary Care Provider and Urologist Call non-emergency contact if: you have any medication questions, your symptoms worsen, your pain is not controlled, your pain is worsening, your pain is unusual for you, your pain is concerning for you and you have a fever Follow-up/Referrals: Audra Joya, [Primary Care Provider] - Diet: Heart Healthy Addtl Attending Provider Instructions: Follow-up with your primary care physician Dr. Joya in 1 week Follow-up with your urologist Dr. Chavez for further management of ureteral stent in 1 week Do not take ibuprofen if you have recurrence of bleeding. Seek immediate medical attention if your symptoms reoccur or worsen Pending Studies at Discharge: No Stand-Alone Forms: [facility], Opioid Pain Management, Smoking Cessation Medications and DC Order Prescriptions: New polyethylene glycol 3350 [Miralax] 17 gram Powder In Packet 17 g PO DAILY PRN (Reason: constipation) Qty: 30 RF: 0 docusate sodium 100 mg Capsule 100 mg PO BID PRN (Reason: Constipation) Qty: 30 RF: 0 phenazopyridine [Pyridium] 100 mg Tablet 100 mg PO TID PRN (Reason: Dysuria) Qty: 30 RF: 0 oxycodone-acetaminophen [Percocet] 5-325 mg Tablet 1 tab PO Q8H PRN (Reason: pain) Qty: 10 RF: 0 Continued cyanocobalamin (vitamin B-12) 1,000 mcg/mL Solution 1,000 mcg IM UD RF: 0 albuterol sulfate 90 mcg/actuation Hfa Aerosol Inhaler 2 puff INHALATION Q6H PRN (Reason: Shortness Of Breath Or Wheezing) RF: 0 loratadine [Claritin] 10 mg Tablet 10 mg PO DAILY PRN (Reason: allergies) RF: 0 fluticasone propion-salmeterol [Advair Diskus] 250-50 mcg/dose blister with device 1 inh INHALATION BID RF: 0 ondansetron 4 mg Tablet,Disintegrating 4 mg PO Q8H PRN (Reason: Nausea) RF: 0 azelastine 0.15 % (205.5 mcg) [place],Non-Aerosol 2 spray INTRANASAL BID PRN (Reason: Congestion) RF: 0 Flintstones Complete Tablet,Chewable 1 tab PO QAM RF: 0 duloxetine [Cymbalta] 30 mg Capsule,Delayed Release(Dr/Ec) 30 mg PO QAM RF: 0 tamsulosin 0.4 mg capsule 0.4 mg PO QAM RF: 0 ibuprofen 600 mg tablet 600 mg PO Q4H PRN (Reason: Pain) RF: 0 Slow Fe 142 mg (45 mg iron) Tablet Extended Release 142 mg PO DAILY RF: 0 hyoscyamine sulfate 0.125 mg Tablet 0.125 mg PO Q4H PRN (Reason: Abdominal Pain) RF: 0 montelukast 10 mg Tablet 10 mg PO DAILY RF: 0 Discharge Orders: Discharge Order (Routine); Ordered 03/30/20 Ordered By: Michael Leo Admission Data Admit Date/Time: 03/29/20 17:03 Attending Provider: Michael Leo Admit Provider: Michael Leo Primary Care Provider: Audra Joya Other Providers: Vinicio Melgar ; Juwan Chavez Other Interventions: Discharge Summary Assessment (RN) Last Done: 03/30/20 13:01
== END 2020-03-30 14:05 | disposition home or self-care (01) ==
LOC: ED 04:45 → 3N 04:45

== ENCOUNTER 2020-07-26 21:31 | Observation (INO) ==
[2020-07-26] MEDS ORDERED: SODIUM CHLORIDE 0.9% 500 ML IV ONE (23:41)
[2020-07-26] MEDS ORDERED: ONDANSETRON INJ 2 MG/ML 2 ML VIAL IV STA (23:41)
[2020-07-26] MEDS ORDERED: HYDROmorphone INJ 0.5 MG/0.5 ML SYR IV STA (23:41)
[2020-07-26 23:51] LABS: Basophils # (auto) 0.07 K/uL (0-0.2); Basophils % (auto) 0.8 %; Eosinophils # (auto) 0.19 K/uL (0-0.5); Eosinophils % (auto) 2.1 %; Hematocrit (blood only) 32.2 % (37-47); Hemoglobin 9.9 g/dL (12.0-16.0); Immature Granulocytes # (auto) 0.01 K/uL (0.00-0.02); Immature Granulocytes % (auto) 0.1 %; Lymphocytes # (auto) 2.52 K/uL (1.2-3.4); Lymphocytes % (auto) 27.8 %; Mean Corpuscular Hemoglobin 27.9 pg (25-34); Mean Corpuscular Hgb Conc 30.7 g/dL (32-36); Mean Corpuscular Volume 90.7 fL (80-100); Mean Platelet Volume 8.9 fL (7.4-10.4); Monocytes # (auto) 0.49 K/uL (0.11-0.59); Monocytes % (auto) 5.4 %; Neutrophils % (auto) 63.8 %; Platelet Count 378 K/uL (130-400); RDW Coefficient of Variation 14.3 % (11.5-14.5); RDW Standard Deviation 47.4 fL (36.4-46.3); Red Blood Count 3.55 M/uL (4.2-5.4); White Blood Count 9.08 K/uL (4.8-10.8)
[2020-07-27] LABS: Albumin Level 3.6 gm/dl (3.4-5.0); BUN Creatinine Ratio 16.1 (10-20); Calcium 8.8 mg/dl (8.5-10.1); Creatinine Clr Calc Pharmacy 122.1 ml/min; Est GFR (African American) 131.5 ml/min; Est GFR (Non-African American) 113.4 ml/min; Potassium 3.9 mmol/L (3.5-5.1)
[2020-07-27 00:03] LABS: Albumin Globulin Ratio 0.9 (0.9-2); Bilirubin,Total 0.2 mg/dl (0.2-1); Globulin 3.9 gm/dl (2.5-4.0); Total Protein 7.5 gm/dl (6.4-8.2)
[2020-07-27 00:33] LABS: Appearance Urine Turbid (Clear); Bacteria Urine Automated 1+ (Negative); Bilirubin Urine Negative (Negative); Blood Urine 3+ (Negative); Color Urine Yellow; Glucose Urine UA Negative (Negative); Ketones Urine Trace (Negative); Leukocyte Esterase Urine 3+ (Negative); Nitrite Urine Negative (Negative); Protein Urine 2+ (Negative); RBC Urine Automated >30 /hpf (0-4); Specific Gravity Urine 1.026 (1.000-1.030); Urobilinogen Urine Negative (Negative); WBC Urine Automated >30 /hpf (0-5); pH Urine 5.5 (4.5-7.5)
[2020-07-27 00:59] LABS: Calcium Oxalate Crystals Urine Present (None Prsent); Cast Urine Automated 0 /lpf (0-5)
[2020-07-27] MEDS ORDERED: HYDROmorphone INJ 0.5 MG/0.5 ML SYR IV STA ×2 (02:04→04:47)
[2020-07-27] MEDS ORDERED: cefTRIAXone SODIUM 1,000 MG/50 ML BAG IV STA (02:08)
[2020-07-27] MEDS: SODIUM CHLORIDE 0.9% 500 ML IV SCH ×5 (02:32→20:27)
[2020-07-27 03:03] LABS: Pregnancy Test, Urine Negative (Negative)
--- NOTE | 2020-07-27 04:21 | Emergency Department Note ---
Impression & Plan Pyelonephritis, Anemia ED Provider Note NAME: SHEELA STEWART AGE: 35 SEX: F ARRIVES VIA: Walk-In INFORMANT: Patient ED PROVIDER(S): Geraldine Shaw DO CHIEF COMPLAINT: Bilateral flank pain PLAN: Disposition: Admitted to the [facility] service: Condition: Good MEDICAL DECISION MAKING: This is a 35-year-old female patient who presents to the emergency department with bilateral flank pain, hematuria and vaginal bleeding. Patient has had multiple episodes of urinary tract infections and kidney stones. Patient recently finished a course of Bactrim and symptoms of infection have returned. I am concerned that the patient is suffering from pyelonephritis that is not re sponding to oral antibiotics. I am also somewhat concerned because of the patient's drop in hemoglobin consistent with anemia. She does describe significant hematuria and vaginal bleeding. I have discussed the case with the [facility] and they will evaluate for further management. Triage Nursing notes reviewed and agree with them. Prior medical records reviewed Vital Signs: reviewed and remarkable for tachycardia Differential diagnosis: Ectopic ; pyelonephritis; infected kidney stone, obstructive uropathy ER treatment provided: IV normal saline solution IV Dilaudid IV Rocephin drip Diagnostics interpreted by me: Laboratory studies: See below HPI: 35/F arrives for evaluation of bilateral flank pain and pelvic cramping. The patient has a long history of recurrent kidney infections and urinary tract infections and recently went off a course of Bactrim. She has developed hematuria, flank pain and pelvic cramping. She has a history of sepsis associated with kidney stones. The patient had a CAT scan performed on July 15 which showed evidence of stones. ROS: See above HPI for pertinent positives & negatives. A total of 10 systems reviewed and were otherwise negative. PAST MEDICAL HISTORY:See Below PAST SURGICAL HISTORY:See Below FAMILY HISTORY:See Below SOCIAL HISTORY:See Below HOME MEDICATIONS:See list ALLERGIES:See list VITALS:See Below PHYSICAL EXAMINATION: HEENT: Head - normocephalic and atraumatic Pupils are equal, round, and reactive to light. Extraocular eye muscles are intact, and sclera are anicteric. Nose - moist nasal mucosa without discharge. Mouth - moist buccal mucosa. Oropharynx is nonerythematous and there is no tonsillar exudate or edema noted. Neck: Supple; no JVD, nuchal rigidity, cervical lymphadenopathy, or auscultated bruits. Heart: Regular rate and rhythm. There is a normal S1 and S2 with no murmurs, clicks, or gallops appreciated. Lungs: Clear to auscultation bilaterally with no wheezes, rales, or rhonchi. Abdomen: Soft, bilateral CVA tenderness. Patient has normal bowel sounds. There are no palpable pulsatile masses or hepatosplenomegaly. There is no guarding, rigidity, or rebound noted. Extremities: No evidence of cyanosis, clubbing, or edema. There are easily palpable peripheral pulses. Skin: warm and dry with good turgor and no rashes. ED COURSE: Times/Reassessments: [id number]: The patient was evaluated in room A3. A complete history and physical was performed. Previous electronic medical records were reviewed. An IV lock was initiated and labs were drawn as above. The patient was started on IV normal saline solution. She was given a dose of IV Dilaudid for her significant pain. I looked at previous urine cultures. Urine specimen was obtained. Patient seems to have evidence of urinary tract infection again. She was given a dose of IV Rocephin. 0155: On reevaluation, the patient is still moderately uncomfortable. She is hemodynamically stable. I discussed the case with the [facility]. Geraldine Shaw, Past Med/Surg History Medical History Anemia Asthma Chronic back pain DDD lumbar Depression with anxiety GERD (gastroesophageal reflux disease) History of right inguinal hernia IBS (irritable bowel syndrome) Inflammatory polyarthritis Kidney stones OSHEA (nonalcoholic steatohepatitis) Scoliosis (vaginal after ) Surgical History H/O gastric bypass 06/2017 History of x2 History of cholecystectomy History of colonoscopy History of cystoscopy History of dental surgery History of tonsillectomy and adenoidectomy Status post panniculectomy Family History Other Cancer Diabetes Heart disease Hypertension Lung disease Seizures Social History Smoking Status: Never smoker Second Hand Exposure: No; Hx Alcohol Use: Yes Hx Substance Use: No Preferred Language: Sami 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 Allergies Allergies Allergy/AdvReac Type Severity Reaction Status Date / Time ciprofloxacin Allergy Intermediate VOMITING/DI Verified 07/27/20 00:12 ARRHEA meloxicam Allergy Intermediate Diffuse Verified 07/27/20 00:12 "breakouts", pruritus Penicillins Allergy Intermediate Rash Verified 07/27/20 00:12 diphenhydramine AdvReac Intermediate Rash Verified 07/27/20 00:12 Home Meds Home Medications Medication Instructions Recorded Confirmed albuterol sulfate 2 puff INHALATION Q6H PRN 03/15/18 07/27/20 cyanocobalamin (vitamin B-12) 1,000 mcg IM UD 03/15/18 07/27/20 loratadine [Claritin] 10 mg PO DAILY PRN 03/15/18 07/27/20 Flintstones Complete 1 tab PO QAM 05/09/19 07/27/20 azelastine 2 spray INTRANASAL BID PRN 05/09/19 07/27/20 fluticasone propion-salmeterol 1 inh INHALATION BID 05/09/19 07/27/20 [Advair Diskus] ondansetron 4 mg PO Q8H PRN 05/09/19 07/27/20 ibuprofen 600 mg PO Q4H PRN 03/12/20 07/27/20 tamsulosin 0.4 mg PO QAM 03/12/20 07/27/20 Slow Fe 142 mg PO DAILY 03/25/20 07/27/20 montelukast 10 mg PO DAILY 03/28/20 07/27/20 duloxetine 60 mg capsule,delayed 60 mg PO DAILY 04/09/20 07/27/20 release duloxetine 30 mg PO DAILY 07/14/20 07/27/20 levocetirizine 5 mg PO DAILY 07/14/20 07/27/20 Previous Rx's Medication Instructions Recorded docusate sodium 100 mg PO BID PRN #30 cap 03/30/20 oxycodone-acetaminophen [Percocet] 1 tab PO Q8H PRN #10 tab 03/30/20 phenazopyridine [Pyridium] 100 mg PO TID PRN #30 tab 03/30/20 polyethylene glycol 3350 [Miralax] 17 g PO DAILY PRN #30 ea 03/30/20 oxycodone-acetaminophen [Percocet] 1 tab PO Q8H PRN #10 tab 07/28/20 Results & Data (ED) Vital Signs Vital Signs - 24 hr 07/26/20 21:51 07/26/20 23:30 07/26/20 23:31 Temperature 36.4 C L Temperature Source Temporal Artery Scan Pulse Rate 106 H 81 79 Pulse Rate from SpO2 Sensor 85 83 Respiratory Rate 18 15 14 Respiratory Effort / Characteristics Non-Labored Spontaneous Respiratory Depth Normal Respiratory Pattern Regular Blood Pressure 139/74 121/76 Blood Pressure Mean 95 91 Blood Pressure Position Sitting Pulse Oximetry 98 99 100 Oxygen Delivery Method Room Air Sepsis Recent Fever Within 48 Hours No Sepsis New/Unexplained Change in Mental Status No Sepsis Action Taken by Nursing No Action Required 07/26/20 23:40 07/26/20 23:45 07/26/20 23:50 Temperature Temperature Source Pulse Rate 83 72 68 Pulse Rate from SpO2 Sensor 79 77 76 Respiratory Rate 17 18 18 Respiratory Effort / Characteristics Respiratory Depth Respiratory Pattern Blood Pressure 121/73 Blood Pressure Mean 89 Blood Pressure Position Pulse Oximetry 100 99 96 Oxygen Delivery Method Room Air Sepsis Recent Fever Within 48 Hours Sepsis New/Unexplained Change in Mental Status Sepsis Action Taken by Nursing 07/27/20 00:00 07/27/20 00:01 07/27/20 00:02 Temperature Temperature Source Pulse Rate 76 77 75 Pulse Rate from SpO2 Sensor 77 74 77 Respiratory Rate 20 21 15 Respiratory Effort / Characteristics Respiratory Depth Respiratory Pattern Blood Pressure 102/59 L Blood Pressure Mean 73 Blood Pressure Position Pulse Oximetry 98 100 97 Oxygen Delivery Method Sepsis Recent Fever Within 48 Hours Sepsis New/Unexplained Change in Mental Status Sepsis Action Taken by Nursing 07/27/20 00:10 07/27/20 00:15 07/27/20 00:20 Temperature Temperature Source Pulse Rate 76 68 75 Pulse Rate from SpO2 Sensor 77 70 77 Respiratory Rate 18 19 23 Respiratory Effort / Characteristics Respiratory Depth Respiratory Pattern Blood Pressure 90/56 L Blood Pressure Mean 67 Blood Pressure Position Pulse Oximetry 94 99 97 Oxygen Delivery Method Sepsis Recent Fever Within 48 Hours Sepsis New/Unexplained Change in Mental Status Sepsis Action Taken by Nursing 07/27/20 00:30 07/27/20 00:40 07/27/20 00:47 Temperature Temperature Source Pulse Rate 70 74 75 Pulse Rate from SpO2 Sensor 69 75 80 Respiratory Rate 26 H 23 17 Respiratory Effort / Characteristics Respiratory Depth Respiratory Pattern Blood Pressure 101/56 L 96/48 L Blood Pressure Mean 71 64 Blood Pressure Position Pulse Oximetry 98 97 92 Oxygen Delivery Method Sepsis Recent Fever Within 48 Hours Sepsis New/Unexplained Change in Mental Status Sepsis Action Taken by Nursing 07/27/20 00:50 07/27/20 01:00 07/27/20 01:01 Temperature Temperature Source Pulse Rate 87 72 66 Pulse Rate from SpO2 Sensor 81 71 66 Respiratory Rate 18 16 19 Respiratory Effort / Characteristics Respiratory Depth Respiratory Pattern Blood Pressure 97/56 L Blood Pressure Mean 69 Blood Pressure Position Pulse Oximetry 97 94 97 Oxygen Delivery Method Sepsis Recent Fever Within 48 Hours Sepsis New/Unexplained Change in Mental Status Sepsis Action Taken by Nursing 07/27/20 01:10 07/27/20 01:16 07/27/20 01:20 Temperature Temperature Source Pulse Rate 74 71 66 Pulse Rate from SpO2 Sensor 79 77 67 Respiratory Rate 23 20 19 Respiratory Effort / Characteristics Respiratory Depth Respiratory Pattern Blood Pressure 101/57 L Blood Pressure Mean 71 Blood Pressure Position Pulse Oximetry 97 90 95 Oxygen Delivery Method Sepsis Recent Fever Within 48 Hours Sepsis New/Unexplained Change in Mental Status Sepsis Action Taken by Nursing 07/27/20 01:30 07/27/20 01:40 07/27/20 01:41 Temperature Temperature Source Pulse Rate 70 94 H 67 Pulse Rate from SpO2 Sensor 73 67 Respiratory Rate 24 20 Respiratory Effort / Characteristics Respiratory Depth Respiratory Pattern Blood Pressure 71/55 L 106/58 L Blood Pressure Mean 60 74 Blood Pressure Position Pulse Oximetry 98 98 Oxygen Delivery Method Sepsis Recent Fever Within 48 Hours Sepsis New/Unexplained Change in Mental Status Sepsis Action Taken by Nursing 07/27/20 01:45 07/27/20 01:50 07/27/20 02:00 Temperature Temperature Source Pulse Rate 68 65 88 Pulse Rate from SpO2 Sensor 67 76 82 Respiratory Rate 16 22 16 Respiratory Effort / Characteristics Respiratory Depth Respiratory Pattern Blood Pressure 100/52 L 114/65 Blood Pressure Mean 68 81 Blood Pressure Position Pulse Oximetry 96 92 97 Oxygen Delivery Method Sepsis Recent Fever Within 48 Hours Sepsis New/Unexplained Change in Mental Status Sepsis Action Taken by Nursing 07/27/20 02:01 07/27/20 02:16 07/27/20 02:20 Temperature Temperature Source Pulse Rate 83 75 72 Pulse Rate from SpO2 Sensor 84 78 67 Respiratory Rate 22 22 17 Respiratory Effort / Characteristics Respiratory Depth Respiratory Pattern Blood Pressure 97/63 L Blood Pressure Mean 74 Blood Pressure Position Pulse Oximetry 97 95 96 Oxygen Delivery Method Sepsis Recent Fever Within 48 Hours Sepsis New/Unexplained Change in Mental Status Sepsis Action Taken by Nursing 07/27/20 02:30 07/27/20 02:40 07/27/20 03:58 Temperature Temperature Source Pulse Rate 80 61 60 Pulse Rate from SpO2 Sensor 62 Respiratory Rate 18 14 16 Respiratory Effort / Characteristics Respiratory Depth Respiratory Pattern Blood Pressure 95/59 L Blood Pressure Mean 71 Blood Pressure Position Pulse Oximetry 96 96 Oxygen Delivery Method Sepsis Recent Fever Within 48 Hours Sepsis New/Unexplained Change in Mental Status Sepsis Action Taken by Nursing 07/27/20 05:11 Temperature Temperature Source Pulse Rate 63 Pulse Rate from SpO2 Sensor Respiratory Rate 16 Respiratory Effort / Characteristics Respiratory Depth Respiratory Pattern Blood Pressure 111/61 Blood Pressure Mean 77 Blood Pressure Position Pulse Oximetry 95 Oxygen Delivery Method Sepsis Recent Fever Within 48 Hours Sepsis New/Unexplained Change in Mental Status Sepsis Action Taken by Nursing Laboratory Data Result diagrams: 07/28/20 05:20 07/28/20 05:20 Lab Results 07/26/20 07/26/20 07/26/20 Range/Units 21:52 21:52 23:32 WBC 9.08 (4.8-10.8) K/uL RBC 3.55 L (4.2-5.4) M/uL Hgb 9.9 L (12.0-16.0) g/dL Hct 32.2 L (37-47) % MCV 90.7 (80-100) fL MCH 27.9 (25-34) pg MCHC 30.7 L (32-36) g/dL RDW Std Deviation 47.4 H (36.4-46.3) fL RDW Coeff of Shashi 14.3 (11.5-14.5) % Plt Count 378 (130-400) K/uL MPV 8.9 (7.4-10.4) fL Immature Gran % (Auto) 0.1 % Neut % (Auto) 63.8 % Lymph % (Auto) 27.8 % [place] % (Auto) 5.4 % Eos % (Auto) 2.1 % Baso % (Auto) 0.8 % Neut # (Auto) 5.80 (1.4-6.5) K/uL Lymph # (Auto) 2.52 (1.2-3.4) K/uL [place] # (Auto) 0.49 (0.11-0.59) K/uL Eos # (Auto) 0.19 (0-0.5) K/uL Baso # (Auto) 0.07 (0-0.2) K/uL Immature Gran # (Auto) 0.01 (0.00-0.02) K/uL Sodium (136-145) mmol/L Potassium (3.5-5.1) mmol/L Chloride (98-107) mmol/L Carbon Dioxide (21-32) mmol/L Anion Gap (3-11) BUN (7-18) mg/dl Creatinine (0.6-1.2) mg/dl Est Cr Clr Drug Dosing ml/min Est GFR ( Amer) ml/min Est GFR (Non-Af Amer) ml/min BUN/Creatinine Ratio (10-20) Glucose (70-99) mg/dl Lactate (0.4-2.0) mmol/L Calcium (8.5-10.1) mg/dl Total Bilirubin (0.2-1) mg/dl AST (15-37) U/L ALT (12-78) U/L Alkaline Phosphatase (45-117) U/L Total Protein (6.4-8.2) gm/dl Albumin (3.4-5.0) gm/dl Globulin (2.5-4.0) gm/dl Albumin/Globulin Ratio (0.9-2) Lipase (73-393) U/L Urine Color Yellow Urine Appearance Turbid A (Clear) Urine pH 5.5 (4.5-7.5) Ur Specific [place] 1.026 (1.000-1.030) Urine Protein 2+ H (Negative) Urine Glucose (UA) Negative (Negative) Urine Ketones Trace H (Negative) Urine Blood 3+ H (Negative) Urine Nitrite Negative (Negative) Urine Bilirubin Negative (Negative) Urine Urobilinogen Negative (Negative) Ur Leukocyte Esterase 3+ H (Negative) Urine WBC (Auto) >30 H (0-5) /hpf Urine RBC (Auto) >30 H (0-4) /hpf U Hyaline Cast (Auto) 0 (0-5) /lpf U Epithel Cells (Auto) 5-10 H (0-5) /lpf Urine Bacteria (Auto) 1+ H (Negative) Urine Crystals Not Reportable Calcium Oxalate Crystal Present A (None Prsent) Urine Test Negative (Negative) COVID-19 Eval Order SARS-CoV-2 (PCR) (Negative) 07/26/20 07/27/20 07/27/20 Range/Units 23:32 02:21 03:00 WBC (4.8-10.8) K/uL RBC (4.2-5.4) M/uL Hgb (12.0-16.0) g/dL Hct (37-47) % MCV (80-100) fL MCH (25-34) pg MCHC (32-36) g/dL RDW Std Deviation (36.4-46.3) fL RDW Coeff of Shashi (11.5-14.5) % Plt Count (130-400) K/uL MPV (7.4-10.4) fL Immature Gran % (Auto) % Neut % (Auto) % Lymph % (Auto) % [place] % (Auto) % Eos % (Auto) % Baso % (Auto) % Neut # (Auto) (1.4-6.5) K/uL Lymph # (Auto) (1.2-3.4) K/uL [place] # (Auto) (0.11-0.59) K/uL Eos # (Auto) (0-0.5) K/uL Baso # (Auto) (0-0.2) K/uL Immature Gran # (Auto) (0.00-0.02) K/uL Sodium 139 (136-145) mmol/L Potassium 3.9 (3.5-5.1) mmol/L Chloride 106 (98-107) mmol/L Carbon Dioxide 28 (21-32) mmol/L Anion Gap 5.0 (3-11) BUN 11 (7-18) mg/dl Creatinine 0.65 (0.6-1.2) mg/dl Est Cr Clr Drug Dosing 122.1 ml/min Est GFR ( Amer) 131.5 ml/min Est GFR (Non-Af Amer) 113.4 ml/min BUN/Creatinine Ratio 16.1 (10-20) Glucose 91 (70-99) mg/dl Lactate 1.8 (0.4-2.0) mmol/L Calcium 8.8 (8.5-10.1) mg/dl Total Bilirubin 0.2 (0.2-1) mg/dl AST 14 L (15-37) U/L ALT 20 (12-78) U/L Alkaline Phosphatase 96 (45-117) U/L Total Protein 7.5 (6.4-8.2) gm/dl Albumin 3.6 (3.4-5.0) gm/dl Globulin 3.9 (2.5-4.0) gm/dl Albumin/Globulin Ratio 0.9 (0.9-2) Lipase 204 (73-393) U/L Urine Color Urine Appearance (Clear) Urine pH (4.5-7.5) Ur Specific [place] (1.000-1.030) Urine Protein (Negative) Urine Glucose (UA) (Negative) Urine Ketones (Negative) Urine Blood (Negative) Urine Nitrite (Negative) Urine Bilirubin (Negative) Urine Urobilinogen (Negative) Ur Leukocyte Esterase (Negative) Urine WBC (Auto) (0-5) /hpf Urine RBC (Auto) (0-4) /hpf U Hyaline Cast (Auto) (0-5) /lpf U Epithel Cells (Auto) (0-5) /lpf Urine Bacteria (Auto) (Negative) Urine Crystals Calcium Oxalate Crystal (None Prsent) Urine Test (Negative) COVID-19 Eval Order Covid19 at [facility] SARS-CoV-2 (PCR) (Negative) 07/27/20 Range/Units 03:00 WBC (4.8-10.8) K/uL RBC (4.2-5.4) M/uL Hgb (12.0-16.0) g/dL Hct (37-47) % MCV (80-100) fL MCH (25-34) pg MCHC (32-36) g/dL RDW Std Deviation (36.4-46.3) fL RDW Coeff of Shashi (11.5-14.5) % Plt Count (130-400) K/uL MPV (7.4-10.4) fL Immature Gran % (Auto) % Neut % (Auto) % Lymph % (Auto) % [place] % (Auto) % Eos % (Auto) % Baso % (Auto) % Neut # (Auto) (1.4-6.5) K/uL Lymph # (Auto) (1.2-3.4) K/uL [place] # (Auto) (0.11-0.59) K/uL Eos # (Auto) (0-0.5) K/uL Baso # (Auto) (0-0.2) K/uL Immature Gran # (Auto) (0.00-0.02) K/uL Sodium (136-145) mmol/L Potassium (3.5-5.1) mmol/L Chloride (98-107) mmol/L Carbon Dioxide (21-32) mmol/L Anion Gap (3-11) BUN (7-18) mg/dl Creatinine (0.6-1.2) mg/dl Est Cr Clr Drug Dosing ml/min Est GFR ( Amer) ml/min Est GFR (Non-Af Amer) ml/min BUN/Creatinine Ratio (10-20) Glucose (70-99) mg/dl Lactate (0.4-2.0) mmol/L Calcium (8.5-10.1) mg/dl Total Bilirubin (0.2-1) mg/dl AST (15-37) U/L ALT (12-78) U/L Alkaline Phosphatase (45-117) U/L Total Protein (6.4-8.2) gm/dl Albumin (3.4-5.0) gm/dl Globulin (2.5-4.0) gm/dl Albumin/Globulin Ratio (0.9-2) Lipase (73-393) U/L Urine Color Urine Appearance (Clear) Urine pH (4.5-7.5) Ur Specific [place] (1.000-1.030) Urine Protein (Negative) Urine Glucose (UA) (Negative) Urine Ketones (Negative) Urine Blood (Negative) Urine Nitrite (Negative) Urine Bilirubin (Negative) Urine Urobilinogen (Negative) Ur Leukocyte Esterase (Negative) Urine WBC (Auto) (0-5) /hpf Urine RBC (Auto) (0-4) /hpf U Hyaline Cast (Auto) (0-5) /lpf U Epithel Cells (Auto) (0-5) /lpf Urine Bacteria (Auto) (Negative) Urine Crystals Calcium Oxalate Crystal (None Prsent) Urine Test (Negative) COVID-19 Eval Order SARS-CoV-2 (PCR) NEGATIVE (Negative) Administered Medications Duloxetine HCl (Duloxetine Hcl 60 Mg Cap) 60 mg PO DAILY CÉSAR Stop: 08/26/20 08:59 Last Admin: 07/28/20 08:15 Dose: 60 mg Documented by: [id number] Admin: 07/27/20 10:43 Dose: 60 mg Documented by: [id number] Duloxetine HCl (Duloxetine Hcl 30 Mg Cap) 30 mg PO DAILY CÉSAR Stop: 08/26/20 08:59 Last Admin: 07/28/20 08:15 Dose: 30 mg Documented by: [id number] Admin: 07/27/20 10:42 Dose: 30 mg Documented by: [id number] Ferrous Sulfate (Ferrous Sulfate 325 Mg Tab) 325 mg PO DAILY CÉSAR Stop: 08/26/20 08:59 Last Admin: 07/28/20 08:15 Dose: 325 mg Documented by: [id number] Admin: 07/27/20 10:42 Dose: 325 mg Documented by: [id number] Fluticasone/Vilanterol (Fluticasone/Vilanterol 200/25mcg 14 Puffs/Inhaler) 1 puffs INH DAILY CÉSAR Stop: 08/26/20 08:59 Last Admin: 07/28/20 08:17 Dose: 1 puffs Documented by: [id number] Admin: 07/27/20 10:41 Dose: 1 puffs Documented by: [id number] Heparin Sodium (Porcine) (Heparin Sod 5,000 Unit/0.5 Ml Vial) 5,000 units SQ Q8 CÉSAR Stop: 08/26/20 13:59 Last Admin: 07/28/20 13:53 Dose: Not Given Documented by: [id number] Admin: 07/28/20 05:17 Dose: 5,000 units Documented by: [id number] Admin: 07/27/20 22:58 Dose: 5,000 units Documented by: [id number] Admin: 07/27/20 14:40 Dose: 5,000 units Documented by: [id number] Hydromorphone HCl (Hydromorphone Inj 0.5 Mg/0.5 Ml Syr) 0.5 mg IV Q4H PRN PRN Reason: Pain Stop: 08/10/20 08:29 Last Admin: 07/28/20 16:16 Dose: 0.5 mg Documented by: [id number] Admin: 07/28/20 12:01 Dose: 0.5 mg Documented by: [id number] Admin: 07/28/20 05:15 Dose: 0.5 mg Documented by: [id number] Admin: 07/27/20 20:29 Dose: 0.5 mg Documented by: [id number] Admin: 07/27/20 15:30 Dose: 0.5 mg Documented by: [id number] Admin: 07/27/20 10:53 Dose: 0.5 mg Documented by: [id number] Ceftriaxone Sodium 2,000 mg/ (Dextrose) 70 mls @ 100 mls/hr IV Q24H CÉSAR; Protocol Stop: 08/04/20 22:41 Last Infusion: 07/27/20 23:40 Dose: 0 mls/hr Documented by: [id number] Admin: 07/27/20 22:58 Dose: 100 mls/hr Documented by: [id number] Sodium Chloride (Nss 1000ml) 1,000 mls @ 125 mls/hr IV .Q8H CÉSAR Stop: 08/26/20 20:22 Last Admin: 07/28/20 16:16 Dose: 125 mls/hr Documented by: [id number] Infusion: 07/28/20 13:44 Dose: 0 mls/hr Documented by: [id number] Admin: 07/28/20 05:11 Dose: 125 mls/hr Documented by: [id number] Infusion: 07/28/20 05:10 Dose: 125 mls/hr Documented by: [id number] Infusion: 07/27/20 23:40 Dose: 125 mls/hr Documented by: [id number] Infusion: 07/27/20 22:58 Dose: 0 mls/hr Documented by: [id number] Admin: 07/27/20 20:27 Dose: 125 mls/hr Documented by: [id number] Loratadine (Loratadine 10 Mg Tab) 10 mg PO DAILY PRN PRN Reason: allergies Stop: 08/26/20 08:29 Last Admin: 07/28/20 08:16 Dose: 10 mg Documented by: [id number] Admin: 07/27/20 10:43 Dose: 10 mg Documented by: [id number] Montelukast Sodium (Montelukast Sodium 10 Mg Tablet) 10 mg PO DAILY CÉSAR Stop: 08/26/20 08:59 Last Admin: 07/28/20 08:16 Dose: 10 mg Documented by: [id number] Admin: 07/27/20 10:43 Dose: 10 mg Documented by: [id number] Multivitamins/Folic Acid/Vitamin C (Multivitamin Chewable Tab) 1 tab PO QAM CÉSAR Stop: 08/27/20 08:59 Last Admin: 07/28/20 08:16 Dose: 1 tab Documented by: [id number] Oxycodone/Acetaminophen (Oxycodone/Acetaminophen 5mg/325mg Tab) 1 tab PO Q8H PRN PRN Reason: pain Stop: 08/10/20 08:29 Last Admin: 07/28/20 08:19 Dose: 1 tab Documented by: [id number] Admin: 07/27/20 23:04 Dose: 1 tab Documented by: [id number] Admin: 07/27/20 13:00 Dose: 1 tab Documented by: [id number] Tamsulosin HCl (Tamsulosin Hcl 0.4 Mg Cap) 0.4 mg PO QAM [facility] Stop: 08/26/20 08:59 Last Admin: 07/28/20 08:16 Dose: 0.4 mg Documented by: [id number] Admin: 07/27/20 10:43 Dose: 0.4 mg Documented by: [id number] Discontinued Medications Hydromorphone HCl (Hydromorphone Inj 0.5 Mg/0.5 Ml Syr) 0.5 mg IV NOW STA Stop: 07/26/20 23:42 Last Admin: 07/26/20 23:59 Dose: 0.5 mg Documented by: [id number] Hydromorphone HCl (Hydromorphone Inj 0.5 Mg/0.5 Ml Syr) 0.5 mg IV NOW STA Stop: 07/27/20 02:05 Last Admin: 07/27/20 02:21 Dose: 0.5 mg Documented by: [id number] Hydromorphone HCl (Hydromorphone Inj 0.5 Mg/0.5 Ml Syr) 0.5 mg IV NOW STA Stop: 07/27/20 04:48 Last Admin: 07/27/20 05:09 Dose: 0.5 mg Documented by: [id number] Sodium Chloride (Nss) 500 mls @ 999 mls/hr IV .Q31M ONE Stop: 07/27/20 00:11 Last Infusion: 07/27/20 00:31 Dose: 999 mls/hr Documented by: [id number] Admin: 07/26/20 23:59 Dose: 999 mls/hr Documented by: [id number] Sodium Chloride (Nss) 500 mls @ 125 mls/hr IV .Q4H CÉSAR Stop: 08/26/20 02:14 Last Infusion: 07/27/20 20:31 Dose: 0 mls/hr Documented by: [id number] Admin: 07/27/20 20:27 Dose: Not Given Documented by: [id number] Admin: 07/27/20 15:04 Dose: 125 mls/hr Documented by: [id number] Infusion: 07/27/20 15:04 Dose: 0 mls/hr Documented by: [id number] Admin: 07/27/20 10:53 Dose: 125 mls/hr Documented by: [id number] Admin: 07/27/20 08:38 Dose: Not Given Documented by: [id number] Infusion: 07/27/20 06:32 Dose: 0 mls/hr Documented by: [id number] Admin: 07/27/20 02:32 Dose: 125 mls/hr Documented by: [id number] Ceftriaxone Sodium (Rocephin) 1,000 mg in 50 mls @ 100 mls/hr IV NOW STA Stop: 07/27/20 02:37 Last Infusion: 07/27/20 03:07 Dose: 100 mls/hr Documented by: [id number] Admin: 07/27/20 02:32 Dose: 100 mls/hr Documented by: [id number] Miscellaneous (Azelastine 0.15 % (205.5 Mcg) [place]: Order Awaiting Action) 1 ea N/A QS CÉSAR Stop: 08/26/20 15:59 Last Admin: 07/28/20 08:14 Dose: Not Given Documented by: [id number] Admin: 07/28/20 00:10 Dose: Not Given Documented by: [id number] Admin: 07/27/20 16:31 Dose: Not Given Documented by: [id number] Non-Formulary Medication (Levocetirizine) 5 mg PO DAILY CÉSAR Stop: 08/26/20 08:59 Last Admin: 07/27/20 11:55 Dose: Not Given Documented by: [id number] Ondansetron HCl (Ondansetron Inj 2 Mg/Ml 2 Ml Vial) 4 mg IV NOW STA Stop: 07/26/20 23:42 Last Admin: 07/26/20 23:59 Dose: 4 mg Documented by: [id number] Discharge Plan Visit Data Chief Complaint: Pelvic Pain Stated Complaint: PELVIC PAIN, BACK PAIN, NAUSEA ED Provider: Geraldine Shaw Discharge Problem: Pyelonephritis, Anemia Patient Disposition: Admitted As Inpatient Discharge Instructions Interventions: ED Discharge Assessment Last Done: 07/27/20 08:05 Discharge Problem: Anemia Qualifiers: Anemia type: other cause Other causes of anemia: acute posthemorrhagic Qualified Code(s): D62 - Acute posthemorrhagic anemia
--- NOTE | 2020-07-27 08:20 | History and Physical Report ---
DATE OF ADMISSION: 07/27/2020 CHIEF COMPLAINT: Abdominal pain, pain all over. HISTORY OF PRESENT ILLNESS: This is a 35-year-old female with past medical history significant for asthma, mild persistent; allergic rhinitis; irritable bowel syndrome; GERD, status post gastric bypass surgery, intestinal postoperative nonabsorption; history of renal mass; inflammatory polyarthritis; degenerative disk disease; migraine; allergic conjunctivitis of both eyes; eustachian tube dysfunction bilateral; major depression; history of psychophysiological insomnia; OSHEA, hepatitis C antibody tested positive. The patient has a history of nephrolithiasis, recurrent UTI requiring cystoscopy, stent placement, and lithotripsy. She was recently in the hospital. At that time, she had a right-sided nephrolithiasis. The patient states she was treated for UTI a couple of weeks ago, she finished antibiotics two to three days ago, but still she has symptoms of burning micturition, flank pain, abdominal pain, fatigue, poor appetite, headaches, and so she came to the ER again today. In the ER, she was afebrile, hemodynamically stable. White count is okay, but UA is again positive. SARS-CoV-2 PCR negative. The patient received Rocephin in the ER. Denies any chest pain. Once in a while, she gets short of breath. No cough. She had fever last week, but currently afebrile. No blurred vision. She had some ringing last night in the left ear, but that is on and off. No sore throat. Nauseous. No abdominal pain. Has some hematuria. No blood in the stools or black stools. No swelling in the legs. ALLERGIES: CIPROFLOXACIN, MELOXICAM, PENICILLINS, DIPHENHYDRAMINE. PAST MEDICAL HISTORY: As mentioned above. PAST SURGICAL HISTORY: Lithotripsy, cystoscopy, , colonoscopies with biopsies, dental surgery, EGDs, excision of excessive skin, lumbosacral spinal injection, laparoscopic procedure of the liver, laparoscopic gastric bypass Honorio-en-Y, laparoscopic cholecystectomy, lumbosacral epidural shots, tonsillectomy, right inguinal hernia repair. MEDICATIONS: The patient is on albuterol 2 puffs inhalation q. 6 hours p.r.n., azelastine 2 sprays intranasal b.i.d. p.r.n., vitamin B12 1000 mcg IM as directed, Colace 100 mg p.o. b.i.d. p.r.n., duloxetine 60 mg p.o. daily, Flintstones Complete one tablet p.o. daily, Advair Diskus one inhalation b.i.d., levocetirizine 5 mg p.o. daily, Claritin 10 mg p.o. daily, montelukast 10 mg p.o. daily, Zofran 4 mg p.o. q. 8 hours p.r.n., Percocet 5 mg 1 tablet p.o. q. 8 hours p.r.n., MiraLax 17 g p.o. daily, slow iron 142 mg p.o. daily, Flomax 0.4 mg p.o. a.m. FAMILY HISTORY: Significant for daughter has pollen allergies, asthma; mother has allergies, arthritis, ITP, depression, pacemaker, mental disorder, thyroid disorder, ployarteosclerosis; father had psoriasis, PTSD, hypertension, diabetes, depression, bipolar disorder. SOCIAL HISTORY: No smoking, no alcohol. Seems to have had pot and cocaine in the past. REVIEW OF SYSTEMS: As per HPI. Rest of the review of systems is negative. PHYSICAL EXAMINATION: GENERAL: The patient is obese, not in acute distress. VITAL SIGNS: Temperature 36.4, pulse 63, respiratory rate 16, blood pressure 111/61, oxygen 95% on room air. HEENT: Pupils equal, round and reactive to light. Oral mucosa moist. NECK: Supple. No JVD, no neck masses. CARDIOVASCULAR: S1 and S2 heard. Regular rate and rhythm. No murmur, no gallop. RESPIRATORY SYSTEM: Normal AP diameter. No accessory muscle use. No wheezing, no crackles. ABDOMEN: Soft, bowel sounds present. Bilateral flank tenderness present. No guarding, no rigidity, no distention. CENTRAL NERVOUS SYSTEM: Cranial nerves II-XII grossly intact, nonfocal. EXTREMITIES: No edema, no erythema. LABORATORY DATA: WBC 9, hemoglobin 9.9, hematocrit 32.2, platelets 378. Sodium 139, potassium 3.9, chloride 106, bicarbonate 28, BUN 11, creatinine 0.6, serum glucose 91, lactate 1.8, calcium 8.8, total bilirubin 0.2, AST 14, ALT 20, alkaline phosphatase 96, lipase 204. Urinalysis, +3 blood, +2 leukocyte esterase. SARS-CoV-2 PCR negative. ASSESSMENT AND PLAN: This is a 35-year-old female who presents with generalized weakness, body aches, and found to have urinary tract infection. 1. Recurrent urinary tract infection: History of kidney stones in the past with lithotripsy and cystoscopy. Will get a CT of the abdomen and pelvis. Empirically started on Rocephin. Will continue her IV fluids. If any concern, consult urology, follows with Dr. Chavez. 2. Iron-deficiency anemia: Continue iron supplements. 3. Depression: Continue home medications. 4. Asthma: Continue her home inhalers. 5. Deep venous thrombosis prophylaxis: Heparin subQ. DISPOSITION: Closely monitor in the medical floor. Level 1 full code. Expect to discharge home and follow up with family doctor. Job ID: [id number] [facility]
[2020-07-27] MEDS ORDERED: ALBUTEROL HFA 8 GM INHALER INH PRN (08:30)
[2020-07-27] MEDS ORDERED: POLYETHYLENE (MIRALAX) 17 GM PACK PO PRN (08:30)
[2020-07-27] MEDS ORDERED: ACETAMINOPHEN 325 MG TAB PO PRN (08:30)
[2020-07-27] MEDS ORDERED: [UNRECOGNIZED DRUG - REMARK] INTNAS PRN (08:30)
[2020-07-27] MEDS ORDERED: ONDANSETRON INJ 2 MG/ML 2 ML VIAL IV PRN (08:30)
[2020-07-27] MEDS ORDERED: DOCUSATE SODIUM 100 MG CAP PO PRN (08:30)
[2020-07-27] MEDS ORDERED: NON-FORMULARY MEDICATION (Levocetirizine 5 mg tablet) PO SCH (09:00)
--- NOTE | 2020-07-27 09:44 | CT Scan Report ---
CT SCAN OF THE ABDOMEN AND PELVIS WITHOUT CONTRAST CLINICAL HISTORY: pyelonephritis? kidney stone? COMPARISON STUDY: July 14, 2020 TECHNIQUE: CT scan of the abdomen and pelvis was performed from the lung bases to the proximal femurs . Images are reviewed in the axial, sagittal, and coronal planes. IV contrast was not administered fo r this examination. A dose lowering technique was utilized adhering to the principles of ALARA. CT DOSE: 1066.56 mGy.cm FINDINGS: Lower chest: Minimal atelectasis/scarring at dependent portions of bilateral lower lobes. Liver: The unenhanced liver is normal in size, contour, and attenuation. There is no intrahepatic padmaja iary ductal dilatation. Gallbladder: Is not well seen, probably surgically absent. Spleen: Normal in size and attenuation. Pancreas: Unremarkable. Adrenal glands: Unremarkable. Kidneys: The unenhanced kidneys are normal in size without hydronephrosis. No definite hypoattenuatin g lesions are seen to suggest inflammatory process within renal parenchyma however evaluation is limi radha due to lack of IV contrast. Few nonobstructive calculi are seen within right kidney, largest is m easuring 9 mm in size and unchanged since prior. Bowel: Status post gastric bypass. Distal aspect of esophagus is patulous. Bowel loops are nondilated . Appendix is normal in caliber. Peritoneum: There is no intraperitoneal free air or abdominal ascites. Vasculature: The abdominal aorta is normal in course and caliber. Adenopathy: None. Pelvic viscera: Fluid-filled urinary bladder. Normal appearance of the uterus on this nondedicated ex am. Intrauterine device is seen. Skeletal structures: No significant degenerative changes are seen. Few sclerotic lesions are seen wit hin left iliac bone, unchanged since prior and might represent enostosis in appropriate clinical sett ings. Partially visualized thoracic scoliosis. IMPRESSION: 1. No significant contour abnormalities or altered attenuation within the right and left kidneys are seen, however evaluation of pyelonephritis is significantly limited on this nonenhanced exam. 2. Stable nonobstructive nephrolithiasis is seen on the right. 3. Additional findings as above. ACT 112: Negative or not required by law. The above report was generated using voice recognition software. It may contain grammatical, syntax o r spelling errors. Electronically signed by: Flor Ford DO 07/27/2020 9:43 AM
[2020-07-27] MEDS: FLUTICASONE/VILANTEROL 200/25MCG 14 PUFFS/INHALER INH SCH (10:41)
[2020-07-27] MEDS: DULoxetine HCL 30 MG CAP PO SCH (10:42)
[2020-07-27] MEDS: FERROUS SULFATE 325 MG TAB PO SCH (10:42)
[2020-07-27] MEDS: TAMSULOSIN HCL 0.4 MG CAP PO SCH (10:43)
[2020-07-27] MEDS: DULoxetine HCL 60 MG CAP PO SCH (10:43)
[2020-07-27] MEDS: MONTELUKAST SODIUM 10 MG TABLET PO SCH (10:43)
[2020-07-27] MEDS: LORATADINE 10 MG TAB PO PRN (10:43)
[2020-07-27] MEDS: HYDROmorphone INJ 0.5 MG/0.5 ML SYR IV PRN ×3 (10:53→20:29)
[2020-07-27] MEDS: oxyCODONE/ACETAMINOPHEN 5mg/325mg TAB PO PRN ×2 (13:00→23:04)
--- NOTE | 2020-07-27 14:24 | Urology Consultation ---
Date of Consultation July 27, 2020 Assessment & Plan (1) UTI (urinary tract infection): (2) Kidney stones: (3) Flank pain: 35yo F admitted with generalized weakness and body aches secondary to presumed UTI. - Hospital course, CT imaging, labs, and urinalysis reviewed. - Plan of care and imaging reviewed with , on-call urologist. - CTAP without hydronephrosis and stable nonobstructive kidney stones on the right. - She is afebrile. - Labs reviewed, Wbc and creatinine are normal. - Urine and blood cultures pending. - No acute intervention warranted at this time. - Recommend continue supportive care and antibiotic therapy, follow cultures. - Will arrange outpatient follow-up with urology service. - Thank you for allowing us to participate in the acute care of Ms. Valverde. - Please reconsult us with additional questions, concerns or changes in patient status. History of Present Illness Reason for Consultation: Recurrent UTI; Pyelo Attending Physician: Kin Ospina MD History of Present Illness 35yo F who presented to the ED with generalized weakness, body aches, and admitted with presumed UTI. PMHx includes asthma, allergic rhinitis, irritable bowel syndrome, GERD, status post gastric bypass surgery, intestinal postoperative nonabsorption, history of renal mass, inflammatory polyarthritis, degenerative disk disease, migraine; allergic conjunctivitis of both eyes; eustachian tube dysfunction bilateral; major depression On presentation, she was afebrile, Wbc 9.08, Hgb 9.9, Cr 0.65. Urinalysis with 3+blood, negative nitrite, 3+leuks, > 30 WBC, >30 RBC, 1+bacteria. Urine and blood cultures pending. Urology consulted for recurrent UTI and pyelo. Patient is well-known to the urology service. Hx of kidney stones requiring surgical intervention and recurrent UTI CT abdomen pelvis: 1. No significant contour abnormalities or altered attenuation within the right and left kidneys are seen, however evaluation of pyelonephritis is significantly limited on this nonenhanced exam. 2. Stable nonobstructive nephrolithiasis is seen on the right. Patient examined at bedside this afternoon. Awake, resting in bed on arrival. She reports bilateral abdominal/flank pain. No fevers or chills. No nausea or vomiting. Some hematuria and dysuria with voiding. Feels she is emptying her bladder. No additional urinary symptoms. She reports recently being treated for a UTI and finishing antibiotics a few days ago. Offers no additional complaints at this time Allergies Allergy/AdvReac Type Severity Reaction Status Date / Time ciprofloxacin Allergy Intermediate VOMITING/DI Verified 07/27/20 00:12 ARRHEA meloxicam Allergy Intermediate Diffuse Verified 07/27/20 00:12 "breakouts", pruritus Penicillins Allergy Intermediate Rash Verified 07/27/20 00:12 diphenhydramine AdvReac Intermediate Rash Verified 07/27/20 00:12 Home Medications Medication Instructions Recorded Confirmed Type albuterol sulfate 2 puff INHALATION Q6H PRN 03/15/18 07/27/20 History cyanocobalamin (vitamin B-12) 1,000 mcg IM UD 03/15/18 07/27/20 History loratadine [Claritin] 10 mg PO DAILY PRN 03/15/18 07/27/20 History Flintstones Complete 1 tab PO QAM 05/09/19 07/27/20 History azelastine 2 spray INTRANASAL BID PRN 05/09/19 07/27/20 History fluticasone propion-salmeterol 1 inh INHALATION BID 05/09/19 07/27/20 History [Advair Diskus] ondansetron 4 mg PO Q8H PRN 05/09/19 07/27/20 History ibuprofen 600 mg PO Q4H PRN 03/12/20 07/27/20 History tamsulosin 0.4 mg PO QAM 03/12/20 07/27/20 History Slow Fe 142 mg PO DAILY 03/25/20 07/27/20 History montelukast 10 mg PO DAILY 03/28/20 07/27/20 History docusate sodium 100 mg PO BID PRN #30 cap 03/30/20 07/27/20 Rx oxycodone-acetaminophen [Percocet] 1 tab PO Q8H PRN #10 tab 03/30/20 07/27/20 Rx phenazopyridine [Pyridium] 100 mg PO TID PRN #30 tab 03/30/20 07/27/20 Rx polyethylene glycol 3350 [Miralax] 17 g PO DAILY PRN #30 ea 03/30/20 07/27/20 Rx duloxetine 60 mg capsule,delayed 60 mg PO DAILY 04/09/20 07/27/20 History release duloxetine 30 mg PO DAILY 07/14/20 07/27/20 History levocetirizine 5 mg PO DAILY 07/14/20 07/27/20 History Patient History Medical History Anemia Asthma Chronic back pain DDD lumbar Depression with anxiety GERD (gastroesophageal reflux disease) History of right inguinal hernia IBS (irritable bowel syndrome) Inflammatory polyarthritis Kidney stones OSHEA (nonalcoholic steatohepatitis) Scoliosis (vaginal after ) Surgical History H/O gastric bypass 06/2017 History of x2 History of cholecystectomy History of colonoscopy History of cystoscopy History of dental surgery History of tonsillectomy and adenoidectomy Status post panniculectomy Family History Other Cancer Diabetes Heart disease Hypertension Lung disease Seizures Social History Smoking Status: Never smoker Second Hand Exposure: No; Hx Alcohol Use: Yes Hx Substance Use: No Preferred Language: Singaporean Communication Ability: Effective Costume Design Teacher Required: No Beliefs That Will Affect Care: None marital status: Single Current Living Situation: Significant Other and Other Current Living Situation Comment: Fiance and children current occupational status: employed Other Information That Helps Us Care for You: No Feels Safe at Home: Yes Safety Concerns: Feels Safe At This Time Assistive Devices: Contacts and Denture - Upper Assistive Devices Comment: Partial upper denture. Review of Systems Review of Systems: All systems reviewed & are unremarkable except as noted in HPI & below Physical Exam Constitutional: well developed and well nourished; no acute distress Neck: normal visual inspection Respiratory: no labored breathing and no audible wheezes Gastrointestinal (Abdomen): Percussion/Palpation: + abdomen tender and abdomen soft; no guarding and abdomen not rigid Musculoskeletal: Head/Neck/Chest: normocephalic Skin: no rashes, warm and dry Neurologic: awake Psychiatric: A+Ox3, euthymic affect Results & Data ([place]) Vital Signs (Past 12 Hours) Vital Signs Temp Pulse Pulse Resp BP BP Pulse Ox 07/27/20 08:20 36.4 C L 71 18 107/65 94 07/27/20 08:01 76 13 108/67 97 07/27/20 08:00 70 15 96 07/27/20 07:30 59 L 14 95 07/27/20 07:01 62 11 L 104/50 L 95 07/27/20 07:00 59 L 15 95 07/27/20 06:30 61 15 95 07/27/20 06:00 77 17 07/27/20 05:30 62 19 07/27/20 05:12 60 14 94 07/27/20 05:11 63 16 111/61 95 07/27/20 03:58 60 16 95/59 L 96 07/27/20 02:40 61 14 96 07/27/20 02:30 80 18 07/27/20 02:20 72 17 96 PG Care Time/CCT Total # of Minutes Spent Total Time Spent with Patient: Total time spent is greater than 50% in coordination of care (as documented) at patient's floor/unit and/or counseling patient: Coding Level of Care Code 75197 Inpt Consult Level 3 Diagnoses UTI (urinary tract infection) N39.0 Kidney stones N20.0 Flank pain R10.9
[2020-07-27] MEDS: HEPARIN SOD 5,000 UNIT/0.5 ML VIAL SQ SCH ×2 (14:40→22:58)
--- NOTE | 2020-07-27 16:17 | Communication Note ---
Date of Service: July 27, 2020 She is a 35-year-old female with significant past medical history of gastric bypass surgery, history of renal mass, inflammatory polyarthritis, history of k idney stones and recurrent UTI including other medical problems as mentioned in the H&P was admitted with another attack of UTI and possible pyelonephritis. He finished a recent course of antibiotic with Bactrim for UTI as an outpatient. Presented to ER with generalized weakness, body aches and noted to have UTI and possible [place] without any fever and/or increasing white count. She has been sta rted with intravenous Rocephin, pain control and IV fluid, urine and blood cultures have been sent and urology has been consulted for recurrent nature of the problem. She remains reasonably stable following admission. A full progress note will be done tomorrow. Dr Frida Ospina
[2020-07-27] MEDS: SODIUM CHLORIDE 0.9% 1000ML 1,000 ML IV SCH (20:27)
[2020-07-27] MEDS: cefTRIAXone SODIUM 2,000 MG in DEXTROSE 5% 50 ML IV SCH (22:58)
[2020-07-28] MEDS: SODIUM CHLORIDE 0.9% 1000ML 1,000 ML IV SCH ×2 (05:11→16:16)
[2020-07-28] MEDS: HYDROmorphone INJ 0.5 MG/0.5 ML SYR IV PRN ×4 (05:15→21:22)
[2020-07-28] MEDS: HEPARIN SOD 5,000 UNIT/0.5 ML VIAL SQ SCH ×3 (05:17→21:22)
[2020-07-28 05:30] LABS: Basophils # (auto) 0.06 K/uL (0-0.2); Basophils % (auto) 1.2 %; Eosinophils # (auto) 0.16 K/uL (0-0.5); Eosinophils % (auto) 3.1 %; Hematocrit (blood only) 32.1 % (37-47); Hemoglobin 9.8 g/dL (12.0-16.0); Lymphocytes # (auto) 2.43 K/uL (1.2-3.4); Lymphocytes % (auto) 47.7 %; Mean Corpuscular Hgb Conc 30.5 g/dL (32-36); Mean Corpuscular Volume 91.7 fL (80-100); Mean Platelet Volume 8.8 fL (7.4-10.4); Monocytes # (auto) 0.25 K/uL (0.11-0.59); Monocytes % (auto) 4.9 %; Neutrophils # (auto) 2.19 K/uL (1.4-6.5); Neutrophils % (auto) 43.1 %; Platelet Count 344 K/uL (130-400); RDW Coefficient of Variation 14.3 % (11.5-14.5); RDW Standard Deviation 47.8 fL (36.4-46.3); White Blood Count 5.09 K/uL (4.8-10.8)
[2020-07-28 06:05] LABS: Potassium 4.1 mmol/L (3.5-5.1)
[2020-07-28 06:19] LABS: BUN Creatinine Ratio 12.3 (10-20); Calcium 8.4 mg/dl (8.5-10.1); Creatinine Clr Calc Pharmacy 161.9 ml/min; Est GFR (African American) 144.3 ml/min; Est GFR (Non-African American) 124.5 ml/min; Magnesium 2.2 mg/dl (1.8-2.4)
[2020-07-28] MEDS: DULoxetine HCL 60 MG CAP PO SCH (08:15)
[2020-07-28] MEDS: FERROUS SULFATE 325 MG TAB PO SCH (08:15)
[2020-07-28] MEDS: DULoxetine HCL 30 MG CAP PO SCH (08:15)
[2020-07-28] MEDS: MULTIVITAMIN CHEWABLE TAB PO SCH (08:16)
[2020-07-28] MEDS: MONTELUKAST SODIUM 10 MG TABLET PO SCH (08:16)
[2020-07-28] MEDS: LORATADINE 10 MG TAB PO PRN (08:16)
[2020-07-28] MEDS: TAMSULOSIN HCL 0.4 MG CAP PO SCH (08:16)
[2020-07-28] MEDS: FLUTICASONE/VILANTEROL 200/25MCG 14 PUFFS/INHALER INH SCH (08:17)
[2020-07-28] MEDS: oxyCODONE/ACETAMINOPHEN 5mg/325mg TAB PO PRN ×2 (08:19→18:58)
--- NOTE | 2020-07-28 14:33 | XRay Report ---
KUB CLINICAL HISTORY: Nephrolithiasis COMPARISON STUDY: CT of the abdomen and pelvis July 27, 2020. FINDINGS: Bowel gas pattern is normal. Incidental note is made of an intrauterine device. Several rig ht renal calculi are similar to prior examination. Pelvic calcifications reflect phleboliths. No uret eral calculi are identified. IMPRESSION: 1. No change in right-sided nephrolithiasis. 2. No ureteral calculi. ACT 112: Negative or not required by law. Electronically signed by: Nick Flores M.D. 07/28/2020 2:32 PM
--- NOTE | 2020-07-28 16:29 | Hospitalist Progress Note ---
Date of Service July 28, 2020 Assessment & Plan (1) UTI (urinary tract infection): (2) Kidney stones: (3) Flank pain: This is a 35-year-old female who presents with generalized weakness, body aches, and found to have urinary tract infection. 1) recurrent urinary tract infections/Stable nonobstructive nephrolithiasis is seen on the right. - CTAP without hydronephrosis and stable nonobstructive kidney stones on the right. Appreciate urology input. Follow-up with urology as an outpatient. Continues to have right flank pain. Pain cultures are positive but not convincing blood cultures are negative thus far. We will continue ceftriaxone for now. No plan for urological intervention at this time. Continue maintenance IV fluids. 2. Iron-deficiency anemia: Continue iron supplements. 3. Depression: Continue home medications. 4. Asthma: Continue her home inhalers. 5. Deep venous thrombosis prophylaxis: Heparin subQ. Admission and Anticipated Discharge Date Admission Date: July 27, 2020 Subjective Patient reports he continues to have significant right flank pain, 7 out of 10 that radiates to the right groin. Was nauseous but not now. Denies any fever chills or diaphoresis. Does report intermittent dysuria. Denies any chest pain or shortness of breath. Review of Systems Review of Systems: All systems reviewed & are unremarkable except as noted in HPI & below Physical Exam Physical Exam: General: A&Ox3 HENT: NCAT, MMM, EOMI Eyes: PERRLA Neck: Supple, normal range of motion CVS: normal rate and rhythm Resp: b/l good breath sounds Abdomen: Soft, nondistended nontender Extremities: No c/c/e Neuro: face symmetric, no focal deficit Skin: warm and dry MSK: normal ROM, no joint swelling/erythema Results & Data Results & Data ([facility]) Vital Signs (Past 12 Hours) Vital Signs Temp Pulse Resp BP Pulse Ox 07/28/20 15:39 36.7 C 76 16 107/71 97 07/28/20 08:09 36.7 C 65 16 110/70 95 07/28/20 07:56 36.7 C 57 L 20 106/68 97
[2020-07-28] MEDS ORDERED: AZELASTINE HCL 0.1% NASAL 200 SPRAYS/27,400 MCG BTL NAE PRN (20:00)
[2020-07-28] MEDS: cefTRIAXone SODIUM 2,000 MG in DEXTROSE 5% 50 ML IV SCH (21:22)
[2020-07-29] MEDS: SODIUM CHLORIDE 0.9% 1000ML 1,000 ML IV SCH ×2 (00:42→08:27)
[2020-07-29] MEDS: HYDROmorphone INJ 0.5 MG/0.5 ML SYR IV PRN ×3 (01:17→10:00)
[2020-07-29] MEDS: oxyCODONE/ACETAMINOPHEN 5mg/325mg TAB PO PRN (04:38)
[2020-07-29] MEDS: HEPARIN SOD 5,000 UNIT/0.5 ML VIAL SQ SCH (06:09)
[2020-07-29] MEDS: DULoxetine HCL 60 MG CAP PO SCH (08:29)
[2020-07-29] MEDS: FERROUS SULFATE 325 MG TAB PO SCH (08:30)
[2020-07-29] MEDS: LORATADINE 10 MG TAB PO PRN (08:30)
[2020-07-29] MEDS: MULTIVITAMIN CHEWABLE TAB PO SCH (08:30)
[2020-07-29] MEDS: DULoxetine HCL 30 MG CAP PO SCH (08:31)
[2020-07-29] MEDS: MONTELUKAST SODIUM 10 MG TABLET PO SCH (08:31)
[2020-07-29] MEDS: FLUTICASONE/VILANTEROL 200/25MCG 14 PUFFS/INHALER INH SCH (08:31)
[2020-07-29] MEDS: TAMSULOSIN HCL 0.4 MG CAP PO SCH (08:32)
--- NOTE | 2020-07-30 14:44 | Discharge Summary ---
Date of Service July 30, 2020 Admission HPI Per Admitting Provider This is a 35-year-old female with past medical history significant for asthma, mild persistent; allergic rhinitis; irritable bowel syndrome; GERD, status post gastric bypass surgery, intestinal postoperative nonabsorption; history of renal mass; inflammatory polyarthritis; degenerative disk disease; migraine; allergic conjunctivitis of both eyes; eustachian tube dysfunction bilateral; major depression; history of psychophysiological insomnia; OSHEA, hepatitis C antibody tested positive. The patient has a history of nephrolithiasis, recurrent UTI requiring cystoscopy, stent placement, and lithotripsy. She was recently in the hospital. At that time, she had a right-sided nephrolithiasis. The patient states she was treated for UTI a couple of weeks ago, she finished antibiotics two to three days ago, but still she has symptoms of burning micturition, flank pain, abdominal pain, fatigue, poor appetite, headaches, and so she came to the ER again today. In the ER, she was afebrile, hemodynamically stable. White count is okay, but UA is again positive. SARS-CoV-2 PCR negative. The patient received Rocephin in the ER. Denies any chest pain. Once in a while, she gets short of breath. No cough. She had fever last week, but currently afebrile. No blurred vision. She had some ringing last night in the left ear, but that is on and off. No sore throat. Nauseous. No abdominal pain. Has some hematuria. No blood in the stools or black stools. No swelling in the legs. Admission Exam Per Admitting Provider GENERAL: The patient is obese, not in acute distress. VITAL SIGNS: Temperature 36.4, pulse 63, respiratory rate 16, blood pressure 111/61, oxygen 95% on room air. HEENT: Pupils equal, round and reactive to light. Oral mucosa moist. NECK: Supple. No JVD, no neck masses. CARDIOVASCULAR: S1 and S2 heard. Regular rate and rhythm. No murmur, no gallop. RESPIRATORY SYSTEM: Normal AP diameter. No accessory muscle use. No wheezing, no crackles. ABDOMEN: Soft, bowel sounds present. Bilateral flank tenderness present. No guarding, no rigidity, no distention. CENTRAL NERVOUS SYSTEM: Cranial nerves II-XII grossly intact, nonfocal. EXTREMITIES: No edema, no erythema. Principal Diagnosis (1) UTI (urinary tract infection): (2) Kidney stones: (3) Flank pain: Discharge Exam General: A&Ox3 HENT: NCAT, MMM, EOMI Eyes: PERRLA Neck: Supple, normal range of motion CVS: normal rate and rhythm Resp: b/l good breath sounds Abdomen: Soft, nondistended nontender Extremities: No c/c/e Neuro: face symmetric, no focal deficit Skin: warm and dry MSK: normal ROM, no joint swelling/erythema Discharge Data Allergies Allergy/AdvReac Type Severity Reaction Status Date / Time ciprofloxacin Allergy Intermediate VOMITING/DI Verified 07/27/20 00:12 ARRHEA meloxicam Allergy Intermediate Diffuse Verified 07/27/20 00:12 "breakouts", pruritus Penicillins Allergy Intermediate Rash Verified 07/27/20 00:12 diphenhydramine AdvReac Intermediate Rash Verified 07/27/20 00:12 Consultations 07/27/20 02:03 ED Decision to Admit Stat 07/27/20 12:48 Consult Urology Routine Ordered Studies 07/27/20 08:30 CT abd pelvis wo con Urgent Hospital Course (1) UTI (urinary tract infection): (2) Kidney stones: (3) Flank pain: This is a 35-year-old female who presents with generalized weakness, body aches scented with concern for UTI. 1) recurrent urinary tract infections/Stable nonobstructive nephrolithiasis is seen on the right. - CTAP without hydronephrosis and stable nonobstructive kidney stones on the right. Urology was consulted. Recommended to follow-up with urology as an outpatient. Pain cultures are positive but not convincing blood cultures are negative at the time of discharge. Patient did receive ceftriaxone during her stay. We will continue ceftriaxone for now. No plan for urological intervention at this time. On the day of discharge patient was doing okay. She will follow up with urology as an outpatient. She was discharged in stable condition. 2. Iron-deficiency anemia: Continue iron supplements. 3. Depression: Continue home medications. 4. Asthma: Continue her home inhalers. 5. Deep venous thrombosis prophylaxis: Heparin subQ. Total Time Total Time Spent Total Time Spent (In Minutes): 35 Discharge Plan Discharge Items Patient Disposition: Home - Self-Care Reason For Visit: PAIN Discharge Diagnosis: Nephrolithiasis Activity: Resume your previous activity Non-emergency contact: Primary Care Provider Call non-emergency contact if: your symptoms worsen Follow-up/Referrals: Audra Joya DO [Primary Care Provider] - (Date & Time 08/05/2020 11:20 AM Provider Audra Joya DO Department [facility] ) Diet: Regular Addtl Attending Provider Instructions: Follow up wit your primary care physician and urology as an outpatient. Pending Studies at Discharge: Yes Stand-Alone Forms: My [facility] [place], Smoking Cessation Medications and DC Order Prescriptions: New oxycodone-acetaminophen [Percocet] 5-325 mg Tablet 1 tab PO Q8H PRN (Reason: pain) Qty: 10 RF: 0 Continued duloxetine [Cymbalta] 60 mg capsule,delayed release(DR/EC) 60 mg PO DAILY RF: 0 cyanocobalamin (vitamin B-12) 1,000 mcg/mL Solution 1,000 mcg IM UD RF: 0 albuterol sulfate 90 mcg/actuation Hfa Aerosol Inhaler 2 puff INHALATION Q6H PRN (Reason: Shortness Of Breath Or Wheezing) RF: 0 loratadine [Claritin] 10 mg Tablet 10 mg PO DAILY PRN (Reason: allergies) RF: 0 fluticasone propion-salmeterol [Advair Diskus] 250-50 mcg/dose blister with device 1 inh INHALATION BID RF: 0 ondansetron 4 mg Tablet,Disintegrating 4 mg PO Q8H PRN (Reason: Nausea) RF: 0 azelastine 0.15 % (205.5 mcg) [place],Non-Aerosol 2 spray INTRANASAL BID PRN (Reason: Congestion) RF: 0 Flintstones Complete Tablet,Chewable 1 tab PO QAM RF: 0 tamsulosin 0.4 mg capsule 0.4 mg PO QAM RF: 0 ibuprofen 600 mg tablet 600 mg PO Q4H PRN (Reason: Pain) RF: 0 Slow Fe 142 mg (45 mg iron) Tablet Extended Release 142 mg PO DAILY RF: 0 montelukast 10 mg Tablet 10 mg PO DAILY RF: 0 polyethylene glycol 3350 [Miralax] 17 gram Powder In Packet 17 g PO DAILY PRN (Reason: constipation) Qty: 30 RF: 0 docusate sodium 100 mg Capsule 100 mg PO BID PRN (Reason: Constipation) Qty: 30 RF: 0 phenazopyridine [Pyridium] 100 mg Tablet 100 mg PO TID PRN (Reason: Dysuria) Qty: 30 RF: 0 oxycodone-acetaminophen [Percocet] 5-325 mg Tablet 1 tab PO Q8H PRN (Reason: pain) Qty: 10 RF: 0 duloxetine 30 mg capsule,delayed release(DR/EC) 30 mg PO DAILY RF: 0 levocetirizine 5 mg tablet 5 mg PO DAILY RF: 0 Discharge Orders: Discharge Order (Routine); Ordered 07/29/20 Ordered By: Jane Mora/Other Patient Handouts: ED Kidney Stone w/ Colic Admission Data Admit Date/Time: 07/27/20 06:37 Attending Provider: Jane Pulido Admit Provider: Russell Mack Primary Care Provider: Audra Joya Other Providers: Russell Mack ; Juwan Chavez Other Interventions: Discharge Summary Assessment (RN) Last Done: 07/29/20 12:57
== END 2020-07-29 02:00 | disposition home or self-care (01) | DRG 690 ==
LOC: ED 21:31 → SUATTDRO 07-27 06:37 → INTOOBSV 07-27 06:37 → 3W 07-27 06:37

== ENCOUNTER 2021-12-28 18:39 | Observation (INO) ==
--- NOTE | 2021-12-28 19:01 | Emergency Department Note ---
Impression & Plan Intervertebral disc protrusion, Sciatica, Intractable low back pain ED Provider Note NAME: SHEELA STEWART AGE: 36 SEX: F : 1985 ARRIVES VIA: Walk-In INFORMANT: Patient, ED PROVIDER(S): Gerardo Lamar MD Chief Complaint: Back pain HPI: Patient presents due to concern for back pain. The patient did have a recent back procedure done by back specialist at [facility] approximately 1 week ago. Patient states that she has noticed some itchiness and discomfort near her site but is also had some pain that seems to shoot down the left leg. The patient is unsure as to whether or not she is actually weak but this may be secondary to the pain. The patient has been taking Percocet every 12 hours but without significant improvement in symptoms. Patient also does complain of bilateral flank pain is noted some hematuria. Patient has had associated nausea but no vomiting. No chest pains or shortness of breath. Patient has any fevers or chills. The patient has a follow-up with her primary surgeon on the . Patient does state that she has elements of renal colic she does feel as though she may be passing kidney stones that she has had a prior history. ROS: See HPI for pertinent positives and negatives. A total of 10 systems were reviewed and otherwise negative. Past medical history: See below Surgical history: See below Social history: See below Physical Exam: GENERAL: NAD, wearing a mask, non-toxic. EYE EXAM: Normal conjunctiva. PERRL, no anisocoria and EOM's grossly intact w/o pain. NECK: Supple, no nuchal rigidity, no adenopathy, non-tender. No signs of meningismus. FROM of the neck with good chin to chest and neck extension. No stridor. LUNGS: Clear to auscultation. Normal chest wall mechanics. HEART: NSR, no MRG. ABDOMEN: Abdomen soft, non-tender, normo-active bowel sounds, no masses, no rebound or guarding. BACK: Bilateral CVA TTP without overlying skin change, dressing in place over the midline lower lumbar spine without surrounding crepitus bleeding or lewis inage. SKIN: No rashes and no bruising. UPPER EXTREMITIES: Upper extremities are grossly normal. LOWER EXTREMITIES: Grossly normal, no edema. Decreased range of motion of left lower extremity which may be secondary to pain, decreased EHL. NEURO EXAM: A&O x3, cranial nerves II-XII grossly intact, normal speech, decreased range of motion of left lower extremity secondary to pain, good movement at the foot and ankle, no sensory deficits. No saddle anesthesia. Differential diagnoses: Musculoskeletal, disc herniation, fracture, metastatic disease, cord compression, discitis, sciatica, cauda equina, infection, aortic disease, renal colic, gastrointestinal, as well as other pathologies. Course: Patient was seen and evaluated the bedside. Full history physical exam was performed. Imaging Studies: MRI L-spine with and without contrast hemangioma at L3. S/p laminectomy. Disc retrusion at L5-S1. No obvious soft tissue abscess. Cardiac monitoring: An order was placed for continuous cardiac monitoring. The monitor shows a rate of 88 with sinus rhythm. MDM: Patient presents due to concern for back and flank pain. Blood work is obtained the patient did have a CT of the abdomen pelvis completed. The patient does have decreased range of motion of the left lower extremity but this may be pain related. Patient was treated with IV morphine and steroids. I discussed with the patient that if her range of motion did not improve after pain medication administration we will consider getting an MRI of the L-spine. Patient is agreeable to this plan of care. The patient denies any saddle anesthesia bowel bladder incontinence or retention. Patient's MRI of the lumbar spine shows small hemangioma no focal lesion or acute fracture. Normal disc spaces. The patient is status postlaminectomy L5- S1 with a disc protrusion at L5-S1 into the left intervertebral foramen contributing to left lateral recess impingement and moderate narrowing of the left intervertebral foramen. Given this with associated intractable back pain I did speak the on-call hospitalist who asked that I speak with spine. I outside hospital as we do not have any current spinal consult. I did speak w/ transfer center and I did speak with Dr. Hastings with spine at [facility] who stated that after discussion of the patient's symptoms and MRI findings that he would not recommend transfer as he would not perform any procedure at this time. He recommends continued pain management. I did discuss this with the on-call hospitalist Dr. Melgar and the patient was admitted to the medicine service. Past Med/Surg History Medical History Anemia Asthma LAST USED RESCUE INHALER 2 DAYS AGO Chronic back pain DDD lumbar Depression with anxiety GERD (gastroesophageal reflux disease) Heart palpitations REASON FOR METOPROLOL>HOLTOR MONITOR DONE "WNL">[facility] History of COVID-19 02/2021 [facility]>FATIGUE/FEVER *FEELING BETTER History of right inguinal hernia IBS (irritable bowel syndrome) Inflammatory polyarthritis Kidney stones OSHEA (nonalcoholic steatohepatitis) Scoliosis (vaginal after ) Surgical History H/O gastric bypass 06/2017 History of x2 History of cholecystectomy History of colonoscopy History of cystoscopy History of dental surgery History of esophagogastroduodenoscopy (EGD) History of tonsillectomy and adenoidectomy Hx of LASIK Status post panniculectomy Family History Father Family history of diabetes mellitus Sister Family history of diabetes mellitus Other Cancer Diabetes Heart disease Hypertension Lung disease No family history of adverse response to anesthesia Seizures Social History Smoking Status: Never smoker Second Hand Exposure: No; Hx Alcohol Use: Yes Hx Substance Use: No Preferred Language: Zimbabwean Communication Ability: Effective Health Informatics Specialist Required: No Beliefs That Will Affect Care: None marital status: Single Current Living Situation: Family Current Living Situation Comment: Fiance and children current occupational status: employed Feels Safe at Home: Yes Assistive Devices: None Allergies Allergies Allergy/AdvReac Type Severity Reaction Status Date / Time ciprofloxacin Allergy Intermediate VOMITING/DI Verified 12/28/21 20:20 ARRHEA diphenhydramine Allergy Intermediate Rash Verified 12/28/21 20:20 meloxicam Allergy Intermediate Diffuse Verified 12/28/21 20:20 "breakouts", pruritus Penicillins Allergy Intermediate Rash Verified 12/28/21 20:20 tramadol Allergy Mild Rash Verified 12/28/21 20:20 Home Meds Home Medications Medication Instructions Recorded Confirmed albuterol sulfate 90 mcg/actuation 2 inh inhalation Q4 PRN Shortness 08/20/21 12/28/21 aerosol inhaler Of Breath Or Wheezing azelastine 137 mcg (0.1 %) nasal 2 spray intranasal BID 08/20/21 12/28/21 spray aerosol cyanocobalamin (vitamin B-12) 1,000 mcg IM MO 08/20/21 12/28/21 1,000 mcg/mL injection solution fluticasone propionate 50 2 spray intranasal QAM 08/20/21 12/28/21 mcg/actuation nasal spray,suspension gabapentin 300 mg capsule 300 mg PO HS 08/20/21 12/28/21 mometasone-formoterol HFA 100 2 puff inhalation BID 08/20/21 12/28/21 mcg-5 mcg/actuation aerosol inhaler (Dulera) oxycodone-acetaminophen 5 mg-325 1 tab PO Q8 PRN Pain 08/20/21 12/28/21 mg tablet pediatric multivitamin no.76 1 tab PO DAILY 08/20/21 12/28/21 (Flintstones Complete chewable tablet) Unknown Muscle Relaxant 1 dose PO DIRECTED PRN MUSCLE 12/28/21 12/28/21 SPASMS gabapentin 100 mg capsule 100 mg PO QAM 12/28/21 12/28/21 Previous Rx's Medication Instructions Recorded ondansetron 4 mg disintegrating 4 mg PO Q6H PRN nausea and 08/21/21 tablet vomiting #12 tabs Results & Data (ED) Vital Signs Vital Signs - 24 hr 12/28/21 18:42 12/28/21 19:10 12/28/21 20:16 Temperature 36.6 C Temperature Source Temporal Artery Scan Pulse Rate 93 H Pulse Rate [Left Finger] 91 H Pulse Rhythm [Left Finger] Regular Pulse Strength [Left Finger] Normal Respiratory Rate 18 18 Respiratory Effort / Characteristics Non-Labored Respiratory Depth Normal Normal Respiratory Pattern Regular Blood Pressure 141/74 H Blood Pressure [Right Arm] 124/71 Blood Pressure Mean 96 Blood Pressure Mean [Right Arm] 88 Blood Pressure Position [Right Arm] Lying Pulse Oximetry 98 99 97 Oxygen Delivery Method Room Air Room Air Room Air Sepsis Recent Fever Within 48 Hours No Sepsis New/Unexplained Change in Mental Status No Sepsis Action Taken by Nursing No Action Required 12/28/21 20:37 12/29/21 00:00 Temperature Temperature Source Pulse Rate Pulse Rate [Left Finger] 74 85 Pulse Rhythm [Left Finger] Regular Regular Pulse Strength [Left Finger] Normal Normal Respiratory Rate 18 20 Respiratory Effort / Characteristics Non-Labored Spontaneous Non-Labored Spontaneous Respiratory Depth Normal Normal Respiratory Pattern Regular Regular Blood Pressure Blood Pressure [Right Arm] 137/100 127/81 Blood Pressure Mean Blood Pressure Mean [Right Arm] 112 96 Blood Pressure Position [Right Arm] Lying Lying Pulse Oximetry 93 98 Oxygen Delivery Method Room Air Room Air Sepsis Recent Fever Within 48 Hours Sepsis New/Unexplained Change in Mental Status Sepsis Action Taken by [facility] Medications Current Medication List: was personally reviewed by me Laboratory Data Attestation: I reviewed the patient's lab results. Result diagrams: 12/28/21 19:41 12/28/21 19:41 Lab Results 12/28/21 12/28/21 12/28/21 Range/Units 19:41 19:41 20:39 WBC 9.15 (4.8-10.8) K/ul RBC 4.12 (3.93-5.22) M/uL Hgb 13.6 (12.0-16.0) g/dl Hct 40.2 (34.1-44.9) % MCV 97.6 (80.0-100.0) fL MCH 33.0 (25.0-34.0) pg MCHC 33.8 (32.0-36.0) g/dL RDW Std Deviation 45.5 (36.4-46.3) fL RDW Coeff of Shashi 12.9 (11.5-14.5) % Plt Count 336 (130-400) K/uL MPV 9.2 L (9.4-12.3) fL Immature Gran % (Auto) 0.3 % Neut % (Auto) 66.3 % Lymph % (Auto) 25.0 % Davidson % (Auto) 5.9 % Eos % (Auto) 1.5 % Baso % (Auto) 1.0 % Neut # (Auto) 6.06 (1.4-6.5) K/uL Lymph # (Auto) 2.29 (1.2-3.4) K/uL Davidson # (Auto) 0.54 (0.24-0.82) K/uL Eos # (Auto) 0.14 (0-0.50) K/uL Baso # (Auto) 0.09 (0-0.2) K/uL Immature Gran # (Auto) 0.03 H (0.00-0.02) K/uL Sodium 138 (136-145) mmol/L Potassium 4.0 (3.5-5.1) mmol/L Chloride 106 (98-107) mmol/L Carbon Dioxide 27 (21-32) mmol/L Anion Gap 5 (3-11) BUN 8 (6-23) mg/dl Creatinine 0.49 L (0.6-1.2) mg/dl Est Cr Clr Drug Dosing Not Reportable Est GFR ( Amer) 143.2 ml/min Est GFR (Non-Af Amer) 123.6 ml/min BUN/Creatinine Ratio 16.3 (10-20) Glucose 87 (70-99(Fasting)) mg/dl Calcium 9.0 (8.5-10.1) mg/dl Total Bilirubin 0.3 (0.2-1.0) mg/dl AST 14 (13-39) U/L ALT 10 (7-52) U/L Alkaline Phosphatase 74 (34-104) U/L Total Protein 7.4 (6.0-8.3) gm/dl Albumin 4.2 (3.4-5.0) gm/dl Globulin 3.2 (2.5-4.0) gm/dl Albumin/Globulin Ratio 1.3 (0.9-2) Lipase 43 (11-82) U/L Urine Color Yellow Urine Appearance Clear (Clear) Urine pH 7.0 (4.5-7.5) Ur Specific Viper 1.018 (1.000-1.030) Urine Protein Negative (Negative) Urine Glucose (UA) Negative (Negative) Urine Ketones Negative (Negative) Urine Blood Negative (Negative) Urine Nitrite Negative (Negative) Urine Bilirubin Negative (Negative) Urine Urobilinogen Negative (Negative) Ur Leukocyte Esterase Negative (Negative) Urine Test (Negative) SARS-CoV-2, RNA, NAAT (NEGATIVE) 12/28/21 12/29/21 Range/Units 20:39 00:01 WBC (4.8-10.8) K/ul RBC (3.93-5.22) M/uL Hgb (12.0-16.0) g/dl Hct (34.1-44.9) % MCV (80.0-100.0) fL MCH (25.0-34.0) pg MCHC (32.0-36.0) g/dL RDW Std Deviation (36.4-46.3) fL RDW Coeff of Shashi (11.5-14.5) % Plt Count (130-400) K/uL MPV (9.4-12.3) fL Immature Gran % (Auto) % Neut % (Auto) % Lymph % (Auto) % Davidson % (Auto) % Eos % (Auto) % Baso % (Auto) % Neut # (Auto) (1.4-6.5) K/uL Lymph # (Auto) (1.2-3.4) K/uL Davidson # (Auto) (0.24-0.82) K/uL Eos # (Auto) (0-0.50) K/uL Baso # (Auto) (0-0.2) K/uL Immature Gran # (Auto) (0.00-0.02) K/uL Sodium (136-145) mmol/L Potassium (3.5-5.1) mmol/L Chloride (98-107) mmol/L Carbon Dioxide (21-32) mmol/L Anion Gap (3-11) BUN (6-23) mg/dl Creatinine (0.6-1.2) mg/dl Est Cr Clr Drug Dosing Est GFR ( Amer) ml/min Est GFR (Non-Af Amer) ml/min BUN/Creatinine Ratio (10-20) Glucose (70-99(Fasting)) mg/dl Calcium (8.5-10.1) mg/dl Total Bilirubin (0.2-1.0) mg/dl AST (13-39) U/L ALT (7-52) U/L Alkaline Phosphatase (34-104) U/L Total Protein (6.0-8.3) gm/dl Albumin (3.4-5.0) gm/dl Globulin (2.5-4.0) gm/dl Albumin/Globulin Ratio (0.9-2) Lipase (11-82) U/L Urine Color Urine Appearance (Clear) Urine pH (4.5-7.5) Ur Specific Viper (1.000-1.030) Urine Protein (Negative) Urine Glucose (UA) (Negative) Urine Ketones (Negative) Urine Blood (Negative) Urine Nitrite (Negative) Urine Bilirubin (Negative) Urine Urobilinogen (Negative) Ur Leukocyte Esterase (Negative) Urine Test Negative (Negative) SARS-CoV-2, RNA, NAAT NEGATIVE (NEGATIVE) Administered Medications Discontinued Medications Fentanyl Citrate (Fentanyl Citrate 100 Mcg/2 Ml Vial) 50 mcg IV NOW STA Stop: 12/28/21 20:23 Last Admin: 12/28/21 20:25 Dose: 50 mcg Documented By: SELVIN Fentanyl Citrate (Fentanyl Citrate 100 Mcg/2 Ml Vial) 50 mcg IV NOW STA Stop: 12/28/21 23:33 Last Admin: 12/29/21 00:06 Dose: 50 mcg Documented By: LAVON Gadobutrol (Gadobutrol 65ml Vial) 7.7 ml IV ONCE ONE Stop: 12/28/21 22:33 Last Admin: 12/28/21 22:33 Dose: 7.7 ml Documented By: LISETTE Sodium Chloride (Nss 1000ml) 1,000 mls @ 999 mls/hr IV .Q1H1M STA Stop: 12/28/21 20:13 Last Infusion: 12/28/21 20:43 Dose: 0 mls/hr Documented By: Admin: 12/28/21 19:39 Dose: 999 mls/hr Documented By: SELVIN Methylprednisolone (Methylprednisolone 125 Mg/2 Ml Vial) 125 mg IV NOW STA Stop: 12/28/21 19:17 Last Admin: 12/28/21 19:37 Dose: 125 mg Documented By: SELVIN Morphine Sulfate (Morphine Sulfate 4 Mg/Ml 1 Ml Carp\\Vial) 4 mg IV NOW STA Stop: 12/28/21 19:17 Last Admin: 12/28/21 19:37 Dose: 4 mg Documented By: SELVIN Ondansetron HCl (Ondansetron Inj 2 Mg/Ml 2 Ml Vial) 4 mg IV NOW STA Stop: 12/28/21 19:14 Last Admin: 12/28/21 19:37 Dose: 4 mg Documented By: USMAN Imaging Data Radiologist's Impression: Abdomen/Pelvis CT 12/28/21 19:[address] WITHOUT CONTRAST CT DOSE: 611.45 mGy.cm HISTORY: b/l flank pain; recent L spine procedure TECHNIQUE: Multiaxial CT images of the abdomen and pelvis were performed without contrast. A dose lowering technique was utilized adhering to the principles of ALARA. COMPARISON STUDY: Abdomen and pelvis CT 12/17/2021. FINDINGS: The lung bases are clear. No pneumoperitoneum. No pneumatosis. Interval L5-S1 laminectomy. There are midline skin solange seen within the lower lumbar region. Prior gastric bypass. The unenhanced liver, spleen, adrenal glands, pancreas, and left kidney are unremarkable. Stable cortical calcification within the upper pole the right kidney. There is a stable 5 mm stone within the lower pole of the right kidney. No ureteral stones. No hydronephrosis. Normal caliber abdominal aorta. No retroperitoneal lymphadenopathy. No pelvic free fluid. The bladder, uterus, and ovaries are within normal limits. Suboptimal evaluation for bowel pathology due to the lack of intravenous and oral contrast. However, there is no definite bowel wall thickening or obstruction. Colonic diverticulosis. No evidence for acute diverticulitis. Normal appendix. IMPRESSION: 1. No definite bowel wall thickening or obstruction. 2. Normal appendix. 3. Stable right-sided nephrolithiasis. No ureteral stones. No hydronephrosis. 4. Interval postoperative changes within the lower lumbar spine. ACT 112: Negative or not required by law. Electronically signed by: Jasiel Davis M.D. 12/28/2021 8:10 PM Discharge Plan Visit Data Chief Complaint: Back Injury/Pain Stated Complaint: PAIN FROM BACK SURGERY, HAVING PAIN ALL OVER ED Provider: Gerardo Lamar Discharge Problem: Intervertebral disc protrusion, Sciatica, Intractable low back pain Patient Disposition: Admitted As Inpatient Prescriptions Prescriptions: No Action oxycodone-acetaminophen 5-325 mg tablet 1 tab PO Q8 PRN (Reason: Pain) cyanocobalamin (vitamin B-12) [Vitamin B-12] 1,000 mcg/mL Solution 1,000 mcg IM MO gabapentin 300 mg capsule 300 mg PO HS azelastine 137 mcg (0.1 %) Aerosol,[place] 2 spray INTRANASAL BID albuterol sulfate 90 mcg/actuation Hfa Aerosol Inhaler 2 inh INHALATION Q4 PRN (Reason: Shortness Of Breath Or Wheezing) fluticasone propionate 50 mcg/actuation spray,suspension 2 spray INTRANASAL QAM Dulera 100-5 mcg/actuation HFA aerosol inhaler 2 puff INHALATION BID Flintstones Complete Tablet,Chewable 1 tab PO DAILY ondansetron 4 mg tablet,disintegrating 4 mg PO Q6H PRN (Reason: nausea and vomiting) Qty: 12 0RF gabapentin 100 mg Capsule 100 mg PO QAM Unknown Muscle Relaxant 1 dose PO DIRECTED PRN (Reason: MUSCLE SPASMS) Rx Instructions: PT UNSURE OF NAME OR STRENGTH OF MED, UNABLE TO VERIFY THIS MED. Referrals Referrals: Audra Joya, [Primary Care Provider] -
[2021-12-28] MEDS ORDERED: SODIUM CHLORIDE 0.9% 1000ML 1,000 ML IV STA (19:13)
[2021-12-28] MEDS ORDERED: ONDANSETRON INJ 2 MG/ML 2 ML VIAL IV STA (19:13)
[2021-12-28] MEDS ORDERED: methylPREDNISolone 125 MG/2 ML VIAL IV STA (19:16)
[2021-12-28] MEDS ORDERED: MoRPHine SULFATE 4 MG/ML 1 ML CARP\\VIAL IV STA (19:16)
[2021-12-28 19:56] LABS: Basophils # (auto) 0.09 K/uL (0-0.2); Eosinophils # (auto) 0.14 K/uL (0-0.50); Eosinophils % (auto) 1.5 %; Hematocrit (blood only) 40.2 % (34.1-44.9); Hemoglobin 13.6 g/dl (12.0-16.0); Immature Granulocytes # (auto) 0.03 K/uL (0.00-0.02); Immature Granulocytes % (auto) 0.3 %; Lymphocytes # (auto) 2.29 K/uL (1.2-3.4); Mean Corpuscular Hgb Conc 33.8 g/dL (32.0-36.0); Mean Corpuscular Volume 97.6 fL (80.0-100.0); Mean Platelet Volume 9.2 fL (9.4-12.3); Monocytes # (auto) 0.54 K/uL (0.24-0.82); Monocytes % (auto) 5.9 %; Neutrophils # (auto) 6.06 K/uL (1.4-6.5); Neutrophils % (auto) 66.3 %; Platelet Count 336 K/uL (130-400); RDW Coefficient of Variation 12.9 % (11.5-14.5); RDW Standard Deviation 45.5 fL (36.4-46.3); Red Blood Count 4.12 M/uL (3.93-5.22); White Blood Count 9.15 K/ul (4.8-10.8)
--- NOTE | 2021-12-28 20:12 | CT Scan Report ---
ABDOMEN AND PELVIS CT WITHOUT CONTRAST CT DOSE: 611.45 mGy.cm HISTORY: b/l flank pain; recent L spine procedure TECHNIQUE: Multiaxial CT images of the abdomen and pelvis were performed without contrast. A dose lo wering technique was utilized adhering to the principles of ALARA. COMPARISON STUDY: Abdomen and pelvis CT 12/17/2021. FINDINGS: The lung bases are clear. No pneumoperitoneum. No pneumatosis. Interval L5-S1 laminectomy. There are midline skin solange seen within the lower lumbar region. Prior gastric bypass. The unenhan avis liver, spleen, adrenal glands, pancreas, and left kidney are unremarkable. Stable cortical calcif ication within the upper pole the right kidney. There is a stable 5 mm stone within the lower pole of the right kidney. No ureteral stones. No hydronephrosis. Normal caliber abdominal aorta. No retroper itoneal lymphadenopathy. No pelvic free fluid. The bladder, uterus, and ovaries are within normal coe its. Suboptimal evaluation for bowel pathology due to the lack of intravenous and oral contrast. Calix joan, there is no definite bowel wall thickening or obstruction. Colonic diverticulosis. No evidence f or acute diverticulitis. Normal appendix. IMPRESSION: 1. No definite bowel wall thickening or obstruction. 2. Normal appendix. 3. Stable right-sided nephrolithiasis. No ureteral stones. No hydronephrosis. 4. Interval postoperative changes within the lower lumbar spine. ACT 112: Negative or not required by law. Electronically signed by: Jasiel Davis M.D. 12/28/2021 8:10 PM
[2021-12-28] MEDS ORDERED: fentaNYL citrate 100 MCG/2 ML VIAL IV STA ×2 (20:22→23:32)
[2021-12-28 20:29] LABS: Alanine Aminotransferase 10 U/L (7-52); Albumin Globulin Ratio 1.3 (0.9-2); Albumin Level 4.2 gm/dl (3.4-5.0); Alkaline Phosphatase 74 U/L (34-104); Anion Gap 5 (3-11); Aspartate Aminotransferase 14 U/L (13-39); BUN Creatinine Ratio 16.3 (10-20); Bilirubin,Total 0.3 mg/dl (0.2-1.0); Blood Urea Nitrogen 8 mg/dl (6-23); Carbon Dioxide 27 mmol/L (21-32); Chloride 106 mmol/L (98-107); Est GFR (African American) 143.2 ml/min; Est GFR (Non-African American) 123.6 ml/min; Globulin 3.2 gm/dl (2.5-4.0); Glucose 87 mg/dl (70-99(Fasting)); Lipase 43 U/L (11-82); Sodium 138 mmol/L (136-145); Total Protein 7.4 gm/dl (6.0-8.3)
[2021-12-28 21:07] LABS: Appearance Urine Clear (Clear); Bilirubin Urine Negative (Negative); Blood Urine Negative (Negative); Color Urine Yellow; Glucose Urine UA Negative (Negative); Ketones Urine Negative (Negative); Leukocyte Esterase Urine Negative (Negative); Nitrite Urine Negative (Negative); Protein Urine Negative (Negative); Specific Gravity Urine 1.018 (1.000-1.030); Urobilinogen Urine Negative (Negative)
[2021-12-28 21:11] LABS: Pregnancy Test, Urine Negative (Negative)
[2021-12-28] MEDS ORDERED: GADOBUTROL 65ML VIAL IV ONE (22:32)
[2021-12-29] MEDS ORDERED: MoRPHine SULFATE 4 MG/ML 1 ML CARP\\VIAL IV STA (01:20)
[2021-12-29] MEDS ORDERED: PROMETHAZINE HCL 12.5 MG in SODIUM CHLORIDE 0.9% 50 ML IV PRN (01:20)
[2021-12-29] MEDS ORDERED: MoRPHine SULFATE 4 MG/ML 1 ML CARP\\VIAL IV PRN (02:02)
--- NOTE | 2021-12-29 02:15 | History & Physical Report ---
Date of Service December 29, 2021 Assessment & Plan (1) Lumbar radiculopathy: Plan: Worsening postop pain and LLE weakness Recent surgery last week at [facility] asthma, stable hx inflammatory polyarthritis on immunosuppressive regimen hx NAFLD mood disorder, at baseline history of gastric bypass OBS F Analgesia Orthopedics spine consult Re: Worsening postop lumbar radiculopathy (Will request AM provider to contact patient's [facility] surgeon (Dr. Priest) in a.m. for further recommendations given absence of Orthopedics spine coverage at [facility] today as per online physician schedule.) [ER provider earlier contacted Dr. Hastings of [facility] (on-call physician for patient's [facility] surgeon, Dr. Priest) who refused patient transfer. Patient transfer to [facility] hospitalist service for postop Orthopedics spine evaluationas per patient request given was likewise refused by on-call bench manager, Dr. Peralta.] DVT prophylaxis. SCDs Re: Recent spine surgery Full code Text document was generated using [employer] voice recognition software. It may contain grammatical or spelling errors. Kindly contact undersigned for clarification of any documentation item in question. History of Present Illness Chief Complaint: Worsening back pain Primary Care Provider: Audra Joya DO History obtained from patient and records. Medical history significant for asthma, inflammatory polyarthritis, NAFLD, mood disorder, history of gastric bypass, IBS, urolithiasis, chronic back pain status post recent surgery. Last [facility] confinement July 2020 for UTI. Recent confinement [facility] last week under Orthopedics spine service for lumbar radiculopathy status post elective L5-S1 decompression. As per patient, postop back pain uncontrolled at time of discharge after overnight stay. Worsening low back pain radiating to the left leg over the next few days. Left leg weaker than usual as per patient. Low-grade fever at home 101 F as per patient. No chest pain, no shortness of breath. Pain not improved with extra pain medications prescribed by Orthopedics provider outpatient. Patient consulted ER for worsening symptoms. Solu-Medrol and Morphine administered at the ER. Intractable pain despite above interventions. ER provider contacted [facility] Orthopedics clinical field specialist on-call refused patient transfer given patient data and absence of Orthopedics spine coverage at [facility] today. 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 Allergies Allergy/AdvReac Type Severity Reaction Status Date / Time ciprofloxacin Allergy Intermediate VOMITING/DI Verified 12/28/21 20:20 ARRHEA diphenhydramine Allergy Intermediate Rash Verified 12/28/21 20:20 meloxicam Allergy Intermediate Diffuse Verified 12/28/21 20:20 "breakouts", pruritus Penicillins Allergy Intermediate Rash Verified 12/28/21 20:20 tramadol Allergy Mild Rash Verified 12/28/21 20:20 Home Medications Medication Instructions Recorded Confirmed Type albuterol sulfate 90 mcg/actuation 2 inh inhalation Q4 PRN Shortness 08/20/21 12/28/21 History aerosol inhaler Of Breath Or Wheezing azelastine 137 mcg (0.1 %) nasal 2 spray intranasal BID 08/20/21 12/28/21 History spray aerosol cyanocobalamin (vitamin B-12) 1,000 mcg IM MO 08/20/21 12/28/21 History 1,000 mcg/mL injection solution fluticasone propionate 50 2 spray intranasal QAM 08/20/21 12/28/21 History mcg/actuation nasal spray,suspension gabapentin 300 mg capsule 300 mg PO HS 08/20/21 12/28/21 History mometasone-formoterol HFA 100 2 puff inhalation BID 08/20/21 12/28/21 History mcg-5 mcg/actuation aerosol inhaler (Dulera) oxycodone-acetaminophen 5 mg-325 1 tab PO Q8 PRN Pain 08/20/21 12/28/21 History mg tablet pediatric multivitamin no.76 1 tab PO DAILY 08/20/21 12/28/21 History (Flintstones Complete chewable tablet) ondansetron 4 mg disintegrating 4 mg PO Q6H PRN nausea and 08/21/21 12/28/21 Rx tablet vomiting #12 tabs Unknown Muscle Relaxant 1 dose PO DIRECTED PRN MUSCLE 12/28/21 12/28/21 History SPASMS gabapentin 100 mg capsule 100 mg PO QAM 12/28/21 12/28/21 History Past Med/Surg History Medical History Anemia Asthma LAST USED RESCUE INHALER 2 DAYS AGO Chronic back pain DDD lumbar Depression with anxiety GERD (gastroesophageal reflux disease) Heart palpitations REASON FOR METOPROLOL>HOLTOR MONITOR DONE "WNL">FOLLOWS [facility] History of COVID-19 02/2021 [facility] AURE>FATIGUE/FEVER *FEELING BETTER History of right inguinal hernia IBS (irritable bowel syndrome) Inflammatory polyarthritis Kidney stones OSHEA (nonalcoholic steatohepatitis) Scoliosis (vaginal after ) Surgical History H/O gastric bypass 06/2017 History of x2 History of cholecystectomy History of colonoscopy History of cystoscopy History of dental surgery History of esophagogastroduodenoscopy (EGD) History of tonsillectomy and adenoidectomy Hx of LASIK Status post panniculectomy Family History Father Family history of diabetes mellitus Sister Family history of diabetes mellitus Other Cancer Diabetes Heart disease Hypertension Lung disease No family history of adverse response to anesthesia Seizures Social History Smoking Status: Never smoker Second Hand Exposure: No; Do You Dip or Chew Tobacco: No; Hx Alcohol Use: Yes Alcohol type: beer Hx Substance Use: No Preferred Language: [place] Islander Communication Ability: Effective Sprinkler Irrigation Equipment Mechanic Required: No Beliefs That Will Affect Care: None marital status: Single Current Living Situation: Parent, Family and Significant Other Current Living Situation Comment: Fiance and children current occupational status: employed Feels Safe at Home: Yes Safety Concerns: Feels Safe At This Time Assistive Devices: None Review of Systems Review of Systems: As per HPI, all other systems reviewed and negative Physical Exam Physical Exam: GENERAL: Slightly uncomfortable, obese, no respiratory distress SKIN: Normal color, warm HEENT: [place] palpebral conjunctivae, no ptosis, dry buccal mucosa NECK : Supple, no tenderness CHEST : CTA, no tenderness HEART : RRR, no obvious murmurs ABDOMEN: Some distention, nontender BACK : low back tenderness, positive L SLR EXTREMITIES : No LE swelling/tenderness, no other conspicuous deformities noted NEUROLOGIC : Coherent, no facial asymmetry, minimal left leg sideways movement, gait and stance not assessed Results & Data Results & Data ([facility]) Vital Signs (Past 12 Hours) Vital Signs Temp Pulse Pulse Resp BP BP Pulse Ox 12/29/21 00:00 85 20 127/81 98 12/28/21 20:37 74 18 137/100 93 12/28/21 20:16 97 12/28/21 19:10 91 H 18 124/71 99 12/28/21 18:42 36.6 C 93 H 18 141/74 H 98 O2 Del Method 12/29/21 00:00 Room Air 12/28/21 20:37 Room Air 12/28/21 20:16 Room Air 12/28/21 19:10 Room Air 12/28/21 18:42 Room Air Laboratory Results Laboratory Results WBC 9.15 K/ul (4.8-10.8) 12/28/21 19:41 RBC 4.12 M/uL (3.93-5.22) 12/28/21 19:41 Hgb 13.6 g/dl (12.0-16.0) 12/28/21 19:41 Hct 40.2 % (34.1-44.9) 12/28/21 19:41 MCV 97.6 fL (80.0-100.0) 12/28/21 19:41 MCH 33.0 pg (25.0-34.0) 12/28/21 19:41 MCHC 33.8 g/dL (32.0-36.0) 12/28/21 19:41 RDW Std Deviation 45.5 fL (36.4-46.3) 12/28/21 19:41 RDW Coeff of Shashi 12.9 % (11.5-14.5) 12/28/21 19:41 Plt Count 336 K/uL (130-400) 12/28/21 19:41 MPV 9.2 fL (9.4-12.3) L 12/28/21 19:41 Immature Gran % (Auto) 0.3 % 12/28/21 19:41 Neut % (Auto) 66.3 % 12/28/21 19:41 Lymph % (Auto) 25.0 % 12/28/21 19:41 [place] % (Auto) 5.9 % 12/28/21 19:41 Eos % (Auto) 1.5 % 12/28/21 19:41 Baso % (Auto) 1.0 % 12/28/21 19:41 Neut # (Auto) 6.06 K/uL (1.4-6.5) 12/28/21 19:41 Lymph # (Auto) 2.29 K/uL (1.2-3.4) 12/28/21 19:41 [place] # (Auto) 0.54 K/uL (0.24-0.82) 12/28/21 19:41 Eos # (Auto) 0.14 K/uL (0-0.50) 12/28/21 19:41 Baso # (Auto) 0.09 K/uL (0-0.2) 12/28/21 19:41 Immature Gran # (Auto) 0.03 K/uL (0.00-0.02) H 12/28/21 19:41 Sodium 138 mmol/L (136-145) 12/28/21 19:41 Potassium 4.0 mmol/L (3.5-5.1) 12/28/21 19:41 Chloride 106 mmol/L (98-107) 12/28/21 19:41 Carbon Dioxide 27 mmol/L (21-32) 12/28/21 19:41 Anion Gap 5 (3-11) 12/28/21 19:41 BUN 8 mg/dl (6-23) 12/28/21 19:41 Creatinine 0.49 mg/dl (0.6-1.2) L 12/28/21 19:41 Est Cr Clr Drug Dosing Not Reportable 12/28/21 19:41 Est GFR ( Amer) 143.2 ml/min 12/28/21 19:41 Est GFR (Non-Af Amer) 123.6 ml/min 12/28/21 19:41 BUN/Creatinine Ratio 16.3 (10-20) 12/28/21 19:41 Glucose 87 mg/dl (70-99(Fasting)) 12/28/21 19:41 Calcium 9.0 mg/dl (8.5-10.1) 12/28/21 19:41 Total Bilirubin 0.3 mg/dl (0.2-1.0) 12/28/21 19:41 AST 14 U/L (13-39) 12/28/21 19:41 ALT 10 U/L (7-52) 12/28/21 19:41 Alkaline Phosphatase 74 U/L (34-104) 12/28/21 19:41 Total Protein 7.4 gm/dl (6.0-8.3) 12/28/21 19:41 Albumin 4.2 gm/dl (3.4-5.0) 12/28/21 19:41 Globulin 3.2 gm/dl (2.5-4.0) 12/28/21 19:41 Albumin/Globulin Ratio 1.3 (0.9-2) 12/28/21 19:41 Lipase 43 U/L (11-82) 12/28/21 19:41 Urine Color Yellow 12/28/21 20:39 Urine Appearance Clear (Clear) 12/28/21 20:39 Urine pH 7.0 (4.5-7.5) 12/28/21 20:39 Ur Specific [place] 1.018 (1.000-1.030) 12/28/21 20:39 Urine Protein Negative (Negative) 12/28/21 20:39 Urine Glucose (UA) Negative (Negative) 12/28/21 20:39 Urine Ketones Negative (Negative) 12/28/21 20:39 Urine Blood Negative (Negative) 12/28/21 20:39 Urine Nitrite Negative (Negative) 12/28/21 20:39 Urine Bilirubin Negative (Negative) 12/28/21 20:39 Urine Urobilinogen Negative (Negative) 12/28/21 20:39 Ur Leukocyte Esterase Negative (Negative) 12/28/21 20:39 Urine Test Negative (Negative) 12/28/21 20:39 SARS-CoV-2, RNA, NAAT NEGATIVE (NEGATIVE) 12/29/21 00:01 Impressions Abdomen/Pelvis CT 12/28/21 19:[address] WITHOUT CONTRAST CT DOSE: 611.45 mGy.cm HISTORY: b/l flank pain; recent L spine procedure TECHNIQUE: Multiaxial CT images of the abdomen and pelvis were performed without contrast. A dose lowering technique was utilized adhering to the principles of ALARA. COMPARISON STUDY: Abdomen and pelvis CT 12/17/2021. FINDINGS: The lung bases are clear. No pneumoperitoneum. No pneumatosis. Interval L5-S1 laminectomy. There are midline skin solange seen within the lower lumbar region. Prior gastric bypass. The unenhanced liver, spleen, adrenal glands, pancreas, and left kidney are unremarkable. Stable cortical calcification within the upper pole the right kidney. There is a stable 5 mm stone within the lower pole of the right kidney. No ureteral stones. No hydronephrosis. Normal caliber abdominal aorta. No retroperitoneal lymphadenopathy. No pelvic free fluid. The bladder, uterus, and ovaries are within normal limits. Suboptimal evaluation for bowel pathology due to the lack of intravenous and oral contrast. However, there is no definite bowel wall thickening or obstruction. Colonic diverticulosis. No evidence for acute diverticulitis. Normal appendix. IMPRESSION: 1. No definite bowel wall thickening or obstruction. 2. Normal appendix. 3. Stable right-sided nephrolithiasis. No ureteral stones. No hydronephrosis. 4. Interval postoperative changes within the lower lumbar spine. ACT 112: Negative or not required by law. Electronically signed by: Jasiel Davis M.D. 12/28/2021 8:10 PM Diagnostic Findings Small hemangioma at L3 measuring 8 mm. Otherwise normal vertebral body. No focal lesion or acute fracture. Normal disc spaces fromL1-L2 to L4-L5. Status post posterior laminectomyat L5-S1. Disc protrusion at L5-S1 along the left paracentral region extending to the left intervertebral foramen contributing to left lateral recess impingement and moderate narrowing of the left intervertebral foramen. Note to be made that following contrast administration there is no enhancement along the left anterolateral thecal sac confirming the soft tissue densitycontouring the left lateral recess and thecal sac likelydisc protrusion. The enhancement within the soft tissues along the operative site is nonspecific and consistent with postoperative change. There is no enhancement to suggest soft tissue abscess. There is normal signal and enhancement of the visualized distal spinal cord.
[2021-12-29] MEDS ORDERED: hydrOXYzine HCl 10 MG TAB PO PRN (02:19)
[2021-12-29] MEDS ORDERED: LIDOCAINE 5% 1 PATCH TD STA (02:31)
[2021-12-29] MEDS ORDERED: ALBUTEROL HFA 8 GM INHALER INH PRN (03:42)
[2021-12-29] MEDS ORDERED: ACETAMINOPHEN 325 MG TAB PO PRN (03:42)
[2021-12-29] MEDS: oxyCODONE HCL IR 5 MG TAB (IMMEDIATE RELEASE) PO PRN ×2 (03:48→09:36)
[2021-12-29] MEDS ORDERED: SODIUM CHLORIDE 0.9% 1000ML 1,000 ML IV ONE (06:07)
--- NOTE | 2021-12-29 06:49 | Communication Note ---
Date of Service: December 29, 2021 Received call back from [employer] [facility]. livestock commission agent in touch with Orthopedic spine service from [facility] patient's case. Patient accepted for transfer by her surgeon, Dr. Priest. Patient to be sent with CD of MRI images from last night. wheel alignment technician earlier requested to push images [employer] EMR through [employer]. N.p.o. until patient seen by surgeon.
--- NOTE | 2021-12-29 06:59 | Discharge Summary ---
Date of Service December 29, 2021 Admission HPI Per Admitting Provider History obtained from patient and records. Medical history significant for asthma, inflammatory polyarthritis, NAFLD, mood disorder, history of gastric bypass, IBS, urolithiasis, chronic back pain status post recent surgery. Last [facility] confinement July 2020 for UTI. Recent confinement [facility] last week under Orthopedics spine service for lumbar radiculopathy status post elective L5-S1 decompression. As per patient, postop back pain uncontrolled at time of discharge after overnight stay. Worsening low back pain radiating to the left leg over the next few days. Left leg weaker than usual as per patient. Low-grade fever at home 101 F as per patient. No chest pain, no shortness of breath. Pain not improved with extra pain medications prescribed by Orthopedics provider outpatient. Patient consulted ER for worsening symptoms. Solu-Medrol and Morphine administered at the ER. Intractable pain despite above interventions. ER provider contacted [facility] Orthopedics vaccines solutions specialist on-call refused patient transfer given patient data and absence of Orthopedics spine coverage at [facility] today. 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 Principal Diagnosis Intractable postop back pain, left leg weakness Discharge Data Allergies Allergy/AdvReac Type Severity Reaction Status Date / Time ciprofloxacin Allergy Intermediate VOMITING/DI Verified 12/28/21 20:20 ARRHEA diphenhydramine Allergy Intermediate Rash Verified 12/28/21 20:20 meloxicam Allergy Intermediate Diffuse Verified 12/28/21 20:20 "breakouts", pruritus Penicillins Allergy Intermediate Rash Verified 12/28/21 20:20 tramadol Allergy Mild Rash Verified 12/28/21 20:20 Consultations 12/29/21 00:38 ED Decision to Admit Stat 12/29/21 06:44 Burn CD for patient Stat Ordered Studies 12/28/21 19:13 CT abd pelvis wo con Stat 12/28/21 20:25 MR lumbar spine wo/w con Stat Hospital Course (1) Lumbar radiculopathy: Worsening postop pain and LLE weakness Recent surgery last week at [facility] asthma, stable hx inflammatory polyarthritis on immunosuppressive regimen hx NAFLD mood disorder, at baseline history of gastric bypass OBS F Analgesia Orthopedics spine consult Re: Worsening postop lumbar radiculopathy (Will request AM provider to contact patient's [facility] surgeon (Dr. Priest) in a.m. for further recommendations given absence of Orthopedics spine coverage at [facility] today as per online physician schedule.) [ER provider earlier contacted Dr. Hastings of [facility] (on-call physician for patient's [facility] surgeon, Dr. Priest) who refused patient transfer. Patient transfer to [facility] hospitalist service for postop Orthopedics spine evaluation as per patient request was likewise refused by on-call skin care instructor, Dr. Peralta.] DVT prophylaxis. SCDs Re: Recent spine surgery Full code 12/29, 630 a.m. Received call back from [facility]. inbound call center agent in touch with Orthopedic spine service from [facility] regarding patient's case. Patient accepted for transfer by her surgeon, Dr. Priest. Patient to be sent with CD of MRI images from last night. zoning technician earlier requested to push images [facility] EMR through [employer]. N.p.o. until patient seen by surgeon. Patient updated of developments and agreeable to plan of care. Total time to prepare this discharge summary was less than 10 minutes. Text document was generated using [employer] voice recognition software. It may contain grammatical or spelling errors. Kindly contact undersigned for clarification of any documentation item in question. Total Time Total Time Spent Total Time Spent (In Minutes): 15 Discharge Plan Discharge Items Reason For Visit: BACK PAIN Discharge Diagnosis: Intractable postop back pain, left leg weakness Activity: Resume your previous activity Lifting: Wait until after follow-up appointment Non-emergency contact: Primary Care Provider Call non-emergency contact if: you have any medication questions Follow-up/Referrals: Audra Joya, [Primary Care Provider] - Diet: Nothing by Mouth Addtl Attending Provider Instructions: NPO until patient seen by [facility] surgeon Pending Studies at Discharge: No Stand-Alone Forms: [facility] Skilled Items Patient informed of condition?: Yes DNR: No Discharge Level of Care: Other Communicable Disease: No Discharge Prognosis: Stable Lines: Peripheral IV Urinary Catheter: No Medications and DC Order Prescriptions: Continued oxycodone-acetaminophen 5-325 mg tablet 1 tab PO Q8 PRN (Reason: Pain) cyanocobalamin (vitamin B-12) 1,000 mcg/mL Solution 1,000 mcg IM MO gabapentin 300 mg capsule 300 mg PO HS azelastine 137 mcg (0.1 %) Aerosol,[place] 2 spray INTRANASAL BID albuterol sulfate 90 mcg/actuation Hfa Aerosol Inhaler 2 inh INHALATION Q4 PRN (Reason: Shortness Of Breath Or Wheezing) fluticasone propionate 50 mcg/actuation spray,suspension 2 spray INTRANASAL QAM Dulera 100-5 mcg/actuation HFA aerosol inhaler 2 puff INHALATION BID Flintstones Complete Tablet,Chewable 1 tab PO DAILY ondansetron 4 mg tablet,disintegrating 4 mg PO Q6H PRN (Reason: nausea and vomiting) Qty: 12 0RF gabapentin 100 mg Capsule 100 mg PO QAM Unknown Muscle Relaxant 1 dose PO DIRECTED PRN (Reason: MUSCLE SPASMS) Rx Instructions: PT UNSURE OF NAME OR STRENGTH OF MED, UNABLE TO VERIFY THIS MED. Admission Data Admit Date/Time: 12/29/21 02:18 Attending Provider: José Escamilla Admit Provider: Vinicio Melgar Primary Care Provider: Audra Joya Other Providers: Vinicio Melgar
--- NOTE | 2021-12-29 08:21 | Magnetic Resonance Report ---
MR lumbar spine wo/w con CLINICAL HISTORY: LLE weakness s/p lumbar surgery TECHNIQUE: 3 plane localizer images, sagittal T2, sagittal T1, sagittal STIR, axial T1, axial T2 aakash g with postcontrast axial T1 and sagittal T1 fat-saturated sequences were obtained of the lumbar spin e, before and after intravenous administration of 12 mL of MultiHance. Comparison: Comparison is made to CT lumbar spine 04/13/[address] abdomen pelvis 12/28/2021 FINDINGS: A bone hemangioma is seen at L3. Disks are normal in height and signal. Patient is status post master certified rv technician ior laminectomy at L5-S1. Soft tissue swelling and enhancement is seen at the surgical site without e vidence of abscess or seroma. L1-L2: No significant abnormality. L2-L3: No significant abnormality. L3-L4: No significant abnormality. L4-L5: No significant abnormality. L5-S1: Focal left greater than right disc bulge is seen with mild left neuroforaminal stenosis. The spinal ligaments are intact, without evidence of disruption or abnormal signal intensity. The spi nal cord is normal in signal intensity and there is no evidence of cord contusion. There is no eviden ce of an extradural, intradural, extramedullary or intramedullary lesion. Visualized soft tissues are normal. IMPRESSION: Mild left neuroforaminal stenosis status post left-sided disc bulge. Postsurgical changes of laminect flakito are seen without evidence of abnormal fluid collection. ACT 112: Negative or not required by law. Electronically signed by: Leoncio Walker M.D. 12/29/2021 8:20 AM
[2021-12-29] MEDS ORDERED: GABAPENTIN 100 MG CAP PO SCH (09:00)
[2021-12-29] MEDS ORDERED: FLUTICASONE/VILANTEROL 100/25MCG 14 PUFFS/INHALER INH SCH (09:00)
[2021-12-29] MEDS ORDERED: MULTIVITAMIN CHEWABLE TAB PO SCH (09:00)
[2021-12-29] MEDS ORDERED: FLUTICASONE PROPIONATE NA SPR 16 GM BTL SCH (09:00)
[2021-12-29] MEDS ORDERED: AZELASTINE HCL 0.1% NASAL 200 SPRAYS/27,400 MCG BTL SCH (09:00)
[2021-12-29] MEDS ORDERED: GABAPENTIN 300 MG CAP PO SCH (21:00)
[2021-12-29] MEDS ORDERED: LIDOCAINE 5% 1 PATCH TD SCH (21:00)
[2021-12-30] MEDS ORDERED: LIDOCAINE 5% 1 PATCH TD SCH (09:00)
== END 2021-12-29 10:52 | disposition short-term general hospital (02) ==
LOC: 3W 18:39 → ED 18:39 → 3W 12-29 02:59